=== PATIENT | female | born 1950 | race Caucasian/White ===

== ENCOUNTER 2018-05-16 17:06 | Outpatient (REF) | payer MEDICARE, OTHER, SELFPAY ==
[2018-05-18 12:07] LABS: Hepatitis C Ab w Rflx HCV PCR Negative (NEGAT)
== END 2018-05-16 17:26 ==
LOC: NCHCN 17:06
PROVIDERS: Visit Provider Nurse Practitioner Family
DX: G47.33 Obstructive sleep apnea (adult) (pediatric) (principal); Z01.84 Encounter for antibody response examination
CPT/HCPCS: 86803

== ENCOUNTER 2018-07-16 08:47 | Emergency (ER) | payer MEDICARE, OTHER, SELFPAY ==
[2018-07-16 08:51] VITALS: BP 127/76; RESP 14; TEMP 36.7; O2SAT 98
--- NOTE | 2018-07-16 09:54 | ED.GENADUL_ITS ---
Discharge Plan Disposition Patient Disposition: HOME Condition: Good Discharge Details Chief Complaint: GenMedical Clinical Impression: Sinusitis Primary Care Provider: Dottie Lala ED Provider: Damien Redd Home Meds and New Rx's Prescriptions: New amoxicillin 500 mg capsule 500 mg PO BID Qty: 20 RF: 0 No Action amlodipine 5 MG tablet 5 mg PO DAILY RF: 0 levothyroxine [Synthroid] 50 MCG tablet 50 mcg PO QAM RF: 0 multivitamin 1 EACH capsule 1 tab PO QPM RF: 0 calcium carb,cit-mag cit,glycn [LoCalnesium] 1 EACH tablet 1 ea PO DAILY RF: 0 Discharge Instructions Instructions: Sinusitis (ED) Referrals: [facility] Emergency Dept. [Outside] - Return if symptoms worsen Medical Decision Making We discussed strep and sinusitis and antibiotic stewardship. I believe antibiotics should be considered with worsening ear pressure and pain to include right face over three weeks. She will hold on the antibiotics for a couple days and try nasal irrigation and Claritin to see if she can get the right ear to drain. If not she will start the antibiotics. Advised to return if symptoms worsen. HPI General Date/Time Provider Initiated Documentation: 07/16/18 09:18 . Limitations to Documentation: no limitations . Information obtained by: patient . History of Present Illness 67 year old F presents to the emergency department with the chief complaint of ear pain , HPI Narrative: 67 y/o female here with c/o right ear and face pain. Cold symptoms started three weeks ago. She had negative rapid strep at her PCP office one week ago. Strep was done for spots on back of throat. She has been treating with ibuprofen and Neti pot. The spots are back and the right ear pain has gotten much worse over the last few days and now radiates into down the face. Denies fever and chills. Related Data Home Medications Medication Instructions Recorded Confirmed levothyroxine [Synthroid] 50 mcg PO QAM 03/24/14 07/16/18 multivitamin 1 tab PO QPM 03/24/14 07/16/18 amlodipine 5 mg PO DAILY tab-cap 07/05/17 07/16/18 calcium carb,cit-mag cit,glycn 1 ea PO DAILY 07/13/17 07/16/18 [LoCalnesium] amoxicillin 500 mg PO BID #20 cap 07/16/18 Previous Rx's Medication Instructions Recorded amoxicillin 500 mg PO BID #20 cap 07/16/18 Allergies Allergy/AdvReac Type Severity Reaction Status Date / Time No Known Allergies Allergy Unverified 02/24/18 19:32 General Stated Complaint: GenMedical ANUP: 4 Review of Systems Eyes Reports system reviewed and no additional complaints, except as docu ENT Reports otalgia, Reports facial pain and Reports mouth lesions Cardiovascular Reports system reviewed and no additional complaints, except as docu Respiratory Reports system reviewed and no additional complaints, except as docu Gastrointestinal Reports system reviewed and no additional complaints, except as docu Genitourinary Reports system reviewed and no additional complaints, except as docu Allergic/Immunologic Reports system reviewed and no additional complaints, except as docu PFSH Medical History HTN (hypertension) Hypothyroidism Social History Smoking/Tobacco Use Status: Never Surgical History Colonoscopy - MAC (07/19/17) Tubal Ligation, Laparoscopic Exam Const General: cooperative, healthy appearing, comfortable and no acute distress Nutritional Appearance: thin Orientation: alert, awake and oriented x3 HENMT Head: atraumatic Ears: hearing grossly normal bilaterally, external ears normal, TM normal on the left and TM abnormal bulging on the right and with loss of landmarks on the right General nose exam: external nose normal Face and sinus: sinuses nontender, face symmetric and tenderness on the right mandible Mouth: oral mucosae normal Teeth and gingiva: dentition normal Throat: posterior oropharynx normal Eyes General: appearance normal, both eyes and all related structures Neck Neck: normal visual inspection, full ROM and no lymphadenopathy Resp Effort & Inspection: normal respiratory effort and able to speak in complete sentences Auscultation: clear to auscultation bilaterally Cardio Rate: regular rate Rhythm: regular rhythm Skin General skin exam: no rashes or lesions noted Neuro General: alert and gait normal Extrem General: full ROM and normal capillary refill Psych Appearance: grossly normal Speech and Movement: speech and movement normal Course Vital Signs Temperature 36.7 C 07/16/18 08:51 Respiratory Rate 14 07/16/18 08:51 Blood Pressure 127/76 07/16/18 08:51 Pulse Oximetry 98 07/16/18 08:51 Temperature 36.7 C 07/16/18 08:51 Temperature Source Temporal Artery Scan 07/16/18 08:51 Respiratory Rate 14 07/16/18 08:51 Blood Pressure 127/76 07/16/18 08:51 Blood Pressure Position Sitting 07/16/18 08:51 Pulse Oximetry 98 07/16/18 08:51 Oxygen Delivery Method Room Air 07/16/18 08:51 Oxygen Flow Rate 0 07/16/18 08:51 Pain Level 5 07/16/18 08:51
== END 2018-07-16 09:59 | disposition home or self-care (01) ==
LOC: ER 10:03
PROVIDERS: Emergency Provider Nurse Practitioner Family; PCP Nurse Practitioner Family
DX: J01.90 Acute sinusitis, unspecified (principal); I10 Essential (primary) hypertension
CPT/HCPCS: 99283

== ENCOUNTER 2018-09-05 10:23 | Outpatient (REF) | payer MEDICARE, OTHER, SELFPAY ==
[2018-09-05 12:47] LABS: CREATININE 0.78 mg/dL (0.55-1.02); TSH (W/Ref FT4) 0.59 uIU/mL (0.358-3.74)
== END 2018-09-05 10:43 ==
LOC: NCHCN 10:23
PROVIDERS: PCP Nurse Practitioner Family; Visit Provider Nurse Practitioner
DX: E03.9 Hypothyroidism, unspecified (principal); M25.562 Pain in left knee; R91.1 Solitary pulmonary nodule
CPT/HCPCS: 82565; 84443

== ENCOUNTER 2018-09-16 00:17 | Outpatient (CLI) | payer MEDICARE, OTHER, SELFPAY ==
--- NOTE | 2018-09-16 09:06 | DI.CT_ITS ---
SYMPTOMS/DIAGNOSIS: PULMONARY NODULE, LEFT LOWER LOBE, R91.1 CT SCAN OF THE CHEST: CT scan of the chest was performed following the uneventful administration of intravenous contrast material. Comparison CT abdomen and pelvis is 02/24/18. The thoracic aorta is intact. The heart size is within normal limits. No significant pericardial effusion is seen. Mild coronary artery calcifications are present. There are surgical clips seen in the mediastinum. No pleural effusion or pneumothorax is identified. No significant thoracic adenopathy is appreciated. The 4 mm nodule in the lateral aspect of the left lower lobe appears stable. There is a calcified nodule seen in the left lower lobe medially. No other pulmonary nodules are appreciated. No infiltrates are seen. The tracheobronchial tree is unremarkable. Dependent atelectatic changes are seen in the lung bases. Upper abdominal images show no acute abnormality. Age- appropriate degenerative changes are seen in the spine. IMPRESSION: Stable 4 mm left lower lobe pulmonary nodule. Depending on patient history, follow-up CT scan of the chest in six to 12 months is recommended to document stability of the nodule.
[2018-09-16] MEDS: Omnipaque 350 MG/ML 100 ML BTL IJ (09:07)
== END 2018-09-16 00:37 ==
PROVIDERS: PCP Nurse Practitioner Family; Visit Provider Nurse Practitioner
DX: R91.1 Solitary pulmonary nodule (principal)
CPT/HCPCS: 71260; J3490

== ENCOUNTER 2018-09-26 14:30 | Outpatient (CLI) | payer MEDICARE, OTHER, SELFPAY ==
--- NOTE | 2018-09-26 14:50 | DI.RAD_ITS ---
SYMPTOM/DIAGNOSIS: LT KNEE PAIN LEFT KNEE: There is mild spurring at the medial femoral condyle, medial tibial plateau and patella. No joint effusion is seen. IMPRESSION: Mild degenerative changes.
== END 2018-09-26 14:50 ==
PROVIDERS: PCP Nurse Practitioner Family; Referring Provider Nurse Practitioner Family; Visit Provider Student in an Organized Health Care Education/Training Program
DX: M25.562 Pain in left knee (principal); M17.11 Unilateral primary osteoarthritis, right knee; M22.92 Unspecified disorder of patella, left knee
CPT/HCPCS: 73562; 99202; 99214

== ENCOUNTER 2018-11-07 09:58 | Outpatient (CLI) | payer MEDICARE, OTHER, SELFPAY ==
--- NOTE | 2018-11-07 09:29 | DI.RAD_ITS ---
SYMPTOMS/DIAGNOSIS: RT FOOT PAIN, CONTINUED LT PATELLA PAIN RIGHT FOOT: Three views. No priors for comparison. No acute fracture or dislocation is identified. No suspicious lytic or sclerotic lesions are seen. Minimal degenerative changes are seen in the foot. The soft tissues are unremarkable. MERCHANT VIEW OF THE KNEES: Single merchant view of the knees were obtained. Alignment appears anatomic. No gross osseous abnormality or soft tissue abnormality is appreciated.
== END 2018-11-07 10:18 ==
PROVIDERS: PCP Nurse Practitioner Family; Referring Provider Nurse Practitioner Family; Visit Provider Student in an Organized Health Care Education/Training Program
DX: M25.562 Pain in left knee (principal); M79.671 Pain in right foot; M19.071 Primary osteoarthritis, right ankle and foot; M67.431 Ganglion, right wrist; I10 Essential (primary) hypertension
CPT/HCPCS: 73565; 99213; 73630

== ENCOUNTER 2019-03-30 10:34 | Outpatient (REF) | payer MEDICARE, OTHER, SELFPAY ==
[2019-03-30 21:18] LABS: Hemoglobin A1C 5.3 % (4.5-6.2)
[2019-03-30 21:25] LABS: Calculated LDL 140 mg/dL; Cholesterol 232 mg/dL (50-200); HDL Cholesterol 78 mg/dL (40-60); TSH (W/Ref FT4) 0.92 uIU/mL (0.36-3.74); Triglyceride 71 mg/dL (30-150)
== END 2019-03-30 10:54 ==
LOC: NCHCN 10:34
PROVIDERS: PCP Nurse Practitioner Family; Visit Provider Nurse Practitioner Family
DX: E03.9 Hypothyroidism, unspecified (principal); R73.01 Impaired fasting glucose; E78.5 Hyperlipidemia, unspecified; G47.62 Sleep related leg cramps; M19.049 Primary osteoarthritis, unspecified hand
CPT/HCPCS: 80061; 83721; 83036; 84443

== ENCOUNTER 2019-04-20 00:37 | Outpatient (CLI) | payer MEDICARE, OTHER, SELFPAY ==
--- NOTE | 2019-04-20 09:57 | DI.MAMMO_ITS ---
SYMPTOM/DIAGNOSIS: SCREENING, Z12.39 MAMMOGRAMS: Mammograms were interpreted according to the usual protocol including computer analysis with CAD system, tomosynthesis and C view imaging. Comparison is made with prior examinations. Breast density, Category C. No suspicious masses or microcalcifications are seen. There is no definite evidence of malignancy. IMPRESSION: Negative mammogram. Routine screening is recommended. Category 1. MQSA ASSESSMENT OF FINDINGS: Negative. Category 1. Patient will receive a letter notifying them of these results. Bi-RADS category C. The breasts are heterogeneously dense, which may obscure small masses.
== END 2019-04-20 00:57 ==
PROVIDERS: PCP Nurse Practitioner Family; Visit Provider Nurse Practitioner Family
DX: Z12.31 Encounter for screening mammogram for malignant neoplasm of breast (principal)
CPT/HCPCS: 77063; 77067

== ENCOUNTER 2019-10-02 11:29 | Outpatient (REF) | payer MEDICARE, OTHER, SELFPAY ==
[2019-10-02 21:04] LABS: CREATININE 0.67 mg/dL (0.55-1.02)
== END 2019-10-02 11:49 ==
LOC: NCHCN 11:29
PROVIDERS: PCP Nurse Practitioner Family; Visit Provider Nurse Practitioner Family
DX: R73.01 Impaired fasting glucose (principal); E78.5 Hyperlipidemia, unspecified; N39.3 Stress incontinence (female) (male); E03.9 Hypothyroidism, unspecified; G47.62 Sleep related leg cramps; M19.049 Primary osteoarthritis, unspecified hand; G47.33 Obstructive sleep apnea (adult) (pediatric); R91.1 Solitary pulmonary nodule
CPT/HCPCS: 82565

== ENCOUNTER 2019-10-10 02:05 | Outpatient (CLI) | payer MEDICARE, OTHER, SELFPAY ==
--- NOTE | 2019-10-10 08:00 | DI.CT_ITS ---
EXAM: CT CHEST WO CLINICAL HISTORY: PULMONARY NODULE LT LOWER LOBE, R91.1. TECHNIQUE: Imaging protocol: Axial computed tomography images were obtained and coronal and sagittal reformatted images were created and reviewed. FINDINGS: Tracheobronchial tree: Patent where visualized. Mediastinum and Radha: No dominant adenopathy or fluid collection. Pulmonary parenchyma: There is a stable 4 millimeter pulmonary nodule in the lateral aspect of the le ft lower lobe. There is a stable calcified granuloma in the medial aspect of the left lower lobe. N o new pulmonary nodules are seen. There are no focal consolidating infiltrates. No architectural di stortion. Pleura: No effusion or pneumothorax. Heart: The heart is not dilated. Mild coronary artery calcification is present. No pericardial effus ion is present. Aorta: Thoracic aorta non-dilated. Mild atherosclerosis. Upper abdomen: Unremarkable. Lymph nodes: Within normal limits. Bones:Mild degenerative changes. IMPRESSION: Stable left lower lobe pulmonary nodule. DATA REPOSITORY: All CT scans at this facility are submitted to the National Radiology Data Registry (NRDR) Dose Index Registry (DIR) with the [employer] (ACR). RADIATION OPTIMIZATION: All CT scans at this facility use at least one of these dose optimization te chniques: automated exposure control; mA and/or kV adjustment per patient size (includes targeted exa ms where dose is matched to clinical indication); or iterative reconstruction.
== END 2019-10-10 02:25 ==
PROVIDERS: PCP Nurse Practitioner Family; Visit Provider Nurse Practitioner Family
DX: R91.1 Solitary pulmonary nodule (principal)
CPT/HCPCS: 71250

== ENCOUNTER → 2020-02-19 08:10 | Outpatient (BNVA) | payer MEDICARE, OTHER, SELFPAY | PROVIDERS: PCP Nurse Practitioner Family; Referring Provider Nurse Practitioner Family; Visit Provider Student in an Organized Health Care Education/Training Program | DX: M25.562 Pain in left knee (principal); M23.92 Unspecified internal derangement of left knee; I10 Essential (primary) hypertension | CPT/HCPCS: 20610; 99213; J1040 ==

== ENCOUNTER 2020-05-01 20:59 | Outpatient (REF) | payer MEDICARE, OTHER, SELFPAY ==
[2020-05-01 21:13] LABS: TSH 0.85 uIU/mL (0.36-3.74)
== END 2020-05-01 21:19 ==
LOC: NCHCN 20:59
PROVIDERS: PCP Nurse Practitioner Family
DX: E03.9 Hypothyroidism, unspecified (principal)
CPT/HCPCS: 84443

== ENCOUNTER 2020-05-16 02:08 | Outpatient (CLI) | payer MEDICARE, OTHER, SELFPAY ==
--- NOTE | 2020-05-16 12:15 | DI.MAMMO_ITS ---
EXAM: MG MAMMO SCREENING CLINICAL HISTORY: SCREENING,Z12.39 TECHNIQUE: Bilateral full field digital CC and MLO mammographic images were obtained with 3D tomosyn thesis and utilizing computer aided detection (CAD). COMPARISON: Available for comparison. FINDINGS: Masses/Architectural Distortion: None seen. Microcalcifications: No suspicious pleomorphic-type are seen. Skin Thickening/Nipple Retraction: None. IMPRESSION: 1. No significant interval change with no specific features of malignancy noted. 2. Unless there is more urgent need, screening mammography is recommended, as per [employer] guidelines. BI-RADS Category 1 - Negative Breast Density - Category C - Heterogeneously dense The mammogram demonstrates the patient's breast tissue is dense. Dense breast tissue is very common a nd is not abnormal but dense breast tissue can make it harder to find cancer on a mammogram. Also, de nse breast tissue may increase their breast cancer risk. This information about the result [facility] report was provided to the patient to raise their awareness. Use this report when you speak wi th the patient about their risks for breast cancer, which includes their family history. At that time , you may recommend for more screening tests (Ultrasound or MRI) as they might be useful based on the ir risk. A negative radiographic report should not delay biopsy if a dominant or clinically suspicious mass is present. Up to ten percent of cancers are not identified on mammography. A negative report may reinforce clinical impression. Adenosis and dense breasts may obscure an underlying neoplasm. False positive reports average 6 to 10%. Patient will receive a letter notifying them of these results.
== END 2020-05-16 02:28 ==
PROVIDERS: PCP Nurse Practitioner Family
DX: Z12.31 Encounter for screening mammogram for malignant neoplasm of breast (principal)
CPT/HCPCS: 77063; 77067

== ENCOUNTER → 2020-06-14 08:09 | Outpatient (BNVA) | payer MEDICARE, OTHER, SELFPAY | PROVIDERS: PCP Nurse Practitioner Family; Referring Provider Nurse Practitioner Family; Visit Provider Student in an Organized Health Care Education/Training Program | DX: M23.92 Unspecified internal derangement of left knee (principal); I10 Essential (primary) hypertension; Z98.890 Other specified postprocedural states | CPT/HCPCS: 20610; 99213; J1040 ==

== ENCOUNTER 2020-07-04 12:24 | Outpatient (REF) | payer MEDICARE, OTHER, SELFPAY ==
[2020-07-04 21:31] LABS: HCT 40.7 % (36.0-46.0); HGB 13.2 g/dL (11.2-15.7); MCH 29.6 pg (27.0-33.0); MCHC 32.4 % (32.0-36.0); MCV 91.3 fL (80-95); MPV 9.9 fL (8.0-11.0); Platelet Count 332 10^3/uL (130-400); RBC 4.46 10^6/uL (3.93-5.22); RDW 12.5 % (11.7-14.6); RDW-SD 41.6 fL; WBC 7.61 10^3/uL (4.4-10.8)
[2020-07-04 21:39] LABS: ALT 24 U/L (14-59); AST 22 U/L (15-37); Albumin 4.3 g/dL (3.4-5.0); Alkaline Phosphatase 98 U/L (46-116); Anion Gap 7.8 mmol/L (3-11); BUN 11 mg/dL (7-18); Bilirubin, Total 0.6 mg/dL (0.2-1.0); CO2 30.2 mmol/L (21.0-32.0); CREATININE 0.73 mg/dL (0.55-1.02); Calcium 9.4 mg/dL (8.5-10.1); Chloride 100 mmol/L (98-107); Glucose 97 mg/dL (74-106); Lipase 132 U/L (73-393); Potassium 3.9 mmol/L (3.5-5.1); Sodium 138 mmol/L (136-145); Total Protein 7.4 g/dL (6.4-8.2)
== END 2020-07-04 12:44 ==
LOC: NCHCN 12:24
PROVIDERS: PCP Nurse Practitioner Family; Visit Provider Family Medicine
DX: R10.13 Epigastric pain (principal)
CPT/HCPCS: 80053; 83690; 85027

== ENCOUNTER 2020-07-19 02:21 | Outpatient (CLI) | payer MEDICARE, OTHER, SELFPAY ==
--- NOTE | 2020-07-19 | DI.US_ITS ---
EXAM: US ABDOMEN INDICATION: EPIGASTRIC PAIN, R10.13 COMPARISON: US LEFT BREAST ULTRASOUND {[id number]} from 12/18/2015 TECHNIQUE: Ultrasound abdomen performed using standard protocol FINDINGS: Abdominal ultrasound was performed according to the usual protocol. The liver is normal in size and shape. No focal hepatic lesion seen. There is no evidence of cholelithiasis or biliary dilatation. No gallbladder wall thickening or peric holecystic fluid collection. Pancreas appears intact as visualized. Spleen is unremarkable in appearance except for an incidental calcification, nonspecific.. Kidneys are normal in size and shape. No renal mass, hydronephrosis, or nephrolithiasis. Abdominal aorta and IVC are of normal diameter. IMPRESSION: Negative abdominal ultrasound .
--- NOTE | 2020-07-19 08:00 | DI.NM_ITS ---
EXAM: NM HEPATOBILIARY SCAN GRP CLINICAL HISTORY: EPIGASTRIC PAIN, R10.13. COMPARISON: No exams were available for comparison EXAMINATION: Hepatobiliary scan was performed with intravenous infusion of 5.0 millicuries of techne tium 99 labeled mebrofenin. FINDINGS: Following intravenous infusion of radiopharmaceutical, there was prompt homogeneous hepatic uptake. There is prompt uptake in the gallbladder, bile ducts, and small intestine. IMPRESSION: Negative hepatobiliary scan. No evidence of acute cholecystitis.
== END 2020-07-19 02:41 ==
PROVIDERS: PCP Nurse Practitioner Family; Visit Provider Family Medicine
DX: R10.13 Epigastric pain (principal)
CPT/HCPCS: 78227; 76700

== ENCOUNTER 2020-09-19 01:20 | Outpatient (CLI) | payer MEDICARE, SELFPAY ==
--- NOTE | 2020-09-19 13:20 | DI.RAD_ITS ---
EXAM: XR LUMBAR SPINE COMPLETE CLINICAL HISTORY: LOW BACK PAIN, M54.5,PIRIFORMIS MUSCLE SPASM,LT M62.838. TECHNIQUE: 2D digital imaging was performed. COMPARISON: No exams were available for comparison FINDINGS: There is no evidence of fracture or listhesis. No pars defects. There is moderate disc space narrow ing at L2-3 level. Other disc spaces maintain normal height. Mild facet degenerative change. No om inous osseous lesions. Sacroiliac joints are age appropriate. Mild scoliosis convex left. IMPRESSION: Degenerative disc disease L2-3 level. DATA REPOSITORY: RADIATION DOSE DELIVERED:
== END 2020-09-19 01:40 ==
PROVIDERS: PCP Nurse Practitioner Family
DX: M47.816 Spondylosis without myelopathy or radiculopathy, lumbar region (principal)
CPT/HCPCS: 72110

== ENCOUNTER → 2020-10-28 09:58 | Outpatient (BNVA) | payer MEDICARE, SELFPAY | PROVIDERS: PCP Nurse Practitioner Family; Referring Provider Nurse Practitioner Family; Visit Provider Student in an Organized Health Care Education/Training Program | DX: M23.92 Unspecified internal derangement of left knee (principal); M70.52 Other bursitis of knee, left knee; M70.62 Trochanteric bursitis, left hip | CPT/HCPCS: 20610; J1030 ==

== ENCOUNTER 2021-01-17 01:42 | Outpatient (CLI) | payer MEDICARE, SELFPAY ==
--- NOTE | 2021-01-30 10:24 | W.CARDEVENT ---
Date of service: 01/30/21 Time of Service: 10:24 Cardiac Event Recorder Referring Provider:: Vijaya Indications:: Arrhythmia Cardiac Event Note: There is a 30-day monitor with indication of arrhythmia. ?The patient was in normal sinus rhythm for the majority the recording with an average heart rate of 78 bpm. ?There were 0 critical and 0 serious events. There were 5 manually detected events all associated with sinus rhythm. ?There are no episodes of ventricular tachycardia, no pauses greater than 3 seconds and no evidence of high degree heart block. There were no episodes of atrial fibrillation.
== END 2021-01-17 01:43 | disposition home or self-care (01) ==
PROVIDERS: PCP Nurse Practitioner Family
DX: I49.9 Cardiac arrhythmia, unspecified (principal)
CPT/HCPCS: 93270

== ENCOUNTER 2021-02-12 09:21 | Outpatient (REF) | payer MEDICARE, SELFPAY ==
[2021-02-12 13:23] LABS: TSH (W/Ref FT4) 0.77 uIU/mL (0.36-3.74)
== END 2021-02-12 09:22 | disposition home or self-care (01) ==
LOC: NCHCN 09:21
PROVIDERS: PCP Nurse Practitioner Family
DX: E03.9 Hypothyroidism, unspecified (principal)
CPT/HCPCS: 84443

== ENCOUNTER 2021-07-29 17:09 | Outpatient (REF) | payer MEDICARE, SELFPAY ==
[2021-07-30 14:25] LABS: COVID-19 RT-PCR UVMMC Result Negative (Negative)
== END 2021-07-29 17:10 | disposition home or self-care (01) ==
LOC: NCHCN 17:09
PROVIDERS: PCP Nurse Practitioner Family; Visit Provider Nurse Practitioner Family
DX: Z20.822 Contact with and (suspected) exposure to COVID-19 (principal)
CPT/HCPCS: U0003; U0005

== ENCOUNTER 2021-08-04 20:05 | Outpatient (REF) | payer MEDICARE, SELFPAY ==
[2021-08-05 02:31] LABS: COVID-19 RT-PCR UVMMC Result Negative (Negative)
== END 2021-08-04 20:06 | disposition home or self-care (01) ==
LOC: NCHCN 20:05
PROVIDERS: PCP Nurse Practitioner Family; Visit Provider Nurse Practitioner Family
DX: Z20.822 Contact with and (suspected) exposure to COVID-19 (principal)
CPT/HCPCS: U0003; U0005

== ENCOUNTER 2022-01-28 20:56 | Outpatient (REF) | payer MEDICARE, SELFPAY ==
[2022-01-28 21:40] LABS: TSH (W/Ref FT4) 0.79 uIU/mL (0.36-3.74)
== END 2022-01-28 20:57 | disposition home or self-care (01) ==
LOC: NCHCN 20:56
PROVIDERS: PCP Nurse Practitioner Family; Visit Provider Family Medicine
DX: E03.9 Hypothyroidism, unspecified (principal)
CPT/HCPCS: 84443

== ENCOUNTER 2022-02-09 09:48 | Outpatient (CLI) | payer MEDICARE, SELFPAY ==
--- NOTE | 2022-02-09 09:45 | DI.RAD_ITS ---
Exam(s) XR HAND RT COMPLETE EXAM: XR HAND RT COMPLETE CLINICAL HISTORY: right thumb pain. TECHNIQUE: 2D digital imaging was performed of the right hand. Three images were obtained. AP, late ral and oblique views were obtained. COMPARISON: No exams were available for comparison FINDINGS: BONES: No acute fracture is present. No bony destructive lesion is seen. JOINTS: No dislocation present. Moderately severe degenerative changes are seen in the right hand wit h joint space narrowing and periarticular spurring present. The findings are most marked at the inte rphalangeal joints of the middle and 5th fingers and the 1st CMC joint. SOFT TISSUE: Normal. IMPRESSION: Moderately severe degenerative changes of the right hand. DATA REPOSITORY: RADIATION DOSE DELIVERED:
== END 2022-02-09 09:49 | disposition home or self-care (01) ==
LOC: DIORS 09:48
PROVIDERS: PCP Nurse Practitioner Family; Referring Provider Nurse Practitioner Family; Visit Provider Physician Assistant
DX: M79.644 Pain in right finger(s) (principal)
CPT/HCPCS: 99213; 73130

== ENCOUNTER → 2022-06-18 10:38 | Outpatient (BNVA) | payer MEDICARE, SELFPAY | PROVIDERS: PCP Nurse Practitioner Family; Referring Provider Nurse Practitioner Family; Visit Provider Student in an Organized Health Care Education/Training Program | DX: M18.11 Unilateral primary osteoarthritis of first carpometacarpal joint, right hand (principal); M23.92 Unspecified internal derangement of left knee | CPT/HCPCS: 20600; 20610; J1030; J1040 ==

== ENCOUNTER → 2022-09-04 08:50 | Outpatient (BNVA) | payer MEDICARE, SELFPAY | PROVIDERS: PCP Nurse Practitioner Family; Referring Provider Nurse Practitioner Family; Visit Provider Student in an Organized Health Care Education/Training Program | DX: M18.11 Unilateral primary osteoarthritis of first carpometacarpal joint, right hand (principal) | CPT/HCPCS: 99212 ==

== ENCOUNTER 2022-09-08 10:22 | Day surgery (SDC) | payer MEDICARE, SELFPAY ==
[2022-09-08] VITALS (8 sets, daily range): BP systolic 119–150; BP diastolic 61–97; PULSE 66–98; RESP 12–18; TEMP 36.5–37.6; O2SAT 94–100; BMI 18.8
--- NOTE | 2022-09-08 09:26 | PDOC.DSDIS_ITS ---
Date of service: 09/08/22 Time of Service: 12:37 Discharge Plan Disposition Patient Disposition: Home Condition: Good Discharge Details Reason For Visit: Right thumb CMC DJD Attending Provider: Sánchez Diego Primary Care Provider: Dottie Lala Home Meds and New Rx's Prescriptions: New acetaminophen 500 mg tablet 500 mg PO Q6H PRN (Reason: pain) Qty: 60 2RF ibuprofen 600 mg tablet 600 mg PO TID PRN (Reason: pain) Qty: 60 0RF oxycodone 5 mg tablet 5 mg PO Q6H PRN (Reason: severe post-operative pain) Qty: 6 0RF Rx Instructions: Take one tablet up to every 6 hours as needed for severe pain Continued potassium 99 mg tablet 99 mg PO DAILY ascorbate calcium (vitamin C) 500 mg tablet 500 mg PO DAILY vitamin B complex [B Complex-Vitamin B12] Tablet 1 tab PO DAILY amlodipine 5 MG tablet 5 mg PO DAILY levothyroxine [Synthroid] 50 MCG tablet 50 mcg PO QAM multivitamin 1 EACH capsule 1 tab PO QPM LoCalnesium 1 EACH tablet 1 ea PO DAILY vitamin E 400 unit Tablet 400 unit PO DAILY No Action melatonin 10 mg Tablet 10 mg PO PRN PRN Discharge Instructions Additional Instructions: Thumb CMC Discharge Instructions Activity: You should keep the hand/thumb elevated as much as possible for the first few days. You may use the other fingers as tolerated but avoid trying to do too much too soon. You may perform light activities with the splint in place. Dressing/Cast: Your splint should stay in place at all times. Do NOT get it wet. You may loosen the AFIA wrap if you feel it is too tight and then rewrap more loosely. Medications: - You should take Tylenol and Ibuprofen for baseline pain control. - You have Oxycodone for breakthrough pain. - You may apply ice over the thumb. Follow-up: 10-14 days Referrals: Sánchez Diego MD [ [facility] STAFF PHYSICIAN] - Equipment/Supplies: Splint Activity:: Elevate Remove Dressings/Wound Care:: Do Not Remove Shower/Bathe:: Cover Diet:: As Tolerated Discharge Orders Discharge Orders: Discharge Order (Routine); Ordered 09/08/22 Ordered By: Dorota Mitchell
--- NOTE | 2022-09-08 11:21 | W.ANESPRE ---
General Info Date of Service Date Performed: 09/08/22 Height: 5 ft 8 in Weight: 56.245 kg Body Mass Index (BMI): 18.8 Surgical Procedure: Operation Date: 09/08/22 13:25 Proposed Procedure Side Surgeon p CMC Arthroplasty Thumb Right Sánchez Diego MD Meds Allergies and Home Medications Allergies Allergy/AdvReac Type Severity Reaction Status Date / Time No Known Allergies Allergy Unverified 09/08/22 11:04 Home Medication Medication Instructions Recorded levothyroxine 50 mcg tablet 50 mcg PO QAM 03/24/14 (Synthroid) multivitamin 1 tab PO QPM 03/24/14 amlodipine 5 mg tablet 5 mg PO DAILY 07/05/17 calcium carb,citrate 167 mg 1 ea PO DAILY 07/13/17 calcium-magnesium cit,glycin 83 mg tablet (LoCalnesium) ascorbate calcium (vitamin C) 500 500 mg PO DAILY 06/14/20 mg tablet potassium 99 mg tablet 99 mg PO DAILY 06/14/20 vitamin B complex (B 1 tab PO DAILY 06/14/20 Complex-Vitamin B12 tablet) vitamin E 400 unit tablet 400 unit PO DAILY 09/07/22 melatonin 10 mg tablet 10 mg PO PRN PRN 09/08/22 Current Visit Medications: Current Medications Generic Name Dose Route Start Last Admin Trade Name Freq PRN Reason Stop Dose Admin Acetaminophen 650 mg 09/08/22 09:25 Acetaminophen 325 Mg Tab PO Q4H PRN PRN Ringer's Solution 1,000 mls @ 80 mls/hr 09/08/22 06:00 IV 10/07/22 23:59 INFUSION MARLI Cefazolin Sodium/Dextrose 2 gm in 50 mls @ 100 mls/hr 09/08/22 06:00 Ancef Duplex IVPB 09/08/22 16:00 PREOP MARLI IV Miscellaneous Supplies 1 each 09/08/22 06:00 Iv Access IV 10/07/22 23:59 DIRECTED MARLI Oxycodone HCl 5 mg 09/08/22 09:25 Oxycodone 5 Mg Tab PO Q3H PRN PRN Pain Sodium Chloride 0 ml 09/08/22 06:00 Normal Saline Flush 10 Ml Syr IV 10/07/22 23:59 PRN PRN Sodium Chloride 0 ml 09/08/22 06:00 Normal Saline 10 Ml Vial IJ 10/07/22 23:59 DIRECTED PRN Sterile Water 0 ml 09/08/22 06:00 Water,Injection,Sterile 10 Ml Vial IJ 10/07/22 23:59 DIRECTED PRN PFSH Active Problems Active Problems: Problem Status Onset Code Pain of left patella M25.562 Right foot pain M79.671 Ganglion cyst of volar aspect of right wrist M67.431 Internal derangement of left knee M23.92 Pes anserinus bursitis of left knee M70.52 Trochanteric bursitis, left hip M70.62 Arthritis of carpometacarpal (CMC) joint of right thumb M18.11 Medical History Medical History COVID-19 covid positive 08/13 HTN (hypertension) Hypothyroidism PONV (postoperative nausea and vomiting) Medical History Comments:: pt reports ponv from previous surgeries Surgical History Surgical History Colonoscopy - MAC (07/19/17) Tubal Ligation, Laparoscopic Tobacco Smoking/Tobacco Use Status: Never Alcohol Alcohol Intake: current Substance Use Substance use: Never Substance use type: does not use Vital Signs and Lab Results Vital Signs Most Recent Vital Signs in EMR: Most Recent Vital Signs Temp Pulse Resp BP Pulse Ox 36.7 C 98 H 16 144/88 H 96 09/08/22 11:13 09/08/22 11:13 09/08/22 11:13 09/08/22 11:13 09/08/22 11:13 Lab Results Blood Type / Crossmatch: No Data to Display Complete Blood Count: No Data to Display Complete Metabolic Panel: No Data to Display Liver Function Panel: No Data to Display Coagulation Panel: No Data to Display Cardiac Panel: No Data to Display Arterial Blood Gas: No Data to Display Venous Blood Gas: No Data to Display Pancreas Panel: No Data to Display Thyroid Panel: No Data to Display Infectious Disease: No Data to Display Blood Cultures: No Data to Display Toxicology Panel: No Data to Display Anesthesia Assessment and Plan Anesthesia History Personal History: PONV Family History: No Family History of Anesthesia Complications Exercise Tolerance Exercise Tolerance: Metabolic Equivalents>4 Pertinent Negatives Pertinent Negatives: No Symptoms of GERD, No Major Cardiovascular Symptoms or Complaints, No Major Pulmonary Symptoms or Complaints and No History of CVA/TIA Cardiac & Pulmonary Exam Cardiac Exam: Normal S1/S2 Heart Sounds Pulmonary Exam: Clear Bilateral Breath Sounds Implantable Cardiac Device Does patient have a Pacemaker or an ICD?: No Airway Exam Known Difficult Airway: No Mallampati Class: 1 Mouth Opening: Normal (> 3cm) Thyromental Distance: Greater than 3 cm Neck Range of Motion: Full ROM Neck Circumference: Normal Teeth Condition: Normal Dentition ASA Classification ASA Score: ASA 2 Emergency Case?: No NPO Status NPO Status: NPO Clears >2 hours, Solids >8 hours Anesthesia Plan Resuscitation Status: Full Code Anesthesia Technique: General Anesthesia Airway Planned: LMA Monitors Used: Standard Monitors
[2022-09-08] MEDS: Lactated Ringers 1,000 ML 80 ML IV (11:41)
[2022-09-08] MEDS: ceFAZolin 2 GM/50 ML BAG IVPB (12:02)
[2022-09-08] MEDS: Bupivacaine 0.25% Pres-Free 10 ML VIAL (12:40)
--- NOTE | 2022-09-08 14:26 | W.ANESPOSTOP ---
Postoperative Evaluation Date, Time and Location Date Performed: 09/08/22 Time Performed: 14:26 Patient Location: Day Surgery Unit Vital Signs Most Recent Imported Vital Signs: Most Recent Vital Signs Temp Pulse Resp BP Pulse Ox 37.6 C H 70 16 150/67 H 97 09/08/22 13:30 09/08/22 13:30 09/08/22 13:30 09/08/22 13:30 09/08/22 13:30 Pain Score Most Recent Pain Score: Most Recent Pain Score Pain Level 0 09/08/22 13:30 Assessment Mental Status: Awake (Alert & Oriented to Patient Baseline) Airway and Respiratory Function: Patent airway with normal (patient baseline) respiratory exam Cardiovascular Function: Hemodynamically Stable Hydration Status: Adequately Hydrated Nausea & Vomiting: No Nausea or Vomiting Pain: Pt. Denies Any Pain Peripheral Nerve Block: Patient did not receive a nerve block
--- NOTE | 2022-09-08 15:16 | DI.RAD_ITS ---
Exam(s) XR HAND RT LIMITED EXAM: XR HAND RT LIMITED CLINICAL HISTORY: CMC JOINT ARTHRITIS. TECHNIQUE: 2D digital imaging was performed. COMPARISON: No exams were available for comparison FINDINGS: Fluoroscopy provided during orthopedic procedure on 1st carpometacarpal joint See procedure report for details. IMPRESSION: Total fluoroscopy time 2 seconds Radiation exposure index: Ka,r= 0.0069mGY DATA REPOSITORY: RADIATION DOSE DELIVERED:
--- NOTE | 2022-09-08 21:19 | W.PM.OP ---
Date of service: 09/08/22 Time of Service: 13:00 Operative Note Operative Note DATE OF PROCEDURE: 09/08/22 PRE-OP DIAGNOSIS: Right Thumb CMC Arthritis POST-OP DIAGNOSIS: same PROCEDURE: Right trapezial resection arthroplasty with suture suspensionplasty SURGEON: Sánchez Diego DOCUMENT CONTROLLER: Iftikhar Covarrubias ANESTHESIA TYPE: General LMA/ETT Refer to Anesthesia Record ESTIMATED BLOOD LOSS: 5 PATHOLOGY: none sent TOURNIQUET TIME: 29 COMPLICATIONS: None Patient was transported to: PACU Patient's condition: stable Indications: Nuris is a 72 year old female who has had symptoms of thumb CMC arthritis with pain and decreased mobility. Nonoperative treatment options had been trialed. Given their failure, I offered operative intervention. I reviewed the technical details. I reviewed the risk of the procedure to include bleeding, infection, pain, stiffness, instability, subsidence, damage to neighboring arteries, damage to the superficial radial nerve, and weakness. Despite these risks, the patient elected to proceed. Findings: There is notable arthrosis between the trapezium and the first metacarpal. There are large osteophytes around the entirety of the trapezium. Procedure Description: Nuris was greeted in the preoperative holding area. Name and surgical site were confirmed. The history and physical was completed. The consent was reviewed the patient and signed. Nuris was taken back to the operating room. The patient was placed and monitored anesthesia care. The right hand and forearm was then prepped with ChloraPrep and draped in a standard fashion after a nonsterile tourniquet was placed high up onto the arm. Prophylactic antibiotics in the form of cefazolin were administered. A timeout was performed for safe surgery. The surgical site was drawn on the skin overlying the dorsal radial border of the wrist. The planned surgical field was anesthetized with 0.25% bupivacaine with epinephrine. The limb was exsanguinated and the tourniquet was inflated where it stayed for 29 minutes. A 3 cm incision was made longitudinally over the radial wrist from the level of the radial styloid to just past the base of the first metacarpal. The skin was incised only. The deep tissue and subcutaneous fat was dissected with a tenotomy scissors trying to protect branches of the superficial radial nerve. Any branches that were identified were retracted out of the way. The first compartment extensor tendons were then identified. The interval between EPL and EPB was identified. The base of the first metacarpal was palpated. A needle was placed into the joint between the first metacarpal and the trapezium. A single x-ray was used to confirm appropriate positioning. The capsule of the trapezium was then incised. The radial border of the bone was identified. Soft tissues around trapezium were dissected bluntly to allow relaxation of vital arterial structures traversing the trapezium. This was used as a joystick. Using a [place] blade the capsule was elevated off the trapezium in a subperiosteal fashion. Once it appeared to have all the capsular attachments released, the tap was removed. The trapezium was then removed using a rongeur. The wound was inspected to make sure all portions of the trapezium were removed. X-ray was used to confirm appropriate removal of all bony fragments. The wound was then thoroughly irrigated. Using a 2-0 FiberWire then performed a suture suspension plasty. This was done by incorporating capsule and attachments of the APL at the base of the first metacarpal and creating a sling connected to the deep flexor carpi radialis tendon seen traversing deep within the wound towards the second metacarpal. This was done twice to create a crossing network of 2-0 suture. This was then tied overlying the base of the first metacarpal making sure not to over tighten and hourglass the tendons. This provided support to the first metacarpal to prevent any excessive subsidence. The tourniquet was then released. There is no significant bleeding. The capsule of the trapezium was then reapproximated with a 2-0 Vicryl. The skin was closed with a subcuticular, running Monocryl, reinforced with skin glue. The hand was dressed with 4 x 4's, web roll, Kerlex and AFIA wrap for a soft, thumb spica splint. All counts are correct. Nuris was transferred back to PACU in a stable condition.
== END 2022-09-08 15:25 | disposition home or self-care (01) ==
PROVIDERS: PCP Nurse Practitioner Family; Visit Provider Student in an Organized Health Care Education/Training Program
PROC: (CPT 25447; principal; 2022-09-08 13:15)
DX: M18.11 Unilateral primary osteoarthritis of first carpometacarpal joint, right hand (principal); E03.9 Hypothyroidism, unspecified; I10 Essential (primary) hypertension
CPT/HCPCS: 25447; 73120; J0690; J1100; J1885; J2405; J2704

== ENCOUNTER → 2022-09-21 10:07 | Outpatient (BNVA) | payer MEDICARE, SELFPAY | PROVIDERS: PCP Nurse Practitioner Family; Referring Provider Nurse Practitioner Family; Visit Provider Physician Assistant | DX: Z47.89 Encounter for other orthopedic aftercare (principal); M18.11 Unilateral primary osteoarthritis of first carpometacarpal joint, right hand ==

== ENCOUNTER → 2022-10-19 11:18 | Outpatient (BNVA) | payer MEDICARE, SELFPAY | PROVIDERS: PCP Nurse Practitioner Family; Referring Provider Nurse Practitioner Family; Visit Provider Physician Assistant | DX: Z47.89 Encounter for other orthopedic aftercare (principal); R20.0 Anesthesia of skin; R20.2 Paresthesia of skin ==

== ENCOUNTER 2022-11-16 01:39 | Outpatient (CLI) | payer MEDICARE, SELFPAY ==
--- NOTE | 2022-11-16 | DI.MAMMO_ITS ---
Exam(s) MAMMO SCREENING EXAM: MAMMO SCREENING CLINICAL HISTORY: SCREENING MAMMO Z12.31 TECHNIQUE: Mammograms were interpreted according to the usual protocol including computer analysis w s0cket CAD system, tomosynthesis and C-view imaging. COMPARISON: 2013 through 2019 FINDINGS: The breasts are composed of scattered fibroglandular densities, Breast Density category B. Left breast: No suspicious masses or suspicious microcalcifications are seen in the left breast.. No skin thickening or abnormal axillary lymph nodes are seen. There has been no significant change from prior exams. Right breast: Area of asymmetric density subareolar region right breast on the CC view. Spot adrianna marianne views and ultrasound recommended. No suspicious calcifications. No skin thickening or adenopat hy. IMPRESSION: BI-RADS Category 0 - Assessment Incomplete: Need additional imaging evaluation Breast Density - Category B, scattered fibroglandular densities. A negative radiographic report should not delay biopsy if a dominant or clinically suspicious mass is present. Up to ten percent of cancers are not identified on mammography. A negative report may reinforce clinical impression. Adenosis and dense breasts may obscure an underlying neoplasm. False positive reports average 6 to 10%. Patient will receive a letter notifying them of these results.
== END 2022-11-16 01:59 ==
LOC: DI 01:39
PROVIDERS: PCP Nurse Practitioner Family; Visit Provider Family Medicine
DX: Z12.31 Encounter for screening mammogram for malignant neoplasm of breast (principal); R92.8 Other abnormal and inconclusive findings on diagnostic imaging of breast
CPT/HCPCS: 77063; 77067

== ENCOUNTER 2022-11-24 01:24 | Outpatient (CLI) | payer MEDICARE, SELFPAY ==
--- NOTE | 2022-11-24 10:15 | DI.MAMMO_ITS ---
Exam(s) MAMMO SCREEN CALL BACK UNI EXAM: MAMMO SCREEN CALL BACK UNI CLINICAL HISTORY: ASYMMETRIC DENSITY SUBAREOLAR REGION, RT BREAST ON CC VIEW TECHNIQUE: Spot compression views with tomographic imaging were performed. COMPARISON: 2016 through recent exam of november 12 FINDINGS: Recent exam questioned asymmetric density in the subareolar region of the right breast. No suspicious masses or suspicious microcalcifications are seen. No persistent abnormality is seen on the additional views performed. The findings are consistent wit h overlying fibroglandular tissue. There has been no significant change from prior exams. IMPRESSION: BI-RADS Category 1, Negative Yearly screening mammography is recommended. Breast Density - Category B, scattered fibroglandular densities.
== END 2022-11-24 01:44 ==
LOC: DI 01:25
PROVIDERS: PCP Nurse Practitioner Family; Visit Provider Family Medicine
DX: Z12.31 Encounter for screening mammogram for malignant neoplasm of breast (principal); R92.8 Other abnormal and inconclusive findings on diagnostic imaging of breast; N64.59 Other signs and symptoms in breast
CPT/HCPCS: 77063; 77067

== ENCOUNTER → 2022-11-30 09:09 | Outpatient (BNVA) | payer MEDICARE, SELFPAY | PROVIDERS: PCP Nurse Practitioner Family; Referring Provider Nurse Practitioner Family; Visit Provider Student in an Organized Health Care Education/Training Program | DX: Z47.89 Encounter for other orthopedic aftercare (principal); M23.92 Unspecified internal derangement of left knee; R20.0 Anesthesia of skin | CPT/HCPCS: 20610; J1040 ==

== ENCOUNTER 2023-03-18 19:44 | Outpatient (REF) | payer MEDICARE, SELFPAY ==
[2023-03-18 20:23] LABS: Abs Immature Grans 0.02 10^3/uL (0.0-0.06); Absolute Basophil Count 0.12 10^3/uL (0.0-0.2); Absolute Lymphocyte Count 2.52 10^3/uL (1.2-3.4); Absolute Neutrophil Count 4.56 10^3/uL (1.2-6.7); Basophils % 1.5; Eosinophils % 2.5; HCT 39.1 % (36.0-46.0); HGB 13.2 g/dL (11.2-15.7); Immature Grans % 0.2; MCH 30.3 pg (27.0-33.0); MCHC 33.8 % (32.0-36.0); MCV 90 fL (80-95); MPV 10.2 fL (8.0-11.0); Monocytes % 8.6; Neutrophils % 56.2; Platelet Count 329 10^3/uL (130-400); RBC 4.36 10^6/uL (3.93-5.22); RDW-SD 42.5 fL; WBC 8.12 10^3/uL (4.4-10.8)
[2023-03-18 20:48] LABS: ALT 28 U/L (14-59); AST 28 U/L (15-37); Albumin 4.1 g/dL (3.4-5.0); Alkaline Phosphatase 102 U/L (46-116); Anion Gap 6.3 mmol/L (3-11); BUN 14 mg/dL (7-18); Bilirubin, Total 0.4 mg/dL (0.2-1.0); CO2 31.7 mmol/L (21.0-32.0); CREATININE 0.9 mg/dL (0.55-1.02); Calcium 9.1 mg/dL (8.5-10.1); Chloride 104 mmol/L (98-107); Estimated GFR 67.92 (mL/min/1.73m2); Glucose 96 mg/dL (74-106); Magnesium 2.3 mg/dL (1.8-2.4); Potassium 3.9 mmol/L (3.5-5.1); Sodium 142 mmol/L (136-145); TSH (W/Ref FT4) 0.94 uIU/mL (0.36-3.74); Total Protein 7.2 g/dL (6.4-8.2)
== END 2023-03-18 19:45 | disposition home or self-care (01) ==
LOC: NCHCN 19:44
PROVIDERS: PCP Nurse Practitioner Family; Visit Provider Family Medicine
DX: E03.9 Hypothyroidism, unspecified (principal); I10 Essential (primary) hypertension
CPT/HCPCS: 80053; 83735; 84443; 85025

== ENCOUNTER → 2023-06-24 11:18 | Outpatient (BNVA) | payer MEDICARE, SELFPAY | PROVIDERS: PCP Family Medicine; Referring Provider Family Medicine; Visit Provider Physical Therapy Assistant | DX: Z12.11 Encounter for screening for malignant neoplasm of colon (principal); Z86.010 Personal history of colon polyps ==

== ENCOUNTER → 2023-10-06 00:52 | Outpatient (CLI) | payer MEDICARE, SELFPAY ==
--- NOTE | 2023-10-06 08:21 | DI.RAD_ITS ---
Exam(s) XR FOOT LT COMPLETE EXAM: XR FOOT LT COMPLETE CLINICAL HISTORY: Lt foot pain,M79.672. TECHNIQUE: 2D digital imaging was performed of the left foot. Three images were obtained. AP, obli que and lateral views were obtained. COMPARISON: CR LEFT FOOT COMPLETE from 03/24/2014 FINDINGS: BONES: No acute fracture is present. No bony destructive lesion is seen. JOINTS: No dislocation present. There are moderately severe degenerative changes seen at the 1st MTP joint characterized by joint space narrowing and osteophytes. The findings have progressed since the prior examination. The joint spaces are otherwise well maintained. SOFT TISSUE: Normal. IMPRESSION: Moderately severe degenerative changes seen at the 1st MTP joint. DATA REPOSITORY: RADIATION DOSE DELIVERED:
--- NOTE | 2023-10-06 08:21 | DI.RAD_ITS ---
Exam(s) XR FOOT RT COMPLETE EXAM: XR FOOT RT COMPLETE CLINICAL HISTORY: Rt foot pain,M79.672. TECHNIQUE: 2D digital imaging was performed of the right foot. Three images were obtained. AP, obl ique and lateral views were obtained. COMPARISON: CR XR foot RT complete from 11/07/2018 FINDINGS: BONES: No acute fracture is present. No bony destructive lesion is seen. JOINTS: No dislocation present. There are mild degenerative changes seen in the foot particularly at the DIP joints of the toes in the 1st MTP joint and interphalangeal joint. SOFT TISSUE: Normal. IMPRESSION: Mild degenerative changes of the right foot. DATA REPOSITORY: RADIATION DOSE DELIVERED:
== END ==
PROVIDERS: PCP Family Medicine; Visit Provider Podiatrist
DX: M79.671 Pain in right foot (principal); M79.672 Pain in left foot
CPT/HCPCS: 73630

== ENCOUNTER → 2023-10-21 03:46 | Outpatient (CLI) | payer MEDICARE, SELFPAY ==
--- NOTE | 2023-10-21 | DI.DEXA_ITS ---
Exam(s) XR DEXA BONE DENSITY W/WO NORMAN EXAM: XR DEXA BONE DENSITY W/WO NORMAN CLINICAL HISTORY: OSTEOPOROSIS, M81.0, AGE RELATED W/O CURRENT PATHOLOGICAL FRACTURE TECHNIQUE: COMPARISON: DX DEXA BONE DENSITY WITH NORMAN from 12/10/2015 FINDINGS: Lateral Spine Image: Unremarkable. No compression deformities identified. Left hip: Total T-Score: -2.3. This compares to -1.3 on the prior examination. Total Z-Score: -0.6 T- and Z-scores: Findings are consistent with osteopenia. There is osteoporosis in the femoral neck with a T-score of -2.9. Lumbar Spine: Total T-Score: -2.8. This compares to -2.4 on the prior examination. Total Z-Score: -0.5 T- and Z-scores: Findings are consistent with osteoporosis. Note is made of osteoporosis in the left forearm with a total T-score of -4.3. IMPRESSION: Findings of osteoporosis in the lumbar spine, left forearm and left femoral neck.
== END ==
PROVIDERS: PCP Family Medicine; Visit Provider Family Medicine
DX: M81.0 Age-related osteoporosis without current pathological fracture (principal); Z13.820 Encounter for screening for osteoporosis
CPT/HCPCS: 77080

== ENCOUNTER 2023-11-01 13:21 | Outpatient (CLI) | payer MEDICARE, SELFPAY ==
--- NOTE | 2023-11-01 09:30 | DI.RAD_ITS ---
Exam(s) XR HAND LT COMPLETE EXAM: XR HAND LT COMPLETE CLINICAL HISTORY: LEFT THUMB PAIN. TECHNIQUE: 2D digital imaging was performed of the left hand. Three views were obtained. AP, later al and oblique views were obtained. COMPARISON: No exams were available for comparison FINDINGS: BONES: No acute fracture is present. No bony destructive lesion is seen. The bones are osteopenic. JOINTS: No dislocation present. Marked degenerative changes are present throughout the hand character ized by joint space narrowing and osteophytes. The findings are most marked at the interphalangeal j oints in the 1st CMC joint. There also mild degenerative changes seen at the interphalangeal joint o f the thumb. SOFT TISSUE: Normal. IMPRESSION: Marked arthrosis of the hand and thumb. DATA REPOSITORY: RADIATION DOSE DELIVERED:
== END 2023-11-01 13:22 | disposition home or self-care (01) ==
LOC: DIORS 13:21
PROVIDERS: PCP Family Medicine; Referring Provider Family Medicine; Visit Provider Student in an Organized Health Care Education/Training Program
DX: M19.042 Primary osteoarthritis, left hand; S64.32XA Injury of digital nerve of left thumb, initial encounter; X58.XXXA Exposure to other specified factors, initial encounter
CPT/HCPCS: 99213; 73130

== ENCOUNTER → 2023-11-19 00:33 | Outpatient (CLI) | payer MEDICARE, SELFPAY ==
--- NOTE | 2023-11-19 | DI.MAMMO_ITS ---
Exam(s) MAMMO SCREENING EXAM: MAMMO SCREENING CLINICAL HISTORY: SCREENING MAMMO FOR BREAST CANCER Z12.31 TECHNIQUE: Mammograms were interpreted according to the usual protocol including computer analysis w [employer] CAD system, tomosynthesis and C-view imaging. COMPARISON: 2013 through 2022 FINDINGS: The breasts are composed of scattered fibroglandular densities, Breast Density category B. No suspicious masses or suspicious microcalcifications are seen. No skin thickening or abnormal axillary lymph nodes are seen. There has been no significant change from prior exams. IMPRESSION: BI-RADS Category 1, Negative mammogram Yearly screening mammography is recommended. Breast Density - Category B, scattered fibroglandular densities. A negative radiographic report should not delay biopsy if a dominant or clinically suspicious mass is present. Up to ten percent of cancers are not identified on mammography. A negative report may reinforce clinical impression. Adenosis and dense breasts may obscure an underlying neoplasm. False positive reports average 6 to 10%. Patient will receive a letter notifying them of these results.
== END ==
PROVIDERS: PCP Family Medicine; Visit Provider Family Medicine
DX: Z12.31 Encounter for screening mammogram for malignant neoplasm of breast (principal)
CPT/HCPCS: 77063; 77067

== ENCOUNTER 2023-12-14 14:10 | Outpatient (REF) | payer MEDICARE, SELFPAY ==
[2023-12-14 14:34] LABS: HGB 13.8 g/dL (11.2-15.7); MCH 30.3 pg (27.0-33.0); MCHC 33.7 % (32.0-36.0); MCV 90 fL (80-95); Platelet Count 324 10^3/uL (130-400); RBC 4.55 10^6/uL (3.93-5.22); RDW 12.7 % (11.7-14.6); WBC 7.52 10^3/uL (4.4-10.8)
[2023-12-14 15:08] LABS: ALT 33 U/L (14-59); AST 29 U/L (15-37); Albumin 4.4 g/dL (3.4-5.0); Alkaline Phosphatase 107 U/L (46-116); Anion Gap 10.7 mmol/L (3-11); BUN 15 mg/dL (7-18); Bilirubin, Total 0.6 mg/dL (0.2-1.0); CO2 30.3 mmol/L (21.0-32.0); CREATININE 0.7 mg/dL (0.55-1.02); Calcium 9.8 mg/dL (8.5-10.1); Calculated LDL 123 mg/dL (<100); Chloride 102 mmol/L (98-107); Cholesterol 209 mg/dL (<200); Estimated GFR 91.26 (mL/min/1.73m2); Glucose 85 mg/dL (74-106); HDL Cholesterol 78 mg/dL (40-60); Potassium 4.2 mmol/L (3.5-5.1); Sodium 143 mmol/L (136-145); TSH (W/Ref FT4) 1.25 uIU/mL (0.36-3.74); Total Protein 7.4 g/dL (6.4-8.2); Triglyceride 44 mg/dL (<150)
[2023-12-14 15:22] LABS: Vitamin D 25 Total 46.9 ng/mL (30-100)
== END 2023-12-14 14:11 | disposition home or self-care (01) ==
LOC: NCHCN 14:10
PROVIDERS: PCP Family Medicine; Visit Provider Nurse Practitioner Family
DX: E03.9 Hypothyroidism, unspecified (principal); M81.0 Age-related osteoporosis without current pathological fracture; R55 Syncope and collapse
CPT/HCPCS: 80053; 80061; 82306; 85027; 84443

== ENCOUNTER 2024-05-08 15:11 | Emergency (ER) | payer MEDICARE, SELFPAY ==
[2024-05-08 15:13] VITALS: BP 147/71; PULSE 81; RESP 12; TEMP 36.6; O2SAT 96
--- NOTE | 2024-05-08 15:15 | DI.US_ITS ---
Exam(s) US LOWER EXTREMITY VENOUS RT EXAM: US LOWER EXTREMITY VENOUS RT CLINICAL HISTORY: eval for clot. TECHNIQUE: Lower extremity venous ultrasound performed using grayscale, color-flow, and spectral Do ppler analysis. COMPARISON: No exams were available for comparison FINDINGS: The common femoral, femoral and popliteal veins demonstrate normal compressibility, augmentation, and color Doppler. The posterior tibial veins are patent. No saphenous vein thrombosis or other superfi cial venous thrombosis is seen. Small Barahona's cyst measuring 3.1 x 0.4 x 2.5 cm. IMPRESSION: Small Barahona's cyst. No evidence of DVT. DATA REPOSITORY:
--- OUTSIDE RECORDS SUMMARY | 2024-05-08 15:32 | XMS_ITS ---
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 If you have left the hospital and have any questions, please contact your primary care physician. Reason For Referral No Data Found Plan of Treatment No Data Found Encounters Encounter Diagnosis Start Date Code Code Sys tem Anesthesia of skin 11/10/2023 [id number] SNOMED-CT Personal Care Team Section Performer Name Performer Role Active Date Inactive Da te
--- OUTSIDE RECORDS SUMMARY | 2024-05-08 15:33 | XMS_ITS | Clinical Summary ---
Author Organization [facility] [place] [address] Care Team Providers Care Packing Floor Worker Name Role Phone Lacy Barajas MD Primary Care Provider [phone] Allergies Active Allergy Reactions Criticality Noted Date Comments No Known Allergies Medications Medication Sig Dispensed Refills Start Date End Date Status multivitamin (THERAGRAN) tablet Take 1 tablet by mouth daily. Active levothyroxine (SYNTHROID) 50 mcg Tablet Daily. Active amLODIPine (NORVASC) 5 mg Tablet Daily. Active betamethasone dipropionate (Maxivate) 0.05 % Cream Apply thin layer topically to pruritus lower shins twice daily. 30 g 1 12/31/2023 Active hydrocortisone (ANUSOL-HC) 2.5 % cream with perineal applicator APPLY A SMALL AMOUNT TO AFFECTED AREA(S) ONE TO TWO TIMES DAILY 12/02/2023 Active rosuvastatin (Crestor) 5 mg tablet 04/03/2024 Active Active Problems Problem Noted Date Diagnosed Date Unsatisfactory cervical Papanicolaou smear 01/06 Overview (01/06/2018): 12/09/17 See econsult. Okay to repeat final pap in 5 years. Family history of ovarian cancer 12/09/2017 Overview (12/09/2017): Paternal cousin diagnosed age 35. 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 Actinic keratosis 01/07/2012 History of basal cell carcinoma 06/03/2011 History of squamous cell carcinoma 06/03/2011 Resolved Problems Problem Noted Date Diagnosed Date Resolved Date Osteopenia 10/19/2017 11/23/2017 Encounters Date Type Department Care Team Description 04/04/2024 3:15 PM EDT Office Visit Dermatology at [address] [address] Wilmar Saldana MD History of SCC (squamous cell carcinoma) of skin; History of basal cell carcinoma; AK (actinic keratosis) 04/04/2024 Travel from Last 3 Months Immunizations Name Administration Dates Next Due Influenza Unspecified Formulation 06/16/2017,,10/09/2015 Pneumococcal Conjugate (Prevnar 13) 11/27/2015 Pneumococcal Polysaccharide (Pneumovax 23) 01/12 TD Adult 09/13/2007 Tdap 08/19/2012 Zoster (Zostavax) LIVE 08/22/2013 Family History Medical History Relation Comments Lung Cancer Father smoker Heart Failure Maternal Grandmother Heart Failure Mother smoker, no histo ry of parental hip fracture Hypertension Mother Cerebrovascular Accident Paternal Aunt Dementia Paternal Aunt Ovarian Cancer Paternal Aunt survived this Ovarian Cancer Paternal Cousin 1 doing well now in her 60s Cervical Cancer Paternal Cousin 2 doing well pos t hyst in her 60s Lung Cancer Paternal Cousin 3 smoker Stomach Cancer Paternal Grandmother Cancer Paternal Uncle bone Cervical Cancer Sister 1 Liver Cancer Sister 1 smoker Breast Cancer Neg Hx Colorectal Cancer Neg Hx Kidney Disease Neg Hx Thyroid Disease Neg Hx Relation Status Comments Father (Age 50) Maternal Grandfather Maternal Grandmother Mother (Age 68) Paternal Aunt Paternal Cousin 1 Alive Paternal Cousin 2 Alive Paternal Cousin 3 (Age 59) Paternal Grandfather Paternal Grandmother (Age 85) Paternal Uncle Sister 1 (Age 51) Sister 2 Alive Social History Tobacco Use Types Packs/Day Years Used Date Smoking Tobacco: Former Cigarettes 0.1 6 Smokeless Tobacco: Never Comments:used to smoke socia lly Alcohol Use Standard Drinks/Week Comments Yes 1 (1 standard drink = 0.6 oz pur e alcohol) Sex and Gender Information Value Date Recorded Sex Assigned at Not on file Gender Identity Not on file Sexual Orientation Not on file Last Filed Vital Signs Vital Sign Reading Time Taken Comments Blood Pressure 131/71 12/09/2017 2:15 PM EDT Pulse 73 12/09/2017 1:33 PM EDT Temperature 36.7 ??C (98.1 ??F) 12/09/2017 1:33 PM ED T Respiratory Rate 18 12/09/2017 1:33 PM EDT Oxygen Saturation 98% 12/09/2017 1:33 PM EDT Inhaled Oxygen Concentration - - Weight 60.5 kg (133 lb 6.4 oz) 12/09/2017 1:33 P M EDT Height 174 cm (5' 8.5) 12/09/2017 1:33 PM EDT Body Mass Index 19.99 12/09/2017 1:33 PM EDT Plan of Treatment Upcoming Encounters Date Type Department Care Team (Late st Contact Info) Description 10/03/2024 10:00 AM EST Office Visit Dermatology at [place] [address] [place] [id number] Wilmar Saldana MD [address], [place] [address] Health Maintenance Due Date Last Done Comments CT Colonography 1950 FIT DNA 1950 FIT 1950 Sigmoidoscopy (10 year) with FIT yearly 1950 Sigmoidoscopy 1950 Breast Cancer Share Decision Needed 1990 Advance Directive 2005 Zoster vaccine (2 of 3) 10/17/2013 08/22/2013 Breast Cancer screening 12/28/2018 12/28/2016 Tetanus vaccine 08/19/2022 08/19/2012, 09/13/2007 Covid-19 Vaccine ( - 2022-2 4 season) 2024 Influenza (Flu) vaccine (1 o f 1 - Influenza standard series) 04/23/2024 06/16/2017, 05/06/2016, 10/09/2015 Colonoscopy 07/22/2027 07/22/2017 (See prior EHR) Colorectal Cancer Screening 07/22/2027 Bone Density Scan 11/22/2032 11/22/2017 Tdap adult Completed 08/19/2012 Pneumoccocal Vaccine: 65+ Completed 01/12/2017, 01/2016 Hepatitis C Screening Completed 11/22/2017 Lipid Screening Discontinued 11/22/2017 HPV test Discontinued 12/09/2017, 08/22/2013 PAP Smear Discontinued 12/09/2017, 08/22/2013 Procedures Procedure Name Priority Date/Time Associated Diagnosis Comments HPV Routine 12/09/2017 2:23 PM EDT RN ACCESS CYTOLOGY FINAL REPORT Routine 12/09/2017 2:23 PM EDT DXA CENTRAL SPINE, HIP, AND/OR WHOLE BODY (GENERIC) Routine 11/22/2017 1:14 PM EDT Osteopenia, unspecified location LIPID PANEL (REFLEX DIRECT LDL) Routine 11/22/2017 10:50 AM EDT Screening for cardiovascular condition HEPATITIS C ANTIBODY Routine 11/22/2017 10:50 AM EDT Encounter for HCV screening test for low risk patient EXTERNAL MAMMOGRAM RESULT Routine 12/28/2016 from Last 3 Months or Most Recently Relevant to Health Maintenance Results * HPV (12/09/2017 2:23 PM EDT) HPV16 NEGATIVE NEGATIVE [facility] HPV 18 NEGATIVE NEGATIVE [facility] HPV Other HR NEGATIVE NEGATIVE [facility] HPV Interpretation See Comment [facility] Comment: NEGATIVE for high-risk HPV *. * Testing negative for high risk HPV means that the specimen is negative for the following 14 types tested: ??types 16, 18, 31, 33, 35, 39, 45, 51, 52, 56, 58, 59, 66, and 68. ??The test is not intended to detect low risk HPV types. Dara Wesley HPV test Specimen: HPV Testing - Cytology Liquid Based Prep Cervical swab (specimen) 12/09/2017 2:23 PM EDT 12/09/2017 3:07 PM EDT Narrative Resulting Agency Comment Spec In Lab Vanesa Trinidad Renzo OCEANIC SCIENCES PROFESSOR PATHOLOGY/CYTOLO GY ORDERABLES [facility] [place] [address] * Centrifuge Separator Tender Cytology Final Report (12/09/2017 2:23 PM EDT) Centrifuge Separator Tender Cytology Final Report [id number] ? Location: The signing pathologist has (i) examined the relevant preparation(s) for the specimen(s) and (ii) rendered or confirmed the diagnosis(es). . ? Centrifuge Separator Tender Final DIAGNOSIS Unsatisfactory Specimen submitted is unsatisfactory for evaluation. See Discussion. For consensus guidelines for the management of cervical cancer screening test results, please see: ?? http://www.asccp.o rg . Electronically signed by: ??Antoine CHAN(ASCP)Neda Verified: ??12/22/2017 ?Dining Car Conductor Performed at: ??-[facility] Dept. of Pathology, [place], [place] DISCUSSION Specimen processed and examined microscopically but unsatisfactory for evaluation of epithelial abnormality due to insufficient squamous cellularity. HPV RESULTS HPV16 (Result) ?Negative HPV18 (Result) ?Negative HPVOHR (Result) ? Negative HPV (Interpretation) ?See Below HPV (Interpretation) Text: NEGATIVE for high-risk HPV *. *Testing negative for high risk HPV means that the specimen is negative for the following 14 types tested: types 16, 18, 31, 33, 35, 39, 45, 51, 52, 56, 58, 59, 66, and 68. The test is not intended to detect low risk HPV types. Dara wesley HPV test Specimen: HPV Testing - Cytology Liquid Based Prep The Dara wesley ? HPV test was validated, performed and results reported through the [facility] ([facility]) at [facility]. ? - Zac Sands, PhD, FORMERLY [facility], [facility], Director-[facility] STATEMENT OF ADEQUACY Specimen submitted is unsatisfactory due to insufficient squamous component. CLINICAL INFORMATION HPV Option: ?Concurrent HPV and Pap CT/NG Option: ?? No Preparation: ? Liquid based Pap Specimen Source: ? Cervical/Endocervi nathan LMP: ? na Hormones?: ? No Hysterectomy?: ? No ?: ? No ?: ? No I.U.D.?: ? No Pelvic Radiation: ?No Prior RN ACCESS Therapy?: ?Cryotherapy Hist Abnl Pap/Biopsy?: ?? Yes, Pap after Cryo, LEEP Hist of HPV Vaccine?: ?No Hist of Smoking?: ?Yes Hist of SANDEEP exposure?: ?? No . CLINICAL INFORMATION ICD Diagnosis: ? Z12.4 Encounter for screening for malignant neoplasm of cervix Clinical Data, Significant Therapy and Clinical Impression ?? : ?_ This Pap Test has been evaluated with the assistance of the ThinPrep Pap Test Imaging System. Note: The Pap test is a screening test for cervical cancer with an inherent false-negative rate dependent upon several variables. For further information please contact the [facility] Laboratory. Reference: Getachew EMERY. Employment Specialist of Pap Smear Results. In: Grace BS, Grady HH, ed. The Pap Smear. [place]: Bryant, 2002: 71-77. [facility] 12/09/2017 2:23 PM EDT Vanesa Vivi Muller APRN PATHOLOGY/CYTOLO GY ORDERABLES [facility] [place] [address] * DXA Central-Spine, Hip, And/Or Whole Body (Generic) (11/22/2017 1:14 PM EDT) Anatomical Region Laterality Modality C-spine, Hip N/A Other Impressions 11/22/2017 1:28 PM EDT Measurements satisfied the WHO classification for osteoporosis. Measurements lie just beyond the threshold between osteopenia and osteoporosis. Estimating Fracture Risk: The relationship between bone mineral density (BMD) and risk of fracture is well established. As BMD decreases, risk increases. Quantifying risk is difficult and is usually limited to estimation of the relative risk - a term which may have limited value when trying to discuss an individual's risk. Estimating the absolute risk for a patient requires an understanding of the incidence rate in a given population and consideration of multiple, partially independent, risk factors in addition to BMD. The World Health Organization (WHO) has developed a fracture risk prediction tool that calculates a ten-year risk of major osteoporotic fracture based on femoral neck bone density measurements and nine clinical risk factors for individuals who have not been treated for osteoporosis. This is available through an interactive web-based interface (http://www.shef.ac.uk/FRAX/) and can be used to estimate a given patient's absolute risk of major osteoporotic fracture or hip fracture over the next 10 years. These estimates may prove useful when discussing risk with a patient. It is important, however, to understand the tool's limitations and how a given individual's risk might differ from the tool's estimate. The tool does not take into account the dose-response associated with most risk factors. For example, the significant increase in risk associated with multiple prior fractures compared to a single prior fracture is not taken into account. Similarly, the location of a previous fracture, the amount of glucocorticoids and number of cigarettes smoked are not considered. These limitations are discussed in a Frequently Asked Questions section of the FRAX website which you are encouraged to review. DXA data sheets with BMD measurements and plots are available in EProficient under the imaging tab. Paper copies will be sent to providers without Evolero access. If you have received this report without the data sheet and do not have access to [employer], please contact Radiology Project Mgr at [phone] Wednesday thru Wednesday 8am-4pm. Narrative 11/22/2017 1:28 PM EDT EXAMINATION: DXA CENTRAL-SPINE, HIP, AND/OR WHOLE BODY (GENERIC) CLINICAL HISTORY: 67-year-old postmenopausal woman referred for screening for osteoporosis. Patient also reports a 2 year smoking history. TECHNIQUE: Scans were acquired at the lumbar spine and left hip. COMPARISON: None FINDINGS: Lowest T-score at a diagnostic region of interest: T-score: -2.6, EDSI: Lumbar spine, WHO diagnosis: Osteoporosis. Procedure Note Perla Anthony MD - 11/22/2017 EXAMINATION: DXA CENTRAL-SPINE, HIP, AND/OR WHOLE BODY (GENERIC) CLINICAL HISTORY: 67-year-old postmenopausal woman referred for screeningfor osteoporosis. Patient also reports a 2 year smoking history. TECHNIQUE: Scans were acquired at the lumbar spine and left hip. COMPARISON: None FINDINGS: Lowest T-score at a diagnostic region of interest: T-score: -2.6, DESI: Lumbar spine, WHO diagnosis: Osteoporosis. IMPRESSION Measurements satisfied the WHO classification for osteoporosis.Measurements lie just beyond the threshold between osteopenia and osteoporosis. Estimating Fracture Risk: The relationship between bone mineral density (BMD) and risk of fractureis well established. As BMD decreases, risk increases. Quantifying risk isdifficult and is usually limited to estimation of the relative risk - a term which mayhave limited value when trying to discuss an individual's risk. Estimatingthe absolute risk for a patient requires an understanding of the incidencerate in a given population and consideration of multiple, partially independent,risk factors in addition to BMD. The World Health Organization (WHO) has developed a fracture riskprediction tool that calculates a ten-year risk of major osteoporotic fracture basedon femoral neck bone density measurements and nine clinical risk factorsfor individuals who have not been treated for osteoporosis. This isavailable through an interactive web-based interface (http://www.shef.ac.uk/FRAX/)and can be used to estimate a given patient's absolute risk of majorosteoporotic fracture or hip fracture over the next 10 years. These estimates mayprove useful when discussing risk with a patient. It is important, however, to understand the tool's limitations and how a given individual's risk mightdiffer from the tool's estimate. The tool does not take into account thedose-response associated with most risk factors. For example, the significant increasein risk associated with multiple prior fractures compared to a single priorfracture is not taken into account. Similarly, the location of a previous fracture,the amount of glucocorticoids and number of cigarettes smoked are notconsidered. These limitations are discussed in a Frequently Asked Questions sectionof the FRAX website which you are encouraged to review. DXA data sheets with BMD measurements and plots are available in EPopulisunder the imaging tab. Paper copies will be sent to providers without EPopulis access.If you have received this report without the data sheet and do not haveaccess to E-[place], please contact Radiology Project Mgr at [phone] Wednesday thruFrid 8am-4pm. Vanesa Muller APRN IMG DEXA ORDERAB LES * Hepatitis C Antibody (11/22/2017 10:50 AM EDT) Hepatitis C Antibody Negative Negative [facility] Blood specimen (specimen) 11/22/2017 10:50 AM EDT 11/22/2017 11:00 AM EDT Narrative Resulting Agency Comment Spec In Lab Vanesa Muller OCEANIC SCIENCES PROFESSOR CHEMISTRY ORDERA BLES [facility] [place] [address] * Lipid Panel (11/22/2017 10:50 AM EDT) Cholesterol, Total 229 mg/dL [facility] Comment: Lower Risk: <200 mg/dL Average Risk: 200-239 mg/dL Higher Risk: >vi=959 mg/dL Triglyceride 87 mg/dL [facility] Comment: Average Risk/Lower Risk: <150 mg/dL Borderline High Risk: 150-199 mg/dL High Risk: 200-499 mg/dL Very High Risk: >jg=915 mg/dL HDL Cholesterol 79 mg/dL [facility] Comment: Males: ?? Higher Risk: <40 mg/dL Females: ?? HIgher Risk: <50 mg/dL LDL Cholesterol 133 mg/dL [facility] Comment: Lowest Risk: <100 mg/dL Lower Risk: 100-129 mg/dL Borderline High Risk: 130-159 mg/dL High Risk: 160-189 mg/dL Very High Risk: >tb=060 mg/dL Cholesterol/HDL Ratio 2.9 ratio [facility] Lipid Interpretation See Note [facility] Comment: Lipid management should be guided by a patient? s ASCVD risk, goals and preferences. ACC/AHA Guidelines recommend high intensity statin if clinical ASCVD or LDL greater than or equal to 190 mg/dL. http://Roozt.com.com/XYF-ARO-Svhlimtop Adults aged 40-75 with LDL 70-189 mg/dL should have their 10 year ASCVD risk estimated with the ACC/AHA ASCVD risk commercial roofing estimator http://tools.acc.org/JMBYK-Yfyt-Kzuhucmvj/ Statin should be discussed if risk greater than or equal to 7.5% in non-diabetics. With diabetes, moderate intensity statin is recommended if risk less than 7.5%, high intensity if risk greater than or equal to 7.5%. Annual lipid monitoring on statins is not necessary. Evaluate secondary causes of Triglycerides greater than 500 mg/dL or LDL greater than 190 mg/dL: See table 6 of ACC/AHA Guideline. Lifestyle modification is a critical component of ASCVD risk reduction. Blood specimen (specimen) 11/22/2017 10:50 AM EDT 11/22/2017 11:00 AM EDT Narrative Resulting Agency Comment Spec In Lab Vanesa Muller APRN CHEMISTRY ORDERA [facility] [place] [id number] * (ABNORMAL) External Mammogram (12/28/2016) External Mammogram Negative(E xternal Lab) EXTERNAL LAB Comment:Negative category 1 yearly mammo recommended. Anatomical Region Laterality Modality Other 12/28/2016 Historical Provider MD LO OUTSIDE INTER PRETATION ORDERABLES from Last 3 Months or Most Recently Relevant to Health Maintenance Care Teams Packing Floor Worker Relationship Specialty Start Date End Date Lacy Barajas MD [address] [place], [place] [id number] PCP - General Family Medicine 09/27/23
--- OUTSIDE RECORDS SUMMARY | 2024-05-08 15:33 | XMS_ITS | Encounter Summary ---
Author Organization [facility] [place] [address] Care Team Providers Care Detacker Name Role Phone Vanesa Muller APRN Primary Care Provider + Reason for Referral * Diagnostic Test (Routine) - Closed Specialty Diagnoses / Procedures Referred By Contac t Referred To Contact Radiology Diagnoses Osteopenia, unspecified location Procedures DXA Central-Spine, Hip, And/Or Whole Body (Generic) Vanesa Muller APRN [facility] [place] [address] [facility] Rad Xray [address] [place] [address] [place] [address] Referral ID Status Reason Start Date Expiration Date V isits Requested Visits Authorized [id number] Closed Specialty Service Requested 11/10/2017 11/10/2018 1 1 Reason for Visit * Diagnostic Test (Routine) - Closed Specialty Diagnoses / Procedures Referred By Contac t Referred To Contact Radiology Diagnoses Osteopenia, unspecified location Procedures DXA Central-Spine, Hip, And/Or Whole Body (Generic) Vanesa Muller ANTHROPOLOGY DEPARTMENT CHAIR [facility] [place] [address] [facility] Rad Xray [address] [place] [address] [place] [address] Referral ID Status Reason Start Date Expiration Date V isits Requested Visits Authorized [id number] Closed Specialty Service Requested 11/10/2017 11/10/2018 1 1 Encounter Details Date Type Department Care Team (Latest Contact Info) Description 11/22/2017 12:47 PM EDT - 11/22/2017 11:59 PM EDT Hospital Encounter XRay at [address] [place] [address] Vanesa Muller APRN [facility] VASCULAR SURGERY [place] [address] Osteopenia, unspecified location Discharge Disposition: Home Social History Tobacco Use Types Packs/Day Years Used Date Smoking Tobacco: Former Cigarettes 0.1 6 Smokeless Tobacco: Never Comments:used to smoke socia lly Alcohol Use Standard Drinks/Week Comments Yes 1 (1 standard drink = 0.6 oz pur e alcohol) Sex and Gender Information Value Date Recorded Sex Assigned at Not on file Gender Identity Not on file Sexual Orientation Not on file documented as of this encounter Medications at Time of Discharge Medication Sig Dispensed Refills Start Date End Date multivitamin (THERAGRAN) tablet Take 1 tablet by mouth daily. omeprazole (PRILOSEC) 20 mg Capsule, Delayed Release(E.C.)Indication s:Gastroesophageal reflux disease, esophagitis presence not specified Take 1 capsule by mouth daily. 30 capsule 11 11/10/2017 11/10/2018 ranitidine (ZANTAC) 150 mg Capsule Take 150 mg by mouth 2 times daily as needed for Heartburn. 12/09/2017 melatonin 5 mg Tablet Take by mouth. 11/21 amLODIPine (NORVASC) 5 mg Tablet 12/05/2016 02/13/2019 levothyroxine (SYNTHROID) 50 mcg Tablet 05/25/2016 08/01/2018 Calcium 220 mg capsule Take 1,000 mg by mouth 2 times daily (with meals). 09/27/2023 documented as of this encounter Plan of Treatment Upcoming Encounters Date Type Department Care Team (Late st Contact Info) Description 10/03/2024 10:00 AM EST Office Visit Dermatology at [place] [address] [place] [address] Wilmar Saldana MD [address], [place] [address] documented as of this encounter Procedures Procedure Name Priority Date/Time Associated Diagnosis Comments DXA CENTRAL SPINE, HIP, AND/OR WHOLE BODY (GENERIC) Routine 11/22/2017 1:14 PM EDT Osteopenia, unspecified location documented in this encounter Results * DXA Central-Spine, Hip, And/Or Whole Body [...] BMD measurements and plots are available in E- under the imaging tab. Paper copies will be sent to providers without E- access. If you have received this report without the data sheet and do not have access to EMc4, please contact Radiology Poultry Farmer Egg at [phone] Wednesday thru Wednesday 8am-4pm. Narrative 11/22/2017 1:28 [...] -2.6, DESI: Lumbar spine, WHO diagnosis: Osteoporosis. Procedure Note Carli Anthony MD - 11/22/2017 EXAMINATION: DXA CENTRAL-SPINE, [...] BMD measurements and plots are available in E-under the imaging tab. Paper copies will be sent to providers without E- access.If you have received this report without the data sheet and do not haveaccess to E-, please contact Radiology Poultry Farmer Egg at [phone] Wednesday thruFriday 8am-4pm. Vanesa Muller ANTHROPOLOGY DEPARTMENT CHAIR IMG DEXA ORDERAB LES documented in this encounter Visit Diagnoses Diagnosis Osteopenia, unspecified location documented in this encounter Care Teams Detacker Relationship Specialty Start Date End Date Vanesa Muller APRN [facility] [place] [place] [address] PCP - General General Internal Medicine 10/11/1707/31/18 documented as of this encounter
--- OUTSIDE RECORDS SUMMARY | 2024-05-08 15:33 | XMS_ITS | Encounter Summary ---
Author Organization [facility] [place] [address] Care Team Providers Care Waiter/Waitress Cafeteria Name Role Phone Vanesa Muller APRN Primary Care Provider + Encounter Details Date Type Department Care Team (Late st Contact Info) Description 03/01/2018 Orders [place] [address] Vanesa Muller APRN [facility] [place] [address] Social History Tobacco Use Types Packs/Day Years [...] on file documented as of this encounter Plan of Treatment Upcoming Encounters Date Type Department Care Team (Late st Contact Info) Description 10/03/2024 10:00 AM EST Office Visit Dermatology at [place] [address] [facility] [place] [phone] Wilmar Saldana MD [address], [place] [address] documented as of this encounter Visit Diagnoses Not on filedocumented in this encounter Care Teams Waiter/Waitress Cafeteria Relationship Specialty Start Date End Date Vanesa Muller APRN [facility] [place] [address] PCP - General General Internal Medicine 10/11/1707/31/18 documented as of this encounter
--- OUTSIDE RECORDS SUMMARY | 2024-05-08 15:33 | XMS_ITS | Encounter Summary ---
Author Organization [facility] [place] [address] Care Team Providers Care Comparison Shopper Name Role Phone Dottie Lala APRN Primary Care Provider [phone] Encounter Details Date Type Department Care Team (Latest Contact Info) Description 09/15/2022 Travel Social History Tobacco Use Types Packs/Day Years [...] 10:00 AM EST Office Visit Dermatology at [place] [address] [facility] [place] [address] Wilmar Saldana MD [address], [place] [address] documented as of this encounter Visit Diagnoses Not on filedocumented in this encounter Care Teams Comparison Shopper Relationship Specialty Start Date End Date Dottie Lala APRN [address] [place], [place] [id number] PCP - General Family Medicine 08/01/18 09/26/23 documented as of this encounter
--- OUTSIDE RECORDS SUMMARY | 2024-05-08 15:33 | XMS_ITS | Encounter Summary ---
[place] [address] Care Team Providers Care Carpenter Assistant Name Role Phone Lacy Barajas MD Primary Care Provider [phone] Encounter Details Date Type Department Care Team (Latest Contact Info) Description 09/27/2023 Travel Social History Tobacco Use Types Packs/Day [...] 10:00 AM EST Office Visit Dermatology at [place] [address] [facility] [place] [phone] Wilmar Saldana MD [address], [place] [address] documented as of this encounter Visit Diagnoses Not on filedocumented in this encounter Care Teams Carpenter Assistant Relationship Specialty Start Date End Date Lacy Barajas MD [address] [place] [address] PCP - General Family Medicine 09/27/23 documented as of this encounter
--- OUTSIDE RECORDS SUMMARY | 2024-05-08 15:33 | XMS_ITS | Encounter Summary ---
Author Organization [facility] [place] [address] Care Team Providers Care Shell Press Operator Name Role Phone Lacy Barajas MD Primary Care Provider [phone] Encounter Details Date Type Department Care Team (Late st Contact Info) Description 12/31/2023 Refill Dermatology at [address] [address] Bettye Minaya RN Social History Tobacco Use Types Packs/Day Years [...] on file documented as of this encounter Miscellaneous Notes * Telephone Encounter - Bettye Minaya RN - 12/31/2023 9:57 AM EDT Patient called today requesting refill of her Betamethasone 0.05% cream. Patient stated she has been having itching on her shins bilaterally and uses the Betamethasone cream. Patient last seen on 09/27/2023. Patient has follow up on 04/04/2024. Prescription last filled on 08/27/2023. Dr. Saldana approved prescription for: Betamethasone dipropionate 0.05% cream. Apply thin layer topically to pruritus lower shins twice daily. Dispense 30 g with 1 refill. Patient request prescription go to [facility] in [place] documented in this encounter Plan of Treatment Upcoming Encounters Date Type Department Care Team (Late st Contact Info) Description 10/03/2024 10:00 AM EST Office Visit Dermatology at [place] [address] [facility] [place] [address] Wilmar Saldana MD [address], [place] [address] documented as of this encounter Visit Diagnoses Not on filedocumented in this encounter Care Teams Shell Press Operator Relationship Specialty Start Date End Date Lacy Barajas MD [address] [place] [address] PCP - General Family Medicine 09/27/23 documented as of this encounter
--- OUTSIDE RECORDS SUMMARY | 2024-05-08 15:33 | XMS_ITS | Encounter Summary ---
Author Organization [facility] [place] [address] Care Team Providers Care Cold Strip Roller Name Role Phone Dottie Lala APRN Primary Care Provider [phone] Reason for Visit * Reason Comments Skin Check Encounter Details Date Type Department Care Team (Late st Contact Info) Description 08/05/2020 1:30 PM EST Office Visit Dermatology at [address] [address] Wilmar Saldana MD [address] [facility] [place] [address] Actinic keratosis; History of basal cell carcinoma; Seborrheic keratosis, inflamed Social History Tobacco Use Types Packs/Day Years [...] on file documented as of this encounter Progress Notes * Wilmar Saldana MD - 08/05/2020 1:30 PM EST Problem: 1. ??6-month skin checkup 2. ??History of multiple nonmelanoma cutaneous malignancies 3. ??History of extensive sun exposure living in the [facility] in [place], status post a course of Efudex there 2003 4. Family history of malignant melanoma in 2 sisters and in a niece Nuris follows up for a 6-month check. She has been doing well. She has not noted any new lesions ofconcern. The right lateral arm biopsy is healed well from her last visit, this was a squamous of carcinoma in situ. Physical examination reveals a pleasant 78-year-old woman who has benign examination of the mid parietal scalp hair part line, also over the shoulders the chest the back the hands the arms forearms. There is no evidence of any malignant lesions on careful examination from the waist up today. She marcello pink flat scar on the right lateral arm at the site of last visits biopsy. Assessment plan: Benign skin examination in a patient with history of extensive sun exposure and family history malignant melanoma in 2 sisters and a niece 1. We will decrease frequency of visits to once every year, patient is agreeable to this 2. Continue sun avoidance precautions 3. Return to clinic in another year for repeat check. 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 No evidence of recurrence CC: Dottie Lala APRN documented in this encounter Plan of Treatment Upcoming Encounters Date Type Department Care Team (Late st Contact Info) Description 10/03/2024 10:00 AM EST Office Visit Dermatology at [place] 580 [place] [phone] Wilmar Saldana MD 580 [facility], [place] [address] documented as of this encounter Visit Diagnoses Diagnosis Actinic keratosis History of basal cell carcinoma Personal history of other malignant neoplasm of skin Seborrheic keratosis, inflamed Inflamed seborrheic keratosis documented in this encounter Care Teams Cold Strip Roller Relationship Specialty Start Date End Date Dottie Lala APRN [address] [place] [address] PCP - General Family Medicine 08/01/18 09/26/23 documented as of this encounter
--- OUTSIDE RECORDS SUMMARY | 2024-05-08 15:33 | XMS_ITS | Encounter Summary ---
Author Organization [facility] [place] [address] Care Team Providers Care Whiteprinting Machine Operator Name Role Phone Dottie Lala APRN Primary Care Provider [phone] Reason for Visit * Reason Comments Skin Check Encounter Details Date Type Department Care Team (Late st Contact Info) Description 02/06/2020 3:15 PM EDT Office Visit Dermatology at [address] [address] Wilmar Saldana MD [address] [facility], [place] [address] Actinic keratosis; History of basal cell carcinoma; [...] Progress Notes * Wilmar Saldana MD - 02/06/2020 3:15 PM EDT Problem: 1. ??6-month skin checkup 2. ??History of multiple nonmelanoma cutaneous malignancies 3. ??History of extensive sun exposure living in the [facility] in [place], status post a course of Efudex there 2003 4. Family history of malignant melanoma in 2 sisters and in a niece Nuris follows up for 6-month check. She has noted a new lesion on the right lateral arm and on the left nasal sidewall. Physical examination reveals a pleasant 69-year-old woman who has what appears to be an inflamed seborrheic keratosis, about a centimeter in diameter on the right lateral arm. She has an actinic keratosis on the left nasal sidewall. Otherwise careful examination of the face the neck the chest the back the hands the arms the forearms the thighs and the calves is benign. There is no evidence of anymalignant lesions today. Assessment and plan: Rule out SCCA, probable irritated seborrheic keratosis right lateral arm 1. After obtaining informed consent site was anesthetized and removed with shave biopsy and light curettage and desiccation x1. 2. After curettage, site measured 1 cm in diameter 3. Wound care instructions and supplies given. 4. Return to clinic in 6 months for repeat check Actinic keratosis, left nasal sidewall 1. LN2 times 2 applied to single site. History of multiple nonmelanoma cutaneous malignancies 1. No evidence recurrence at prior treatment sites. Cc: Dottie Lala APRN documented in this encounter Plan of Treatment Upcoming Encounters Date Type Department Care Team (Late st Contact Info) Description 10/03/2024 10:00 AM EST Office Visit Dermatology at [address] [address] Wilmar Saldana MD 580 [facility], [place] [address] documented as of this encounter Visit Diagnoses Diagnosis Actinic keratosis History of basal cell carcinoma Personal history of other malignant neoplasm of skin Seborrheic keratosis, inflamed Inflamed seborrheic keratosis documented in this encounter Care Teams Whiteprinting Machine Operator Relationship Specialty Start Date End Date Dottie Lala APRN [address] [place] [address] PCP - General Family Medicine 08/01/18 09/26/23 documented as of this encounter
--- OUTSIDE RECORDS SUMMARY | 2024-05-08 15:33 | XMS_ITS | Encounter Summary ---
Author Organization [facility] [place] [address] Care Team Providers Care Canvas Marker Name Role Phone Dottie Lala APRN Primary Care Provider [phone] Reason for Visit * Reason Comments Follow-up Skin Check Encounter Details Date Type Department Care Team (Late st Contact Info) Description 08/01/2018 10:00 AM EST Office Visit Dermatology at [place] [address] [facility] [address] Wilmar Saldana MD 580 [facility], [place] [address] Actinic keratosis; History of basal cell carcinoma Social History Tobacco Use Types Packs/Day Years [...] Progress Notes * Wilmar Saldana MD - 08/01/2018 10:00 AM EST Problem: 1. 6-month skin checkup 2. History of multiple nonmelanoma cutaneous malignancies 3. History of extensive sun exposure living in the [facility] in [place], status post a course of Efudex there 2003 Nuris follows up and is doing well. She has some new lesions of concern. Physical examination reveals actinics present on the right hand and distal dorsal forearm over her wrist, 3 sites. She also has one present on the right medial cheek. Additionally she has an irritated seborrheic keratosis on the mid central back underneath her bra strap she is freckled blue-eyed fair skin. She has no other lesions of concern Assessment plan: Actinic keratoses 1. LN 2 x 2 applied to each of 4 sites. History of multiple nonmelanoma cutaneous malignancies 1. No evidence of recurrence. 2. Patient reassured 3. The patient and I desire to continue our every 6 month follow-ups Irritated seborrheic keratoses mid central back under bra strap 1. Could consider LN 2 x 2 for the sites CC: Dottie Lala APRN documented in this encounter Plan of Treatment Upcoming Encounters Date Type Department Care Team (Late st Contact Info) Description 10/03/2024 10:00 AM EST Office Visit Dermatology at [place] 580 [place] [address] Wilmar Saldana MD [address] [facility], [place] [address] documented as of this encounter Visit Diagnoses Diagnosis Actinic keratosis History of basal cell carcinoma Personal history of other malignant neoplasm of skin documented in this encounter Care Teams Canvas Marker Relationship Specialty Start Date End Date Dottie Lala APRN [address] [place] [address] PCP - General Family Medicine 08/01/18 09/26/23 documented as of this encounter
--- OUTSIDE RECORDS SUMMARY | 2024-05-08 15:33 | XMS_ITS | Encounter Summary ---
[place] [address] Care Team Providers Care Mobile Device Engineer Name Role Phone Dottie Lala APRN Primary Care Provider [phone] Encounter Details Date Type Department Care Team (Late st Contact Info) Description 06/24/2023 Refill Dermatology at [address] [phone] Mary Kay Tripp LPN Social History Tobacco Use Types Packs/Day Years [...] 10:00 AM EST Office Visit Dermatology at [address] [address] Wilmar Saldana MD 580 [facility], CLEMENTINE A DERMATOLOGY [place], [place] [address] documented as of this encounter Visit Diagnoses Not on filedocumented in this encounter Care Teams Mobile Device Engineer Relationship Specialty Start Date End Date Dottie Lala APRN [address] [place] [address] PCP - General Family Medicine 08/01/18 09/26/23 documented as of this encounter
--- OUTSIDE RECORDS SUMMARY | 2024-05-08 15:33 | XMS_ITS | Encounter Summary ---
Author Organization [facility] [address] Care Team Providers Care Snack Foods Mixer Operator Name Role Phone Dottie Lala APRN Primary Care Provider [phone] Encounter Details Date Type Department Care Team (Late st Contact Info) Description 09/09/2021 10:45 AM EST Office Visit Dermatology at [address] [phone] Wilmar Saldana MD 580 [facility], [place] [address] Actinic keratosis; History of basal cell carcinoma; [...] Progress Notes * Wilmar Saldana MD - 09/09/2021 10:45 AM EST Problem: 1. ??10-month skin checkup 2. ??History of multiple nonmelanoma cutaneous malignancies 3. ??History of extensive sun exposure living in the [facility] in [place], status post a course of Efudex there 2003 4. ??Family history of malignant melanoma in 2 sisters and in a niece Nuris follows up and is now 71. She is here for a 10-month skin checkup. She is noted a new lesion on the upper left back and one on the right lateral neck. Physical examination reveals a pleasant 71-year-old woman who has an erythematous somewhat pearly papule measuring 8 mm on the right lateral neck. She has a flattened nonpigmented noninflamed keratotic patch on the left upper back. 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 For tunately examination of the face the neck and the hands is benign. There is no evidence of any other lesions of concern today. Assessment plan: Rule out BCCA right lateral neck 1. Today site was anesthetized and removed with shave C&D. 2. After curettage site measured 8 mm in diameter 3. Triple antibiotic ointment and Band-Aid placed 4. Return to clinic in 6 months for repeat check. If doing well at that time may be able to space out to once yearly. Rough dry skin/seborrheic keratoses 1. Recommend the patient try CeraVe cream for torso and arms and CeraVe lotion for dry spots on face to relieve these rough dry areas. CC: Dottie Lala APRN documented in this encounter Plan of Treatment Upcoming Encounters Date Type Department Care Team (Late st Contact Info) Description 10/03/2024 10:00 AM EST Office Visit Dermatology at [place] 580 [place] [address] Wilmar Saldana MD 580 [facility], [place] [address] documented as of this encounter Visit Diagnoses Diagnosis Actinic keratosis History of basal cell carcinoma Personal history of other malignant neoplasm of skin Seborrheic keratosis, inflamed Inflamed seborrheic keratosis documented in this encounter Care Teams Snack Foods Mixer Operator Relationship Specialty Start Date End Date Dottie Lala APRN [address] [place] [address] PCP - General Family Medicine 08/01/18 09/26/23 documented as of this encounter
--- OUTSIDE RECORDS SUMMARY | 2024-05-08 15:33 | XMS_ITS | Encounter Summary ---
Author Organization [facility] [place] [address] Care Team Providers Care Emergency Department Technician Name Role Phone Vanesa Muller APRN Primary Care Provider + Reason for Referral * E-Consultation (Routine) - Specialty Diagnoses / Procedures Referred By Contac t Referred To Contact Gynecology Diagnoses Unsatisfactory cervical Papanicolaou smear Procedures eConsult to Gynecology (Primary Care Use Only) Vanesa Muller APRN [facility] [place] [address] Referral ID Status Reason Start Date Expiration Date V isits Requested Visits Authorized [id number] 12/22/2017 12/22/2018 1 1 Encounter Details Date Type Department Care Team (Late st Contact Info) Description 12/22/2017 Orders [place] [address] Vanesa Muller DIRECTOR LIFE [facility] [place] [address] Unsatisfactory cervical Papanicolaou smear Social History Tobacco Use Types Packs/Day Years [...] 10:00 AM EST Office Visit Dermatology at [place] [address] [facility] [address] [place] [address] Wilmar Saldana MD [address], [place] [address] documented as of this encounter Visit Diagnoses Diagnosis Unsatisfactory cervical Papanicolaou smear Unsatisfactory cervical cytology smear documented in this encounter Care Teams Emergency Department Technician Relationship Specialty Start Date End Date Vanesa Muller APRN [facility] [place] [address] PCP - General General Internal Medicine 10/11/1707/31/18 documented as of this encounter
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
--- OUTSIDE RECORDS SUMMARY | 2024-05-08 15:33 | XMS_ITS | Encounter Summary ---
Author Organization [facility] [place] [address] Care Team Providers Care Roller Hand Name Role Phone Vanesa Muller APRN Primary Care Provider + Encounter Details Date Type Department Care Team (Late st Contact Info) Description 12/16/2017 Orders [place] [address] Vanesa Muller APRN [facility] [place] [address] Age-related osteoporosis without current pathological fracture Social History Tobacco Use Types Packs/Day Years [...] 10:00 AM EST Office Visit Dermatology at [place] [address] [place] [id number] Wilmar Saldana MD [address], [place] [address] documented as of this encounter Visit Diagnoses Diagnosis Age-related osteoporosis without current pathological fracture Senile osteoporosis documented in this encounter Care Teams Roller Hand Relationship Specialty Start Date End Date Vanesa Muller APRN [facility] [place] [address] PCP - General General Internal Medicine 10/11/1707/31/18 documented as of this encounter
--- OUTSIDE RECORDS SUMMARY | 2024-05-08 15:33 | XMS_ITS | Encounter Summary ---
Author Organization [facility] [place] [address] Care Team Providers Care News Librarian Name Role Phone Vanesa Muller APRN Primary Care Provider + Encounter Details Date Type Department Care Team (Late st Contact Info) Description 12/23/2017 E-Consult Obstetrics [place] [address] Christina Villafuerte MD [facility] [address] OBSTETRICS & [place] [address] History of abnormal cervical Pap smear Social History Tobacco Use Types Packs/Day [...] as of this encounter Miscellaneous Notes * E-Consult - Christina Villafuerte MD - 12/23/2017 12:39 PM EDT 1. Restatement of the question: 67 y.o. with recent unsatisfactory pap smear, neg HR HPV. Outside pap smear normal & neg 2012. She had a cryotherapy in the past, for unknown indication, ? 15 years ago. She is a smoker. 2. Recommendation(s): Our guidelines currently recommend continued screening after treatment for 20years. I think you're OK with the neg HR HPV and don't need to repeat her pap now. It is not typical to perform cryotherapy in an older woman. It would be great to try & obtain her old records, first so we could know when she had the cryotherapy done and what her diagnosis was. If her diagnosis was ERASMO I (which may explain why cryotherapy done) then no additional screening needed. If you can't obtain the records, I would repeat one more pap smear in 5 years. 3. Rationale and/or evidence for recommendation: - 4. Contingency plan: - This eConsult is focused on the specific clinical question(s) asked by the referring clinician, is based on the clinical data available to me, the consulting physician, at the time of the request, and is furnished without benefit of a comprehensive evaluation or physical examination of the patient by me. The guidance set forth in the eConsult note will need to be interpreted in light of any clinical issues not known to me or any changes in patient status that I may not be aware of at the time of filing this eConsult. If further consultation is necessary, an in-person visit with me or another member of our group is an option. documented in this encounter Plan of Treatment Upcoming Encounters Date Type Department Care Team (Late st Contact Info) Description 10/03/2024 10:00 AM EST Office Visit Dermatology at [place] [address] [place] [address] Wilmar Saldana MD [address] [place] [address] documented as of this encounter Visit Diagnoses Diagnosis History of abnormal cervical Pap smear Personal history of other genital system and obstetric disorders documented in this encounter Care Teams News Librarian Relationship Specialty Start Date End Date Vanesa Muller APRN [facility] [place] [address] PCP - General General Internal Medicine 10/11/1707/31/18 documented as of this encounter
--- OUTSIDE RECORDS SUMMARY | 2024-05-08 15:33 | XMS_ITS | Encounter Summary ---
Author Organization [facility] [place] [address] Care Team Providers Care Form Drafter Name Role Phone Vanesa Muller APRN Primary Care Provider + Reason for Visit * Reason Comments Follow-up stomach pain, up sin ce 4 going to the bathroom Encounter Details Date Type Department Care Team (Late st Contact Info) Description 12/09/2017 1:40 PM EDT Office [place] [address] Vanesa Muller APRN [facility] [place] [address] Age-related osteoporosis without current pathological fracture; Elevated alkaline phosphatase level; Screening for cervical cancer; Family history of ovarian cancer Social History Tobacco Use Types Packs/Day Years [...] Mass Index 19.99 12/09/2017 1:33 PM EDT documented in this encounter Progress Notes * Vanesa Muller, METAL WIRE COATING OPERATOR - 12/09/2017 1:40 PM EDT Subjective: Patient ID: Nuris Mcrae is a 67 y.o. female. Chief Complaint Patient presents with ??? Follow-up stomach pain, up since 4 going to the bathroom Nuris is a 67 year old female with a history of BCC, SCC, SK, AK, osteoporosis recently diagnosed, IBS with diarrhea, hypothyroidism, hypokalemia, hyponatremia, HTN, anxiety. Here to f/u our visit from 11/10, review labs and do pap. Osteoporosis: She is taking vitamin D 1000 IU daily. She is also taking a calcium supplement. She eats a lot of broccoli, kale. She eats yogurt daily and puts milk on her cereal but doesn't drink a glass of milk. GERD/nausea: Taking omeprazole 20 daily starting 12/20. The plan was to try it for a month and has had very little nausea. She didn't raise the head of the bed. Hadn't had any nausea until yesterday but this was accompanied by need to have several BMs in a row during the night. Thinks it's because of gravy she'd had with dinner. Has to fly at the end of December for a trip to go a cruise out of [place]. Usually takes dramamine for episodic motion sickness. Wonders if she needs a prescription. Pap history: Did have an abnormal and had cryotherapy in the 1980s. Since then they have been normal. The last few paps were unsatisfactory. She brought some updated info for the family history: Sister Deena had cervical cancer, paternal cousin with cervical cancer, paternal cousin with ovarian cancer and paternal cousin with lung cancer (smoker). Family History Problem Relation Age of Onset ??? Heart Failure Mother smoker, no history of parental hip fracture ??? Hypertension Mother ??? Lung Cancer Father smoker ??? Liver Cancer Sister smoker ??? Cervical Cancer Sister ??? Heart Failure Maternal Grandmother ??? Stomach Cancer Paternal Grandmother ??? Ovarian Cancer Paternal Aunt survived this ??? Dementia Paternal Aunt ??? Cerebrovascular Accident Paternal Aunt ??? Cancer Paternal Uncle bone ??? Ovarian Cancer Paternal Cousin 35 doing well now in her 60s ??? Cervical Cancer Paternal Cousin 49 doing well post hyst in her 60s ??? Lung Cancer Paternal Cousin 57 smoker ??? Breast Cancer Neg Hx ??? Colorectal Cancer Neg Hx ??? Thyroid Disease Neg Hx ??? Kidney Disease Neg Hx Review of Systems Constitutional: Negative for chills, diaphoresis and fever. HENT: Negative. Respiratory: Negative for shortness of breath and wheezing. Cardiovascular: Negative for chest pain and palpitations. Gastrointestinal: Negative for abdominal pain, nausea and vomiting. Genitourinary: Negative for dysuria and hematuria. Skin: Negative for rash. Neurological: Negative for dizziness, weakness and light-headedness. Objective: Visit Vitals ??? BP 139/72 (BP Location (NBP): Right arm, Patient Position: Sitting, BP Cuff Sizes: Adult (25-34cm)) ??? Pulse 73 ??? Temp 36.7 ??C (98.1 ??F) (Oral) ??? Resp 18 ??? Ht 174 cm (5' 8.5) ??? Wt 60.5 kg (133 lb 6.4 oz) ??? SpO2 98% ??? BMI 19.99 kg/m2 Patient reported measures: Pain: Physical Health: Fall: No flowsheet data found. Wt Readings from Last 3 Encounters: 12/09/17 60.5 kg (133 lb 6.4 oz) 11/10/17 58.8 kg (129 lb 9.6 oz) Physical Exam Constitutional: She is oriented to person, place, and time. She appears well- developed and well-nourished. No distress. HENT: Head: Normocephalic and atraumatic. Eyes: Conjunctivae are normal. Pulmonary/Chest: Effort normal. Genitourinary: Genitourinary Comments: Vulva with one small hemangioma mid right labia majora. Vestibule with normal, atrophic architecture without lesion. Cervix closed without lesion, bled slightly with pap sampling. No CMT. Uterus small, AV, NT. Adnexa NT w/o mass Musculoskeletal: Normal range of motion. She exhibits no edema. Neurological: She is alert and oriented to person, place, and time. She exhibits normal muscle tone. Coordination normal. Skin: Skin is warm and dry. She is not diaphoretic. Psychiatric: She has a normal mood and affect. Her behavior is normal. Judgment and thought contentnormal. Vitals reviewed. Assessment and Plan: Here to follow up last visit, DXA, labs and do pap. 1. Age-related osteoporosis without current pathological fracture Reviewed implications for morbidity/mortality and recommended fosamax. Reviewed MOA and gave written info. Would prescribe weekly dosing pending vitamin D level. Instructions and side effects reviewed. - Vitamin D, 25-Hydroxy; Future 2. Elevated alkaline phosphatase level - Hepatic Function Panel; Future - Gamma GT; Future 3. Screening for cervical cancer - Cytopathology Gynecological 4. Family history of ovarian cancer No symptoms. Unclear what her risk is based on paternal cousins history. Advised no prescription needed for dramamine. Will f/u annually depending on outcome of labs. Will try again to get a copy of her colo done last [facility]. She has information on giving written advanced directive wishes. - An After Visit Summary was given to the patient. documented in this encounter Plan of Treatment Upcoming Encounters Date Type Department Care Team (Late st Contact Info) Description 10/03/2024 10:00 AM EST Office Visit Dermatology at [place] [address] [place] [phone] Wilmar Saldana MD [address], [place] [address] documented as of this encounter Procedures Procedure Name Priority Date/Time Associated Diagnosis Comments HPV Routine 12/09/2017 2:23 PM EDT LEAD SUPPLY WORKER CYTOLOGY INTERPRETATION Routine 12/09/2017 2:23 PM EDT LEAD SUPPLY WORKER CYTOLOGY FINAL REPORT Routine 12/09/2017 2:23 PM EDT CYTOPATHOLOGY GYNECOLOGICAL Routine 12/09/2017 2:23 PM EDT Screening for cervical cancer documented in this encounter Results * (ABNORMAL) Gamma GT (12/13/2017 9:15 AM EDT) Gamma Glutamyl Transferase 41(H) 5 - 36 unit/L [facility] Blood specimen (specimen) 12/13/2017 9:15 AM EDT 12/13/2017 9:24 AM EDT Narrative Resulting Agency Comment Spec In Lab Vanesa Muller APRN CHEMISTRY ORDERA BLES Performing Organization Address [facility] Co de Phone Number [facility] [place] [place] [address] * Hepatic Function Panel (12/13/2017 9:15 AM EDT) Pathologist [facility] Protein, Total 7.6 6.1 - 8.0 gm/dL [facility] Albumin 4.5 3.2 - 5.2 gm/dL [facility] Aspartate Aminotransferase 27 0 - 30 unit/L [facility] Alanine Aminotransferase 20 0 - 30 unit/L [facility] Alkaline Phosphatase 100 40 - 104 unit/L [facility] Bilirubin, Total 0.7 0.2 - 1.3 mg/dL [facility] Bilirubin, Direct 0.1 0.0 - 0.3 mg/dL [facility] Blood specimen (specimen) 12/13/2017 9:15 AM EDT 12/13/2017 9:24 AM EDT Narrative Resulting Agency Comment Spec In Lab Vanesa Muller APRN CHEMISTRY ORDERA BLES Performing Organization Address [facility]/ZIP Co de Phone Number [facility] [place] [address] * Vitamin D, 25-Hydroxy (12/13/2017 9:15 AM EDT) Vitamin D Total 25 OH 34 30 - 100 ng/mL [facility] Comment: Deficient <10 ng/mL Insufficient 10 to 29 ng/mL Sufficient 30 to 100 ng/mL Potential Intoxication >100 ng/mL According to the US National Osteoporosis Foundation, Vitamin D concentrations >30 ng/mL are sufficient to protect bone health. ??The National Kidney Foundation has similarly stated that patients with Vitamin D concentrations <30ng/mL should be considered to be insufficient or deficient. http://[employer]/nkf-guidelines http://[employer]/nejm-VitD The IDS iSYS Vitamin D Immunoassay detects both 25-OH Vitamin D2 and 25-OH Vitamin D3, but only a total Vitamin D concentration is reported. Blood specimen (specimen) 12/13/2017 9:15 AM EDT 12/13/2017 1:26 PM EDT Narrative Resulting Agency Comment Spec In Lab Vanesa Muller APRN CHEMISTRY ORDERA BLES Performing Organization Address City/[facility]/ZIP Co de Phone Number [facility] [place] [address] * LEAD SUPPLY WORKER Cytology Interpretation (12/09/2017 2:23 PM EDT) Intensive Care Nurse Cytology Interpretation Unsatisfactory [facility] Comment:Intensive Care Nurse Cytology Final R eport Intensive Care Nurse Cytology Comment Present [facility] Endocervical Component Unsatisfactory [facility] AP Specimen 12/09/2017 2:23 PM EDT 12/22/2017 10:53 AM EDT Vanesa Muller APRN PATHOLOGY/CYTOLO GY ORDERABLES [facility] [place] [place] [address] * Intensive Care Nurse Cytology Final Report (12/09/2017 2:23 PM EDT) Intensive Care Nurse Cytology Final Report [id number] ? Location: The signing pathologist has (i) examined the relevant preparation(s) for the specimen(s) and (ii) rendered or confirmed the diagnosis(es). . ? Intensive Care Nurse Final DIAGNOSIS Unsatisfactory Specimen submitted is unsatisfactory for evaluation. See Discussion. For consensus guidelines for the management of cervical cancer screening test results, please see: ?? http://www.asccp.o rg . Electronically signed by: ??Antoine CHAN(ASCP)Neda Verified: ??12/22/2017 ?Machine Whitener Performed at: ??-[facility], [facility], [place] DISCUSSION Specimen processed and examined microscopically but [...] Clinical Genomics and Advanced Technology (CGAT) at [facility] [place]. ? - Zac Sands, PhD, [facility], Director-[facility] STATEMENT OF ADEQUACY Specimen submitted is unsatisfactory due to insufficient squamous component. CLINICAL INFORMATION HPV Option: ?Concurrent HPV and Pap CT/NG Option: ?? No Preparation: ? Liquid based Pap Specimen Source: ? Cervical/Endocervi nathan LMP: ? na Hormones?: ? No Hysterectomy?: ? No ?: ? No ?: ? No I.U.D.?: ? No Pelvic Radiation: ?No Prior LEAD SUPPLY WORKER Therapy?: ?Cryotherapy Hist Abnl Pap/Biopsy?: ?? Yes, Pap after Cryo, LEEP Hist of HPV Vaccine?: ?No Hist of Smoking?: ?Yes Hist of SANDEEP exposure?: ?? No . CLINICAL INFORMATION ICD Diagnosis: ? Z12.4 Encounter for screening for malignant neoplasm of cervix Clinical Data, Significant Therapy and Clinical Impression ?? : ?_ This Pap Test has been evaluated with the assistance of the [employer] Pap Test Imaging System. Note: The Pap test is a screening test for cervical cancer with an inherent false-negative rate dependent upon several variables. For further information please contact the [facility] [place]. Reference: Getachew EMERY. Machinery Mover of Pap Smear Results. In: Grace BS, Grady HH, ed. The Pap Smear. [place]: Bryant, 2002: 71-77. [facility] 12/09/2017 2:23 PM EDT Vanesa Muller METAL WIRE COATING OPERATOR PATHOLOGY/CYTOLO GY ORDERABLES [facility] [place] [address] * HPV (12/09/2017 2:23 PM EDT) HPV16 NEGATIVE NEGATIVE [facility] HPV 18 NEGATIVE NEGATIVE [facility] HPV Other HR NEGATIVE NEGATIVE [facility] HPV Interpretation See Comment [facility] Comment: NEGATIVE for high-risk [...] Comment Spec In Lab Vanesa Muller APRN PATHOLOGY/CYTOLO GY ORDERABLES Performing Organization Address [facility] Co de Phone Number [facility] [place] [address] * Cytopathology Gynecological (12/09/2017 2:23 PM EDT) AP Specimen 12/09/2017 2:23 PM EDT 12/09/2017 2:23 PM EDT Narrative [facility] - 12/09/2017 2:23 PM EDT Specimen requisition ordered. ??Separate Pathology report to follow Vanesa Muller APRN PATHOLOGY/CYTOLO GY ORDERABLES Performing Organization Address [facility] Co de Phone Number [facility] [place] [address] documented in this encounter Visit Diagnoses Diagnosis Age-related osteoporosis without current pathological fracture Senile osteoporosis Elevated alkaline phosphatase level Other nonspecific abnormal serum enzyme levels Screening for cervical cancer Screening for malignant neoplasm of the cervix Family history of ovarian cancer Family history of malignant neoplasm of ovary documented in this encounter Care Teams Form Drafter Relationship Specialty Start Date End Date Vanesa Muller APRN [facility] [place] [address] PCP - General General Internal Medicine 10/11/1707/31/18 documented as of this encounter
--- OUTSIDE RECORDS SUMMARY | 2024-05-08 15:33 | XMS_ITS | Encounter Summary ---
Author Organization [facility] [place] [address] Care Team Providers Care Fire Alarm Installer Name Role Phone Dottie Lala APRN Primary Care Provider [phone] Encounter Details Date Type Department Care Team (Late st Contact Info) Description 09/12/2021 Telephone Dermatology at [address] [address] Bettye Minaya RN Social History [...] Telephone Encounter - Bettye Minaya RN - 09/12/2021 9:06 AM EST Pt had a shave biopsy on 09/09/2021. Pt called and provided with the results. Pt shave biopsy right lateral neck was basal cell carcinoma. Per Dr. Saldana no further treatment is needed. Pt to return to the clinic on 03/10/2022. Pt reminded of her appointment. Pt stated that she did understand and stated no questions or concerns a this time. documented in this encounter Plan of Treatment Upcoming Encounters Date Type Department Care Team (Late st Contact Info) Description 10/03/2024 10:00 AM EST Office Visit Dermatology at [place] [address] [place] [phone] Wilmar Saldana MD [address] [place] [address] documented as of this encounter Visit Diagnoses Not on filedocumented in this encounter Care Teams Fire Alarm Installer Relationship Specialty Start Date End Date Dottie Lala APRN [address] [place] [address] PCP - General Family Medicine 08/01/18 09/26/23 documented as of this encounter
--- OUTSIDE RECORDS SUMMARY | 2024-05-08 15:33 | XMS_ITS | Encounter Summary ---
Author Organization [facility] [place] [address] Care Team Providers Care Shelter Monitor Name Role Phone Vanesa Muller APRN Primary Care Provider + Reason for Visit * Reason Comments Follow-up Skin Check Encounter Details Date Type Department Care Team (Late st Contact Info) Description 01/20/2018 4:00 PM EDT Office Visit Dermatology at [address] [place] [address] Wilmar Saldana MD [address] [place] [address] History of basal cell carcinoma; Actinic keratosis Social History Tobacco Use Types Packs/Day Years [...] of this encounter Progress Notes * Wilmar Saldnaa MD - 01/20/2018 4:00 PM EDT Problem: 1. Early skin checkup Nuris follows up for an early visit because of concern about lesion on her presternal chest on her lip and the right dorsal hand She just returned from a cruise to [place] and back [place] [facility] and [place] Physical examination reveals a pleasant 67-year-old woman who has actinic keratoses on the upper lip and on the right dorsal hand. She is an irritated seborrheic keratosis in the presternal chest Assessment plan: Actinic keratoses upper lip upper cutaneous lip and right dorsal hand 1. LN 2 x 2 applied to sites 3 sites treated Irritated seborrheic keratosis presternal chest 1. Could consider LN 2 x 2 for this site. 2. Return to clinic in July for her regular yearly skin checkup. 3. We will will likely recommend every 6 month follow-ups in the future Cc: Vanesa WANG documented in this encounter Plan of Treatment Upcoming Encounters Date Type Department Care Team (Late st Contact Info) Description 10/03/2024 10:00 AM EST Office Visit Dermatology at [place] [address] [place] [address] Wilmar Saldana MD [address] [facility] [address] [place] [address] documented as of this encounter Visit Diagnoses Diagnosis History of basal cell carcinoma Personal history of other malignant neoplasm of skin Actinic keratosis documented in this encounter Care Teams Shelter Monitor Relationship Specialty Start Date End Date Vanesa Muller APRN [facility] [place] [address] PCP - General General Internal Medicine 10/11/1707/31/18 documented as of this encounter
--- OUTSIDE RECORDS SUMMARY | 2024-05-08 15:33 | XMS_ITS | Encounter Summary ---
[place] [address] Care Team Providers Care Automotive Professional Name Role Phone Vanesa Muller APRN Primary Care Provider + Encounter Details Date Type Department Care Team (Latest Contact Info) Description 12/13/2017 9:45 AM EDT Laboratory Appointment Lab [address] [phone] Age-related osteoporosis without current pathological fracture; Elevated alkaline phosphatase level Social History Tobacco Use Types Packs/Day Years [...] 10:00 AM EST Office Visit Dermatology at [place] [address] [place] [phone] Wilmar Saldana MD [address] [place] [address] documented as of this encounter Procedures Procedure Name Priority Date/Time Associated Diagnosis Comments VITAMIN D, 25-HYDROXY Routine 12/13/2017 9:15 AM EDT Age-related osteoporosis without current pathological fracture GAMMA GT Routine 12/13/2017 9:15 AM EDT Elevated alkaline phosphatase level HEPATIC FUNCTION PANEL Routine 12/13/2017 9:15 AM EDT Elevated alkaline phosphatase level documented in this encounter Results * (ABNORMAL) Gamma GT (12/13/2017 9:15 AM EDT) Gamma Glutamyl Transferase 41(H) 5 - 36 unit/L [facility] Blood specimen (specimen) 12/13/2017 9:15 AM EDT 12/13/2017 9:24 AM EDT Narrative Resulting Agency Comment Spec In Lab Vanesa Muller SENIOR LIBRARIAN CHEMISTRY ORDERA BLES Performing Organization Address [facility] Co de Phone Number [facility] [place] [address] * Hepatic Function Panel (12/13/2017 9:15 AM EDT) Protein, Total 7.6 6.1 - 8.0 gm/dL [facility] Albumin 4.5 3.2 - 5.2 gm/dL [facility] Aspartate Aminotransferase 27 0 - 30 unit/L [facility] Alanine Aminotransferase 20 0 - 30 unit/L [facility] Alkaline Phosphatase 100 40 - 104 unit/L [facility] Bilirubin, Total 0.7 0.2 - 1.3 mg/dL [facility] Bilirubin, Direct 0.1 0.0 - 0.3 mg/dL [facility] Blood specimen (specimen) 12/13/2017 9:15 AM EDT 12/13/2017 9:24 AM EDT Narrative Resulting Agency Comment Spec In Lab Vanesa Muller SENIOR LIBRARIAN CHEMISTRY ORDERA BLES Performing Organization Address [facility]/ZIP Co de Phone Number [facility] [place] [address] * Vitamin D, 25-Hydroxy (12/13/2017 9:15 AM EDT) Vitamin D Total 25 OH 34 30 - 100 ng/mL [facility] Comment: Deficient <10 ng/mL Insufficient 10 to 29 ng/mL Sufficient 30 to 100 ng/mL Potential Intoxication >100 ng/mL According to the US National Osteoporosis Foundation, Vitamin D concentrations >30 ng/mL are sufficient to protect bone health. ??The National Kidney Foundation has similarly stated that patients with Vitamin D concentrations <30ng/mL should be considered to be insufficient or deficient. http://[employer]/nkf-guidelines http://[employer]/nejm-VitD The [employer]S iSYS Vitamin D Immunoassay detects both 25-OH Vitamin D2 and 25-OH Vitamin D3, but only a total Vitamin D concentration is reported. Blood specimen (specimen) 12/13/2017 9:15 AM EDT 12/13/2017 1:26 PM EDT Narrative Resulting Agency Comment Spec In Lab Vanesa Muller APRN CHEMISTRY ORDERA BLES [facility] [place] [address] documented in this encounter Visit Diagnoses Diagnosis Age-related osteoporosis without current pathological fracture Senile osteoporosis Elevated alkaline phosphatase level Other nonspecific abnormal serum enzyme levels documented in this encounter Care Teams Automotive Professional Relationship Specialty Start Date End Date Vanesa Muller APRN [facility] [place] [address] PCP - General General Internal Medicine 10/11/1707/31/18 documented as of this encounter
--- OUTSIDE RECORDS SUMMARY | 2024-05-08 15:33 | XMS_ITS | Encounter Summary ---
[place] [address] Care Team Providers Care Assistant Restaurant General Manager Name Role Phone Dottie Lala APRN Primary Care Provider [phone] Reason for Visit * Reason Comments Follow-up Encounter Details Date Type Department Care Team (Late st Contact Info) Description 03/23/2023 10:00 AM EDT Office Visit Dermatology at [place] [address] [place] [address] Wilmar Saldana MD 580 [facility], [place] [address] [place] (actinic keratosis); History of SCC (squamous cell carcinoma) of skin; Seborrheic keratosis, inflamed Social History Tobacco Use [...] Progress Notes * Wilmar Saldana MD - 03/23/2023 10:00 AM EDT Problem: 1. 6-month skin checkup 2. History of multiple nonmelanoma cutaneous malignancies 3. History of extensive sun exposure living in the [facility] in [place], status post a course of Efudex there 2003 4. Family history of malignant melanoma in 2 sisters and in a niece 5. 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 She has been doing well. She is considering another trip to [facility] this fall. Physical examination reveals a pleasant 72-year-old woman who has actinic keratoses on the central upper cutaneous lip. She has benign examination of the head and the neck the chest the back the hands informs thighs and calves. She has irritated seborrheic keratoses which are have been excoriated and obviously itchy on her back and right posterior leg. Assessment plan: Actinic keratoses 1. LN 2 x 2 applied single actinic keratosis Irritated seborrheic keratoses symptomatic and pruritic back and legs 1. LN 2 x 2 applied each of 10 sites 2. Return to clinic in 3 months for repeat check. History of multiple nonmelanoma cutaneous malignancies 1. No evidence today of any new lesions of concern CC: Dottie Lala APRN documented in this encounter Plan of Treatment Upcoming Encounters Date Type Department Care Team (Late st Contact Info) Description 10/03/2024 10:00 AM EST Office Visit Dermatology at [place] [address] [place] [phone] Wilmar Saldana MD 580 [facility], [facility] [address] documented as of this encounter Visit Diagnoses Diagnosis AK (actinic keratosis) Actinic keratosis History of SCC (squamous cell carcinoma) of skin Personal history of other malignant neoplasm of skin Seborrheic keratosis, inflamed Inflamed seborrheic keratosis documented in this encounter Care Teams Assistant Restaurant General Manager Relationship Specialty Start Date End Date Dottie Lala APRN [address] [place] [address] PCP - General Family Medicine 08/01/18 09/26/23 documented as of this encounter
--- OUTSIDE RECORDS SUMMARY | 2024-05-08 15:33 | XMS_ITS | Encounter Summary ---
[place] [address] Care Team Providers Care Insurance Verification Specialist Name Role Phone Dottie Lala APRN Primary Care Provider [phone] Reason for Visit * Reason Comments Follow-up Encounter Details Date Type Department Care Team (Late st Contact Info) Description 03/10/2022 10:15 AM EDT Office Visit Dermatology at [place] [address] [place] [address] Wimlar Saldana MD 580 [facility], [place] [address] Actinic keratosis; History of basal cell carcinoma; [...] Progress Notes * Wilmar Saldana MD - 03/10/2022 10:15 AM EDT Problem: 1. ??6-month skin checkup 2. ??History of multiple nonmelanoma cutaneous malignancies 3. ??History of extensive sun exposure living in the [facility] in [place], status post a course of Efudex there 2003 11. ??Family history of malignant melanoma in 2 sisters and in a niece 5. 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 She has noted a new lesion in the right base of her neck and onher left anterior shoulder. Physical examination was a pleasant 71-year-old man who has a hyperkeratotic papule millimeter in diameter on the right lateral base of her neck distant from her BCCA treatment site last visit. She has a pearly papule on the left anterior shoulder differential would include BCCA but more likely an new nevus. She has benign examination of the head and the neck the chest the back the hands are formed thighs and calves. She has several irritated seborrheic keratosis on her back. These are often itchy and irritated. Assessment plan: Rule out BCC left anterior shoulder 1. After obtaining for consent site was anesthetized removed shave biopsy, with C&D. 2. Specimen was submitted for pathologic analysis 3. Wound care instructions and supplies given 4. We will notify patient about results in 1 week 5. Return to clinic in 6 months Actinic keratosis right lateral base of neck 1. LN 2 x 2 applied to site Irritated seborrheic keratoses back 1. LN 2 x 2 applied each of 8 sites CC: Dottie Lala APRN documented in this encounter Plan of Treatment Upcoming Encounters Date Type Department Care Team (Late st Contact Info) Description 10/03/2024 10:00 AM EST Office Visit Dermatology at [place] [address] [place] [phone] Wilmar Saldana MD [address] [facility] [address], [place] [address] documented as of this encounter Visit Diagnoses Diagnosis Actinic keratosis History of basal cell carcinoma Personal history of other malignant neoplasm of skin Seborrheic keratosis, inflamed Inflamed seborrheic keratosis documented in this encounter Care Teams Insurance Verification Specialist Relationship Specialty Start Date End Date Dottie Lala APRN [address] [place] [address] PCP - General Family Medicine 08/01/18 09/26/23 documented as of this encounter
--- OUTSIDE RECORDS SUMMARY | 2024-05-08 15:33 | XMS_ITS | Encounter Summary ---
[place] [address] Care Team Providers Care Refrigerating Machine Operator Name Role Phone Vanesa Muller APRN Primary Care Provider + Encounter Details Date Type Department Care Team (Latest Contact Info) Description 11/22/2017 11:05 AM EDT Laboratory Appointment Lab [address] [place] [phone] Hypothyroidism, unspecified type; Screening for cardiovascular condition; Encounter for HCV screening test for low risk patient; Hypokalemia Social History Tobacco Use Types Packs/Day [...] 10:00 AM EST Office Visit Dermatology at [place] [address] [facility] [place] [phone] Wilmar Saldana MD [address] [facility] [address], [facility] [place] [address] documented as of this encounter Procedures Procedure Name Priority Date/Time Associated Diagnosis Comments CMP W/FASTING GLUCOSE Routine 11/22/2017 10:50 AM EDT Hypokalemia HEPATITIS C ANTIBODY Routine 11/22/2017 10:50 AM EDT Encounter for HCV screening test for low risk patient TSH Routine 11/22/2017 10:50 AM EDT Hypothyroidism, unspecified type LIPID PANEL (REFLEX DIRECT LDL) Routine 11/22/2017 10:50 AM EDT Screening for cardiovascular condition documented in this encounter Results * (ABNORMAL) CMP w/fasting Glucose (11/22/2017 10:50 AM EDT) Glucose Fasting 93 65 - 99 mg/dL [facility] Comment: ?Fasting* Glucose Interpretive Criteria [...] of Diabetes Mellitus, Position Statement from the [place] [employer]. ??Diabetes Care, Volume 33, Supplement 1, Aug 2009 Blood Urea Nitrogen 11 8 - 18 mg/dL [facility] Creatinine 0.73 0.70 - 1.20 mg/dL [facility] Sodium 136 135 - 145 mmol/L [facility] Potassium 3.7 3.5 - 5.0 mmol/L [facility] Comment: Please note: ??Patients with WBC >100,000 may have falsely elevated Potassium levels. ??For accurate Potassium quantification in these patients send serum separator tube (gold top) for subsequent determinations. ??Contact the Clinical Chemistry Laboratory if there are any questions. Chloride 95(L) 98 - 107 mmol/L [facility] Carbon Dioxide 31 22 - 31 mmol/L [facility] Anion Gap 10 5 - 15 mmol/L [facility] Calcium 9.2 8.5 - 10.5 mg/dL [facility] Protein, Total 7.8 6.1 - 8.0 gm/dL [facility] Albumin 4.6 3.2 - 5.2 gm/dL [facility] Aspartate Aminotransferase 25 0 - 30 unit/L [facility] Alanine Aminotransferase 14 0 - 30 unit/L [facility] Alkaline Phosphatase 105(H) 40 - 104 unit/L [facility] Bilirubin, Total 0.6 0.2 - 1.3 mg/dL [facility] Est Glomerular Filtration Rate >60 >=60 [facility] Comment: The reported eGFR should be multiplied by 1.2 for patients. The MDRD is not an appropriate measure of renal function for patients with body mass extremes or in patients with acute kidney failure. http://[employer]/DHnkdep http://[employer]/DHMCnkf Blood specimen (specimen) 11/22/2017 10:50 AM EDT 11/22/2017 11:00 AM EDT Narrative Resulting Agency Comment Spec In Lab Vanesajesse PhelanRenzo [facility] ORDERA BLES Performing Organization Address [facility] Co de Phone Number [facility] [place] [phone] * Hepatitis C Antibody (11/22/2017 10:50 AM EDT) Hepatitis C Antibody Negative Negative [facility] Blood specimen (specimen) 11/22/2017 10:50 AM EDT 11/22/2017 11:00 AM EDT Narrative Resulting Agency Comment Spec In Lab Vanesa S Renzo [facility] ORDERA BLES Performing Organization Address City/[facility]/ZIP Co de Phone Number [facility] [place] [phone] * Lipid Panel (11/22/2017 10:50 AM EDT) Cholesterol, Total 229 mg/dL [facility] Comment: Lower Risk: <200 mg/dL Average Risk: 200-239 mg/dL Higher Risk: >jj=449 mg/dL Triglyceride 87 mg/dL [facility] Comment: Average Risk/Lower Risk: <150 mg/dL Borderline High Risk: 150-199 mg/dL High Risk: 200-499 mg/dL Very High Risk: >pi=036 mg/dL HDL Cholesterol 79 mg/dL [facility] Comment: Males: ?? Higher Risk: <40 mg/dL Females: ?? HIgher Risk: <50 mg/dL LDL Cholesterol 133 mg/dL [facility] Comment: Lowest Risk: <100 mg/dL Lower Risk: 100-129 mg/dL Borderline High Risk: 130-159 mg/dL High Risk: 160-189 mg/dL Very High Risk: >dk=965 mg/dL Cholesterol/HDL Ratio 2.9 ratio [facility] Lipid Interpretation See Note [facility] Comment: Lipid management should be guided by a patient? s ASCVD risk, goals and preferences. ACC/AHA Guidelines recommend high intensity statin if clinical ASCVD or LDL greater than or equal to 190 mg/dL. http://[employer].com/FQC-TKS-Sudfxdgrh Adults aged 40-75 with LDL 70-189 mg/dL should have their 10 year ASCVD risk estimated with the ACC/AHA ASCVD risk welder and fitter http://tools.acc.org/VQPIR-Ndvp-Zdfexkloo/ Statin should be discussed if risk greater [...] Agency Comment Spec In Lab Vanesa Muller [facility] ORDERA BLES Performing Organization Address City/[facility]/ZIP Co de Phone Number [facility] [place] [address] * TSH (11/22/2017 10:50 AM EDT) Thyroid Stimulating Hormone 1.06 0.27 - 4.20 mlU/ML [facility] Blood specimen (specimen) 11/22/2017 10:50 AM EDT 11/22/2017 11:00 AM EDT Narrative Resulting Agency Comment Spec In Lab Vanesa Muller [facility] ORDERA BLES Performing Organization Address [facility]/ZIP Co de Phone Number [facility] [place] [address] documented in this encounter Visit Diagnoses Diagnosis Hypothyroidism, unspecified type Screening for cardiovascular condition Screening for other and unspecified cardiovascular conditions Encounter for HCV screening test for low risk patient Hypokalemia Hypopotassemia documented in this encounter Care Teams Refrigerating Machine Operator Relationship Specialty Start Date End Date Vanesa Muller APRN [facility] [place] [address] PCP - General General Internal Medicine 10/11/1707/31/18 documented as of this encounter
--- OUTSIDE RECORDS SUMMARY | 2024-05-08 15:33 | XMS_ITS | Encounter Summary ---
[place] [address] Care Team Providers Care Prompt Care Rn Name Role Phone Dottie Lala APRN Primary Care Provider [phone] Reason for Visit * Reason Comments Follow-up Skin Check Encounter Details Date Type Department Care Team (Late st Contact Info) Description 02/13/2019 10:30 AM EDT Office Visit Dermatology at [address] [place] [address] Wilmar Saldana MD [address] [facility], [facility] [address] Actinic keratosis; History of basal cell carcinoma; [...] Progress Notes * Wilmar Saldana MD - 02/13/2019 10:30 AM EDT Problem: 1. 6-month skin checkup 2. History of multiple nonmelanoma cutaneous malignancies 3. History of extensive sun exposure living in the [facility] in [place], status post a course of Efudex there 2003 Nuris follows up and is doing well. She has some new lesions of concern she is here for six-month check. Physical examination reveals actinic present on the upper central lip and on the right preauricularcheek. Also she has one on the right lateral eyebrow. Otherwise careful examination of the face theneck the chest the back the hands the arms the forearms thighs and the calves is benign. She is very fair skinned has type II Baca pigmentation and blue-eyed. Assessment plan: Actinic keratoses 1. LN 2 x 2 applied each of 3 sites History of multiple nonmelanoma cutaneous malignancies 1. No evidence recurrence 2. Patient reassured 3. Patient and I both desire to continue a every 6 month follow-ups CC: Dottie Lala APRN documented in this encounter Plan of Treatment Upcoming Encounters Date Type Department Care Team (Late st Contact Info) Description 10/03/2024 10:00 AM EST Office Visit Dermatology at [address] [address] Wilmar Saldana MD 580 [facility], [facility] [address] documented as of this encounter Visit Diagnoses Diagnosis Actinic keratosis History of basal cell carcinoma Personal history of other malignant neoplasm of skin Seborrheic keratosis, inflamed Inflamed seborrheic keratosis documented in this encounter Care Teams Prompt Care Rn Relationship Specialty Start Date End Date Dottie Lala APRN [address] [place] [address] PCP - General Family Medicine 08/01/18 09/26/23 documented as of this encounter
--- OUTSIDE RECORDS SUMMARY | 2024-05-08 15:33 | XMS_ITS | Encounter Summary ---
Author Organization [place] [address] Care Team Providers Care Loss Prevention/Safety District Manager Name Role Phone Dottie Lala APRN Primary Care Provider [phone] Encounter Details Date Type Department Care Team (Latest Contact Info) Description 03/23/2023 Travel Social History Tobacco Use Types Packs/Day [...] 10:00 AM EST Office Visit Dermatology at [place] [address] [place] [address] Wilmar Saldana MD [address] [facility] [address], [place] [address] documented as of this encounter Visit Diagnoses Not on filedocumented in this encounter Care Teams Loss Prevention/Safety District Manager Relationship Specialty Start Date End Date Dottie Lala APRN [address] [place], [place] [id number] PCP - General Family Medicine 08/01/18 09/26/23 documented as of this encounter
--- OUTSIDE RECORDS SUMMARY | 2024-05-08 15:33 | XMS_ITS | Encounter Summary ---
Author [place] [address] Care Team Providers Care Network Security Architect Name Role Phone SpikeDottie APRN Primary Care Provider [phone] Reason for Visit * Reason Comments Skin Check Encounter Details Date Type Department Care Team (Late st Contact Info) Description 06/24/2023 3:00 PM EDT Office Visit Dermatology at [place] 580 [facility] [place] [address] Wilmar Saldana MD 580 [facility], [facility] [address] Seborrheic keratosis, inflamed Social History Tobacco Use [...] Progress Notes * Wilmar Saldana MD - 06/24/2023 3:00 PM EDT Problem: 1. 3-month skin checkup for irritated seborrheic keratoses of the back and legs 2. History of multiple nonmelanoma cutaneous malignancies 3. History of extensive sun exposure living in the [facility] in [place], status post a course of Efudex there 2003 4. Family history of malignant melanoma in 2 sisters and in a niece 5. History BCCA right lateral neck August 2021 Nuris follows up for repeat check. I last saw her in March. She has new lesions of concern. Physical examination reveals a pleasant 72-year-old woman who has irritated seborrheic keratoses onher back her medial canthi bilaterally, left upper forehead. Fortunately there is no evidence of any cutaneous malignancies today. She has mild eczema dermatitis of the lower anterior shins bilaterally. This despite the use of CeraVe cream. Assessment plan: Irritated seborrheic keratoses, symptomatic and pruritic 1. LN 2 x 2 applied each of 8 sites 2. Return to clinic to clinic in another 3 months for repeat check. 3. Hopefully after that we will be able to space out to once every 6 months again. History of multiple nonmelanoma cutaneous malignancies 1. No evidence of recurrence at prior treatment sites and or nor any new lesions today. Pruritus lower shins bilaterally with mild patchy dermatitis 1. Begin triamcinolone 0.1% cream applying sparingly on a daily twice daily basis to control this. Dispense 30 g with 1 refill 2. Continue CeraVe cream as an emollient. CC: Dottie Lala APRN documented in this encounter Plan of Treatment Upcoming Encounters Date Type Department Care Team (Late st Contact Info) Description 10/03/2024 10:00 AM EST Office Visit Dermatology at [place] [address] [place] [address] Wilmar Saldana MD 580 [facility], [facility] [address] documented as of this encounter Visit Diagnoses Diagnosis Seborrheic keratosis, inflamed Inflamed seborrheic keratosis documented in this encounter Care Teams Network Security Architect Relationship Specialty Start Date End Date Dottie Lala APRN [address] [place] [address] PCP - General Family Medicine 08/01/18 09/26/23 documented as of this encounter
--- OUTSIDE RECORDS SUMMARY | 2024-05-08 15:33 | XMS_ITS | Encounter Summary ---
Author Organization [facility] [place] [address] Care Team Providers Care Transit Operator Name Role Phone Vanesa Muller APRN Primary Care Provider + Reason for Visit * Reason Onset Date Comments Triage 02/17/2018 Encounter Details Date Type Department Care Team (Late st Contact Info) Description 02/17/2018 Telephone [place] [phone] Christina Childs Triage Social History Tobacco Use Types Packs/Day Years [...] encounter Miscellaneous Notes * Telephone Encounter - Jessica Self RN - 02/17/2018 3:27 PM EDT Mrs. Mcrae telephoned clinic today to say that she took her first dose of Fosamax last night and today she is feeling increased muscle/nondescript bone pain in her ribs, her spine and her sternum, all from the waist up. She said that she is more uncomfortable when she inhales. She denies specific chest pain, shortness of breath or other symptoms. Currently she is using a heating pad and she has taken a dose of Advil to help with the discomfort. I spoke with her PCP, Vanesa Muller, who said that this is a normal side effect when starting this medication and she would like patient to continue the medication weekly. These side effects should decrease as her body adjusts to the medication. I spoke with Mrs. Mcrae again and gave her this message. She will contact clinic with any additional questions or concerns. * Telephone Encounter - Christina Childs - 02/17/2018 2:05 PM EDT Message: Pt calling regarding what she thinks is a reaction to Fosamax. She is having sternum pain.States she took for first time yesterday. Wanted to talk to nurse. Tried to call nurse-no answer. Please call pt back. Caller and relationship (if other than patient-full name): self Best time to call back: any Ok to leave a message: [yes] Ok to send my- message: [no] Offered Appointment: MA/Nurse contacted via: Message: x Call: Pager: documented in this encounter Plan of Treatment Upcoming Encounters Date Type Department Care Team (Late st Contact Info) Description 10/03/2024 10:00 AM EST Office Visit Dermatology at [address] [address] Wilmar Saldana MD 580 [facility], [facility] [address] documented as of this encounter Visit Diagnoses Not on filedocumented in this encounter Care Teams Transit Operator Relationship Specialty Start Date End Date Vanesa Muller APRN [facility] [place] [address] PCP - General General Internal Medicine 10/11/1707/31/18 documented as of this encounter
--- OUTSIDE RECORDS SUMMARY | 2024-05-08 15:33 | XMS_ITS | Encounter Summary ---
Author Organization [facility] [place] [address] Care Team Providers Care Finish Machine Tender Name Role Phone Dottie Lala APRN Primary Care Provider [phone] Encounter Details Date Type Department Care Team (Latest Contact Info) Description 03/10/2022 10:42 PM EDT - 03/10/2022 11:59 PM EDT [place] [id number] Discharge Disposition: Home Social History Tobacco Use [...] Sig Dispensed Refills Start Date End Date amLODIPine (NORVASC) 5 mg Tablet Daily. levothyroxine (SYNTHROID) 50 mcg Tablet Daily. multivitamin (THERAGRAN) tablet Take 1 tablet by mouth daily. turmeric 400 mg Capsule Take by mouth. 06/14/2020 POTASSIUM-99 ORAL Take 25 mg by mouth daily. OTC 06/14/2020 09/27/2023 vit B complex 100 no.2/herbs (VITAMIN B COMPLEX 100 2-HERBS ORAL) Take 1 tablet by mouth. 06/14/2020 09/27/2023 Garlic 300 mg Capsule Take by mouth. 06/14/202008/24 cholecalciferol, Vitamin D3, 1,000 unit Capsule Take by mouth. Calcium 220 mg capsule Take 1,000 mg by mouth 2 times daily (with meals). 09/27/2023 documented as of this encounter Plan of Treatment Upcoming Encounters Date Type Department Care Team (Late st Contact Info) Description 10/03/2024 10:00 AM EST Office Visit Dermatology at [place] [address] [place] [address] Wilmar Saldana MD [address], [place] [address] documented as of this encounter Procedures Procedure Name Priority Date/Time Associated Diagnosis Comments SURGICAL PATHOLOGY REPORT Routine 03/10/2022 10:34 AM EDT documented in this encounter Results * Surgical Pathology Report (03/10/2022 10:34 AM EDT) Final Diagnosis [id number] ? Location: OPW The signing pathologist has (i) examined the relevant preparation(s) for the specimen(s) and (ii) rendered or confirmed the diagnosis(es). . ?Surgical Pathology DIAGNOSIS Left anterior shoulder, skin shave biopsy: - ??Basal cell carcinoma, nodular pattern, ?? present at the deep specimen edge Electronically signed by: ?Chay FISCHER, Diane Verified: ??03/12/2022 18:31 ??Dermatopatholo gist Performed at: ??-[facility] Dept. of Pathology, [place], [place] SPECIMEN(S) SUBMITTED A - L anterior shoulder, skin shave biopsy CLINICAL INFORMATION Pearly papule, new treated with shave C and D. Nevus, rule out BCCa. SPECIMEN PROCESSING A - Labeled/Fixative : Patient demographics, formalin. Quantity/Size: ??Single, 0.9 x 0.5 x 0.1 cm. Tissue Description: Shave of pimentel-white skin. Sections/Process ing: Inked, quadrisected and entirely submitted in 1 cassette labeled A1. ??jnr 03/12/2022 6:31 PM EDT [facility] SPECIMEN FROM SKIN / Unknown 03/10/2022 10:34 AM EDT 03/10/2022 10:34 AM EDT Wilmar Saldana MD PATHOLOGY/CYTOLOGY O RDERABLES [facility] [place] [id number] documented in this encounter Visit Diagnoses Not on filedocumented in this encounter Care Teams Finish Machine Tender Relationship Specialty Start Date End Date Dottie Lala APRN [address] [place] [address] PCP - General Family Medicine 08/01/18 09/26/23 documented as of this encounter
--- OUTSIDE RECORDS SUMMARY | 2024-05-08 15:33 | XMS_ITS | Encounter Summary ---
Author Organization [facility] [place] [address] Care Team Providers Care Record Press Tender Name Role Phone Dottie Lala APRN Primary Care Provider [phone] Encounter Details Date Type Department Care Team (Late st Contact Info) Description 08/27/2023 Refill Dermatology at [address] [address] Bettye Minaya RN Social History [...] Telephone Encounter - Bettye Minaya RN - 08/27/2023 12:51 PM EST Patient called and stated that she did see Dr. Sladana on 06/24/2023 for Pruritus lower shins bilaterally. She was prescribed triamcinolone 0.1% cream apply sparingly on a daily/twice daily basis to control this. Patient stated that the areas are a little bit better stated less red raised red areas. She stated that she has been using the Triamcinolone 0.1% cream as prescribed and also using the cera ve cream as an emollient. Stated in the past week the inching has increased to the point she is finding it hard to not itch her shins. She stated that she has not changed any detergents and stated that she has not been wearing socks so that air gets to her legs. She is wondering if there is something else that she can use to help with the itching. Discussed with Dr. Saldana and his recommendationis for the patient to stop the Triamcinolone cream and to start betamethasone dipropionate 0.05% topical cream. Apply thin layer topically to pruritus on lower shins twice daily. Dispense 30 g with 1refill. Patient to follow up on 09/27/2023. Patient informed and she stated that she understood. Patient stated that she changed her pharmacy and she now wants her prescriptions to go to [facility]. documented in this encounter Plan of Treatment Upcoming Encounters Date Type Department Care Team (Late st Contact Info) Description 10/03/2024 10:00 AM EST Office Visit Dermatology at [address] [place] [address] Wilmar Saldana MD [address] [place] [address] RD, [place] [address] documented as of this encounter Visit Diagnoses Not on filedocumented in this encounter Care Teams Record Press Tender Relationship Specialty Start Date End Date Dottie Lala APRN [address] [place] [address] PCP - General Family Medicine 08/01/18 09/26/23 documented as of this encounter
--- OUTSIDE RECORDS SUMMARY | 2024-05-08 15:33 | XMS_ITS | Encounter Summary ---
[place] [address] Care Team Providers Care Co Founder And Ceo Name Role Phone Dottie Lala APRN Primary Care Provider [phone] Reason for Visit * Reason Comments Follow-up Encounter Details Date Type Department Care Team (Late st Contact Info) Description 10/25/2020 10:00 AM EST Office Visit Dermatology at [place] [address] [place] [address] Wilmar Saldana MD [address] [facility], [place] [address] Actinic keratosis; History of basal cell carcinoma; [...] Progress Notes * Wilmar Saldana MD - 10/25/2020 10:00 AM EST Problem: 1. ??6-month skin checkup 2. ??History of multiple nonmelanoma cutaneous malignancies 3. ??History of extensive sun exposure living in the [facility] in [place], status post a course of Efudex there 2003 11. ??Family history of malignant melanoma in 2 sisters and in a niece Nuris follows up after last being seen in July. She is here for an early visit. She has some lesions that she would like to have removed. Physical examination reveals a pleasant 70-year-old woman who has actinic keratoses present at 3 locations: 1 on the upper cutaneous lip just on the columella, one on the left medial lower cheek, andone on her left upper shoulder. Assessment and plan: Actinic keratoses 1. LN2 x2 applied to each of 3 sites 2. Return to clinic in another year for repeat check. CC: Dottie Lala APRN documented in this encounter Plan of Treatment Upcoming Encounters Date Type Department Care Team (Late st Contact Info) Description 10/03/2024 10:00 AM EST Office Visit Dermatology at [place] [address] [place] [address] Wilmar Saldana MD [address] [facility], [place] [address] documented as of this encounter Visit Diagnoses Diagnosis Actinic keratosis History of basal cell carcinoma Personal history of other malignant neoplasm of skin Seborrheic keratosis, inflamed Inflamed seborrheic keratosis documented in this encounter Care Teams Co Founder And Ceo Relationship Specialty Start Date End Date Dottie Lala APRN [address] [place] [address] PCP - General Family Medicine 08/01/18 09/26/23 documented as of this encounter
--- OUTSIDE RECORDS SUMMARY | 2024-05-08 15:33 | XMS_ITS | Encounter Summary ---
Author Organization [facility] [place] [address] Care Team Providers Care Quality Assurance Engineer Name Role Phone Lacy Barajas MD Primary Care Provider [phone] Reason for Visit * Reason Comments Annual Exam Encounter Details Date Type Department Care Team (Late st Contact Info) Description 04/04/2024 3:15 PM EDT Office Visit Dermatology at [address] [id number] Wilmar Saldana MD [address] [facility], [facility] [place] [address] History of SCC (squamous cell carcinoma) of skin; History of basal cell carcinoma; AK (actinic keratosis) Social History Tobacco Use Types Packs/Day Years [...] Progress Notes * Wilmar Saldana MD - 04/04/2024 3:15 PM EDT Problem: 1. 6-month skin checkup for irritated seborrheic keratoses of the back and legs 2. History of multiple nonmelanoma cutaneous malignancies 3. History of extensive sun exposure living in the [facility] in [place], status post a course of Efudex there 2004 4. Family history of malignant melanoma in 2 sisters and in a niece 5. 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 She has been doing well. Physical examination reveals a pleasant 73-year-old woman who has clinic keratoses present 1 on theleft and 1 on the right nasal tip. There is no evidence of any cutaneous disease today. The mild eczematous dermatitis of the lower extremities is well-controlled with intermittent applications of CeraVe cream and betamethasone cream.. Assessment plan: Actinic keratoses left and right nasal tip 1. LN 2 x 2 applied each of 2 sites 2. Return to clinic in 6 months now for repeat check. History of multiple nonmelanoma cutaneous malignancies 1. No evidence of recurrence at Prior treatment sites Eczematous dermatitis shins bilaterally 1. Much improved with addition of betamethasone to apply any cream 2. Continue use of CeraVe cream. 3. Attempt to taper down and off of the betamethasone dipropionate cream CC: Lacy Barajas MD documented in this encounter Plan of Treatment Upcoming Encounters Date Type Department Care Team (Late st Contact Info) Description 10/03/2024 10:00 AM EST Office Visit Dermatology at [place] [address] [place] [address] Wilmar Saldana MD [address] [facility], [place] [address] documented as of this encounter Visit Diagnoses Diagnosis History of SCC (squamous cell carcinoma) of skin Personal history of other malignant neoplasm of skin History of basal cell carcinoma Personal history of other malignant neoplasm of skin AK (actinic keratosis) Actinic keratosis documented in this encounter Care Teams Quality Assurance Engineer Relationship Specialty Start Date End Date Lacy Barajas MD [address] [place] [address] PCP - General Family Medicine 09/27/23 documented as of this encounter
--- OUTSIDE RECORDS SUMMARY | 2024-05-08 15:33 | XMS_ITS | Encounter Summary ---
Author Organization [facility] [place] [address] Care Team Providers Care Electric Arc Welder Name Role Phone Lacy Barajas MD Primary Care Provider [phone] Reason for Visit * Reason Comments Follow-up Skin Check Encounter Details Date Type Department Care Team (Late st Contact Info) Description 09/27/2023 1:30 PM EST Office Visit Dermatology at [place] [address] [place] [address] Wilmar Saldana MD [address] [facility], [facility] A DERMATOLOGY [place], [place] [address] Seborrheic keratosis, inflamed; History of SCC (squamous cell carcinoma) of skin; History of basal cell carcinoma Social History [...] Progress Notes * Wilmar Saldana MD - 09/27/2023 1:30 PM EST Problem: 1. 3-month skin checkup for irritated seborrheic keratoses of the back and legs 2. History of multiple nonmelanoma cutaneous malignancies 3. History of extensive sun exposure living in the [facility] in [place], status post a course of Efudex there 2003 4. Family history of malignant melanoma in 2 sisters and in a niece 5. 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 She has been doing well. Physical examination reveals a pleasant 73-year-old woman who has irritated seborrheic keratoses onthe right inferior medial canthus, on the left upper forehead, and her left anterior upper thigh. There is no evidence of any cutaneous disease today. The mild eczematous dermatitis of the lower exertion since Assessment plan: Irritated seborrheic keratoses, back and pruritic 1. LN 2 x 2 applied each of 3 sites 2. Return to clinic in 6 months now for repeat check. History of multiple nonmelanoma cutaneous malignancies 1. No evidence of recurrence at Prior treatment sites Shins bilaterally 1. Much improved with addition of betamethasone to apply any cream 2. Continue use of CeraVe cream. 3. Attempt to taper down and off of the betamethasone dipropionate cream CC: Lacy Barajas MD documented in this encounter Plan of Treatment Upcoming Encounters Date Type Department Care Team (Late st Contact Info) Description 10/03/2024 10:00 AM EST Office Visit Dermatology at [place] [address] [place] [address] Wilmar Saldana MD [address] [facility], [place] [address] documented as of this encounter Visit Diagnoses Diagnosis Seborrheic keratosis, inflamed Inflamed seborrheic keratosis History of SCC (squamous cell carcinoma) of skin Personal history of other malignant neoplasm of skin History of basal cell carcinoma Personal history of other malignant neoplasm of skin documented in this encounter Care Teams Electric Arc Welder Relationship Specialty Start Date End Date Lacy Barajas MD [address] [place] [address] PCP - General Family Medicine 09/27/23 documented as of this encounter
--- OUTSIDE RECORDS SUMMARY | 2024-05-08 15:33 | XMS_ITS | Encounter Summary ---
Author Organization [facility] [place] [address] Care Team Providers Care Pbx Installer Name Role Phone Spike Dottie Leeann LOWE Primary Care Provider [phone] Encounter Details Date Type Department Care Team (Late st Contact Info) Description 02/13/2020 Telephone Dermatology at [address] [address] Mary Kay Tripp LPN Social History Tobacco [...] encounter Miscellaneous Notes * Telephone Encounter - Mary Kay Tripp LPN - 02/13/2020 11:18 AM EDT 02/06/2020 Shave right lateral arm Dx: SCCA - very top layers of the skin only No further treatment necessary - return to clinic 08/05/2020 Reviewed above information with patient. She voiced understanding. documented in this encounter Plan of Treatment Upcoming Encounters Date Type Department Care Team (Late st Contact Info) Description 10/03/2024 10:00 AM EST Office Visit Dermatology at [address] [address] Wilmar Saldana MD [address], [place] [address] documented as of this encounter Visit Diagnoses Not on filedocumented in this encounter Care Teams Pbx Installer Relationship Specialty Start Date End Date Dottie Lala APRN [address] [place] [address] PCP - General Family Medicine 08/01/18 09/26/23 documented as of this encounter
--- OUTSIDE RECORDS SUMMARY | 2024-05-08 15:33 | XMS_ITS | Encounter Summary ---
[place] [address] Care Team Providers Care Congressional Assistant Name Role Phone SpikeDottie camarena CHRISSY Primary Care Provider [phone] Encounter Details Date Type Department Care Team (Late st Contact Info) Description 03/13/2022 Telephone Dermatology at [address] [address] Mary Kay Tripp LPN Social [...] Encounter - Mary Kay Tripp LPN - 03/13/2022 9:16 AM EDT 03/10/22 Left anterior shoulder skin shave biopsy Dx: BCCa No further treatment necessary, Return to clinic in 6 months for repeat skin check Reviewed biopsy results and Dr. Humphreys recommendation with patient. She voiced understanding. documented in this encounter Plan of Treatment Upcoming Encounters Date Type Department Care Team (Late st Contact Info) Description 10/03/2024 10:00 AM EST Office Visit Dermatology at [address] [address] Wilmar Saldana MD [address], [place] [address] documented as of this encounter Visit Diagnoses Not on filedocumented in this encounter Care Teams Congressional Assistant Relationship Specialty Start Date End Date Dottie Lala APRN [address] [place] [address] PCP - General Family Medicine 08/01/18 09/26/23 documented as of this encounter
--- OUTSIDE RECORDS SUMMARY | 2024-05-08 15:33 | XMS_ITS | Encounter Summary ---
[place] [address] Care Team Providers Care Benefits Director Name Role Phone Dottie Lala APRN Primary Care Provider [phone] Reason for Visit * Reason Comments Annual Exam Encounter Details Date Type Department Care Team (Late st Contact Info) Description 09/15/2022 10:15 AM EST Office Visit Dermatology at [place] [address] [place] [address] Wilmar Saldana MD [address] [facility], [place] [address] Actinic keratosis; History of basal cell carcinoma; [...] Progress Notes * Wilmar Saldana MD - 09/15/2022 10:15 AM EST Problem: 1. ??6-month skin checkup 2. ??History of multiple nonmelanoma cutaneous malignancies 3. ??History of extensive sun exposure living in the [facility] in [place], status post a course of Efudex there 2003 4. ??Family history of malignant melanoma in 2 sisters and in a niece 5. 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 She has just had thumb surgery performed by Dr. 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 Physical examination is a pleasant 72-year-old woman who has actinic keratoses on the forehead the cheeks and the nose and on the dorsal forearms. She has benign examination of the head and the neck the chest the back the hands informs thighs and calves. She does have a nonhealing crusting scabbingpapule on the right upper trigone concerning for possible SCCA versus BCCA. Assessment plan: Actinic keratoses 1. LN 2 x 2 applied each of 10 actinic keratoses Rule out SCC versus BCC versus actinic keratosis right upper nasal trigone 1. After obtaining for consent site was anesthetized and a shave biopsy was performed 2. Specimen was submitted for pathologic analysis 3. Wound care instructions and supplies given 4. Return to clinic in another 6 months for recheck. CC: Dottie Lala APRN documented in this encounter Plan of Treatment Upcoming Encounters Date Type Department Care Team (Late st Contact Info) Description 10/03/2024 10:00 AM EST Office Visit Dermatology at [place] [address] [place] [address] Wilmar Saldana MD [address] [facility], [facility] [place] [address] documented as of this encounter Visit Diagnoses Diagnosis Actinic keratosis History of basal cell carcinoma Personal history of other malignant neoplasm of skin Seborrheic keratosis, inflamed Inflamed seborrheic keratosis documented in this encounter Care Teams Benefits Director Relationship Specialty Start Date End Date Dottie Lala APRN [address] [place] [address] PCP - General Family Medicine 08/01/18 09/26/23 documented as of this encounter
--- OUTSIDE RECORDS SUMMARY | 2024-05-08 15:33 | XMS_ITS | Encounter Summary ---
Author Organization [facility] Address [facility] [place] [address] Care Team Providers Care Corporate Development Intern Name Role Phone Vanesa Muller APRN Primary Care Provider + Encounter Details Date Type Department Care Team (Late st Contact Info) Description 12/22/2017 Telephone [place] [address] [facility] Waite, [facility] Social History Tobacco Use Types Packs/Day Years [...] encounter Miscellaneous Notes * Telephone Encounter - Shreya Waite MA - 12/22/2017 1:21 PM EDT Called pt to get records for pap done with Dr. Nichols but her office is now closed and records are gone. Nuris will send a [employer] message about her results to Vanesa. * Telephone Encounter - Shreya Waite MA - 12/22/2017 1:21 PM EDT ----- Message from Vanesa Muller APRN sent at 12/22/2017 12:37 PM EDT ----- Please try to get Patient pap history from Dr. Kimmie Martin in [place], [place]. Patient says she has signed a record release already for this. Thanks. Vanesa documented in this encounter Plan of Treatment Upcoming Encounters Date Type Department Care Team (Late st Contact Info) Description 10/03/2024 10:00 AM EST Office Visit Dermatology at [place] [address] [place] [address] Wilmar Saldana MD [address], [place] [address] documented as of this encounter Visit Diagnoses Not on filedocumented in this encounter Care Teams Corporate Development Intern Relationship Specialty Start Date End Date Vanesa Muller APRN [facility] [place] [address] PCP - General General Internal Medicine 10/11/1707/31/18 documented as of this encounter
--- OUTSIDE RECORDS SUMMARY | 2024-05-08 15:33 | XMS_ITS | Encounter Summary ---
Author Organization [facility] [place] [address] Care Team Providers Care Head Of Partner Development Name Role Phone Dottie Lala APRN Primary Care Provider [phone] Reason for Visit * Reason Comments Skin Check Encounter Details Date Type Department Care Team (Late st Contact Info) Description 08/01/2019 3:15 PM EST Office Visit Dermatology at [address] [address] Wilmar Saldana MD [address] [facility], [place] [address] Actinic keratosis; History of basal cell carcinoma; [...] Progress Notes * Wilmar Saldana MD - 08/01/2019 3:15 PM EST Problem: 1. ??6-month skin checkup 2. ??History of multiple nonmelanoma cutaneous malignancies 3. ??History of extensive sun exposure living in the [facility] in [place], status post a course of Efudex there 2003 Nuris follows up for a six-month check. She is been doing well but she is noted some new lesions ofconcern. 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 Physical examination reveals actinic keratoses present in the right cheek the upper forehead several dorsal hands. There is no evidence of any malignant lesions on careful examination of the head andthe neck the chest the back the hands the arms of forearms the thighs and the calves. Assessment and plan: Actinic keratosis 1. LN x2 applied each of 4 sites History of multiple nonmelanoma cutaneous malignancies 1. No evidence of recurrence 2. Patient reassured 3. Patient and I both desire to continue our q. six-month follow-up routine Cc: Dottie Lala APRN documented in this encounter Plan of Treatment Upcoming Encounters Date Type Department Care Team (Late st Contact Info) Description 10/03/2024 10:00 AM EST Office Visit Dermatology at [address] [address] Wilmar Saldana MD [address] [place] [address], [place] [address] documented as of this encounter Visit Diagnoses Diagnosis Actinic keratosis History of basal cell carcinoma Personal history of other malignant neoplasm of skin Seborrheic keratosis, inflamed Inflamed seborrheic keratosis documented in this encounter Care Teams Head Of Partner Development Relationship Specialty Start Date End Date Dottie Lala APRN [address] [place] [address] PCP - General Family Medicine 08/01/18 09/26/23 documented as of this encounter
--- OUTSIDE RECORDS SUMMARY | 2024-05-08 15:33 | XMS_ITS ---
Author Organization Unknown Address [address] [place] [phone] Phone Care Team Providers Care Braiding Machine Operator Name Role Phone YOVANY Trinidad [...] Diagnosis Start Date Code Code Sys tem Arthritis of finger of left hand 12/06/2023 [id number] SNOMED-CT Personal Care Team Section Performer Name Performer Role Active Date Inactive Da janessa
--- OUTSIDE RECORDS SUMMARY | 2024-05-08 15:33 | XMS_ITS | Encounter Summary ---
Author Organization [place] [address] Care Team Providers Care Wedding Planner Name Role Phone Dottie Lala APRN Primary Care Provider [phone] Encounter Details Date Type Department Care Team (Latest Contact Info) Description 06/24/2023 Travel Social History Tobacco Use Types Packs/Day [...] 10:00 AM EST Office Visit Dermatology at [place] [address] [facility] [address] Wilmar Saldana MD [address], [place] [address] documented as of this encounter Visit Diagnoses Not on filedocumented in this encounter Care Teams Wedding Planner Relationship Specialty Start Date End Date Dottie Lala APRN [address] [place], [place] [id number] PCP - General Family Medicine 08/01/18 09/26/23 documented as of this encounter
--- OUTSIDE RECORDS SUMMARY | 2024-05-08 15:33 | XMS_ITS | Encounter Summary ---
Author Organization [facility] [place] [address] Care Team Providers Care Tailercpa Name Role Phone Dottie Lala APRN Primary Care Provider [phone] Encounter Details Date Type Department Care Team (Late st Contact Info) Description 09/28/2022 Telephone Dermatology at [address] [address] Bettye Minaya RN Social History [...] Telephone Encounter - Bettye Minaya RN - 09/28/2022 9:52 AM EST Patient called and informed Of her pathology results. Patient had a shave biopsy right upper nasal trigone on 09/15/2022. Diagnosis: Actinic keratosis. Dr. Saldana's recommendation is no further treatment is needed and patient to follow up on 03/23/2023. Patient informed this and she stated she understood. Patient was reminded of her follow up on 03/23/2023. documented in this encounter Plan of Treatment Upcoming Encounters Date Type Department Care Team (Late st Contact Info) Description 10/03/2024 10:00 AM EST Office Visit Dermatology at [place] [address] [place] [address] Wilmar Saldana MD [address], [place] [address] documented as of this encounter Visit Diagnoses Not on filedocumented in this encounter Care Teams Tailercpa Relationship Specialty Start Date End Date Dottie Lala APRN [address] [place] [address] PCP - General Family Medicine 08/01/18 09/26/23 documented as of this encounter
--- OUTSIDE RECORDS SUMMARY | 2024-05-08 15:33 | XMS_ITS | Encounter Summary ---
[place] [address] Care Team Providers Care Secretarial Teacher Name Role Phone Lacy Barajas MD Primary Care Provider [phone] Encounter Details Date Type Department Care Team (Latest Contact Info) Description 04/04/2024 Travel Social History Tobacco Use Types Packs/Day [...] 10:00 AM EST Office Visit Dermatology at [place] [address] [facility] [place] [phone] Wilmar Saldana MD [address], [place] [address] documented as of this encounter Visit Diagnoses Not on filedocumented in this encounter Care Teams Secretarial Teacher Relationship Specialty Start Date End Date Lacy Barajas MD [address] [place] [address] PCP - General Family Medicine 09/27/23 documented as of this encounter
--- OUTSIDE RECORDS SUMMARY | 2024-05-08 15:34 | XMS_ITS | Encounter Summary ---
[place] [address] Care Team Providers Care Switchbox Assembler Name Role Phone Cristy Willett MD Primary Care Provider [phone] Reason for Visit * Reason Comments Skin Check Encounter Details Date Type Department Care Team (Late st Contact Info) Description 05/27/2012 8:45 AM EDT Office Visit Dermatology [address] [place] [address] [address] [place] [address] Wilmar Saldana MD [address] [place] [address], [facility] [place] [address] Actinic keratosis (Primary Dx) Social History Tobacco Use Types Packs/Day Years Used Date Smoking Tobacco: Never Sex and Gender Information Value Date Recorded Sex Assigned at Not on file Gender Identity Not on file Sexual Orientation Not on file documented as of this encounter Progress Notes * Wilmar Saldana MD - 05/27/2012 9:12 AM EDT Dictated documented in this encounter Miscellaneous Notes * Miscellaneous - Roc Sweeney - 06/01/2012 2:02 PM EDT documented in this encounter Plan of Treatment Upcoming Encounters Date Type Department Care Team (Late st Contact Info) Description 10/03/2024 10:00 AM EST Office Visit Dermatology at [address] [place] [address] Wilmar Saldana MD [address], [place] [address] documented as of this encounter Visit Diagnoses Diagnosis Actinic keratosis- Primary documented in this encounter Care Teams Switchbox Assembler Relationship Specialty Start Date End Date Cristy Willett MD [address] [place] [address] PCP - General 07/15/10 10/10/17 documented as of this encounter
--- OUTSIDE RECORDS SUMMARY | 2024-05-08 15:34 | XMS_ITS | Encounter Summary ---
Author Organization [facility] Address [address] [place] [address] Care Team Providers Care Powerhouse Helper Name Role Phone Unavailable Primary Care Provider Unavailabl e Encounter Details Date Type Department Care Team (Late st Contact Info) Description 09/26/2007 14:51 EST Hospital Encounter [facility] [address] [place] [address] Awilda Pimentel, BEENA [address] [address] Social History Tobacco Use Types Packs/Day Years Used Date Smoking Tobacco: Never Assessed Interpersonal Safety Answer Date Record ed Physically Hurt Never 03/24/2020 Verbally Threaten Not on file 03/24/2020 Sex and Gender Information Value Date Recorded Sex Assigned at Not on file Gender Identity Not on file Sexual Orientation Not on file documented as of this encounter Plan of Treatment Not on file documented as of this encounter Visit Diagnoses Not on filedocumented in this encounter
--- OUTSIDE RECORDS SUMMARY | 2024-05-08 15:34 | XMS_ITS | Encounter Summary ---
Author Organization [facility] [place] [address] Care Team Providers Care Geographic Area Intelligence Officer Name Role Phone Cristy Willett MD Primary Care Provider [phone] Reason for Visit * Reason Comments Skin Lesion Seborrheic Keratosis Encounter Details Date Type Department Care Team (Late st Contact Info) Description 12/24/2010 11:00 AM EDT Office Visit Dermatology [address] [place] [address] [address] [place] [address] Wilmar Saldana MD [address], [place] [address] Actinic keratosis (Primary Dx); Seborrheic keratosis, inflamed Social History Tobacco Use Types Packs/Day Years Used Date Smoking Tobacco: Never Assessed Sex and Gender Information Value Date Recorded Sex Assigned at Not on file Gender Identity Not on file Sexual Orientation Not on file documented as of this encounter Progress Notes * Wilmar Saldana MD - 12/24/2010 11:49 AM EDT Problem: Early return for symptomatic areas of concern. Nuris follows up and had a good two months in [place] this winter leaving in August and just coming back about a month ago. Just before she left she noted a sore scabbing lesion on the left lateral upper helix of the ear. It has largely healed while waiting for today's appointment. She also has some irritated seborrheic keratoses that are often rubbed and irritated by her bra strap. Physical examination reveals an actinic keratosis/solar elastotic damage on the upper left lateral helical rim. She has several seborrheic keratoses on her back, under the bra strap and below it, also along the shoulder straps of her bra. Assessment & Plan: Actinic keratosis/solar elastosis, left lateral helical rim. a. LN2 x2 applied to site. Seborrheic keratoses, irritated of back and shoulders. a. LN2 x2 applied to sites. b. RTC in six months for regular yearly visit this fall. documented in this encounter Plan of Treatment Upcoming Encounters Date Type Department Care Team (Late st Contact Info) Description 10/03/2024 10:00 AM EST Office Visit Dermatology at [place] [address] [place] [address] Wilmar Saldana MD [address], [place] [address] documented as of this encounter Visit Diagnoses Diagnosis Actinic keratosis- Primary Seborrheic keratosis, inflamed Inflamed seborrheic keratosis documented in this encounter Care Teams Geographic Area Intelligence Officer Relationship Specialty Start Date End Date Cristy Willett MD [address] [place] [address] PCP - General 07/15/10 10/10/17 documented as of this encounter
--- OUTSIDE RECORDS SUMMARY | 2024-05-08 15:34 | XMS_ITS | Encounter Summary ---
Author Organization [facility] [place] [address] Care Team Providers Care Rn Endocrinology Name Role Phone Cristy Willett MD Primary Care Provider [phone] Reason for Visit * Reason Comments Skin Check Encounter Details Date Type Department Care Team (Late st Contact Info) Description 04/23/2016 10:45 AM EDT Office Visit Dermatology at [address] [place] [address] Wilmar Saldana MD [address] [facility], [place] [address] Actinic keratosis; History of basal cell carcinoma Social History Tobacco Use Types Packs/Day Years Used Date Smoking Tobacco: Never Sex and Gender Information Value Date Recorded Sex Assigned at Not on file Gender Identity Not on file Sexual Orientation Not on file documented as of this encounter Progress Notes * Wilmar Saldana MD - 04/23/2016 10:45 AM EDT PROBLEM: 1. Yearly skin checkup. 2. 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 3. History of BCC right upper back, December 2005. 4. History of extensive sun exposure living in the [facility], status post course of Efudex in the [facility], 2003. 5. 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 Nuris follows and is doing well. She has noted a new lesion on the upper cutaneous lip. She is also bothered by moles that are growing and getting in the way, one on the right upper medial cheek and one on the back of her left knee. The patient follows sun avoidance precautions and uses sunscreen. Patient has recently undergone surgery for a brain tumor and is, fortunately, doing well. Physical examination reveals irritated seborrheic keratoses on the left popliteal fossa and on the right upper medial cheek. She has mild actinic keratoses developing on the upper lip. Five or 6 are noted. These are erythematous macules, slightly hyperkeratotic. She has numerous, numerous ephelides and small nevi present widely on careful examination of the head and the neck, the chest, the back, hands and forearms, thighs and calves, which is otherwise benign. There is no evidence of recurrence of non-melanoma cutaneous malignancies at the above-noted sites. ASSESSMENT AND PLAN: 1. Actinic keratoses. A. Recommended trial of Tretinoin 0.025% cream, apply q. hour of sleep for 2 weeks, then at bedtime after washing; 20 g dispensed with 3 refills. This will be sent in to her [employer] insurance. She knows this will likely be an [id number] expense. Stressed the appropriate technique for application and the use of just a thin, thin layer of this to avoid irritant reaction. 2. History of multiple nonmelanoma cutaneous malignancies. A. No evidence of recurrence. Patient reassured. 3. Irritated seborrheic keratosis. A. LN2 x2 applied to both sites, left popliteal fossa and right upper medial cheek. Return to clinic in the spring for repeat check. Patient not sure whether they will be heading down to [place] this year or not. cc: Cristy Willett M.D. documented in this encounter Plan of Treatment Upcoming Encounters Date Type Department Care Team (Late st Contact Info) Description 10/03/2024 10:00 AM EST Office Visit Dermatology at [place] [address] [facility] [place] [phone] Wilmar Saldana MD [address] [facility], [place] [address] documented as of this encounter Visit Diagnoses Diagnosis Actinic keratosis History of basal cell carcinoma Personal history of other malignant neoplasm of skin documented in this encounter Care Teams Rn Endocrinology Relationship Specialty Start Date End Date Cristy Willett MD [address] [place] [address] PCP - General 07/15/10 10/10/17 documented as of this encounter
--- OUTSIDE RECORDS SUMMARY | 2024-05-08 15:34 | XMS_ITS | Encounter Summary ---
Author Organization [facility] [place] [address] Care Team Providers Care Social Work Program Coordinator Name Role Phone Cristy Willett MD Primary Care Provider [phone] Reason for Visit * Reason Comments Skin Check Encounter Details Date Type Department Care Team (Late st Contact Info) Description 04/21/2017 11:15 AM EDT Office Visit Dermatology at [address] [place] [address] Wilmar Saldana MD [address] [facility], [place] [address] Actinic keratosis Social History Tobacco Use Types Packs/Day Years Used Date Smoking Tobacco: Never Smokeless Tobacco: Never Sex and Gender Information Value Date Recorded Sex Assigned at Not on file Gender Identity Not on file Sexual Orientation Not on file documented as of this encounter Progress Notes * Wilmar Saldana MD - 04/21/2017 11:15 AM EDT PROBLEM: Followup for early skin check. Nuris follows up and has noted some new lesions. Physical examination reveals actinics present, 4 on her face, 1 on her right lateral cheek, 2 on the right upper lip, and 1 on the glabella. Otherwise examination of the face is unremarkable. She has an appointment to see me in July. A/P: Actinic keratoses, facial. a. LN2 x2 applied to each of 4 sites. b. Return to clinic in July for repeat check. CC: Cristy Willett MD documented in this encounter Plan of Treatment Upcoming Encounters Date Type Department Care Team (Late st Contact Info) Description 10/03/2024 10:00 AM EST Office Visit Dermatology at [place] [address] [place] [address] Wilmar Saldana MD [address], [place] [address] documented as of this encounter Visit Diagnoses Diagnosis Actinic keratosis documented in this encounter Care Teams Social Work Program Coordinator Relationship Specialty Start Date End Date Cristy Willett MD [address] [place] [address] PCP - General 07/15/10 10/10/17 documented as of this encounter
--- OUTSIDE RECORDS SUMMARY | 2024-05-08 15:34 | XMS_ITS | Encounter Summary ---
Author Organization [facility] [place] [address] Care Team Providers Care Viticulturist Name Role Phone Cristy Willett MD Primary Care Provider [phone] Reason for Visit * Reason Comments Skin Check Encounter Details Date Type Department Care Team (Late st Contact Info) Description 12/22/2012 8:15 AM EDT Office Visit Dermatology [address] [facility] [address] [place], [place] [address] Wilmar Saldana MD 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 Nuris follows up for an early check. She was out in [place] and had a fairly painful, erythematous area develop on the right superior helical rim. It was superior and lateral. She has some nodular elastosis of this area that has been longstanding, but the pain, the erythema, and some crusting and scabbing was new. After her return home, this has largely healed. Physical examination today reveals no active dermatitis. It is minimally painful today. Some nodular elastosis remains. She has two actinics on the nasal bridge. Assessment and Plan: 1. Actinic keratoses, nasal bridge. a. LN2 times two applied to each of two sites. 2. CNH, resolved. a. Discussed diagnosis. b. Discussed try keeping pressure off of this area. c. LN2 times two applied lightly to this site. d. Return to clinic in May for regular skin checkup. 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
--- OUTSIDE RECORDS SUMMARY | 2024-05-08 15:34 | XMS_ITS | Encounter Summary ---
Author Organization [facility] [place] [address] Care Team Providers Care Line Maintenance Supervisor Name Role Phone Vanesa Muller APRN Primary Care Provider + Encounter Details Date Type Department Care Team (Late st Contact Info) Description 10/19/2017 External Results Internal Medicine at [facility] [address] [place] [address] Brenda Capone, RAJWINDERA Social History Tobacco Use Types Packs/Day Years [...] 10:00 AM EST Office Visit Dermatology at [place] [address] [facility] [address] Wilmar Saldana MD [address] [facility], [place] [address] documented as of this encounter Procedures Procedure Name Priority Date/Time Associated Diagnosis Comments EXTERNAL LAB CBC CMP THYROID RESULTS PANEL Routine 08/25/2017 4:15 PM EST URINE EXTERNAL LAB PANEL Routine 08/16/2017 6:00 AM EST EXTERNAL LAB CBC CMP THYROID RESULTS PANEL Routine 08/16/2017 3:30 AM EST EXTERNAL MAMMOGRAM RESULT Routine 12/28/2016 EXTERNAL PAP SMEAR RESULT PANEL Routine 08/22/2013 documented in this encounter Results * (ABNORMAL) CBC / CMP / Thyroid External Results (08/25/2017 4:15 PM EST) Sodium 139([facility]) EXTERNAL LAB Potassium 4.1([facility]) EXTERNAL LAB Chloride 102([facility]) EXTERNAL LAB Carbon Dioxide 29(Externa l Lab) EXTERNAL LAB Blood Urea Nitrogen 15(Externa l Lab) EXTERNAL LAB Creatinine 0.56(Exter nal Lab) EXTERNAL LAB Est Glomerular Filtration Rate >=60(Exter nal Lab) EXTERNAL LAB Glucose 100([facility]) EXTERNAL LAB Calcium 9.4([facility]) EXTERNAL LAB 08/25/2017 4:15 PM EST Historical Provider EXTERNAL LAB ALANNA LUCERO EXTERNAL LAB * (ABNORMAL) Urine Lab External Results (08/16/2017 6:00 AM EST) Color, Urine Dipstick Colorless( External Lab) EXTERNAL LAB Appearance, Urine Dipstick Clear(Exte rnal Lab) EXTERNAL LAB Glucose, Urine Dipstick Normal(Ext ernal Lab) EXTERNAL LAB Bilirubin, Urine Dipstick Negative(E xternal Lab) EXTERNAL LAB Ketone, Urine Dipstick 20(EXTERNA L/ABN) EXTERNAL LAB Specific [place] Urine Automated 1.004(Exte rnal Lab) EXTERNAL LAB Blood, Urine Dipstick Negative(E xternal Lab) EXTERNAL LAB pH, Urn (dipstick) 7(External Lab) EXTERNAL LAB Protein, Urine Dipstick Negative(E xternal Lab) EXTERNAL LAB Urobilinogen, Urine Dipstick Negative(E xternal Lab) EXTERNAL LAB Nitrite, Urine Dipstick Negative(E xternal Lab) EXTERNAL LAB Leukocytes, Urine Dipstick Negative(E xternal Lab) EXTERNAL LAB 08/16/2017 6:00 AM EST Historical Provider POINT OF CARE HASEEB T ORDERABLES EXTERNAL LAB * (ABNORMAL) CBC / CMP / Thyroid External Results (08/16/2017 3:30 AM EST) White Blood Cell 4.54(ExtL) EXTERNAL LAB Red Blood Cell 4.48(Exter nal Lab) EXTERNAL LAB Hemoglobin 13.2(Exter nal Lab) EXTERNAL LAB Hematocrit 37.7(Exter nal Lab) EXTERNAL LAB Mean Cell Volume 84.2(Exter nal Lab) EXTERNAL LAB Platelet 267([facility]) EXTERNAL LAB Potassium 3.5([facility]) EXTERNAL LAB 08/16/2017 3:30 AM EST Historical Provider EXTERNAL LAB ALANNA LUCERO Performing Organization Address City/[facility] Co de Phone Number EXTERNAL LAB * (ABNORMAL) External Mammogram (12/28/2016) External Mammogram Negative(E xternal Lab) EXTERNAL LAB Comment:Negative category 1 yearly mammo recommended. Anatomical Region Laterality Modality Other 12/28/2016 Historical Provider IMG OUTSIDE INTER PRETATION ORDERABLES * (ABNORMAL) External Pap Smear (08/22/2013) External PAP Smear Negative(E xternal Lab) EXTERNAL LAB HPV (RESULT) Negative(E xternal Lab) EXTERNAL LAB 08/22/2013 Historical Provider EXTERNAL LAB ALANNA LUCERO Performing Organization Address City/[facility]/ZIP Co de Phone Number EXTERNAL LAB documented in this encounter Visit Diagnoses Not on filedocumented in this encounter Care Teams Line Maintenance Supervisor Relationship Specialty Start Date End Date Vanesa Muller APRN [facility] [place] [id number] PCP - General General Internal Medicine 10/11/1707/31/18 documented as of this encounter
--- OUTSIDE RECORDS SUMMARY | 2024-05-08 15:34 | XMS_ITS | Encounter Summary ---
Author Organization [facility] [place] [address] Care Team Providers Care Supervisor Intelligence Analyst Name Role Phone Cristy Willett MD Primary Care Provider [phone] Reason for Visit * Reason Comments Skin Check Encounter Details Date Type Department Care Team (Late st Contact Info) Description 07/26/2015 9:15 AM EST Office Visit Dermatology at [facility] [address] [facility] [place] [address] Wilmar Saldana MD [address] [facility] [place] [address] Actinic keratosis; History of basal cell carcinoma Social History Tobacco Use Types Packs/Day Years Used Date Smoking Tobacco: Never Sex and Gender Information Value Date Recorded Sex Assigned at Not on file Gender Identity Not on file Sexual Orientation Not on file documented as of this encounter Patient Instructions * Patient Instructions* Cass Fish LPN - 07/26/2015 9:27 AM EST [facility] Actinic Keratosis: After Your Visit Your Care Instructions Actinic keratosis is a skin growth caused by sun damage. It can turn into skin cancer, but this isn't common. Actinic keratoses, also called solar keratoses, are small red, brown, or skin-colored scaly patches. They are most common on the face, neck, hands, and forearms. Your doctor can remove these growths by freezing or scraping them off or by putting medicines on them. Follow-up care is a lambert part of your treatment and safety. Be sure to make and go to all appointments, and call your doctor if you are having problems. It's also a good idea to know your test resultsand keep a list of the medicines you take. How can you care for yourself at home? ?? If your doctor removes the growth, clean the area with soap and water 2 times a day unless your doctor gives you different instructions. Don't use hydrogen peroxide or alcohol, which can slow healing. ?? You may cover the wound with a thin layer of petroleum jelly, such as Vaseline, and a nonstick bandage. To prevent actinic keratosis ?? Always wear sunscreen on exposed skin. Make sure the sunscreen blocks ultraviolet rays (both UVAand UVB) and has a sun protection factor (SPF) of at least 15. Use it every day, even when it is cloudy. Some doctors may recommend a higher SPF, such as 30. ?? Wear long sleeves, a hat, and pants if you are going to be outdoors for a long time. ?? Avoid the sun between 10 a.m. and 4 p.m., the peak time for UV rays. ?? Do not use tanning booths or sunlamps. When should you call for help? Watch closely for changes in your health, and be sure to contact your doctor if: ?? The areas that were treated are red, drain pus, or have red streaks leading from them. ?? You see other growths that do not go away. ?? You do not get better as expected. Where can you learn more? Visit our health information library at [email or web address] You can also view health information on [employer], your personal patient account. Log in or sign up today. Enter L364 in the search box to learn more about Actinic Keratosis: After Your Visit. ?? [id number] [employer]. Care instructions adapted under license by [facility]. This care instruction is for use with your licensed healthcare professional. If you have questions about a medical condition or this instruction, always ask your healthcare professional. [employer] disclaims any warranty or liability for your use of this information. Content Version: 10.4.278160; Current as of: March 22, 2014 documented in this encounter Progress Notes * Wilmar Saldana MD - 07/26/2015 9:42 AM EST Problems: 1. Belated yearly skin checkup. 2. History of SCCA in situ, right neck and right upper back, June 2007. 3. History of BCCA, right upper back, December 2005. 4. History of extensive sun exposure living in the [facility]. 5. 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 Nuris follows up and has been doing well. She would like to have a repeat skin checkup. She was in a bible group with Antony Mascorro before her passing. She and her are looking into buying a home in [place] and spending part of the winter down there. Nuris has been very careful about using sun avoidance precautions but has had a lot of sun exposure in the [facility] in the past. Physical examination reveals today actinics present on the right jawline, right scientologist, and also several on the dorsal hands; a total of six are noted. Otherwise, careful examination of the head and neck, chest, back, hands, arms, forearms, thighs, and calves is benign. There is no evidence of recurrence of the nonmelanoma cutaneous malignancies at the above-noted sites. Assessment and Plan: 1. Actinic keratoses. a. LN2 times two applied to each of six sites. b. Patient reassured about remainder of benign skin examination. c. Return to clinic in another year for repeat check; [id number] reminder in one year. 2. History of multiple nonmelanoma cutaneous malignancies. a. No evidence of recurrence. b. Patient reassured. COPY: Cristy Willett M.D. documented in this encounter Plan of Treatment Upcoming Encounters Date Type Department Care Team (Late st Contact Info) Description 10/03/2024 10:00 AM EST Office Visit Dermatology at [facility] [address] [place] [address] Wilmar Saldana MD [address] [facility] [place] [address] documented as of this encounter Visit Diagnoses Diagnosis Actinic keratosis History of basal cell carcinoma Personal history of other malignant neoplasm of skin documented in this encounter Care Teams Supervisor Intelligence Analyst Relationship Specialty Start Date End Date Cristy Willett MD [address] [place] [address] PCP - General 07/15/10 10/10/17 documented as of this encounter
--- OUTSIDE RECORDS SUMMARY | 2024-05-08 15:34 | XMS_ITS | Encounter Summary ---
Author Organization [facility] Address [address] [place] [address] Care Team Providers Care Clinical Trial Data Manager Name Role Phone Unavailable Primary Care Provider Unavailabl e Encounter Details Date Type Department Care Team (Late st Contact Info) Description 06/06/2007 Results Only [facility] Plastic, Reconstructive & Cosmetic Surgery - [address], [address] [place], [place] [id number] Stefani Niño MD [address] [facility] [address] [place] [address] Social History Tobacco Use Types Packs/Day Years Used Date Smoking Tobacco: Never Assessed Sex and Gender Information Value Date Recorded Sex Assigned at Not on file Gender Identity Not on file Sexual Orientation Not on file documented as of this encounter Plan of Treatment Not on file documented as of this encounter Procedures Procedure Name Priority Date/Time Associated Diagnosis Comments SURGICAL PATHOLOGY Routine 06/06/2007 0:00 EDT documented in this encounter Results * SURGICAL PATHOLOGY (06/06/2007 0:00 EDT) Pathology Report: SURGICAL PATHOLOGY REPORT Reports generated via electronic interface contain original data; however they are lacking the format of the original report. Caution should be taken when reading/interpreti ng unformatted reports. Name: ? NAEL MCRAE Jaleesa ? Accession #: ? [id number] ? : ? 1950 (Age: 56) ??F ? Collect Date: ? 06/06/2007 ? Location: ? [facility] ? Receive Date: ? 06/06/2007 ? Provider: STEFANI NIÑO MD Copy to: RAYRAY HARGROVE ? Final Pathologic Diagnosis: ? Skin of right side of neck, shave biopsy: 1. ?Cicatrix. 2. ? No residual squamous cell carcinoma is identified. Document reviewed and electronically signed by: Oneal Cool MD Report ??Date: 06/08/2007 15:08 By the signature above, the attending physician certifies that he/she has personally conducted a gross and/or microscopic examination of the described specimens and rendered or confirmed the above diagnosis. Specimen(s) Received: ? Right side of neck Clinical History: ? SCC ??neck (on shave bx) Gross Description: ? Received in formalin labelled Brumme and SCC right side of neck ??suture yañez superior is an oriented skin ellipse with a suture designating the superior aspect. ??The specimen measures 2.3 cm from superior to inferior, 1.0 cm from anterior to posterior, and is excised to a depth of 0.4 cm. ??The cutaneous surface is hairbearing and contains a centrally located, ill-defined, hypopigmented region. ??The anterior half is blue inked and the posterior half is black inked. ??The specimen is serially sectioned from superior to inferior and entirely submitted with the superior tip reverse en face as (A1), ten central sections as (A2) ??(A5), and inferior tip reverse en face as (A6). ??(Dr. Ortega)/[facility] End of Report [facility] 06/06/2007 06/06/2007 21: 00 EDT Stefani Niño MD PATHOLOGY ORDERABLES Performing Organization Address City/State/[facility] Co de Phone Number [facility] [address] [place] [address] documented in this encounter Visit Diagnoses Not on filedocumented in this encounter
--- OUTSIDE RECORDS SUMMARY | 2024-05-08 15:34 | XMS_ITS | Encounter Summary ---
Author Organization [facility] Address [address] [place] [address] Care Team Providers Care Grit Removal Operator Name Role Phone Unavailable Primary Care Provider Unavailabl e Encounter Details Date Type Department Care Team (Late st Contact Info) Description 03/26/2008 12:51 EDT Hospital Encounter [facility] [address] [place] [address] Awilda Pimentel PA [address] [address] Social History Tobacco Use Types [...] Procedure Name Priority Date/Time Associated Diagnosis Comments CYTOPATHOLOGY Routine 06/22/2008 0:00 EDT documented in this encounter Results * CYTOPATHOLOGY (06/22/2008 0:00 EDT) Pathology Report: CYTOPATHOLOGY REPORT ? Reports generated via electronic interface contain original data; ? however they are lacking the format of the original report. ? Caution should be taken when reading/interpreti ng unformatted reports. ? Name: ? NAEL MCRAE ? Accession #: ? [id number] ? : ? 1950 (Age: 57) ??F ?Collect Date: ? 06/22/2008 ? Location: ? [facility] ? Receive Date: ? 06/26/2008 ? Provider: ?CRISTY Jin FINE MD ? Copy to: ? Specimen/Source: ?Pap Test, Endocervix, ThinPrep Imaging System with ? manual evaluation ? Last Menstrual Period: ? n/a ? Other: ? HPVA - HPV testing requested if ASC-US on the current ThinPrep Pap test. ? SPECIMEN ADEQUACY ? Satisfactory for Evaluation ? - assessment of transformation zone component not applicable ( e.g. atrophy, ? vaginal sample, hysterectomy) ? - scant squamous epithelial component ? GENERAL CATEGORIZATION ? Negative for Intraepithelial Lesion or Malignancy ? Document reviewed and electronically signed by: ? Blossom Nicki, CT(ASCP) ? Report Date: ??06/28/2008 13:26 ? End of Report ? [facility] 06/22/2008 06/26/2008 Cristy Willett MD PATHOLOGY ORDERABLES [facility] [address] [place] [address] documented in this encounter Visit Diagnoses Not on filedocumented in this encounter
--- OUTSIDE RECORDS SUMMARY | 2024-05-08 15:34 | XMS_ITS | Encounter Summary ---
Author Organization [facility] Address [facility] [place] [address] Care Team Providers Care Retail Store Clerk Name Role Phone Vanesa Muller APRN Primary Care Provider + Encounter Details Date Type Department Care Team (Late st Contact Info) Description 10/19/2017 Abstract Family Medicine at [facility] [address] [place] [address] Mini Hogan MA Social History Tobacco Use Types Packs/Day Years [...] 10:00 AM EST Office Visit Dermatology at [address] [place] [address] Wilmar Saldana MD [address] [facility] [place] [address] documented as of this encounter Visit Diagnoses Not on filedocumented in this encounter Care Teams Retail Store Clerk Relationship Specialty Start Date End Date Vanesa Muller APRN [facility] [place] [address] PCP - General General Internal Medicine 10/11/1707/31/18 documented as of this encounter
--- OUTSIDE RECORDS SUMMARY | 2024-05-08 15:34 | XMS_ITS | Encounter Summary ---
Author Organization [facility] Address [address] [place] [address] Care Team Providers Care Health And Wellness Director Name Role Phone Unavailable Primary Care Provider Unavailabl e Encounter Details Date Type Department Care Team (Late st Contact Info) Description 07/11/2007 Before PRISM Converted Visit ([facility] [address] [place] [address] Awilda Pimentel, BEENA [address] [address] Social History Tobacco Use Types Packs/Day Years Used Date Smoking Tobacco: Never Assessed Sex and Gender Information Value Date Recorded Sex Assigned at Not on file Gender Identity Not on file Sexual Orientation Not on file documented as of this encounter Progress Notes * Awilda Minaya MD - 07/03/2009 1046 EST DIVISION OF DERMATOLOGY PROGRESS/FOLLOWUP NOTE - 07/11/2007 PROBLEM LIST: 1. 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 2. History of irritated seborrheic keratoses. 3. History of basal cell carcinoma status post electrodesiccation and curettage 12/2005 right upperback. 4. Actinic injury. 5. History of actinic keratoses. 6. Seborrheic keratoses. SUBJECTIVE: This 56-year-old white female returns to the clinic today, last seen by me in 04/2007 at which point we did diagnose her with her squamous cell carcinoma in situ which has subsequently been excised by Plastics a little less than a month ago. She is here today for evaluation of a few growths that have been present,not increasing in size, but when she scratches at them they become even more itchy and now are persistently itchy. She has actually scratched at them and made them bleed. She would like to know if these could be treated with liquid nitrogen cryosurgery aswe have treated irritated seborrheic keratoses in the past for her and they resolved nicely. She otherwise has been well. She has no other questions or concerns in reference to her skin. The lesions are on the right upper arm. Patient has had no interval health status change. No constitutional symptoms today or any other complaints referable to the skin. OBJECTIVE: On exam this is an otherwise very pleasant skin type II 56-year-old female in no apparent distress with appropriate affect and demeanor. On examination of the right lateral neck she has a well-healed surgical scar, no nodularity. On her right upper arm along the deltoid she has two red stuck-on papules approximately 4 and 6 mm. She has numerous stuck-on papules. Theremainder of her exam is unremarkable. ASSESSMENT: 1. Irritated seborrheic keratoses times two right upper arm. 2. History of actinic keratoses. 3. Actinic injury. 4. Seborrheic keratoses. 5. History of basal cell carcinoma status post electrodesiccation and curettage 12/2005 right upperback. 6. 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 PLAN: Patient education and reassurance. Recommended liquid nitrogen cryosurgery to the irritated seborrheic keratoses. The expected reaction and healing course were discussed as well as the possibility of incomplete resolution and/or permanent dyspigmentation. Patient consent obtained and two irritated seborrheic keratoses on the right arm were treated with liquidnitrogen cryosurgery with good results without adverse event. Wound care instructions given verbally. Patient will follow up in 10/2007 for a complete cutaneous exam. She will also follow up in one month for reevaluation of these areas and she may cancel the visit if these lesions are gone. She will return in the interim if problems arise. Supervising Physician Signed by Dottie Hudson MD 07/25/2007 15:01 Reviewed by Awilda Minaya PA-C 07/20/2007 08:33 Awilda Minaya PA-C Dottie Hudson MD - Awilda Minaya PA-C - markel Job ID: [id number] Doc ID: [id number] cc: Maria L Iyer MD documented in this encounter Plan of Treatment Not on file documented as of this encounter Visit Diagnoses Not on filedocumented in this encounter
--- OUTSIDE RECORDS SUMMARY | 2024-05-08 15:34 | XMS_ITS | Referral Summary ---
Author Organization [facility] Address [address] [place] [address] Care Team Providers Care Wood Car Builder Name Role Phone Unknown, Provider Primary Care Provider + [phone] Social History Tobacco Use Types Packs/Day Years Used Date Smoking Tobacco: Never Assessed Interpersonal Safety Answer Date Record ed Physically Hurt Never 03/24/2020 Verbally Threaten Not on file 03/24/2020 Sex and Gender Information Value Date Recorded Sex Assigned at Not on file Gender Identity Not on file Sexual Orientation Not on file Plan of Treatment Not on file Care Teams Wood Car Builder Relationship Specialty Start Date End Date Unknown, Provider, PCP - General 07/21/17
--- OUTSIDE RECORDS SUMMARY | 2024-05-08 15:34 | XMS_ITS | Encounter Summary ---
Author Organization [facility] Address [address] [place] [address] Care Team Providers Care Greenhouse Worker Name Role Phone Unavailable Primary Care Provider Unavailabl e Encounter Details Date Type Department Care Team (Late st Contact Info) Description 05/26/2007 9:19 EDT Hospital Encounter [facility] - [facility] [address] [place] [address] Carlos Roberts MD [address] [place] [address] [address] [place] [address] Social History Tobacco Use Types [...]
--- OUTSIDE RECORDS SUMMARY | 2024-05-08 15:34 | XMS_ITS | Encounter Summary ---
Author Organization [facility] Address [address] [place] [address] Care Team Providers Care Machine Slat Basket Maker Name Role Phone Unavailable Primary Care Provider Unavailabl e Encounter Details Date Type Department Care Team (Latest Contact Info) Description 12/09/2006 11:18 EDT - 12/09/2006 11:59 EDT Hospital Encounter [facility] [address] [place] [address] Shana Randhawa MD [address] [address] Discharge Disposition: Auto Discharge Social History Tobacco Use Types Packs/Day Years Used Date Smoking Tobacco: Never Assessed Sex and Gender Information Value Date Recorded Sex Assigned at Not on file Gender Identity Not on file Sexual Orientation Not on file documented as of this encounter Discharge Disposition Disposition Code Departure Means Destination Auto Discharge documented in this encounter Plan of Treatment Not on file documented as of this encounter Procedures Procedure Name Priority Date/Time Associated Diagnosis Comments NM NUCLEAR STRESS EXERCISE 12/09/2006 16:08 EDT NM NUCLEAR STRESS EXERCISE 12/09/2006 13:10 EDT documented in this encounter Results * NUCLEAR STRESS TEST (12/09/2006 16:08 EDT) Anatomical Region Laterality Modality Other 12/09/2006 16:0 8 EDT Narrative 02/20/2009 10:30 EDT 786.50, CP, CL-JOSS,WT:122 If you need to receive a hard copy of this report immediately, please contact the [facility] Cardiology Report line at [phone]. ??A copy of the CardioChart report will be faxed to the attending, referring, and primary care providers within 48 hours of the date of service. I have personally reviewed the images and the above interpretation and agree with the findings. Procedure Note Yolie De La Rosa MD / Flip Small MD - 02/20/2009 786.50, CP, CL-JOSS,WT:122 If you need to receive a hard copy of this report immediately, please contact the [facility] Cardiology Report line at [phone]. A copy of the CardioChart report will be faxed to the attending, referring, and primary care providers within 48 hours of the date of service. I have personally reviewed the images and the above interpretation and agree with the findings. Shana Randhawa MD CARDIAC NM ORDERAB LES * NM NUCLEAR STRESS EXERCISE (12/09/2006 13:10 EDT) Anatomical Region Laterality Modality Other 12/09/2006 13:1 0 EDT Narrative 12/09/2006 15:40 EDT ? Final Stress Myocardial Perfusion Imaging Report ? --- PATIENT PRESENTATION --- : 1950 ? Age: 56 ?Sex: F ?? Height: 68 in ??Weight: 120 lb ?BSA: 1.65 Pt Type: OP History: ??56 year old woman no known coronary artery disease. ??Presents with complaint of central and right sided chest pressure which occurs at rest, sometimes with exertional activities, and during times of emotional stress (according to patient), relieved with relaxation. Denies pain at this time. Medications: Calcium channel blockers, Synthroid Cardiovascular Risk Factors: ??Family history of CAD, Hypertension, Past Smoker (quit > 6 mos ago) Reason for Study: Atypical Chest Pain Referring Physician: SHANA RANDHAWA MD ??FAX: [phone] ?--- NUCLEAR IMAGING RESULTS --- PERFUSION AND WALL MOTION Myocardial Perfusion: Normal ? Ventricular Function (Wall Motion): ? Global Left: ?? normal ? Global Right: ??normal ? Regional: normal LVEF(%):60 IMPRESSION > normal perfusion and contraction by Tc-99 Sestamibi (Cardiolite) SPECT imaging _ _ _ _ _ _ _ _ _ _ _ _ _ _ _ _ _ _ _ _ _ _ _ _ _ _ _ _ _ _ _ _ _ WI - myocardial infarction ?JVM - jeopardized viable myocardium LAD - left anterior descending artery ?? RCA - right coronary artery LCx - left circumflex artery _ _ _ _ _ _ _ _ _ _ _ _ _ _ _ _ _ _ _ _ _ _ _ _ _ _ _ _ _ _ _ _ _ PERFUSION AGENT AND IMAGING Stress Protocol: Adenosine Rest ?Rest Dose (+/- 10%): ?10 mCi ??Tc- 99m Sestamibi Imaging Protocol: Rest/Stress 1-day ? Stress Dose (+/- 10%): ?? 30 mCi ??Tc- 99m Sestamibi Acquisition: ??SPECT ??Gated ??Attenuation Corrected ?--- STRESS ELECTROCARDIOGRAPHY --- BASELINE Supine HR: ? 69 ? Supine BP: ??146 / 78 Upright HR: ?81 ? Upright BP: ?140 / 80 STRESS TEST Peak HR: ??109 ? Peak BP: ? 130 / 70 ? MPHR: ??66% Peak Rate-Pressure Product: 41293 Test Stopped Due To: ??Protocol Symptoms / Pre Scale / Post Scale: ?Lightheadedness/dizziness 6/10 resolved spontaneously 0/10 ECG Changes: ?? None Performed By: ??Cristine Santoyo RN Pre-imaging likelihood of CAD: 2% ? Post-imaging likelihood of CAD: 0.4% ?--- STRESS SUMMARY --- 1. Normal heart rate and ??normal blood pressure response to Adenosine 2. EXERCISE CAPACITY FOR AGE: ??Not applicable 3. CHEST PAIN: None ?SHORTNESS OF BREATH: None 4. STRESS ECG: Negative 5. ARRHYTHMIA: Occasional PVC ?Chapin Lisa MD - Salesperson Burial Plots Image Interpretation By: ?Flip Small MD - Attending Radiologist ?Alberto Truong MD - Attending Nuclear Campus Receptionist Stress ECG Interpretation By: Alberto Truong MD - Attending Campus Receptionist Flip Small MD Electronically Signed on 12/09/2006 Finalized on: 12/09/2006 3:41:03 PM Copy Report To: ? Procedure Note 02/05/2010 Final Stress Myocardial Perfusion Imaging Report --- PATIENT PRESENTATION --- : 1950 Age: 56 Sex: F Height: 68 in Weight: 120 lbBSA: 1.65 Pt Type: OP History: 56 year old woman no known coronary artery disease. Presentswith complaint of central and right sided chest pressure which occurs atrest, sometimes with exertional activities, and during times of emotionalstress (according to patient), relieved with relaxation. Denies pain at thistime. Medications: Calcium channel blockers, Synthroid Cardiovascular Risk Factors: Family history of CAD, Hypertension, PastSmoker (quit > 6 mos ago) Reason for Study: Atypical Chest Pain Referring Physician: SYDNEE FISCHER,SHANA Mariee FAX: [phone] --- NUCLEAR IMAGING RESULTS --- PERFUSION AND WALL MOTION Myocardial Perfusion: Normal Ventricular Function (Wall Motion): Global Left: normal Global Right: normal Regional: normal LVEF(%):60 IMPRESSION > normal perfusion and contraction by Tc-99 Sestamibi (Cardiolite) SPECT imaging _ _ _ _ _ _ _ _ _ _ _ _ _ _ _ _ _ _ _ _ _ _ _ _ _ _ _ _ _ _ _ _ _ WI - myocardial infarction JVM - jeopardized viable myocardium LAD - left anterior descending artery RCA - right coronary artery LCx - left circumflex artery _ _ _ _ _ _ _ _ _ _ _ _ _ _ _ _ _ _ _ _ _ _ _ _ _ _ _ _ _ _ _ _ _ PERFUSION AGENT AND IMAGING Stress Protocol: Adenosine Rest Rest Dose (+/- 10%): 10 mCiTc-99m Sestamibi Imaging Protocol: Rest/Stress 1-day Stress Dose (+/- 10%): 30 mCiTc-99m Sestamibi Acquisition: SPECT Gated Attenuation Corrected --- STRESS ELECTROCARDIOGRAPHY --- BASELINE Supine HR: 69 Supine BP: 146 / 78 Upright HR: 81 Upright BP: 140 / 80 STRESS TEST Peak HR: 109 Peak BP: 130 / 70 MPHR: 66% Peak Rate-Pressure Product: 54030 Test Stopped Due To: Protocol Symptoms / Pre Scale / Post Scale: Lightheadedness/dizziness 6/10resolved spontaneously 0/10 ECG Changes: None Performed By: Cristine Santoyo RN Pre-imaging likelihood of CAD: 2% Post-imaging likelihood of CAD:0.4% --- STRESS SUMMARY --- 1. Normal heart rate and normal blood pressure response to Adenosine 2. EXERCISE CAPACITY FOR AGE: Not applicable 3. CHEST PAIN: None SHORTNESS OF BREATH: None 4. STRESS ECG: Negative 5. ARRHYTHMIA: Occasional PVC Chapin Lisa MD - Salesperson Burial Plots Image Interpretation By: Flip Small MD - Attending Radiologist Alexi FISCHER, Alberto - Attending Nuclear Campus Receptionist Stress ECG Interpretation By: Alberto Truong MD - Attending Campus Receptionist Flip Small MD Electronically Signed on 12/09/2006 Finalized on: 12/09/2006 3:41:03 PM Copy Report To: [place] Provider [id number] CARDIAC NM ORDERABLES documented in this encounter Visit Diagnoses Not on filedocumented in this encounter
--- OUTSIDE RECORDS SUMMARY | 2024-05-08 15:34 | XMS_ITS | Encounter Summary ---
Author Organization [facility] Address [address] [place] [address] Care Team Providers Care Molder Foam Rubber Name Role Phone Unavailable Primary Care Provider Unavailabl e Encounter Details Date Type Department Care Team (Late st Contact Info) Description 03/03/2006 Results Only [facility] [address] [place] [address] Boaz Wild MD [address] [place], [place] [id number] Social History Tobacco Use Types Packs/Day Years Used Date Smoking Tobacco: Never Assessed Sex and Gender Information Value Date Recorded Sex Assigned at Not on file Gender Identity Not on file Sexual Orientation Not on file documented as of this encounter Plan of Treatment Not on file documented as of this encounter Procedures Procedure Name Priority Date/Time Associated Diagnosis Comments HPV DETECTION, HIGH RISK TYPES Routine 03/03/2006 9:59 EDT CYTOPATHOLOGY Routine 03/03/2006 0:00 EDT documented in this encounter Results * HUMAN PAPILLOMA VIRUS DNA TEST (03/03/2006 9:59 EDT) Specimen Description Cervix, ThinPrep vial [facility] Result Negative for HPV types 16, 18, 31, 33, 35, 39, 45, 51, 52, 56, 58, 59, and 68. [facility] Report Status Final [id number] [facility] 03/03/2006 9:59 EDT 03/10/2006 9:59 EDT Boaz Wild MD MICROBIOLOGY - GEN ERAL ORDERABLES [facility] [address] [place] [address] * CYTOPATHOLOGY (03/03/2006 0:00 EDT) Pathology Report: CYTOPATHOLOGY REPORT Reports generated via electronic interface contain original data; however they are lacking the format of the original report. Caution should be taken when reading/interpreti ng unformatted reports. Name: ? NAEL MCRAE ? Accession #: ? [id number] : ? 1950 (Age: 55) ??F ?Collect Date: ? 03/03/2006 Location: ? [facility] ? Receive Date: ? 03/05/2006 Provider: ?BOAZ WILD MD Copy to: ? Specimen/Source: ?ThinPrep Pap Test, Cervix, processed on [employer] ThinPrep Imaging System, with manual evaluation Last Menstrual Period: ? Menstrual/Pregnanc y Status: ? Menopausal Treatment History: ? Cryotherapy Other: ? HPVDX - HPV testing requested regardless of diagnosis on current ThinPrep Pap test. ? SPECIMEN ADEQUACY ? Unsatisfactory for Evaluation, - insufficient numbers of squamous epithelial cells (less than 10% of expected cellularity) GENERAL CATEGORIZATION ? Specimen processed and examined, but unsatisfactory for evaluation of epithelial abnormality. Recommend repeat Pap test or further follow up, as clinically indicated. ? Document reviewed and electronically signed by: ? Maria L Verville,CT(ASCP) ? Report Date: ??03/09/2006 13:54 End of Report [facility] 03/03/2006 03/05/2006 Boaz Wild MD PATHOLOGY ORDERABL ES Performing Organization Address City/State/[facility] Co de Phone Number [facility] [address] [place] [address] documented in this encounter Visit Diagnoses Not on filedocumented in this encounter
--- OUTSIDE RECORDS SUMMARY | 2024-05-08 15:34 | XMS_ITS | Encounter Summary ---
Author Organization [facility] Address [address] [place] [address] Care Team Providers Care Cardiology Nurse Practitioner Name Role Phone Unknown, Provider Primary Care Provider + [phone] Encounter Details Date Type Department Care Team (Late st Contact Info) Description 07/29/2021 Lab Requisition [facility] Pathology & Laboratory Medicine - [address] [address] Outr Resulting Lab, Provider Social History Tobacco Use Types Packs/Day Years [...] Procedure Name Priority Date/Time Associated Diagnosis Comments ZZCOVID-19 TEST [facility] PCR Today 07/29/2021 11:10 EST COVID-19 TESTING Routine 07/29/2021 11:1 0 EST documented in this encounter Results * COVID-19 TEST [facility] PCR (07/29/2021 11:10 EST) Swab 07/29/2021 11:1 0 EST 07/29/2021 22:22 EST Provider Outr Resulting Lab MICROBIOLOGY - GENERAL ORDERABLES [facility] [address] [place] [address] * COVID-19 TESTING (07/29/2021 11:10 EST) COVID-19 rt-PCR Result Negative Negative 07/30/2021 14:18 EST [facility] Comment: This test has not been FDA cleared or approved. This test has been authorized by FDA under an EUA for use by authorized laboratories. This test has been authorized only for detection of nucleic acid from 2019-nCoV, not for any other viruses or pathogens. This test is only authorized for the duration of the declaration that circumstances exist justifying the authorization of emergency use of in vitro diagnostic tests for detection and/or diagnosis of 2019-nCoV under section 564(b)(1) of Act, 21 U.S.C ?? 360bbb-3(b) (1), unless the authorization is terminated or revoked sooner. Negative results do not preclude 2019-nCoV infection and should not be used as the sole basis for treatment or other patient management decisions. Negative results must be combined with clinical observations, patient history, and epidemiological information. Testing was performed using the luciano SARS-CoV-2 assay ([employer] on the Luciano 6800 System Performing Lab Luciano [address]00 [facility] 07/30/2021 14:18 EST [facility] Swab 07/29/2021 11:1 0 EST 07/29/2021 22:22 EST Provider Outr Resulting Lab MICROBIOLOGY - GENERAL ORDERABLES [facility] [address] [place] [address] documented in this encounter Visit Diagnoses Not on filedocumented in this encounter Care Teams Cardiology Nurse Practitioner Relationship Specialty Start Date End Date Unknown, Provider, PCP - General 07/21/17 documented as of this encounter
--- OUTSIDE RECORDS SUMMARY | 2024-05-08 15:34 | XMS_ITS | Encounter Summary ---
Author Organization [facility] Address [address] [place] [address] Care Team Providers Care Anesthesiology Faculty Name Role Phone Unavailable Primary Care Provider Unavailabl e Encounter Details Date Type Department Care Team (Late st Contact Info) Description 05/05/2007 Before PRISM Converted Visit ([facility]) [facility] - [facility] conversion [address] [place] [address] Awilda Pimentel, BEENA [address] [address] Social History Tobacco Use Types Packs/Day Years Used Date Smoking Tobacco: Never Assessed Sex and Gender Information Value Date Recorded Sex Assigned at Not on file Gender Identity Not on file Sexual Orientation Not on file documented as of this encounter Progress Notes * Awilda Minaya MD - 07/03/2009 6156 EST DIVISION OF DERMATOLOGY PROGRESS/FOLLOWUP NOTE - 05/05/2007 PROBLEM: 1. Basal cell carcinoma status post electrodesiccation and curettage right upper back 12/2005. 2. Seborrheic keratoses. 3. Actinic injury. SUBJECTIVE: This 56-year-old white female returns to the clinic today with the above-stated history, last seen by me 05/2006. She is here for a complete cutaneous exam with questions regarding a bumpthat continues to scab and bleed every so often on her right neck that has been present for about ayear or so. She also has a growth on her left anterior shoulder that has been present for quite some time and occasionally scabs and bleeds, getting caught up in her short, bra, so on so forth. She otherwise has not noticed any other scabbing, bleeding or change in growths that she is concerned about. Patient has had no interval health status change. No constitutional symptoms today or any other c omplaints referable to the skin. OBJECTIVE: On exam this is an otherwise very pleasant 56-year-old skin type II to III female in no apparent distress with appropriate affect and demeanor. Excluding the genitalia, the scalp, face, neck, back, chest, abdomen, intertriginous areas and extremities were examined. There were no lesions s uspicious for malignancy. Diffusely scattered over the sun-exposed surfaces of the body she has ocl-tqnpirme-ro-count hyper and hypopigmented less than 3 mm macules. She has numerous stuck-on papules, one of which on her left deltoid is somewhat erythematous based. On herright lateral neck she has a pink approximately 2 to 4 mm papule, no crust noted, and the inferior aspect of this is slightly gritty. On the patient's right medial wrist she has one gritty macule. She has on the right upper back a well-healed electrodesiccation and curettage site with no nodularity. The remainder of her exam is otherwise unremarkable. ASSESSMENT: 1. Actinic keratosis. 2. Papule of uncertain behavior right neck. 3. Irritated seborrheic keratosis left shoulder. 4. Basal cell carcinoma status post electrodesiccation and curettage 12/2005 right upper back, no evidence of recurrence. 5. Diffuse actinic injury. 6. Seborrheic keratoses. PLAN: 1. Patient education and reassurance. Recommended shave biopsy of the papule of uncertain behavior.After discussion of expected reaction and outcome patient consent obtained and the papule of uncertain behavior on the right neck was performed with good results and without adverse event. Wound careinstructions given verbally and written. We will notify patient within two weeks of biopsy results.Please see procedure note. 2. Recommended liquid nitrogen cryosurgery to the actinic keratosis on the right wrist and irritated seborrheic keratosis on the left shoulder. The expected reaction and healing course were discussed, as well as the possibility of incomplete resolution and/or permanent dyspigmentation. Patient consent obtained and this is performed with good results and without adverse event. Wound care instructions given verbally. 3.is to wear sunscreen diligently. She will follow up on an annual basis. She may return in the interim if problems arise. We did review the ABCDEs of melanoma, of which she showed a good understanding. The importance of sunscreen use, sun avoidance and self-examination was discussed. Supervising Physician Signed by Dottie Hudson MD 05/31/2007 16:32 Reviewed by Awilda Minaya PA-C 05/12/2007 11:32 Evi Mena PA-CKathryn Schwarzenberger, MD Dictated by: Awilda Minaya PA-C Dottie Hudson MD - Awilda Minaya PA-C - markel Job ID: [id number] Doc ID: [id number] cc: Maria L Iyer MD - markel Job ID: [id number] Doc ID: [id number] cc: Maria L Iyer MD documented in this encounter Plan of Treatment Not on file documented as of this encounter Visit Diagnoses Not on filedocumented in this encounter
--- OUTSIDE RECORDS SUMMARY | 2024-05-08 15:34 | XMS_ITS | Encounter Summary ---
Author Organization [facility] Address [address] [place] [address] Care Team Providers Care Physical Therapy Aid Name Role Phone Unavailable Primary Care Provider Unavailabl e Encounter Details Date Type Department Care Team (Late st Contact Info) Description 05/05/2007 Results Only [facility] Dermatology 5th Floor [facility] [address] [place] [address] Dnenis Pimentel, BEENA [address] [address] Social History Tobacco Use Types [...] Date/Time Associated Diagnosis Comments SURGICAL PATHOLOGY Routine 05/05/2007 0:00 EDT documented in this encounter Results * SURGICAL PATHOLOGY (05/05/2007 0:00 EDT) Pathology Report: SURGICAL PATHOLOGY REPORT Reports generated via electronic interface contain original data; however they are lacking the format of the original report. Caution should be taken when reading/interpreti ng unformatted reports. Name: ? NAEL MCRAE ? Accession #: ? [id number] ? : ? 1950 (Age: 56) ??F ? Collect Date: ? 05/05/2007 ? Location: ? [facility] ? Receive Date: ? 05/05/2007 ? Provider: DENNIS HARGROVE Copy to: RAYRAY BARROW MD ? Final Pathologic Diagnosis: ? Skin of neck, right, shave biopsy: 1. ?Squamous cell carcinoma in situ. ? - Lesion extends to edge and base of biopsy specimen. - Follicular extension identified. Document reviewed and electronically signed by: Dorota Baca MD Report ??Date: 05/07/2007 15:01 By the signature above, the attending physician certifies that he/she has personally conducted a gross and/or microscopic examination of the described specimens and rendered or confirmed the above diagnosis. Specimen(s) Received: ? R neck Clinical History: ? Occ. scabbing, bleeding red 2-3 mm papule, R/O BCC vs irritated hair follicle/SK vs other; clinical diagnosis code: 238.2 Gross Description: ? Received in formalin labelled Brumme and right neck is a 0.5 x 0.4 cm shave biopsy of pimentel skin with tissue to a depth of less than 0.1 cm. ??The epidermal surface shows irregular pale pimentel pigmentation. ??The specimen is bisected and submitted in toto in one cassette. (Dr. Ospina)/mpl End of Report [facility] 05/05/2007 05/05/2007 13: 21 EDT Dennis HARGROVE PATHOLOGY ORDERAB LES [facility] [address] [place] [address] documented in this encounter Visit Diagnoses Not on filedocumented in this encounter
--- OUTSIDE RECORDS SUMMARY | 2024-05-08 15:34 | XMS_ITS | Encounter Summary ---
Author Organization [facility] [place] [address] Care Team Providers Care Clinical Education Coordinator Name Role Phone Cristy Willett MD Primary Care Provider [phone] Reason for Visit * Reason Comments Skin Check Encounter Details Date Type Department Care Team (Late st Contact Info) Description 06/03/2011 9:15 AM EDT Office Visit Dermatology [facility] [address] [place] [address] Wilmar Saldana MD [address] [place] [address] History of basal cell carcinoma (Primary Dx); History of squamous cell carcinoma Social History Tobacco Use Types Packs/Day Years Used Date Smoking Tobacco: Never Sex and Gender Information Value Date Recorded Sex Assigned at Not on file Gender Identity Not on file Sexual Orientation Not on file documented as of this encounter Progress Notes * Wilmar Saldana MD - 06/03/2011 9:48 AM EDT Problems: 1. Yearly skin checkup. 2. 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 3. History of BCCa, right upper back, 12/2005. 4. History of excessive sun exposure living in the [facility]. Nuris follows up and has been doing well. She doesn't think that there is anything of major concern today. Physical examination reveals a very fair skinned freckled woman who has a number of small seborrheic keratoses on the upper chest and back. She has numerous freckles but no evidence of recurrence of nonmelanoma cutaneous malignancies at previous treatment sites. Examination of the head, neck, chest, back, hands, arms, forearms, thighs and calves is otherwise benign. Assessment & Plan: History of nonmelanoma cutaneous malignancies. a. No evidence of recurrence. b. Patient reassured. c. RTC in one year for repeat check. Seborrheic keratoses. a. Patient reassured about these. b. No treatment necessary. RTC REMINDER: One Year documented in this encounter Plan of Treatment Upcoming Encounters Date Type Department Care Team (Late st Contact Info) Description 10/03/2024 10:00 AM EST Office Visit Dermatology at [facility] [address] [place] [address] Wilmar Saldana MD [address] [place] [address] documented as of this encounter Visit Diagnoses Diagnosis History of basal cell carcinoma- Primary Personal history of other malignant neoplasm of skin History of squamous cell carcinoma Personal history of malignant neoplasm of other site documented in this encounter Care Teams Clinical Education Coordinator Relationship Specialty Start Date End Date Cristy Willett MD [address] [place] [id number] PCP - General 07/15/10 10/10/17 documented as of this encounter
--- OUTSIDE RECORDS SUMMARY | 2024-05-08 15:34 | XMS_ITS | Encounter Summary ---
Author Organization [facility] Address [address] [place] [address] Care Team Providers Care Fishing Tool Technician Oil Well Name Role Phone Cristy Willett MD Primary Care Provider [phone] Encounter Details Date Type Department Care Team (Latest Contact Info) Description 2017 16:42 EST - 2017 23:59 EST Hospital Encounter [address] [address] Unknown, Provider, Discharge Disposition: Home or Self Care Social History Tobacco Use Types Packs/Day Years Used Date Smoking Tobacco: Never Assessed Sex and Gender Information Value Date Recorded Sex Assigned at Not on file Gender Identity Not on file Sexual Orientation Not on file documented as of this encounter Discharge Disposition Disposition Code Departure Means Destination Home or Self Longterm documented in this encounter Plan of Treatment Not on file documented as of this encounter Visit Diagnoses Not on filedocumented in this encounter Care Teams Fishing Tool Technician Oil Well Relationship Specialty Start Date End Date Cristy Willett MD [address] [place] [address] PCP - General 06/28/15 07/20/17 documented as of this encounter
--- OUTSIDE RECORDS SUMMARY | 2024-05-08 15:34 | XMS_ITS | Encounter Summary ---
Author Organization [facility] Address [address] [place] [address] Care Team Providers Care Manager Paid Name Role Phone Unavailable Primary Care Provider Unavailabl e Encounter Details Date Type Department Care Team (Late st Contact Info) Description 05/05/2007 10:41 EDT - 05/05/2007 11:59 EDT Hospital Encounter [facility] [place] [address] [place] [address] Awilda Pimentel, BEENA [address] [phone] Discharge Disposition: Auto Discharge Social History Tobacco [...]
--- OUTSIDE RECORDS SUMMARY | 2024-05-08 15:34 | XMS_ITS | Encounter Summary ---
Author Organization [facility] [place] [address] Care Team Providers Care Golf Course Mechanic Name Role Phone Cristy Willett MD Primary Care Provider [phone] Reason for Visit * Reason Comments Follow-up Encounter Details Date Type Department Care Team (Late st Contact Info) Description 05/25/2013 9:15 AM EDT Office Visit Dermatology [facility] [address] [place], [place] [address] Wilmar Saldana MD [address] [facility] [place] [address] Squamous cell carcinoma (Primary Dx) Social History Tobacco Use Types Packs/Day Years Used Date Smoking Tobacco: Never Sex and Gender Information Value Date Recorded Sex Assigned at Not on file Gender Identity Not on file Sexual Orientation Not on file documented as of this encounter Progress Notes * Wilmar Saldana MD - 05/25/2013 9:39 AM EDT Problem List: 1. Yearly skin checkup. 2. History of SCCAs in situ, right neck and right upper back, June 2007. 3. History of BCCA, right upper back, December 2005. 4. History of excessive sun exposure living in the [facility]. Nuris follows up and has noted a new lesion on the bridge of the nose. I last saw her in December and treated an actinic at the same location with LN2, as well as one on the tip of the nose. Physical examination reveals no recurrent actinic on the tip of the nose, but she does have a somewhat umbilicated depressed area on the mid bridge of the nose concerning for possible SCCA versus BCCA, probably arising out of an actinic keratosis. Assessment and Plan: 1. BCCA versus SCCA, mid bridge of nose. a. After obtaining informed consent, site was anesthetized and removed with shave C and D. b. Triple antibiotic ointment and Band-Aid placed. c. Wound care instructions and supplies given. d. Return to clinic in another year for repeat check, sooner for any new skin lesion of concern. Patient understood that today's treatment of the nasal bridge site should be definitive. COPY: Cristy Willett M.D. documented in this encounter Procedure Notes * Provider, Scanning - 06/05/2013 5:34 PM EDTAssociated Order(s): SCAN DOC: SURGICAL PATHOLOGY documented in this encounter Plan of Treatment Upcoming Encounters Date Type Department Care Team (Late st Contact Info) Description 10/03/2024 10:00 AM EST Office Visit Dermatology at [place] [address] [place] [address] Wilmar Saldana MD [address] [facility], [facility] [place] [address] documented as of this encounter Procedures Procedure Name Priority Date/Time Associated Diagnosis Comments SURGICAL PATHOLOGY SCAN 06/05/2013 5:34 PM EDT documented in this encounter Results * SCAN DOC: SURGICAL PATHOLOGY (06/05/2013 5:34 PM EDT) Narrative 06/05/2013 5:34 PM EDT Procedure Note Provider, Scanning - 06/05/2013 5:34 PM EDT Scanning Provider MEDIA MGR SCAN EXT O RDR/RSLT documented in this encounter Visit Diagnoses Diagnosis Squamous cell carcinoma- Primary Other malignant neoplasm without specification of site documented in this encounter Care Teams Golf Course Mechanic Relationship Specialty Start Date End Date Cristy Willett MD [address] [place] [address] PCP - General 07/15/10 10/10/17 documented as of this encounter
--- OUTSIDE RECORDS SUMMARY | 2024-05-08 15:34 | XMS_ITS | Encounter Summary ---
Author Organization [facility] Address [address] [place] [address] Care Team Providers Care Processing Lead Name Role Phone Unavailable Primary Care Provider Unavailabl e Encounter Details Date Type Department Care Team (Late st Contact Info) Description 06/08/2007 Results Only [facility] [address] [place] [address] Boaz Wild MD [address] [place], [place] [address] Social History Tobacco Use Types Packs/Day Years [...] Comments HPV DETECTION, HIGH RISK TYPES Routine 06/08/2007 14:30 EDT CYTOPATHOLOGY Routine 06/08/2007 0:00 EDT documented in this encounter Results * HUMAN PAPILLOMA VIRUS DNA TEST (06/08/2007 14:30 EDT) Specimen Description Cervix, ThinPrep vial [facility] Result Negative for HPV types 16, 18, 31, 33, 35, 39, 45, 51, 52, 56, 58, 59, and 68. [facility] Report Status Final [id number] [facility] 06/08/2007 14:3 0 EDT 06/16/2007 14:45 EDT Boaz Wild MD MICROBIOLOGY - GEN ERAL ORDERABLES [facility] [address] [place] [address] * CYTOPATHOLOGY (06/08/2007 0:00 EDT) Pathology Report: CYTOPATHOLOGY REPORT Reports generated via electronic interface contain original data; however they are lacking the format of the original report. Caution should be taken when reading/interpreti ng unformatted reports. Name: ? NAEL MCRAE ? Accession #: ? [id number] : ? 1950 (Age: 56) ??F ?Collect Date: ? 06/08/2007 Location: ? [facility] ? Receive Date: ? 06/10/2007 Provider: ?BOAZ WILD MD Copy to: ? Specimen/Source: ?ThinPrep Pap Test, Cervix, processed on CO Everywhere ThinPrep Imaging System, with manual evaluation Last Menstrual Period: ? Menstrual/Pregnanc y Status: ? Menopausal Other: ? Additional clinical information: Hx abn pap 1979- HPVDX - HPV testing requested regardless of diagnosis on current ThinPrep Pap test. ? SPECIMEN ADEQUACY ? Satisfactory for Evaluation - transformation zone component present - scant squamous epithelial component GENERAL CATEGORIZATION ? Negative for Intraepithelial Lesion or Malignancy ? Document reviewed and electronically signed by: ? DUSTIN Eric(ASCP) ? Report Date: ??06/16/2007 13:10 End of Report [facility] 06/08/2007 06/10/2007 Boaz Wild MD PATHOLOGY ORDERABL ES Performing Organization Address City/State/[facility] Co de Phone Number [facility] [address] [place] [address] documented in this encounter Visit Diagnoses Not on filedocumented in this encounter
--- OUTSIDE RECORDS SUMMARY | 2024-05-08 15:34 | XMS_ITS | Encounter Summary ---
Author Organization [facility] Address [address] [place] [address] Care Team Providers Care Threading Machine Setter Name Role Phone Unavailable Primary Care Provider Unavailabl e Encounter Details Date Type Department Care Team (Late st Contact Info) Description 08/22/2013 Results Only [facility] - [facility] ([facility] [address] [place] [address] Cristy Willett MD [address] [place] [phone] Social History Tobacco Use Types Packs/Day Years Used Date Smoking Tobacco: Never Assessed Sex and Gender Information Value Date Recorded Sex Assigned at Not on file Gender Identity Not on file Sexual Orientation Not on file documented as of this encounter Plan of Treatment Not on file documented as of this encounter Procedures Procedure Name Priority Date/Time Associated Diagnosis Comments PAP TEST- RESULT ONLY Routine 08/22/2013 0:00 EST documented in this encounter Results * PAP TEST- RESULT ONLY (08/22/2013 0:00 EST) Pathology Report: CYTOPATHOLOGY REPORT Reports generated via electronic interface contain original data; however they are lacking the format of the original report. Caution should be taken when reading/interpreti ng unformatted reports. Name: ? NAEL MCRAE Jaleesa ? Accession #: ? [id number] ? : ? 1950 (Age: 63) ??F ?Collect Date: ? 08/22/2013 ? Location: ? [facility] ? Receive Date: ? 08/25/2013 ? Provider: CRISTY WILLETT MD Copy to: ? Final Report SPECIMEN ADEQUACY ? Satisfactory for Evaluation - transformation zone component present - obscuring contamination, possibly lubricant GENERAL CATEGORIZATION ? Negative for Intraepithelial Lesion or Malignancy ?? Last Menstrual Period: 2004 Other: Additional clinical information: H/O unsatisfactory/ins ufficient Pap Specimen/Source: ??Pap Test, Endocervix, ThinPrep Imaging System with manual evaluation Document reviewed and electronically signed by: ? Nito Clements, CT(ASCP) ? Report ??Date: 08/29/2013 08:35 HPV with Pap Test ? Date Ordered: ? 08/29/2013 ? Status: ?? Signed Out ?Date Complete: ? 08/31/2013 ? By: ??System Interface ? Date Reported: ? 08/31/2013 ? Interpretation RESULT: Negative for HPV. No E6 or E7 mRNA is detected from HPV types 16,18,31,33,35, 39,45,51,52,56,58, 59,66, and 68 by oven technician mediated amplification. Comments Document reviewed and electronically signed by: ? System Interface ? Report date: 08/31/2013 By the signature above, the attending physician certifies that he/she has personally conducted a gross and/or microscopic examination of the described specimens and rendered or confirmed the above diagnosis. End of Report [facility] 08/22/2013 08/25/2013 Cristy Willett MD PATHOLOGY ORDERABLES Performing Organization Address City/State/[facility] Co de Phone Number [place] [phone] documented in this encounter Visit Diagnoses Not on filedocumented in this encounter
--- OUTSIDE RECORDS SUMMARY | 2024-05-08 15:34 | XMS_ITS | Encounter Summary ---
Author Organization [facility] Address [address] [place] [address] Care Team Providers Care Manager Winter Name Role Phone Unknown, Provider Primary Care Provider [phone] Encounter Details Date Type Department Care Team (Late st Contact Info) Description 08/04/2021 Lab Requisition [facility] Pathology & Laboratory Medicine - [address] [address] Outr Resulting Lab, Provider Social History Tobacco [...] Comments ZZCOVID-19 TEST [facility] PCR Today 08/04/2021 10:20 EST COVID-19 TESTING Routine 08/04/2021 10:2 0 EST documented in this encounter Results * COVID-19 TEST [facility] PCR (08/04/2021 10:20 EST) Swab 08/04/2021 10:2 0 EST 08/04/2021 22:04 EST Provider Outr Resulting Lab MICROBIOLOGY - GENERAL ORDERABLES [facility] [address] [place] [address] * COVID-19 TESTING (08/04/2021 10:20 EST) COVID-19 rt-PCR Result Negative Negative 08/05/2021 2:27 EST [facility] Comment: This test has not [...] clinical observations, patient history, and epidemiological information. Performed on the Decision Rockether Fusion instrument Performing Lab [place] [facility] 08/05/2021 2:27 EST [facility] Swab 08/04/2021 10:2 0 EST 08/04/2021 22:04 EST Provider Outr Resulting Lab MICROBIOLOGY - GENERAL ORDERABLES [facility] [address] [place] [address] documented in this encounter Visit Diagnoses Not on filedocumented in this encounter Care Teams Manager Winter Relationship Specialty Start Date End Date Unknown, Provider, PCP - General 07/21/17 documented as of this encounter
--- OUTSIDE RECORDS SUMMARY | 2024-05-08 15:34 | XMS_ITS | Encounter Summary ---
Author Organization [facility] [place] [address] Care Team Providers Care Upholsterer Outside Name Role Phone Cristy Willett MD Primary Care Provider [phone] Reason for Visit * Reason Comments Annual Exam Encounter Details Date Type Department Care Team (Late st Contact Info) Description 07/27/2017 10:00 AM EST Office Visit Dermatology at [address] [place] [address] Wilmar Saldana MD [address] [facility] [address] History of basal cell carcinoma; Seborrheic keratosis, inflamed Social History Tobacco Use Types Packs/Day Years Used Date Smoking Tobacco: Never Smokeless Tobacco: Never Sex and Gender Information Value Date Recorded Sex Assigned at Not on file Gender Identity Not on file Sexual Orientation Not on file documented as of this encounter Progress Notes * Wilmar Saldana MD - 07/27/2017 10:00 AM EST PROBLEM: 1. Annual skin checkup. 2. History of multiple nonmelanoma cutaneous malignancies. 3. History of extensive sun exposure living in the [facility], in [place], status post course of Efudex in the [facility], 2003. Nuris follows up and has been doing well since I last saw her in March and treated 4 facial actinic keratoses. All 4 sites resolved well. She is still getting over the loss of her but looking forward to 2 months down in [place] this winter, August and September. Physical examination reveals a pleasant 67-year-old woman who has a few irritated seborrheic keratoses in the bra strap yañez of her upper shoulders and one irritated seborrheic keratosis on the upper presternal inframammary chest. She is freckled, fair-skinned and blue-eyed, fair hair but fortunately has a benign examination otherwise of the face, the neck, the chest, the back, hands, arms, forearms, the thighs, and the calves. She has numerous solar lentigos. A/P: Irritated seborrheic keratoses. a. LN2 x2 applied to each of 4 sites. b. Patient reassured about remainder of benign skin examination. c. Recommend that I see her again in another year of repeat check, sooner for new lesions/concerns. CC: Cristy Willett MD documented in this encounter Plan of Treatment Upcoming Encounters Date Type Department Care Team (Late st Contact Info) Description 10/03/2024 10:00 AM EST Office Visit Dermatology at [place] [address] [place] [address] Wilmar Saldana MD [address] [facility] [place] [address] documented as of this encounter Visit Diagnoses Diagnosis History of basal cell carcinoma Personal history of other malignant neoplasm of skin Seborrheic keratosis, inflamed Inflamed seborrheic keratosis documented in this encounter Care Teams Upholsterer Outside Relationship Specialty Start Date End Date Cristy Willett MD [address] [place] [address] PCP - General 07/15/10 10/10/17 documented as of this encounter
--- OUTSIDE RECORDS SUMMARY | 2024-05-08 15:34 | XMS_ITS | Encounter Summary ---
Author Organization [facility] Address [address] [place] [address] Care Team Providers Care Grinder And Honer Operator Automatic Name Role Phone Cristy Willett MD Primary Care Provider [phone] Encounter Details Date Type Department Care Team (Late st Contact Info) Description 07/19/2017 Results Only [facility] [phone] Naida Cuba MD [address] [place] [address] [address] [place], [place] [phone] Social History Tobacco Use Types Packs/Day Years Used Date Smoking Tobacco: Never Assessed Sex and Gender Information Value Date Recorded Sex Assigned at Not on file Gender Identity Not on file Sexual Orientation Not on file documented as of this encounter Plan of Treatment Not on file documented as of this encounter Procedures Procedure Name Priority Date/Time Associated Diagnosis Comments SURGICAL PATHOLOGY Routine 07/19/2017 16 :03 EST documented in this encounter Results * SURGICAL PATHOLOGY (07/19/2017 16:03 EST) Pathology Report: SURGICAL PATHOLOGY REPORT Reports generated via electronic interface contain original data; however they are lacking the format of the original report. Caution should be taken when reading/interpret ing unformatted reports. Name: ? NAEL MCRAE ? Accession #: ? [id number] ? : ? 1950 (Age: 67) ??F ? Collect Date: ? 07/19/2017 ? Location: ? [facility] ? Receive Date: ? 07/19/2017 ? Provider: NAIDA CUBA MD Copy to: CRISTY WILLETT MD ? Final Pathologic Diagnosis: RECTUM, POLYPS, BIOPSIES: - Hyperplastic polyps (3). Document reviewed and electronically signed by: IRINA MILLER MD Report ??Date: 07/20/2017 11:23 By the signature above, the attending physician certifies that he/she has personally conducted a gross and/or microscopic examination of the described specimens and rendered or confirmed the above diagnosis. Specimen(s) Received: Rectal polyps x3 Clinical History: Colorectal screening Gross Description: ? Received in formalin labelled with proper patient identification (initials F, E) and rectal polyp x3 are three pimentel-red irregular tissues averaging 0.3 x 0.2 x 0.2 cm. Entirely submitted in 1. BEENA Moreira (ASCP) 07/19/2017 5:14 PM End of Report [facility] 07/19/2017 16:0 3 EST 07/19/2017 16:03 EST Naida Cuba MD PATHOLOGY ORDERA [facility] [address] [place] [address] documented in this encounter Visit Diagnoses Not on filedocumented in this encounter Care Teams Grinder And Honer Operator Automatic Relationship Specialty Start Date End Date Cristy Willett MD [address] [place] [address] PCP - General 06/28/15 07/20/17 documented as of this encounter
--- OUTSIDE RECORDS SUMMARY | 2024-05-08 15:34 | XMS_ITS | Encounter Summary ---
Author Organization [facility] Address [address] [place] [address] Care Team Providers Care Pillowcase Folder Name Role Phone Unavailable Primary Care Provider Unavailabl e Encounter Details Date Type Department Care Team (Late st Contact Info) Description 08/19/2012 Results Only [facility] - [facility] ([facility]) [address] [place] [address] Cristy Willett MD [address] [place] [phone] Social History Tobacco Use Types Packs/Day Years [...] Diagnosis Comments PAP TEST- RESULT ONLY Routine 08/19/2012 0:00 EST documented in this encounter Results * PAP TEST- RESULT ONLY (08/19/2012 0:00 EST) Pathology Report: CYTOPATHOLOGY REPORT Reports generated via electronic interface contain original data; however they are lacking the format of the original report. Caution should be taken when reading/interpreti ng unformatted reports. Name: ? NAEL MCRAE ? Accession #: ? [id number] : ? 1950 (Age: 62) ??F ?Collect Date: ? 08/19/2012 Location: ? [facility] ? Receive Date: ? 08/22/2012 Provider: ?CRISTY WILLETT MD Copy to: ? Specimen/Source: ?Pap Test, Cervix/Endocervix, ThinPrep Imaging System with manual evaluation Last Menstrual Period: ? Other: ? Additional clinical information: Prior pap unsatisfactory ? SPECIMEN ADEQUACY ? Unsatisfactory for Evaluation, - insufficient numbers of squamous epithelial cells (less than 10% of expected cellularity) GENERAL CATEGORIZATION ? Specimen processed and examined, but unsatisfactory for evaluation of epithelial abnormality. Recommend repeat Pap test or further follow up, as clinically indicated. ? Document reviewed and electronically signed by: ? DUSTIN Presley(ASCP) ? Report Date: ??08/25/2012 15:07 End of Report [facility] 08/19/2012 08/22/2012 Cristy Willett MD PATHOLOGY ORDERABLES Performing Organization Address City/State/[facility] Co de Phone Number [facility] [address] [place] [address] documented in this encounter Visit Diagnoses Not on filedocumented in this encounter
--- OUTSIDE RECORDS SUMMARY | 2024-05-08 15:34 | XMS_ITS | Encounter Summary ---
Author Organization Health system Address [address] [place] [address] Care Team Providers Care Tank Hoop Bender Name Role Phone Unavailable Primary Care Provider Unavailabl e Encounter Details Date Type Department Care Team (Late st Contact Info) Description 05/26/2007 Before PRISM Converted Visit (Maple) [facility] - Maple conversion [address] [place] [address] Carlos Roberts MD [address] [facility] [address] [place] [address] Social History Tobacco Use Types Packs/Day Years Used Date Smoking Tobacco: Never Assessed Sex and Gender Information Value Date Recorded Sex Assigned at Not on file Gender Identity Not on file Sexual Orientation Not on file documented as of this encounter Procedure Notes * Carlos Roberts MD - 07/01/2009 4445 EST DIVISION OF PLASTIC SURGERY PROCEDURE REPORT SERVICE DATE: 06/06/2007 HYDROTREATER OPERATOR: Frannie Roberts MD, Mauricio Roberts MD, FACSCarlos Roberts MD, FACS UPHOLSTERY ESTIMATOR: Shruthi Orozco RN PROCEDURE PERFORMED Excision of malignant lesion, skin of the neck, 7-mm in diameter. Layered closure, skin of the right neck, 2-cm in length. ANESTHESIA Local. PREPROCEDURE DIAGNOSIS Squamous cell carcinoma in situ, skin of the right neck. POSTPROCEDURE DIAGNOSIS Squamous cell carcinoma in situ, skin of the right neck. NARRATIVE After preoperative discussion, the patient gave informed consent, was properly identified, and positioned supine on the procedure room table. The right neck was prepped and draped in the usual sterile fashion and infiltrated with 1% lidocaine with 1:200,000 epinephrine. An obliquely oriented lenticular excision was performed. Hemostasis was established with direct pressure. The wound was closed in layers using 4-0 Monocryl dermal sutures and Dermabond skin approximation. The patient tolerated the procedure well and was discharged to home in good condition. I was present for the entire case. [id number] Signed by Carlos Roberts MD, FACS 06/24/2007 10:53 Carlos Roberts MD, FACS - Bulmaro Roberts MD, FACS A - chr Job ID: [id number] Document ID: [id number] cc: MD Awilda Linn PA-C documented in this encounter Consult Notes * Carlos Roberts MD - 06/30/2009 1936 EST DIVISION OF PLASTIC SURGERY CONSULTATION - 05/26/2007 A consultation was requested by Awilda Minaya PA-C for evaluation of ??. Awilda Minaya PA-C [facility] Dermatology [address] [place] [address] Dear Ms. Minaya: Thank you very much for sending Nuris to me in consultation. 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 She had been seen in our office on May 05, 2007,with an irritated area on her right neck. 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 You referred to me for consultation and possible surgical treatment. Her past medical history is reviewed. She is otherwise healthy. She does have hypothyroidism, for which she is on Synthroid. She has no known medication allergies. Her only other medications are dietary supplements. She is a former smoker having quit 20 yearsago. She does note a significant exposure history. No personal nor family history of melanoma. Her review of systems is positive for thyroiddisease, urinary tract infection, skin cancer, easy bruisability, high blood pressure and chest pain. On examination she is a healthy appearing, fair skinned woman with moderate actinic changes throughout her sun exposed skin. She points to the site of biopsy on her right neck overlying the sternocleidomastoid which is a healing scab of about 5 mm in diameter. There is no residual erythematous or other skin changes. There is no cervical or submandibular lymphadenopathy. 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 I agree that surgical excision is probably the treatment of choice. I think this could be accomplished under local anesthetic in an office setting. All questions were answered to the patients satisfaction. We will schedule at the nearest possible convenience. I want to thank you for sending me this patient in consultation. If there are any further questionsplease do not hesitate to contact me. Sincerely, [id number] Signed by Carlos Roberts MD 05/31/2007 14:57 Carlos Roberts MD - Bulmaro Roberts MD A - [facility] Job ID: [id number] Document ID: [id number] cc: MD Awilda Linn PA-C documented in this encounter Plan of Treatment Not on file documented as of this encounter Visit Diagnoses Not on filedocumented in this encounter
--- OUTSIDE RECORDS SUMMARY | 2024-05-08 15:34 | XMS_ITS | Encounter Summary ---
Author Organization [facility] Address [address] [place] [address] Care Team Providers Care Teamsite Developer Name Role Phone Unavailable Primary Care Provider Unavailabl e Encounter Details Date Type Department Care Team (Late st Contact Info) Description 06/15/2006 Before PRISM Converted Visit (Maple) [facility] - Maple conversion [address] [place] [address] Awilda Pimentel PA [address] [address] Social History Tobacco Use Types Packs/Day Years Used Date Smoking Tobacco: Never Assessed Sex and Gender Information Value Date Recorded Sex Assigned at Not on file Gender Identity Not on file Sexual Orientation Not on file documented as of this encounter Plan of Treatment Not on file documented as of this encounter Visit Diagnoses * Evaluation - Awilda Minaya PA - 04/30/2010 1445 EDT DIVISION OF DERMATOLOGY NEW PATIENT EVALUATION - 06/15/2006 SUBJECTIVE: This 55-year-old white female presents to the clinic today in initial visit with a history of basal cell carcinoma. The patient states that she has been followed in the past by a executive admin in [place], and most recently had a superficial basal cell ED and C'd December 2005 on her rightupper back. The patient states that she also has a history of actinic keratoses, which have been treated in the past with Efudex on the face, and she has not noticed any lesions she is concerned about. She just wants me to perform a complete cutaneous exam and take another look at the ED and C site on her right upper back, as it is still a bit pinkish-red. She has no questions or concerns in reference to her skin. She still does not wear sunscreen as diligently as she knows she should. She has no constitutional symptoms today. For complete past medical history, current medications, medication allergies, review of systems, family history and social history, please see the Dermatology Intake Sheet in the chart. OBJECTIVE: On exam, this is an otherwise very pleasant 55-year-old white female, skin type III, in no apparent distress with appropriate affect and demeanor. A complete cutaneous exam was performed today excluding the genitalia. Diffusely scattered over the sun-exposed surfaces of her body she has too numerous to count hyper- and hypopigmented, less than 3 mm macules. Scattered over her trunk shehas numerous stuck-on appearing papules, the majority of which are less than 5 mm in size. On her right upper back she has a well-healed ED and C site that is still a bit reddish-pink, and actually feels thick like a hypertrophic scar. ASSESSMENT: 1. Diffuse actinic injury. 2. Seborrheic keratoses. 3. History of basal cell carcinoma, right upper back, with no evidence of recurrence, status post electrodesiccation and curettage December 2005. PLAN: Patient education and reassurance. Patient is to wear sunscreen diligently. She will obtain the biopsy results and have a copy sent to us for our records to ensure that this was, in fact, a superficial basal cell carcinoma and not a nodular basal cell. She will follow up with me every six months for the next year and a half, and then on an annual basis after that. The importance of sunscreen use, sun avoidance and self-examination was discussed. She showed a good understanding of the above conversation. Signed by Mini Ritchie MD 06/22/2006 14:51 Reviewed by Awilda Minaya PA-C 06/21/2006 13:56 Evi Mena PA-CAnita L Licata, MD Dictated by: Awilda Minaya PA-C Mini Ritchie MD - Awilda Minaya PA-C A - o4 Job ID: [id number] Document ID: [id number] cc: Iftikhar Romero MD documented in this encounter
--- OUTSIDE RECORDS SUMMARY | 2024-05-08 15:34 | XMS_ITS | Clinical Summary ---
Author Organization [facility] Address [address] [place] [address] Care Team Providers Care Toddler Lead Teacher Name Role Phone Unknown, Provider Primary Care Provider + [phone] Social History Tobacco Use Types Packs/Day Years Used Date Smoking Tobacco: Never Assessed Interpersonal Safety Answer Date Record ed Physically Hurt Never 03/24/2020 Verbally Threaten Not on file 03/24/2020 Sex and Gender Information Value Date Recorded Sex Assigned at Not on file Gender Identity Not on file Sexual Orientation Not on file Plan of Treatment Health Maintenance Due Date Last Done Comments Hepatitis C Screen 1950 RSV Immunization ( o r 60+ Years) (1 - 1-dose 60+ series) 2010 Fall Risk Screening 2015 COVID-19 Vaccine (2022-24 season) 2023 Care Teams Toddler Lead Teacher Relationship Specialty Start Date End Date Unknown, Provider, PCP - General 07/21/17
--- OUTSIDE RECORDS SUMMARY | 2024-05-08 15:34 | XMS_ITS | Encounter Summary ---
Author Organization [facility] [place] [address] Care Team Providers Care Professor Of Mechanical Engineering Name Role Phone Cristy Willett MD Primary Care Provider Reason for Visit * Reason Comments Skin Check Encounter Details Date Type Department Care Team (Late st Contact Info) Description 12/31/2016 10:15 AM EDT Office Visit Dermatology at [address] [place] [address] Wilmar Saldana MD [address] [facility] [place] [address] Actinic keratosis; History of basal cell carcinoma Social History Tobacco Use Types Packs/Day Years Used Date Smoking Tobacco: Never Sex and Gender Information Value Date Recorded Sex Assigned at Not on file Gender Identity Not on file Sexual Orientation Not on file documented as of this encounter Progress Notes * Wilmar Saldana MD - 12/31/2016 10:15 AM EDT PROBLEM: Six month skin checkup. Nuris follows up and has been doing reasonably well. She has noticed a few new actinics, but really is pleased with the results of the LN2 to the upper lip. The patient is doing fairly well after having lost her to metastatic brain cancer. Physical examination reveals a pleasant 66-year-old woman who has a few actinics and irritated seborrheic keratoses on the upper back, shoulders, and upper neck. She has 1 or 2 spots on dorsal hands and also on her face. She is freckled, very fair skin, fair haired and blue eyed, but has no evidence of any malignant lesions. A/P: 1. Actinic keratoses. a. LN2 x2 applied to each of about 6 sites. b. Recommended I see her again in another 6 months for a repeat check in June. c. I would like to see her before she goes to [place], then we will decide whether or not we can space out to perhaps once yearly visits. Continue sun avoidance precautions. cc: Cristy Willett MD documented in this encounter Plan of Treatment Upcoming Encounters Date Type Department Care Team (Late st Contact Info) Description 10/03/2024 10:00 AM EST Office Visit Dermatology at [place] [address] [place] [address] Wilmar Saldana MD [address] [facility] [place] [address] documented as of this encounter Visit Diagnoses Diagnosis Actinic keratosis History of basal cell carcinoma Personal history of other malignant neoplasm of skin documented in this encounter Care Teams Professor Of Mechanical Engineering Relationship Specialty Start Date End Date Cristy Willett MD [address] [place] [address] PCP - General 07/15/10 10/10/17 documented as of this encounter
--- OUTSIDE RECORDS SUMMARY | 2024-05-08 15:34 | XMS_ITS | Encounter Summary ---
Author Organization [facility] Address [address] [place] [address] Care Team Providers Care Wash Oil Cooler Operator Name Role Phone Unavailable Primary Care Provider Unavailabl e Encounter Details Date Type Department Care Team (Late st Contact Info) Description 09/26/2007 Before PRISM Converted Visit (Maple) [facility] - Maple conversion [address] [place] [address] Awilda Pimentel, BEENA [address] [address] Social History Tobacco Use Types Packs/Day Years Used Date Smoking Tobacco: Never Assessed Sex and Gender Information Value Date Recorded Sex Assigned at Not on file Gender Identity Not on file Sexual Orientation Not on file documented as of this encounter Progress Notes * Awilda Minaya MD - 07/03/2009 1354 EST DIVISION OF DERMATOLOGY PROGRESS/FOLLOWUP NOTE - 09/26/2007 PROBLEMS 1. History of squamous cell carcinoma in situ, status post excision, right neck June of 2007. 2. History of basal cell carcinoma, status post ED&C, right upper back December of 2005. 3. History of seborrheic keratoses. 4. Actinic injury. 5. Actinic keratoses. SUBJECTIVE This 57-year-old white female returns to clinic today for reevaluation of a couple of lesions treated on her right upper arm that have since resolved. She has, however, noticed a growth on the insideof her eye along the nose that popped up a couple of weeks ago. It has never scabbed or bled. It has not changed in size, shape or color. It is not itchy. It is not bothersome. She denies picking at it. Otherwise does not bother her, but would like to make sure this is okay. She otherwise has been well since her last visit with me in June of 2007. Patient has had no interval health status change. No constitutional symptoms today or any other complaints referable to the skin. OBJECTIVE On exam this is an otherwise very pleasant, skin type II female in no apparent distress with appropriate affect and demeanor, 57 years of age. The scalp, face, neck, back, chest, abdomen, intertriginous areas and extremities were examined, excluding genitalia. There were no lesions suspicious for malignancy. Scattered over sun-exposed surfaces she has nea-sjdfirqs-fj-count hyper- and hypopigmented less than 3 mm macules. She has on her right medial canthus an approximately 2 to 3 mm stuck-on flesh-colored papule. She has numerous stuck-on papules scattered diffusely over the body. She has well-healed surgical scars on the neck and the right upper back. On her left dorsal 3rd finger she has a slightly gritty hyperpigmented approximately 6 mm macule. The remainder of her exam is unremarkable. ASSESSMENT 1. Actinic keratosis, new, left 3rd finger. 2. Diffuse actinic injury. 3. History of nonmelanoma skin cancer, status post ED&C and excision, right neck and right upper back, latest excision in June of 2007. No evidence of recurrences. 4. Seborrheic keratoses. PLAN 1. Patient education and reassurance. I recommended liquid nitrogen cryosurgery to the actinic keratosis on the right 3rd finger. The expected reaction and healing course were discussed, as well as the possibility of incomplete resolution and/or permanent dyspigmentation. Patient consent obtained and this performed with good results without adverse event. Wound care instructions given verbally. 2. Patient is to follow up in 6 months for a complete cutaneous exam. She may return in the interimif problems arise. 3. The importance of sunscreen use, sun avoidance and self-examination was discussed. She should bewearing at least a 55 SPF UVA/UVB protectant. She showed a good understanding of the above conversation. Supervising Physician Signed by Anup Nixon MD 10/05/2007 11:09 Reviewed by Awilda Minaya PA-C 09/28/2007 12:23 Awilda Minaya PA-C Anup Nixon MD - Awilda Minaya PA-C - [facility] Job ID: [id number] Doc ID: [id number] cc: Cristy Willett MD documented in this encounter Plan of Treatment Not on file documented as of this encounter Visit Diagnoses Not on filedocumented in this encounter
--- OUTSIDE RECORDS SUMMARY | 2024-05-08 15:34 | XMS_ITS | Encounter Summary ---
Author Organization [facility] [place] [address] Care Team Providers Care Manager Of Care Name Role Phone Cristy Willett MD Primary Care Provider [phone] Reason for Visit * Reason Comments Skin Lesion Encounter Details Date Type Department Care Team (Late st Contact Info) Description 01/07/2012 2:30 PM EDT Office Visit Dermatology [facility] [address] [place] [address] Wilmar Saldana MD [address] [facility] [address] Actinic keratosis (Primary Dx) Social History Tobacco Use Types Packs/Day Years Used Date Smoking Tobacco: Never Sex and Gender Information Value Date Recorded Sex Assigned at Not on file Gender Identity Not on file Sexual Orientation Not on file documented as of this encounter Progress Notes * Wilmar Saldana MD - 01/07/2012 3:15 PM EDT Problem: Right upper lip lesion. Nuris follows up after returning from [place]. While there she noted over the last six months actually a spot on her right upper lip on the right edge of the cupid's bow, which occasionally is red and puffy with a central depression. It has never been crusty or scabby. It has been sore. Physical examination reveals today what appears to be a small area of actinically damaged skin. Differential could widely include early BCCA or SCCA versus an actinic. There is no induration, no crusting or scabbing. Assessment and Plan: Probable actinic keratosis, right upper lip at edge of cupid's bow. a. LN2 times two applied to site. b. Recommend we keep the patient's May appointment for her yearly skin checkup. We will do a complete examination at that time. documented in this encounter Plan of Treatment Upcoming Encounters Date Type Department Care Team (Late st Contact Info) Description 10/03/2024 10:00 AM EST Office Visit Dermatology at [place] [address] [place] [address] Wilmar Saldana MD [address] [facility], [facility] [place] [address] documented as of this encounter Visit Diagnoses Diagnosis Actinic keratosis- Primary documented in this encounter Care Teams Manager Of Care Relationship Specialty Start Date End Date Cristy Willett MD [address] [place] [address] PCP - General 07/15/10 10/10/17 documented as of this encounter
--- OUTSIDE RECORDS SUMMARY | 2024-05-08 15:34 | XMS_ITS | Encounter Summary ---
Author Organization [facility] Address [address] [place] [address] Care Team Providers Care Teaching Assistant Name Role Phone Unavailable Primary Care Provider Unavailabl e Encounter Details Date Type Department Care Team (Late st Contact Info) Description 07/10/2011 Results Only [facility] [address] [address] Cristy Willett MD [address] [place] [id number] Social History Tobacco Use Types Packs/Day Years [...] Diagnosis Comments PAP TEST- RESULT ONLY Routine 07/10/2011 0:00 EST documented in this encounter Results * PAP TEST- RESULT ONLY (07/10/2011 0:00 EST) Pathology Report: CYTOPATHOLOGY REPORT Reports generated via electronic interface contain original data; however they are lacking the format of the original report. Caution should be taken when reading/interpreti ng unformatted reports. Name: ? NAEL MCRAE ? Accession #: ? [id number] : ? 1950 (Age: 60) ??F ?Collect Date: ? 07/10/2011 Location: ? [facility] ? Receive Date: ? 07/14/2011 Provider: ?CRISTY WILLETT MD Copy to: ? Specimen/Source: ?Pap Test, Cervix/Endocervix, ThinPrep Imaging System with manual evaluation Last Menstrual Period: ? 5 YRS Treatment History: ? Cryotherapy ? SPECIMEN ADEQUACY ? Unsatisfactory for Evaluation, - insufficient numbers of squamous epithelial cells (less than 10% of expected cellularity) GENERAL CATEGORIZATION ? Specimen processed and examined, but unsatisfactory for evaluation of epithelial abnormality. Recommend repeat Pap test or further follow up, as clinically indicated. ? Document reviewed and electronically signed by: ? DUSTIN Garcia(ASCP) ? Report Date: ??07/17/2011 15:58 End of Report LIU VALLECILLO 07/10/2011 07/14/2011 Cristy Willett MD PATHOLOGY ORDERABLES Performing Organization Address City/State/[facility] Co de Phone Number LIU VALLECILLO [address] [place] [address] documented in this encounter Visit Diagnoses Not on filedocumented in this encounter
--- OUTSIDE RECORDS SUMMARY | 2024-05-08 15:34 | XMS_ITS | Encounter Summary ---
Author Organization [facility] Address [address] [place] [address] Care Team Providers Care Alternative Medicine Practitioner Name Role Phone Unavailable Primary Care Provider Unavailabl e Encounter Details Date Type Department Care Team (Latest Contact Info) Description 06/06/2007 12:46 EDT Hospital Encounter [facility] - Maple conversion [address] [place] [address] Carlos Roberts MD [address] [place] [address] [address] [place] [address] Discharge Disposition: Auto Discharge Social History Tobacco [...]
--- OUTSIDE RECORDS SUMMARY | 2024-05-08 15:34 | XMS_ITS | Encounter Summary ---
Author Organization [facility] Address [address] [place] [address] Care Team Providers Care Sales Agent Business Services Name Role Phone Unavailable Primary Care Provider Unavailabl e Encounter Details Date Type Department Care Team (Late st Contact Info) Description 07/11/2007 16:12 [facility] [place] [facility] [address] [place] [address] Awilda Pimentel PA [address] [phone] Discharge Disposition: Auto Discharge Social History Tobacco [...]
--- OUTSIDE RECORDS SUMMARY | 2024-05-08 15:34 | XMS_ITS | Encounter Summary ---
Author Organization [facility] [place] [address] Care Team Providers Care Clinical Laboratory Science Professor Name Role Phone Cristy Willett MD Primary Care Provider [phone] Reason for Visit * Reason Comments Skin Check Encounter Details Date Type Department Care Team (Late st Contact Info) Description 07/28/2016 8:45 AM EST Office Visit Dermatology at [address] [place] [address] Wilmar Saldana MD [address] [facility], [facility] [address] Actinic keratosis; History of basal cell carcinoma Social History Tobacco Use Types Packs/Day Years Used Date Smoking Tobacco: Never Sex and Gender Information Value Date Recorded Sex Assigned at Not on file Gender Identity Not on file Sexual Orientation Not on file documented as of this encounter Progress Notes * Wilmar Saldana MD - 07/28/2016 8:45 AM EST PROBLEM: Skin lesion of concern. Nuris follows up and since I last saw her she lost her to metastatic brain cancer. Her spirits are remarkably good and she feels strong knowing that he is in a better place now. She has some concerns about some facial skin lesions. The patient tried tretinoin cream, but found that it was too irritating for her skin to tolerate. She actually borrowed some from her daughter instead of filling the prescription, which would have been a couple hundred dollars, that I gave her. Physical examination reveals small actinics on the upper lip, on the right upper eyebrow, and irritated seborrheic keratoses on the right lateral neck and on the anterior base of her neck. ASSESSMENT/PLAN: 1. Actinic keratoses. a. LN2 x2 applied to each of 6 sites. b. Patient reassured. c. Return to clinic in the spring for repeat check. CC: Cristy Willett MD documented in this encounter Plan of Treatment Upcoming Encounters Date Type Department Care Team (Late st Contact Info) Description 10/03/2024 10:00 AM EST Office Visit Dermatology at [place] [address] [place] [address] Wilmar Saldana MD [address] [facility], [facility] [place] [address] documented as of this encounter Visit Diagnoses Diagnosis Actinic keratosis History of basal cell carcinoma Personal history of other malignant neoplasm of skin documented in this encounter Care Teams Clinical Laboratory Science Professor Relationship Specialty Start Date End Date Cristy Willett MD [address] [place] [address] PCP - General 07/15/10 10/10/17 documented as of this encounter
[2024-05-08 16:17] VITALS: RESP 16
[2024-05-08 16:18] VITALS: BP 147/71; PULSE 81; RESP 16; TEMP 36.6; O2SAT 96
--- NOTE | 2024-05-08 19:57 | ED.GENADUL_ITS ---
Discharge Plan Disposition Patient Disposition: Home Discharge Details Clinical Impression: Chronic pruritus, Localized swelling of right lower extremity, Pain of right calf, Barahona cyst Primary Care Provider: Lacy Barajas ED Provider: Sandhya Rivas Home Meds and New Rx's Prescriptions: No Action calcium carbonate [Calcium 500] 500 mg calcium (1,250 mg) tablet,chewable 1,000 mg PO DAILY diclofenac sodium 1 % gel 2 g topical BID Rx Instructions: apply to single elbow, wrist or hand; for hand includes palm/fingers/back of hand potassium gluconate 595 mg (99 mg) tablet 595 mg PO DAILY amlodipine 5 MG tablet 5 mg PO DAILY levothyroxine [Synthroid] 50 MCG tablet 50 mcg PO QAM multivitamin 1 EACH capsule 1 tab PO QPM acetaminophen 500 mg tablet 500 mg PO Q6H PRN (Reason: pain) Qty: 60 2RF ibuprofen 600 mg tablet 600 mg PO TID PRN (Reason: pain) Qty: 60 0RF rosuvastatin 5 mg tablet 5 mg PO DAILY Patient Comments: TAKE ONE TABLET BY MOUTH EVERY DAY betamethasone dipropionate 0.05 % cream 1 applic TOPICAL DAILY PRN Patient Comments: APPLY A THIN LAYER TO PRURITUS ON LOWER SHINS TWO TIMES A DAY Probiotic 15 billion cell capsule, sprinkle 1 cap PO DAILY Rx Instructions: do not crush/chew/cut; swallow whole OR may open and sprinkle in cold drink/food Discharge Instructions Instructions: Barahona's (popliteal) cyst Additional Instructions: * No evidence of blood clot on your ultrasound today. * You do have a Barahona's cyst behind your knee, this is small and unlikely related to your symptoms * The very minor swelling noted around your ankle is likely related to the itching skin, you can keep your leg elevated, apply the steroid cream, apply ice * Please follow-up with your PCP for reevaluation if symptoms continue Discharge Data Discharge Date/Time-TO BE ENTERED AT DEPARTURE: 05/08/24 16:19 HPI General Date/Time Provider Initiated Documentation: 05/08/24 15:14 . Limitations to Documentation: no limitations . Information obtained by: patient . HPI Narrative: 73-year-old female with past medical history of anxiety, hypertension presents for evaluation of right lower extremity swelling. She reports that the swelling has been ongoing for the last 2 days. It is associated with some very mild pain in the lateral aspect of her calf. There is also associated with increase in her chronic pruritus. 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 she reports that she contacted her PCP who referred her to the emergency department for evaluation for possible blood clot. She is not a smoker, she does not take hormonal therapy, she has never had a blood clot before, no family history of blood clot, she has no known history of malignancy, she has no recent immobilization. Related Data Home Medications ?Medication ?Instructions ?Recorded ?Confirmed levothyroxine 50 mcg tablet 50 mcg PO QAM 03/24/14 05/08/24 (Synthroid) multivitamin 1 tab PO QPM 03/24/14 05/08/24 amlodipine 5 mg tablet 5 mg PO DAILY 07/05/17 05/08/24 acetaminophen 500 mg tablet 500 mg PO Q6H PRN pain #60 tabs 09/08/22 05/08/24 ibuprofen 600 mg tablet 600 mg PO TID PRN pain #60 tabs 09/08/22 05/08/24 calcium carbonate (Calcium 500) 1,000 mg PO DAILY 12/23/22 05/08/24 diclofenac sodium 1 % topical gel 2 g topical BID 12/23/22 05/08/24 potassium gluconate 595 mg (99 mg) 595 mg PO DAILY 12/23/22 05/08/24 tablet betamethasone dipropionate 0.05 % 1 applic topical DAILY PRN 05/08/24 05/08/24 topical cream lactobacillus combo no.11 15 1 cap PO DAILY 05/08/24 05/08/24 billion cell sprinkle capsule (Probiotic) rosuvastatin 5 mg tablet 5 mg PO DAILY 05/08/24 05/08/24 Previous Rx's ?Medication ?Instructions ?Recorded acetaminophen 500 mg tablet 500 mg PO Q6H PRN pain #60 tabs 09/08/22 ibuprofen 600 mg tablet 600 mg PO TID PRN pain #60 tabs 09/08/22 Allergies Allergy/AdvReac Type Severity Reaction Status Date / Time No Known Allergies Allergy Verified 05/08/24 15:16 General Stated Complaint: Vascular ANUP: 2 Exam Narrative Exam Narrative: Review of Systems: All systems reviewed & are unremarkable except as noted in HPI and below Well-developed, no acute distress RRR Unlabored respiratory effort Trace edema of the right lateral malleolus, no Swelling, no calf tenderness There is some mild patchy erythema of the lower bilateral legs Course Vital Signs Vital signs: Vital Signs Temperature 36.6 C 05/08/24 15:13 Pulse 81 05/08/24 15:13 Respiratory Rate 12 05/08/24 15:13 Blood Pressure 147/71 H 05/08/24 15:13 Pulse Oximetry 96 05/08/24 15:13 Temperature 36.6 C 05/08/24 16:18 Pulse 81 05/08/24 16:18 Respiratory Rate 16 05/08/24 16:18 Respiratory Effort Normal 05/08/24 16:17 Respiratory Depth Normal 05/08/24 16:17 Respiratory Pattern Normal 05/08/24 16:17 Blood Pressure 147/71 H 05/08/24 16:18 Pulse Oximetry 96 05/08/24 16:18 Oxygen Delivery Method Room Air 05/08/24 15:13 Oxygen Flow Rate 0 05/08/24 15:13 Pain Level 1 05/08/24 16:18 Medical Decision Making Emergent evaluation of right leg swelling. Examination is very benign and I do not suspect a DVT. Furthermore she does not have any risk factors for DVT development. I suspect that her minor swelling around the ankle is secondary to her increase of her chronic pruritus that she follows with dermatology for as this just seems to be very trace edema. An ultrasound was ordered as that is what the patient was sent to the emergency department for. This demonstrated a Barahona's cyst without any evidence of blood clot. Patient was reassured. Recommend elevation, compression socks and treatment of the neuritis. Recommend follow-up for reevaluation by her PCP. 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 (Acute) Injury of digital nerve of left thumb, initial encounter (Acute) Encounter for screening colonoscopy (Acute) Hallux rigidus of left foot (Acute) Anxiety disorder (Acute) IBS (irritable bowel syndrome) (Chronic) Left lower lobe pulmonary nodule (Acute) ROLANDO (obstructive sleep apnea) (Chronic) Hyperlipidemia, unspecified (Acute) Hypothyroidism (Chronic) HTN (hypertension) (Chronic) Pain of left patella (Acute) Likely patella maltracking Right foot pain (Chronic) Ganglion cyst of volar aspect of right wrist (Chronic) Internal derangement of left knee (Acute) DEPO 06/18/22; 11/30/22 Pes anserinus bursitis of left knee (Acute) Depo-Medrol injection: 10/28/2020 Trochanteric bursitis, left hip (Acute) Medical History Former smoker quit age 20 1 pk yr Insomnia, unspecified Female stress incontinence Arthritis of finger Nocturnal leg cramps History of basal cell cancer Frequency of urination Dysphagia COVID-19 covid positive 08/13 PONV (postoperative nausea and vomiting) Surgical History Tubal Ligation, Laparoscopic Colonoscopy - MAC (07/19/17) Family History Father , age 51 Lung cancer Mother , age 69 Hypertension Heart disease CHF (congestive heart failure) Sister , age 50 Liver cancer Colon cancer Paternal Grandmother No problems noted. Aunt Colon cancer Paternal Grandmother Stomach cancer Paternal Uncle Bone cancer Paternal Aunt Cancer uterine/ovarian Social History Smoking/Tobacco Use Status: Former Tobacco Use Quit Date: 08/23/97 Smoking risk assessment performed?: Yes Alcohol Intake: current Alcohol Intake frequency: a few times a week Alcohol type: wine Drug use: Never Substance use type: does not use Housing: house Current gender identity: female Do you feel safe at home: Yes Do you feel safe in your relationship?: Yes
== END 2024-05-08 16:19 | disposition home or self-care (01) ==
PROVIDERS: Emergency Provider Emergency Medicine; PCP Family Medicine
DX: M71.21 Synovial cyst of popliteal space [Baker], right knee (principal); M79.661 Pain in right lower leg; R22.41 Localized swelling, mass and lump, right lower limb
CPT/HCPCS: 99284; 93971; 99283

== ENCOUNTER 2024-08-03 15:42 | Outpatient (REF) | payer MEDICARE, SELFPAY ==
--- OUTSIDE RECORDS SUMMARY | 2024-08-03 16:13 | XMS_ITS | Encounter Summary ---
Author Organization [facility] [place] [address] Care Team Providers Care Continuing Education Specialist Name Role Phone Lacy Barajas MD Primary Care Provider [phone] Encounter Details Date Type Department Care Team (Latest Contact Info) Description 06/22/2024 Travel Social History Tobacco Use Types Packs/Day [...] 10:00 AM EST Office Visit Dermatology at [place] [address] [facility] [place] [phone] Wilmar Saldana MD [address] [facility], [facility] [place] [address] documented as of this encounter Visit Diagnoses Not on filedocumented in this encounter Care Teams Continuing Education Specialist Relationship Specialty Start Date End Date Lacy Barajas MD [address] [place], [place] [id number] PCP - General Family Medicine 09/27/23 documented as of this encounter
--- OUTSIDE RECORDS SUMMARY | 2024-08-03 16:13 | XMS_ITS | Clinical Summary ---
Author Organization [facility]ly [facility] Address [facility] [place] [address] Care Team Providers Care Velocity Shooter Name Role Phone Lacy Barajas MD Primary Care Provider [phone] Allergies Active Allergy Reactions Criticality Noted Date [...] rosuvastatin (Crestor) 5 mg tablet 04/03/2024 Active urea (EZEQUIEL LO) 40 % Cream Apply topically on a nightly basis to feet under sock occlusion. 85 g 1 06/22/2024 Active Active Problems Problem Noted Date Diagnosed [...] Encounters Date Type Department Care Team Description 06/22/2024 10:45 AM EDT Office Visit Dermatology at [address] [address] Wilmar Saldana MD History of SCC (squamous cell carcinoma) of skin; History of basal cell carcinoma; AK (actinic keratosis); Seborrheic keratosis, inflamed 06/22/2024 Refill Dermatology at [address] [address] Betyte Minaya RN 06/22/2024 Travel 06/20/2024 Telephone Dermatology at [address] [address] Bettye Minaya RN from Last 3 Months Immunizations Name Administration Dates Next Due Influenza Unspecified Formulation 06/16/2017,,10/09/2015 Pneumococcal 13-Valent Conju gate (Prevnar 13) 11/27/2015 Pneumococcal 23-Valent Polys accharide (Pneumovax 23) 01/12/2017 Td Adult (not absorbed) 09/13/2007 Tdap (Adacel, Boostrix) 08/19/2012 Zoster LIVE (Zostavax) 08/22/2013 Family History Medical History Relation Comments [...] 10:00 AM EST Office Visit Dermatology at [place] [address] [facility] [place] [address] Wilmar Saldana MD [address] [facility] [address], [place] [address] Health Maintenance Due Date Last Done Comments CT Colonography 1950 FIT DNA 1950 FIT 1950 Sigmoidoscopy (10 year) with FIT yearly 1950 Sigmoidoscopy 1950 Breast Cancer Share Decision Needed 1990 Advance Directive 2005 Zoster vaccine (2 of 3) 10/17/2013 08/22/2013 Breast Cancer screening 12/28/2018 12/28/2016 Tetanus/Diphtheria/Pertussis Vaccines (2 - Td or Tdap) 08/19/2022 08/19/2012, 09/13/2007 Covid-19 Vaccine (1 - 2023-2 5 season) 2024 Influenza (Flu) vaccine (1 o f 1 - Influenza standard series) 04/23/2024 06/16/2017, 05/06/2016, 10/09/2015 Colonoscopy 07/22/2027 07/22/2017 (See prior EHR) Colorectal Cancer Screening 07/22/2027 Bone Density Scan 11/22/2032 11/22/2017 Pneumoccocal Vaccine: 65+ Completed 01/12/2017, 01/2016 Hepatitis C Screening Completed 11/22/2017 Lipid Screening Discontinued 11/22/2017 HPV test Discontinued 12/09/2017, 08/22/2013 PAP Smear Discontinued 12/09/2017, 08/22/2013 Procedures Procedure Name Priority Date/Time Associated Diagnosis Comments HPV Routine 12/09/2017 2:23 PM EDT PRECISION FARMING SPECIALIST CYTOLOGY FINAL REPORT Routine 12/09/2017 2:23 PM [...] (12/09/2017 2:23 PM EDT) HPV16 NEGATIVE NEGATIVE [facility] HPV 18 NEGATIVE NEGATIVE [facility] HPV Other HR NEGATIVE NEGATIVE [facility] HPV Interpretation See Comment [facility] Comment: NEGATIVE for high-risk HPV *. [...] Lab Vanesa Muller APRN PATHOLOGY/CYTOLO GY ORDERABLES [facility] [place] [place] [address] * Car Runner Cytology Final Report (12/09/2017 2:23 PM EDT) Car Runner Cytology Final Report [id number] ? Location: The signing pathologist has (i) examined the relevant preparation(s) for the specimen(s) and (ii) rendered or confirmed the diagnosis(es). . ? Car Runner Final DIAGNOSIS Unsatisfactory Specimen submitted is unsatisfactory for evaluation. See Discussion. For consensus guidelines for the management of cervical cancer screening test results, please see: ?? http://www.asccp.o rg . Electronically signed by: ??Green CT(ASCP)Neda Verified: ??12/22/2017 ?Broker Performed at: ??-[facility] Dept. of Pathology, [facility] [place], [place] DISCUSSION Specimen processed and examined microscopically but [...] Clinical Genomics and Advanced Technology (CGAT) at [facility]. ? - Zac Sands, PhD, [facility], Director-CGAT STATEMENT OF ADEQUACY Specimen submitted is unsatisfactory due to insufficient squamous component. CLINICAL INFORMATION HPV Option: ?Concurrent HPV and Pap CT/NG Option: ?? No Preparation: ? Liquid based Pap Specimen Source: ? Cervical/Endocervi nathan LMP: ? na Hormones?: ? No Hysterectomy?: ? No ?: ? No ?: ? No I.U.D.?: ? No Pelvic Radiation: ?No Prior PRECISION FARMING SPECIALIST Therapy?: ?Cryotherapy Hist Abnl Pap/Biopsy?: ?? Yes, Pap after Cryo, LEEP Hist of HPV Vaccine?: ?No Hist of Smoking?: ?Yes Hist of SANDEEP exposure?: ?? No . CLINICAL INFORMATION ICD Diagnosis: ? Z12.4 Encounter for screening for malignant neoplasm of cervix Clinical Data, Significant Therapy and Clinical Impression ?? : ?_ This Pap Test has been evaluated with the assistance of the [employer] Pap Test Imaging System. Note: The Pap test is a screening test for cervical cancer with an inherent false-negative rate dependent upon several variables. For further information please contact the [facility] Laboratory. Reference: Getachew EMERY. Polymerization Helper of Pap Smear Results. In: Grace BS, Grady TERESA, ed. The Pap Smear. [place]: Bryant, 2002: 71-77. [facility] 12/09/2017 2:23 PM EDT Vanesa Muller APRN PATHOLOGY/CYTOLO GY ORDERABLES [facility] [place] [address] * DXA Central-Spine, Hip, And/Or Whole Body [...] BMD measurements and plots are available in threadsy under the imaging tab. Paper copies will be sent to providers without threadsy access. If you have received this report without the data sheet and do not have access to [employer],, please contact Radiology Stage Electrician at [phone] Wednesday thru Wednesday 8am-4pm. Narrative 11/22/2017 1:28 [...] spine, WHO diagnosis: Osteoporosis. Procedure Note Perla Roth MD - 11/22/2017 EXAMINATION: DXA CENTRAL-SPINE, HIP, [...] BMD measurements and plots are available in E-DHunder the imaging tab. Paper copies will be sent to providers without E- access.If you have received this report without the data sheet and do not haveaccess to E-, please contact Radiology Stage Electrician at [phone] Wednesday thruFriday 8am-4pm. Vanesa Muller CORRESPONDENCE ANALYST IMG DEXA ORDERAB LES * Hepatitis C Antibody (11/22/2017 10:50 AM EDT) Hepatitis C Antibody Negative Negative [facility] Blood specimen (specimen) 11/22/2017 10:50 AM EDT 11/22/2017 11:00 AM EDT Narrative Resulting Agency Comment Spec In Lab Vanesa Muller CORRESPONDENCE ANALYST CHEMISTRY ORDERA BLES [facility] [place] [address] * Lipid Panel (11/22/2017 10:50 AM EDT) Cholesterol, Total 229 mg/dL [facility] Comment: Lower Risk: <200 mg/dL Average Risk: 200-239 mg/dL Higher Risk: >hk=416 mg/dL Triglyceride 87 mg/dL [facility] Comment: Average Risk/Lower Risk: <150 mg/dL Borderline High Risk: 150-199 mg/dL High Risk: 200-499 mg/dL Very High Risk: >qg=340 mg/dL HDL Cholesterol 79 mg/dL [facility] Comment: Males: ?? Higher Risk: <40 mg/dL Females: ?? HIgher Risk: <50 mg/dL LDL Cholesterol 133 mg/dL [facility] Comment: Lowest Risk: <100 mg/dL Lower Risk: 100-129 mg/dL Borderline High Risk: 130-159 mg/dL High Risk: 160-189 mg/dL Very High Risk: >dc=064 mg/dL Cholesterol/HDL Ratio 2.9 ratio [facility] Lipid Interpretation See Note [facility] Comment: Lipid management should be guided by a patient? s ASCVD risk, goals and preferences. ACC/AHA Guidelines recommend high intensity statin if clinical ASCVD or LDL greater than or equal to 190 mg/dL. http://Xuanyixia.com/ZZG-RZO-Soctwrdsn Adults aged 40-75 with LDL 70-189 mg/dL should have their 10 year ASCVD risk estimated with the ACC/AHA ASCVD risk configuration consultant http://tools.acc.org/DVPPN-Uqxh-Lpzhqnnnj/ Statin should be discussed if risk greater [...] Agency Comment Spec In Lab Vanesa Muller CORRESPONDENCE ANALYST CHEMISTRY ORDERA BLES [facility] [place] [address] * (ABNORMAL) External Mammogram (12/28/2016) External Mammogram Negative(E xternal Lab) EXTERNAL LAB Comment:Negative category 1 yearly mammo recommended. Anatomical Region Laterality Modality Other 12/28/2016 Historical Provider MD LO OUTSIDE INTER PRETATION ORDERABLES from Last 3 Months or Most Recently Relevant to Health Maintenance Care Teams Velocity Shooter Relationship Specialty Start Date End Date Lacy Barajas MD [address] [place], [place] [phone] PCP - General Family Medicine 09/27/23
--- OUTSIDE RECORDS SUMMARY | 2024-08-03 16:13 | XMS_ITS ---
Author Organization Unknown Address [address] [place] [phone] Phone Care Team Providers Care Smoke Eater Name Role Phone YOVANY Trinidad Attending Unavailable [...] Arthritis of finger of left hand 12/06/2023 [id number] SNOMED-CT Personal Care Team Section Performer Name Performer Role Active Date Inactive Da janessa
--- OUTSIDE RECORDS SUMMARY | 2024-08-03 16:13 | XMS_ITS | Encounter Summary ---
Author [facility] [place] [address] Care Team Providers Care Application Support Lead Name Role Phone Lacy Barajas MD Primary Care Provider [phone] Encounter Details Date Type Department Care Team [...] 10:00 AM EST Office Visit Dermatology at [place] [address] [facility] [place] [phone] Wilmar Saldana MD [address] [facility], [facility] [address] documented as of this encounter Visit Diagnoses Not on filedocumented in this encounter Care Teams Application Support Lead Relationship Specialty Start Date End Date Lacy Barajas MD [address] [place], [place] [phone] PCP - General Family Medicine 09/27/23 documented as of this encounter
--- OUTSIDE RECORDS SUMMARY | 2024-08-03 16:13 | XMS_ITS | Encounter Summary ---
Author Organization [facility] [place] [address] Care Team Providers Care Cephalometric Tracer Name Role Phone Lacy Barajas MD Primary Care Provider [phone] Encounter Details Date Type Department Care Team (Late st Contact Info) Description 06/20/2024 Telephone Dermatology at [address] [address] Bettye Minaya RN Social History [...] Telephone Encounter - Bettye Minaya RN - 06/20/2024 12:08 PM EDT Returned patient's call from earlier this morning. Patient stated that she is having itching on thebottom and side of her feet for several weeks. She thought it was athlete foot and has been using Lotrimin cream for the past 2 weeks however she is till having itching. She also stated that her skinfeels like it is getting thicker and tuff. She stated she does not have any rash or bumps just the itching. Patient also stated that she put in a call with her PCP and she is pending a call back. Discussed with Dr. Saldana and he would like to see the patient. Called patient back and informed her Dr. Saldana wants to see her and she stated she understood, andan appointment was scheduled for 06/22/2024 in the morning. Patient also stated that she did get a call back from her PCP and she has an appointment with them in the afternoon on 06/22/2024. documented in this encounter Plan of Treatment Upcoming Encounters Date Type Department Care Team (Late st Contact Info) Description 10/03/2024 10:00 AM EST Office Visit Dermatology at [place] [address] [place] [address] Wilmar Saldana MD [address] [place] [address] documented as of this encounter Visit Diagnoses Not on filedocumented in this encounter Care Teams Cephalometric Tracer Relationship Specialty Start Date End Date Lacy Barajas MD [address] [place] [address] PCP - General Family Medicine 09/27/23 documented as of this encounter
--- OUTSIDE RECORDS SUMMARY | 2024-08-03 16:13 | XMS_ITS | Encounter Summary ---
Author Organization [facility] Address [facility] [place] [address] Care Team Providers Care Panel Flow Machine Operator Name Role Phone Dottie Lala CHRISSY Primary Care Provider [phone] Encounter Details Date Type Department Care Team (Late st Contact Info) Description 08/27/2023 Refill Dermatology at [address] [address] Bettye Minaya RN Social History [...] and stated that she did see Dr. Saldana on 06/24/2023 for Pruritus lower shins bilaterally. [...] now wants her prescriptions to go to [facility]. documented in this encounter Plan of Treatment Upcoming Encounters Date Type Department Care Team (Late st Contact Info) Description 10/03/2024 10:00 AM EST Office Visit Dermatology at [place] [address] [place] [address] Wilmar Saldana MD [address], [place] [address] documented as of this encounter Visit Diagnoses Not on filedocumented in this encounter Care Teams Panel Flow Machine Operator Relationship Specialty Start Date End Date Dottie Lala APRN [address] [place] [address] PCP - General Family Medicine 08/01/18 09/26/23 documented as of this encounter
--- OUTSIDE RECORDS SUMMARY | 2024-08-03 16:13 | XMS_ITS ---
Author Organization Unknown Address [address] [place] [phone] Phone Care Team Providers Care Manager Leadership Development Name Role Phone YOVANY Trinidad Attending Unavailable [...] Code Sys tem Anesthesia of skin 11/10/2023 [id number] SNOMED-CT Personal Care Team Section Performer Name Performer Role Active Date Inactive Da te
--- OUTSIDE RECORDS SUMMARY | 2024-08-03 16:13 | XMS_ITS | Encounter Summary ---
Author Organization [facility] [place] [address] Care Team Providers Care Arnp Name Role Phone Lacy Barajas MD Primary Care Provider [phone] Encounter Details Date Type Department Care Team (Late st Contact Info) Description 06/22/2024 Refill Dermatology at [address] [address] Bettye Minaya RN Social History [...] 10:00 AM EST Office Visit Dermatology at [address] [phone] Wilmar aSldana MD [address] [place] [address], [facility] [place], [place] [id number] documented as of this encounter Visit Diagnoses Not on filedocumented in this encounter Care Teams Arnp Relationship Specialty Start Date End Date Lacy Barajas MD [address] [place] [address] PCP - General Family Medicine 09/27/23 documented as of this encounter
--- OUTSIDE RECORDS SUMMARY | 2024-08-03 16:13 | XMS_ITS | Encounter Summary ---
Author Organization [facility] [place] [address] Care Team Providers Care Door Clamper Name Role Phone Lacy Barajas MD Primary Care Provider [phone] Reason for Visit * Reason Comments Follow-up Encounter Details Date Type Department Care Team (Late st Contact Info) Description 06/22/2024 10:45 AM EDT Office Visit Dermatology at [address] [address] Wilmar Saldana MD [address] [place] [address], [facility] [place] [address] History of SCC (squamous cell carcinoma) of skin; History of basal cell carcinoma; AK (actinic keratosis); Seborrheic keratosis, inflamed Social History Tobacco Use [...] Progress Notes * Wilmar Saldana MD - 06/22/2024 10:45 AM EDT Problem: 1. Itching on bottoms and sides of feet 2. History of multiple nonmelanoma cutaneous malignancies 3. History of extensive sun exposure living in the [facility] in [place], status post a course of Efudex there 2003 4. Family history of malignant melanoma in 2 sisters and in a niece 5. 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 She complains of itching on the bottoms and sidesof her feet. This is a problem both daytime and nighttime. If she put some betamethasone cream on it seems to help. Seem to be centered on the plantar insteps of both feet. She denies any neuropathy.She denies any numbness tingling of her feet. Physical examination reveals a pleasant 73-year-old woman who has slight hyperkeratosis of the soles and of the feet distally and and at the on the heels. She has some no evidence of tinea pedis. There is no erythema and there is no primary dermatologic findings on the of the feet. Assessment plan: Pruritus soles of feet 1. Will treat clavus/callus formation with urea cream 40% applying on a nightly basis under sock occlusion. Dispense 85 g with 1 refill 2. The patient understands that she should not regularly use the betamethasone cream for the soles of her feet 3. Patient currently using CeraVe anti-itch formula cream for her legs which is working well. May also use for her feet. 4. Return to clinic in September for repeat 6-month skin check. CC: Lacy Mercado MD documented in this encounter Plan of Treatment Upcoming Encounters Date Type Department Care Team (Late st Contact Info) Description 10/03/2024 10:00 AM EST Office Visit Dermatology at [place] [address] [facility] [place] [address] Wilmar Saldana MD 580 [facility], [place] [address] documented as of this encounter Visit Diagnoses Diagnosis History of SCC (squamous cell carcinoma) of skin Personal history of other malignant neoplasm of skin History of basal cell carcinoma Personal history of other malignant neoplasm of skin AK (actinic keratosis) Actinic keratosis Seborrheic keratosis, inflamed Inflamed seborrheic keratosis documented in this encounter Care Teams Door Clamper Relationship Specialty Start Date End Date Lacy Braajas MD [address] [place] [address] PCP - General Family Medicine 09/27/23 documented as of this encounter
--- OUTSIDE RECORDS SUMMARY | 2024-08-03 16:13 | XMS_ITS | Encounter Summary ---
Author Organization [facility] [place] [address] Care Team Providers Care Hygiene Coordinator Name Role Phone Lacy Barajas MD Primary Care Provider [phone] Reason for Visit * Reason Comments Annual Exam Encounter Details Date Type Department Care Team (Late st Contact Info) Description 04/04/2024 3:15 PM EDT Office Visit Dermatology at [address] [address] Wilmar Saldana MD [address] [facility], [facility] [place] [address] History of SCC (squamous cell carcinoma) of [...] as of this encounter Progress Notes * Wlimar Saldana MD - 04/04/2024 3:15 PM EDT Problem: 1. 6-month skin checkup for irritated seborrheic keratoses of the back and legs 2. History of multiple nonmelanoma cutaneous malignancies 3. History of extensive sun exposure living in the [facility] in [place], status post a course [...] 10:00 AM EST Office Visit Dermatology at [place] [address] [place] [address] Wilmar Saldana MD [address] [facility], [place] [address] documented as of this encounter Visit Diagnoses Diagnosis History of SCC (squamous cell carcinoma) of skin Personal history of other malignant neoplasm of skin History of basal cell carcinoma Personal history of other malignant neoplasm of skin AK (actinic keratosis) Actinic keratosis documented in this encounter Care Teams Hygiene Coordinator Relationship Specialty Start Date End Date Lacy Barajas MD [address] [place] [address] PCP - General Family Medicine 09/27/23 documented as of this encounter
--- OUTSIDE RECORDS SUMMARY | 2024-08-03 16:13 | XMS_ITS | Encounter Summary ---
Author Organization [facility] [place] [address] Care Team Providers Care Tipple Repairer Name Role Phone Lacy Barajas MD Primary Care Provider [phone] Encounter Details Date Type Department Care Team (Late st Contact Info) Description 12/31/2023 Refill Dermatology at [address] [address] Bettye Minaya RN Social History [...] prescription go to [facility] documented in this encounter Plan of Treatment Upcoming Encounters Date Type Department Care Team (Late st Contact Info) Description 10/03/2024 10:00 AM EST Office Visit Dermatology at [place] [address] [place] [address] Wilmar Saldana MD [address], [place] [address] documented as of this encounter Visit Diagnoses Not on filedocumented in this encounter Care Teams Tipple Repairer Relationship Specialty Start Date End Date Lacy Barajas MD [address] [place] [address] PCP - General Family Medicine 09/27/23 documented as of this encounter
--- OUTSIDE RECORDS SUMMARY | 2024-08-03 16:13 | XMS_ITS | Encounter Summary ---
Author Organization [facility] [place] [address] Care Team Providers Care Manager Bakery Name Role Phone Lacy Barajas MD Primary Care Provider Reason for Visit * Reason Comments Follow-up Skin Check Encounter Details Date Type Department Care Team (Late st Contact Info) Description 09/27/2023 1:30 PM EST Office Visit Dermatology at [address] [address] Wilmar Saldana MD [address] [facility], [facility] [place] [place] [address] Seborrheic keratosis, inflamed; History of SCC (squamous [...] of extensive sun exposure living in the [facility] in [place], status post a course of Efudex there [...] 10:00 AM EST Office Visit Dermatology at [place] 580 [place] [address] Wilmar Saldana MD [address] [facility], [facility] [place] [address] documented as of this encounter Visit Diagnoses Diagnosis Seborrheic keratosis, inflamed Inflamed seborrheic keratosis History of SCC (squamous cell carcinoma) of skin Personal history of other malignant neoplasm of skin History of basal cell carcinoma Personal history of other malignant neoplasm of skin documented in this encounter Care Teams Manager Bakery Relationship Specialty Start Date End Date Lacy Barajas MD [address] [place] [address] PCP - General Family Medicine 09/27/23 documented as of this encounter
--- OUTSIDE RECORDS SUMMARY | 2024-08-03 16:13 | XMS_ITS | Encounter Summary ---
Author Organization [facility] [place] [address] Care Team Providers Care Concrete Paving Machine Operator Name Role Phone Lacy Barajas MD Primary Care Provider [phone] Encounter Details Date Type Department Care Team [...] 10:00 AM EST Office Visit Dermatology at [place] [address] [facility] [place] [address] Wilmar Saldana MD [address] [facility], [place] [address] documented as of this encounter Visit Diagnoses Not on filedocumented in this encounter Care Teams Concrete Paving Machine Operator Relationship Specialty Start Date End Date Lacy Barajas MD [address] [place], [place] [id number] PCP - General Family Medicine 09/27/23 documented as of this encounter
--- OUTSIDE RECORDS SUMMARY | 2024-08-03 16:14 | XMS_ITS | Encounter Summary ---
Author Organization [facility] [place] [address] Care Team Providers Care Roads Supervisor Name Role Phone Cristy Willett MD Primary Care Provider [phone] Reason for Visit * Reason Comments Skin Lesion Seborrheic Keratosis Encounter Details Date Type Department Care Team (Late st Contact Info) Description 12/24/2010 11:00 AM EDT Office Visit Dermatology [address] [facility] [address] [place] [address] Wilmar Saldana MD [address], [place] [address] Actinic keratosis (Primary Dx); Seborrheic keratosis, inflamed [...] and had a good two months in [place] this winter leaving in August and just [...] 10:00 AM EST Office Visit Dermatology at [place] [address] [place] [address] Wilmar Saldana MD [address] [facility], [place] [address] documented as of this encounter Visit Diagnoses Diagnosis Actinic keratosis- Primary Seborrheic keratosis, inflamed Inflamed seborrheic keratosis documented in this encounter Care Teams Roads Supervisor Relationship Specialty Start Date End Date Cristy Willett MD [address] [place] [address] PCP - General 07/15/10 10/10/17 documented as of this encounter
--- OUTSIDE RECORDS SUMMARY | 2024-08-03 16:14 | XMS_ITS | Encounter Summary ---
Author Organization [facility] [place] [address] Care Team Providers Care Supervisor Type Bar And Segment Name Role Phone Dottie Lala CHRISSY Primary Care Provider [phone] Reason for Visit * Reason Comments Skin Check Encounter Details Date Type Department Care Team (Late st Contact Info) Description 06/24/2023 3:00 PM EDT Office Visit Dermatology at [address] [address] Wilmar Saldana MD 580 [facility], [facility] [place] [address] Seborrheic keratosis, inflamed Social History Tobacco Use [...] of extensive sun exposure living in the [facility] in [place], status post a course of Efudex [...] 10:00 AM EST Office Visit Dermatology at [place] [address] [place] [address] Wilmar Saldana MD [address] [facility], [place] [address] documented as of this encounter Visit Diagnoses Diagnosis Seborrheic keratosis, inflamed Inflamed seborrheic keratosis documented in this encounter Care Teams Supervisor Type Bar And Segment Relationship Specialty Start Date End Date Dottie Lala APRN [address] [place] [address] PCP - General Family Medicine 08/01/18 09/26/23 documented as of this encounter
--- OUTSIDE RECORDS SUMMARY | 2024-08-03 16:14 | XMS_ITS | Encounter Summary ---
[place] [address] Care Team Providers Care Institution Director Name Role Phone Cristy Willett MD Primary Care Provider [phone] Reason for Visit * Reason Comments Follow-up Encounter Details Date Type Department Care Team (Late st Contact Info) Description 05/25/2013 9:15 AM EDT Office Visit Dermatology [address] [facility] [address] [place] [address] Wilmar Saldana MD [address] [facility], [place] [address] Squamous cell carcinoma (Primary Dx) Social History [...] of excessive sun exposure living in the [facility]. Nuris follows up and has noted a [...] 10:00 AM EST Office Visit Dermatology at [place] 580 [place] [address] Wilmar Saldana MD [address] [facility], [place] [address] documented as of this encounter Procedures Procedure Name Priority Date/Time Associated Diagnosis Comments SURGICAL PATHOLOGY SCAN 06/05/2013 5:34 PM EDT documented in this encounter Results * SCAN DOC: SURGICAL PATHOLOGY (06/05/2013 5:34 PM EDT) Narrative 06/05/2013 5:34 PM EDT Procedure Note Provider, Nafisa - 06/05/2013 5:34 PM EDT Scanning Provider MEDIA MGR SCAN EXT O RDR/RSLT documented in this encounter Visit Diagnoses Diagnosis Squamous cell carcinoma- Primary Other malignant neoplasm without specification of site documented in this encounter Care Teams Institution Director Relationship Specialty Start Date End Date Cristy Willett MD [address] [place] [address] PCP - General 07/15/10 10/10/17 documented as of this encounter
--- OUTSIDE RECORDS SUMMARY | 2024-08-03 16:14 | XMS_ITS | Encounter Summary ---
Author Organization [facility] [place] [address] Care Team Providers Care Adjunct Psychology Professor Name Role Phone Cristy Willett MD Primary Care Provider [phone] Reason for Visit * Reason Comments Skin Check Encounter Details Date Type Department Care Team (Late st Contact Info) Description 04/23/2016 10:45 AM EDT Office Visit Dermatology at [address] [address] Wilmar Saldana MD [address] [facility] [place] [address] Actinic keratosis; History of basal cell carcinoma [...] of extensive sun exposure living in the [facility], status post course of Efudex in the [facility], 2003. 5. History of SCC in situ, [...] This will be sent in to her [employer] insurance. She knows this will likely be an [id number] expense. Stressed the appropriate technique for application [...] whether they will be heading down to [place] this year or not. cc: Cristy Willett M.D. documented in this encounter Plan of Treatment Upcoming Encounters Date Type Department Care Team (Late st Contact Info) Description 10/03/2024 10:00 AM EST Office Visit Dermatology at [place] [address] [facility] [place] [address] Wilmar Saldana MD [address] [facility], [place] [address] documented as of this encounter Visit Diagnoses Diagnosis Actinic keratosis History of basal cell carcinoma Personal history of other malignant neoplasm of skin documented in this encounter Care Teams Adjunct Psychology Professor Relationship Specialty Start Date End Date Cristy Willett MD [address] [place] [address] PCP - General 07/15/10 10/10/17 documented as of this encounter
--- OUTSIDE RECORDS SUMMARY | 2024-08-03 16:14 | XMS_ITS | Encounter Summary ---
Author Organization [facility] [place] [address] Care Team Providers Care Human Factors Specialist Name Role Phone Cristy Willett MD Primary Care Provider [phone] Reason for Visit * Reason Comments Skin Check Encounter Details Date Type Department Care Team (Late st Contact Info) Description 12/31/2016 10:15 AM EDT Office Visit Dermatology at [address] [address] Wilmar Saldana MD [address] [facility], [facility] [place] [place] [address] Actinic keratosis; History of basal cell carcinoma [...] to see her before she goes to [place], then we will decide whether or not we can space out to perhaps once yearly visits. Continue sun avoidance precautions. cc: Cristy Willett MD documented in this encounter Plan of Treatment Upcoming Encounters Date Type Department Care Team (Late st Contact Info) Description 10/03/2024 10:00 AM EST Office Visit Dermatology at [place] 580 [place] [address] Wilmar Saldana MD [address] [facility], [place] [address] documented as of this encounter Visit Diagnoses Diagnosis Actinic keratosis History of basal cell carcinoma Personal history of other malignant neoplasm of skin documented in this encounter Care Teams Human Factors Specialist Relationship Specialty Start Date End Date Cristy Willett MD [address] [place] [address] PCP - General 07/15/10 10/10/17 documented as of this encounter
--- OUTSIDE RECORDS SUMMARY | 2024-08-03 16:14 | XMS_ITS | Encounter Summary ---
[place] [address] Care Team Providers Care Social Studies Department Chair Name Role Phone Vanesa Muller CHRISSY Primary Care Provider + Encounter Details Date Type Department Care Team (Latest Contact Info) Description 12/13/2017 9:45 AM EDT Laboratory Appointment Lab [address] [place] [address] Age-related osteoporosis without current pathological fracture; Elevated [...] 10:00 AM EST Office Visit Dermatology at [place] [address] [facility] [place] [address] Wilmar Saldana MD 580 [facility], [place] [address] documented as of this encounter Procedures Procedure [...] Agency Comment Spec In Lab Vanesa Muller TECHNICIAN'S HELPER CHEMISTRY ORDERA BLES Performing Organization Address [facility] Co de Phone Number [facility] [place] [address] * Hepatic Function Panel (12/13/2017 9:15 AM [...] Agency Comment Spec In Lab Vanesa Muller TECHNICIAN'S HELPER CHEMISTRY ORDERA BLES Performing Organization Address [facility]/ZIP Co de Phone Number [facility] [place] [address] * Vitamin D, 25-Hydroxy (12/13/2017 9:15 AM [...] be considered to be insufficient or deficient. [email or web address]/nkf-guidelines [email or web address]/nejm-VitD The [employer] i[employer] Vitamin D Immunoassay detects both 25-OH Vitamin D2 and 25-OH Vitamin D3, but only a total Vitamin D concentration is reported. Blood specimen (specimen) 12/13/2017 9:15 AM EDT 12/13/2017 1:26 PM EDT Narrative Resulting Agency Comment Spec In Lab Vanesa Muller APRN CHEMISTRY ORDERA BLES [facility] [place] [address] documented in this encounter Visit Diagnoses Diagnosis Age-related osteoporosis without current pathological fracture Senile osteoporosis Elevated alkaline phosphatase level Other nonspecific abnormal serum enzyme levels documented in this encounter Care Teams Social Studies Department Chair Relationship Specialty Start Date End Date Vanesa Muller APRN [facility] [place] [address] PCP - General General Internal Medicine 10/11/1707/31/18 documented as of this encounter
--- OUTSIDE RECORDS SUMMARY | 2024-08-03 16:14 | XMS_ITS | Encounter Summary ---
Author Organization Formerly [facility] [place] [address] Care Team Providers Care Manager Organizational Name Role Phone Vanesa Muller APRN Primary Care Provider + Reason for Referral * Diagnostic Test (Routine) - Closed Specialty Diagnoses / Procedures Referred By Contac t Referred To Contact Radiology Diagnoses Osteopenia, unspecified location Procedures DXA Central-Spine, Hip, And/Or Whole Body (Generic) Vanesa Muller APRN [facility] [place] [address] [facility] Rad Xray [address] [place] [address] [place] [address] Referral ID Status Reason Start Date Expiration Date V isits Requested Visits Authorized [id number] Closed Specialty Service Requested 11/10/2017 11/10/2018 1 1 Reason for Visit * Diagnostic Test (Routine) - Closed Specialty Diagnoses / Procedures Referred By Contac t Referred To Contact Radiology Diagnoses Osteopenia, unspecified location Procedures DXA Central-Spine, Hip, And/Or Whole Body (Generic) Vanesa Muller APRN [facility] [place] [address] [facility] Rad Xray [address] [place] [address] [place] [address] Referral ID Status Reason Start Date Expiration Date V isits Requested Visits Authorized [id number] Closed Specialty Service Requested 11/10/2017 11/10/2018 1 1 Encounter Details Date Type Department Care Team (Latest Contact Info) Description 11/22/2017 12:47 PM EDT - 11/22/2017 11:59 PM EDT Hospital Encounter XRay at [address] [place] [address] Vanesa Muller, CHRISSY [facility] VASCULAR SURGERY [place] [address] Osteopenia, unspecified location Discharge Disposition: Home Social [...] 10:00 AM EST Office Visit Dermatology at [place] [address] [place] [address] Wilmar Saldana MD [address], [place] [address] documented as of this encounter Procedures Procedure [...] BMD measurements and plots are available in [employer] under the imaging tab. Paper copies will be sent to providers without E- access. If you have received this report without the data sheet and do not have access to [employer], please contact Radiology Front Desk Manager at [phone] Wednesday thru Wednesday 8am-4pm. Narrative 11/22/2017 1:28 PM EDT EXAMINATION: DXA CENTRAL-SPINE, HIP, AND/OR WHOLE BODY (GENERIC) CLINICAL HISTORY: 67-year-old postmenopausal woman referred for screening for osteoporosis. Patient also reports a 2 year smoking history. TECHNIQUE: Scans were acquired at the lumbar spine and left hip. COMPARISON: None FINDINGS: Lowest T-score at a diagnostic region of interest: T-score: -2.6, DEIS: Lumbar spine, WHO diagnosis: Osteoporosis. Procedure Note [...] BMD measurements and plots are available in [employer] the imaging tab. Paper copies will be sent to providers without [employer] access.If you have received this report without the data sheet and do not haveaccess to E-, please contact Radiology Front Desk Manager at [phone] Wednesday thruFriday 8am-4pm. Vanesa Muller SALVAGE ENGINEER IMG DEXA ORDERAB LES documented in this encounter Visit Diagnoses Diagnosis Osteopenia, unspecified location documented in this encounter Care Teams Manager Organizational Relationship Specialty Start Date End Date Vanesa Muller APRN [facility] [place] [place] [address] PCP - General General Internal Medicine 10/11/1707/31/18 documented as of this encounter
--- OUTSIDE RECORDS SUMMARY | 2024-08-03 16:14 | XMS_ITS | Encounter Summary ---
[place] [address] Care Team Providers Care Cattle Dehorner Name Role Phone SpikeDottie camarena Leeann LOWE Primary Care Provider [phone] Encounter Details Date Type Department Care Team (Latest Contact Info) Description 03/10/2022 10:42 PM EDT - 03/10/2022 11:59 PM EDT [place] [address] Discharge Disposition: Home Social History Tobacco Use [...] 10:00 AM EST Office Visit Dermatology at [place] [address] [place] [address] Wilmar Saldana MD [address], [place] [address] documented as of this encounter Procedures Procedure Name Priority Date/Time Associated Diagnosis Comments SURGICAL PATHOLOGY REPORT Routine 03/10/2022 10:34 AM EDT documented in this encounter Results * Surgical Pathology Report (03/10/2022 10:34 AM EDT) Final Diagnosis [id number] ? Location: OPW The signing pathologist has (i) examined the relevant preparation(s) for the specimen(s) and (ii) rendered or confirmed the diagnosis(es). . ?Surgical Pathology DIAGNOSIS Left anterior shoulder, skin shave biopsy: - ??Basal cell carcinoma, nodular pattern, ?? present at the deep specimen edge Electronically signed by: ?Chay FISCHER, Diane Verified: ??03/12/2022 18:31 ??Dermatopatholo gist Performed at: ??-[facility] Dept. of Pathology, [place], [place] SPECIMEN(S) SUBMITTED A - L anterior [...] labeled A1. ??jnr 03/12/2022 6:31 PM EDT [facility] SPECIMEN FROM SKIN / Unknown 03/10/2022 10:34 AM EDT 03/10/2022 10:34 AM EDT Wilmar Saldana MD PATHOLOGY/CYTOLOGY O RDERADREA [facility] [place] [address] documented in this encounter Visit Diagnoses Not on filedocumented in this encounter Care Teams Cattle Dehorner Relationship Specialty Start Date End Date Dottie Lala APRN [address] [place] [address] PCP - General Family Medicine 08/01/18 09/26/23 documented as of this encounter
--- OUTSIDE RECORDS SUMMARY | 2024-08-03 16:14 | XMS_ITS | Encounter Summary ---
Author Organization [facility] [place] [address] Care Team Providers Care Automatic Corn Grinder Operator Name Role Phone Vanesa Muller APRN Primary Care Provider + Reason for Visit * Reason Comments Follow-up stomach pain, up sin ce 4 going to the bathroom Encounter Details Date Type Department Care Team (Late st Contact Info) Description 12/09/2017 1:40 PM EDT Office [place] [address] Vanesa Muller SIDE FRAMER [facility] [place] [address] Age-related osteoporosis without current pathological fracture; Elevated [...] this encounter Progress Notes * Vanesa Muller, SIDE FRAMER - 12/09/2017 1:40 PM EDT Subjective: Patient [...] trip to go a cruise out of [place]. Usually takes dramamine for episodic motion sickness. [...] of her colo done last June at [facility]. She has information on giving written advanced directive wishes. - An After Visit Summary was given to the patient. documented in this encounter Plan of Treatment Upcoming Encounters Date Type Department Care Team (Late st Contact Info) Description 10/03/2024 10:00 AM EST Office Visit Dermatology at [place] [address] [place] [address] Wilmar Saldana MD [address], [place] [address] documented as of this encounter Procedures Procedure Name Priority Date/Time Associated Diagnosis Comments HPV Routine 12/09/2017 2:23 PM EDT HYDROCHLORIC AREA SUPERVISOR CYTOLOGY INTERPRETATION Routine 12/09/2017 2:23 PM EDT HYDROCHLORIC AREA SUPERVISOR CYTOLOGY FINAL REPORT Routine 12/09/2017 2:23 PM EDT CYTOPATHOLOGY GYNECOLOGICAL Routine 12/09/2017 2:23 PM EDT Screening for cervical cancer documented in this encounter Results * (ABNORMAL) Gamma GT (12/13/2017 9:15 AM EDT) Gamma Glutamyl Transferase 41(H) 5 - 36 unit/L [facility] Blood specimen (specimen) 12/13/2017 9:15 AM EDT 12/13/2017 9:24 AM EDT Narrative Resulting Agency Comment Spec In Lab Vanesa Muller SIDE FRAMER CHEMISTRY ORDERA BLES Performing Organization Address [facility] Co de Phone Number [facility] [place] [address] * Hepatic Function Panel (12/13/2017 9:15 AM EDT) Protein, Total 7.6 6.1 - 8.0 gm/dL [facility] Albumin 4.5 3.2 - 5.2 gm/dL [facility] Aspartate Aminotransferase 27 0 - 30 unit/L [facility] Alanine Aminotransferase 20 0 - 30 unit/L [facility] Alkaline Phosphatase 100 40 - 104 unit/L [facility] Bilirubin, Total 0.7 0.2 - 1.3 mg/dL [facility] Bilirubin, Direct 0.1 0.0 - 0.3 mg/dL [facility] Blood specimen (specimen) 12/13/2017 9:15 AM EDT 12/13/2017 9:24 AM EDT Narrative Resulting Agency Comment Spec In Lab Vanesa Muller SIDE FRAMER CHEMISTRY ORDERA BLES Performing Organization Address [facility] Co de Phone Number [facility] [place] [address] * Vitamin D, 25-Hydroxy (12/13/2017 9:15 AM EDT) Vitamin D Total 25 OH 34 30 - 100 ng/mL [facility] Comment: Deficient <10 ng/mL Insufficient 10 to 29 ng/mL Sufficient 30 to 100 ng/mL Potential Intoxication >100 ng/mL According to the [place] National Osteoporosis Foundation, Vitamin D concentrations >30 ng/mL are sufficient to protect bone health. ??The National Kidney Foundation has similarly stated that patients with Vitamin D concentrations <30ng/mL should be considered to be insufficient or deficient. http://LensAR/nkf-guidelines http://[employer]/nejm-VitD [employer] iSYS Vitamin D Immunoassay detects both 25-OH Vitamin D2 and 25-OH Vitamin D3, but only a total Vitamin D concentration is reported. Blood specimen (specimen) 12/13/2017 9:15 AM EDT 12/13/2017 1:26 PM EDT Narrative Resulting Agency Comment Spec In Lab Vanesa Muller APRN CHEMISTRY ORDERA BLES Performing Organization Address City/[facility]/ZIP Co de Phone Number [facility] [place] [address] * HYDROCHLORIC AREA SUPERVISOR Cytology Interpretation (12/09/2017 2:23 PM EDT) Channel Installer Cytology Interpretation Unsatisfactory [facility] Comment:Channel Installer Cytology Final R eport Channel Installer Cytology Comment Present [facility] Endocervical Component Unsatisfactory [facility] AP Specimen 12/09/2017 2:23 PM EDT 12/22/2017 10:53 AM EDT Vanesa Muller APRN PATHOLOGY/CYTOLO GY ORDERABLES [facility] [place] [address] * Channel Installer Cytology Final Report (12/09/2017 2:23 PM EDT) Channel Installer Cytology Final Report [id number] ? Location: The signing pathologist has (i) examined the relevant preparation(s) for the specimen(s) and (ii) rendered or confirmed the diagnosis(es). . ? Channel Installer Final DIAGNOSIS Unsatisfactory Specimen submitted is unsatisfactory for evaluation. See Discussion. For consensus guidelines for the management of cervical cancer screening test results, please see: ?? http://www.asccp.o rg . Electronically signed by: ??Antoine CHAN(ASCP)Neda Verified: ??12/22/2017 ?Sales Executive Insurance Performed at: ??-[facility] Dept. of Pathology, [place], [place] DISCUSSION Specimen processed and examined microscopically [...] Clinical Genomics and Advanced Technology (CGAT) at [facility]. ? - Zac Sands, PhD, HCLD, Director-CGAT STATEMENT OF ADEQUACY Specimen submitted is unsatisfactory due to insufficient squamous component. CLINICAL INFORMATION HPV Option: ?Concurrent HPV and Pap CT/NG Option: ?? No Preparation: ? Liquid based Pap Specimen Source: ? Cervical/Endocervi nathan LMP: ? na Hormones?: ? No Hysterectomy?: ? No ?: ? No ?: ? No I.U.D.?: ? No Pelvic Radiation: ?No Prior HYDROCHLORIC AREA SUPERVISOR Therapy?: ?Cryotherapy Hist Abnl Pap/Biopsy?: ?? Yes, Pap after Cryo, LEEP Hist of HPV Vaccine?: ?No Hist of Smoking?: ?Yes Hist of SANDEEP exposure?: ?? No . CLINICAL INFORMATION ICD Diagnosis: ? Z12.4 Encounter for screening for malignant neoplasm of cervix Clinical Data, Significant Therapy and Clinical Impression ?? : ?_ This Pap Test has been evaluated with the assistance of the PoptentPrep Pap Test Imaging System. Note: The Pap test is a screening test for cervical cancer with an inherent false-negative rate dependent upon several variables. For further information please contact the [facility]. Reference: Getachew EMERY. Electrode Turner And Finisher of Pap Smear Results. In: Grace BS, Grady HH, ed. The Pap Smear. [place]: Bryant, 2002: 71-77. [facility] 12/09/2017 2:23 PM EDT Vanesa Muller SIDE FRAMER PATHOLOGY/CYTOLO GY ORDERABLES [facility] [place] [address] * HPV (12/09/2017 2:23 PM EDT) HPV16 NEGATIVE NEGATIVE [facility] HPV 18 NEGATIVE NEGATIVE [facility] HPV Other HR NEGATIVE NEGATIVE [facility] HPV Interpretation See Comment [facility] Comment: NEGATIVE for [...] APRN PATHOLOGY/CYTOLO GY ORDERABLES Performing Organization Address [facility] Co de Phone Number [facility] [place] [address] * Cytopathology Gynecological (12/09/2017 2:23 PM EDT) AP Specimen 12/09/2017 2:23 PM EDT 12/09/2017 2:23 PM EDT Narrative [facility] - 12/09/2017 2:23 PM EDT Specimen requisition ordered. ??Separate Pathology report to follow Vanesa Muller APRN PATHOLOGY/CYTOLO GY ORDERABLES Performing Organization Address [facility]/ZIP Co de Phone Number [facility] [place] [address] documented in this encounter Visit Diagnoses Diagnosis Age-related osteoporosis without current pathological fracture Senile osteoporosis Elevated alkaline phosphatase level Other nonspecific abnormal serum enzyme levels Screening for cervical cancer Screening for malignant neoplasm of the cervix Family history of ovarian cancer Family history of malignant neoplasm of ovary documented in this encounter Care Teams Automatic Corn Grinder Operator Relationship Specialty Start Date End Date Vanesa Muller APRN [facility] [place] [address] PCP - General General Internal Medicine 10/11/1707/31/18 documented as of this encounter
--- OUTSIDE RECORDS SUMMARY | 2024-08-03 16:14 | XMS_ITS | Encounter Summary ---
[place] [address] Care Team Providers Care Construction Sales Manager Name Role Phone Cristy Willett MD Primary Care Provider [phone] Reason for Visit * Reason Comments Skin Check Encounter Details Date Type Department Care Team (Late st Contact Info) Description 06/03/2011 9:15 AM EDT Office Visit Dermatology [address] [place] [address] [address] [place] [address] Wilmar Saldana MD [address] [place] [address] History of basal cell carcinoma (Primary Dx); [...] of excessive sun exposure living in the [facility]. Nuris follows up and has been doing [...] 10:00 AM EST Office Visit Dermatology at [place] [address] [place] [address] Wilmar Saldana MD [address] [facility] [facility] [facility] [place] [address] documented as of this encounter Visit Diagnoses Diagnosis History of basal cell carcinoma- Primary Personal history of other malignant neoplasm of skin History of squamous cell carcinoma Personal history of malignant neoplasm of other site documented in this encounter Care Teams Construction Sales Manager Relationship Specialty Start Date End Date Cristy Willett MD [address] [place] [address] PCP - General 07/15/10 10/10/17 documented as of this encounter
--- OUTSIDE RECORDS SUMMARY | 2024-08-03 16:14 | XMS_ITS | Encounter Summary ---
Author Organization [facility] [place] [address] Care Team Providers Care Contracting Executive Name Role Phone Vanesa Muller APRN Primary Care Provider + Reason for Referral * E-Consultation (Routine) - Specialty Diagnoses / Procedures Referred By Berhane lopez Referred To Contact Gynecology Diagnoses Unsatisfactory cervical Papanicolaou smear Procedures eConsult to Gynecology (Primary Care Use Only) Vanesa Muller APRN [facility] [place] [address] Referral ID Status Reason Start Date Expiration Date V isits Requested Visits Authorized [id number] 12/22/2017 12/22/2018 1 1 Encounter Details Date Type Department Care Team (Late st Contact Info) Description 12/22/2017 Orders Only [place] [address] Vanesa Muller COPY MACHINE OPERATOR [facility] [place] [address] Unsatisfactory cervical Papanicolaou smear Social History Tobacco [...] 10:00 AM EST Office Visit Dermatology at [place] [address] [place] [address] Wilmar Saldana MD [address], [place] [address] documented as of this encounter Visit Diagnoses Diagnosis Unsatisfactory cervical Papanicolaou smear Unsatisfactory cervical cytology smear documented in this encounter Care Teams Contracting Executive Relationship Specialty Start Date End Date Vanesa Muller APRN [facility] [address] [place] [address] PCP - General General Internal Medicine 10/11/1707/31/18 documented as of this encounter
--- OUTSIDE RECORDS SUMMARY | 2024-08-03 16:14 | XMS_ITS | Encounter Summary ---
Author Organization [facility] [place] [address] Care Team Providers Care Auto Parts Handler Name Role Phone Dottie Lala CHRISSY Primary Care Provider [phone] Encounter Details Date Type Department Care Team (Late st Contact Info) Description 09/09/2021 10:45 AM EST Office Visit Dermatology at [place] [address] [place] [address] Wilmar Saldana MD [address] [facility], [address] A DERMATOLOGY [place], [place] [address] Actinic keratosis; History of basal cell carcinoma; [...] of extensive sun exposure living in the [facility] [place], status post a course of [...] 10:00 AM EST Office Visit Dermatology at [address] [place] [address] Wilmar Saldana MD [address] [place] [address] [address], CLE[address] [place] [address] documented as of this encounter Visit Diagnoses Diagnosis Actinic keratosis History of basal cell carcinoma Personal history of other malignant neoplasm of skin Seborrheic keratosis, inflamed Inflamed seborrheic keratosis documented in this encounter Care Teams Auto Parts Handler Relationship Specialty Start Date End Date Dottie Lala APRN [address] [place] [address] PCP - General Family Medicine 08/01/18 09/26/23 documented as of this encounter
--- OUTSIDE RECORDS SUMMARY | 2024-08-03 16:14 | XMS_ITS | Referral Summary ---
Author Organization [facility] Address [address] [place] [address] Care Team Providers Care Catering And Events Manager Name Role Phone Unknown, Provider Primary Care Provider Unava ilable Social History Tobacco Use Types Packs/Day Years Used Date Smoking Tobacco: Never Assessed Interpersonal Safety Answer Date Record ed Physically Hurt Never 03/24/2020 Verbally Threaten Not on file 03/24/2020 Comments Unknown Sex and Gender Information Value Date Recorded Sex Assigned at Not on file Legal Sex Female 18:38 EST Gender Identity Not on file Sexual Orientation Not on file Plan of Treatment Not on file Care Teams Catering And Events Manager Relationship Specialty Start Date End Date Unknown, Provider, PCP - General 07/21/17
--- OUTSIDE RECORDS SUMMARY | 2024-08-03 16:14 | XMS_ITS | Encounter Summary ---
Author Organization [facility] [place] [address] Care Team Providers Care Children'S Lunchroom Supervisor Name Role Phone Cristy Willett MD Primary Care Provider [phone] Reason for Visit * Reason Comments Skin Check Encounter Details Date Type Department Care Team (Late st Contact Info) Description 07/28/2016 8:45 AM EST Office Visit Dermatology at [address] [place] [address] Wilmar Saldana MD [address] [facility], [place] [address] Actinic keratosis; History of basal cell carcinoma [...] 10:00 AM EST Office Visit Dermatology at [place] [address] [place] [address] Wilmar Saldana MD [address] [facility], [place] [address] documented as of this encounter Visit Diagnoses Diagnosis Actinic keratosis History of basal cell carcinoma Personal history of other malignant neoplasm of skin documented in this encounter Care Teams Children'S Lunchroom Supervisor Relationship Specialty Start Date End Date Cristy Willett MD [address] [place] [address] PCP - General 07/15/10 10/10/17 documented as of this encounter
--- OUTSIDE RECORDS SUMMARY | 2024-08-03 16:14 | XMS_ITS | Encounter Summary ---
Author Organization [facility] [place] [address] Care Team Providers Care Shop Girl Name Role Phone Cristy Willett MD Primary Care Provider [phone] Reason for Visit * Reason Comments Skin Check Encounter Details Date Type Department Care Team (Late st Contact Info) Description 04/21/2017 11:15 AM EDT Office Visit Dermatology at [address] [address] Wilmar Saldana MD [address] [facility] [place] [address] Actinic keratosis Social History Tobacco Use Types [...] 10:00 AM EST Office Visit Dermatology at [place] [address] [place] [address] Wilmar Saldana MD [address], [place] [address] documented as of this encounter Visit Diagnoses Diagnosis Actinic keratosis documented in this encounter Care Teams Shop Girl Relationship Specialty Start Date End Date Cristy Willett MD [address] [place] [address] PCP - General 07/15/10 10/10/17 documented as of this encounter
--- OUTSIDE RECORDS SUMMARY | 2024-08-03 16:14 | XMS_ITS | Encounter Summary ---
Author Organization [facility] [place] [address] Care Team Providers Care Icu Manager Name Role Phone Dottie Lala CHRISSY Primary Care Provider [phone] Encounter Details Date Type Department Care Team (Late st Contact Info) Description 09/28/2022 Telephone Dermatology at [address] [address] Bettye Minaya RN Social History [...] 10:00 AM EST Office Visit Dermatology at [place] [address] [facility] [place] [address] Wilmar Saldana MD [address], [place] [address] documented as of this encounter Visit Diagnoses Not on filedocumented in this encounter Care Teams Icu Manager Relationship Specialty Start Date End Date Dottie Lala APRN [address] [place] [address] PCP - General Family Medicine 08/01/18 09/26/23 documented as of this encounter
--- OUTSIDE RECORDS SUMMARY | 2024-08-03 16:14 | XMS_ITS | Encounter Summary ---
Author Organization [facility] [place] [address] Care Team Providers Care Neurologist Name Role Phone Dottie Lala CHRISSY Primary Care Provider [phone] [phone] Encounter Details Date Type Department Care Team (Late st Contact Info) Description 03/13/2022 Telephone Dermatology at [address] [place] [address] Mary Kay Tripp LPN Social History Tobacco [...] 10:00 AM EST Office Visit Dermatology at [address] [place] [address] Wilmar Saldana MD [address], CLEMENT[place] [address] documented as of this encounter Visit Diagnoses Not on filedocumented in this encounter Care Teams Neurologist Relationship Specialty Start Date End Date Dottie Lala APRN [address] [place] [address] PCP - General Family Medicine 08/01/18 09/26/23 documented as of this encounter
--- OUTSIDE RECORDS SUMMARY | 2024-08-03 16:14 | XMS_ITS | Encounter Summary ---
[place] [address] Care Team Providers Care Continuum Of Care Manager Name Role Phone Cristy Willett MD Primary Care Provider [phone] Reason for Visit * Reason Comments Skin Lesion Encounter Details Date Type Department Care Team (Late st Contact Info) Description 01/07/2012 2:30 PM EDT Office Visit Dermatology [address] [place] [address] [address] [place] [address] Wilmar Saldana MD [address], [place] [address] Actinic keratosis (Primary Dx) Social History Tobacco [...] lesion. Nuris follows up after returning from [place]. While there she noted over the last [...] 10:00 AM EST Office Visit Dermatology at [place] [address] [place] [address] Wilmar Saldana MD 580 [facility] [place] [address] documented as of this encounter Visit Diagnoses Diagnosis Actinic keratosis- Primary documented in this encounter Care Teams Continuum Of Care Manager Relationship Specialty Start Date End Date Cristy Willett MD [address] [place] [address] PCP - General 07/15/10 10/10/17 documented as of this encounter
--- OUTSIDE RECORDS SUMMARY | 2024-08-03 16:14 | XMS_ITS | Encounter Summary ---
Author Organization [facility] [place] [address] Care Team Providers Care Flash Drier Operator Name Role Phone Dottie Lala CHRISSY Primary Care Provider [phone] Reason for Visit * Reason Comments Skin Check Encounter Details Date Type Department Care Team (Late st Contact Info) Description 02/06/2020 3:15 PM EDT Office Visit Dermatology at [address] [address] Wilmar Saldana MD 580 [facility] [place] [address] Actinic keratosis; History of basal cell carcinoma; [...] of extensive sun exposure living in the [facility] in [place], status post [...] 10:00 AM EST Office Visit Dermatology at [address] [address] Wilmar Saldana MD [address] [place] [address], [place] [address] documented as of this encounter Visit Diagnoses Diagnosis Actinic keratosis History of basal cell carcinoma Personal history of other malignant neoplasm of skin Seborrheic keratosis, inflamed Inflamed seborrheic keratosis documented in this encounter Care Teams Flash Drier Operator Relationship Specialty Start Date End Date Dottie Lala APRN [address] [place] [address] PCP - General Family Medicine 08/01/18 09/26/23 documented as of this encounter
--- OUTSIDE RECORDS SUMMARY | 2024-08-03 16:14 | XMS_ITS | Encounter Summary ---
Author Organization [facility] [place] [address] Care Team Providers Care Javascript Ui Developer Name Role Phone Dottie Lala APRN Primary Care Provider [phone] [phone] Encounter Details Date Type Department Care Team (Late st Contact Info) Description 06/24/2023 Refill Dermatology at [address] [phone] Mary Kay Tripp LPN Social History Tobacco [...] 10:00 AM EST Office Visit Dermatology at [address] [phone] Wilmar Saldana MD [address] [place] [address], [facility] DERMATOLOGY [place], [place] [address] documented as of this encounter Visit Diagnoses Not on filedocumented in this encounter Care Teams Javascript Ui Developer Relationship Specialty Start Date End Date Dottie Lala APRN [address] [place] [address] PCP - General Family Medicine 08/01/18 09/26/23 documented as of this encounter
--- OUTSIDE RECORDS SUMMARY | 2024-08-03 16:14 | XMS_ITS | Encounter Summary ---
Author Organization [facility] [place] [address] Care Team Providers Care Statement Services Representative Name Role Phone Cristy Willett MD Primary Care Provider [phone] Reason for Visit * Reason Comments Skin Check Encounter Details Date Type Department Care Team (Late st Contact Info) Description 07/26/2015 9:15 AM EST Office Visit Dermatology at [place] [address] [place] [address] Wilmar Saldana MD 580 [facility], [place] [address] Actinic keratosis; History of basal cell carcinoma Social History Tobacco Use Types Packs/Day Years Used Date Smoking Tobacco: Never Sex and Gender Information Value Date Recorded Sex Assigned at Not on file Gender Identity Not on file Sexual Orientation Not on file documented as of this encounter Patient Instructions * Patient Instructions* Cass Fish LPN - 07/26/2015 9:27 AM EST [facility] Actinic Keratosis: After Your Visit Your Care [...] more? Visit our health information library at [email or web address] You can also view health information on [employer], your personal patient account. Log in or sign up today. Enter L364 in the search box to learn more about Actinic Keratosis: After Your Visit. ?? [phone] [employer], [employer]. Care instructions adapted under license by [facility]. This care instruction is for use with your licensed healthcare professional. If you have questions about a medical condition or this instruction, always ask your healthcare professional. [employer] disclaims any warranty or liability for your use of this information. Content Version: 10.4.213897; Current as of: March 22, 2014 documented in this encounter Progress Notes * Wilmar Saldana MD - 07/26/2015 9:42 AM EST Problems: 1. [place] yearly skin checkup. 2. History of SCCA in situ, right neck and right upper back, June 2007. 3. History of BCCA, right upper back, December 2005. 4. History of extensive sun exposure [place] [facility]. 5. 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 Nuris follows up and has been doing well. She would like to have a repeat skin checkup. She was in a bible group with Antony Mascorro before her passing. She and her are looking into buying a home in [place] and spending part of the winter down there. Nuris has been very careful about using sun avoidance precautions but has had a lot of sun exposure in [place] [facility] in the past. Physical examination reveals today actinics present on the right jawline, right nondenominational, and also several on the dorsal hands; [...] clinic in another year for repeat check; [id number] reminder in one year. 2. History of multiple nonmelanoma cutaneous malignancies. a. No evidence of recurrence. b. Patient reassured. COPY: Cristy Willett M.D. documented in this encounter Plan of Treatment Upcoming Encounters Date Type Department Care Team (Late st Contact Info) Description 10/03/2024 10:00 AM EST Office Visit Dermatology at [place] [address] [facility] [place] [address] Wilmar Saldana MD [address], [place] [address] documented as of this encounter Visit Diagnoses Diagnosis Actinic keratosis History of basal cell carcinoma Personal history of other malignant neoplasm of skin documented in this encounter Care Teams Statement Services Representative Relationship Specialty Start Date End Date Cristy Willett MD [address] [place] [address] PCP - General 07/15/10 10/10/17 documented as of this encounter
--- OUTSIDE RECORDS SUMMARY | 2024-08-03 16:14 | XMS_ITS | Encounter Summary ---
Author Organization [facility] [place] [address] Care Team Providers Care Lighting Adviser Name Role Phone Dottie Lala CHRISSY Primary Care Provider [phone] Reason for Visit * Reason Comments Follow-up Encounter Details Date Type Department Care Team (Late st Contact Info) Description 03/23/2023 10:00 AM EDT Office Visit Dermatology at [address] [address] Wilmar Saldana MD 580 [facility] [place] [address] [place] (actinic keratosis); History of SCC (squamous [...] of extensive sun exposure living in the [place] in [place], status post a course of Efudex there 2003 4. Family history of malignant melanoma in 2 sisters and in a niece 5. 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 She has been doing well. She is considering another trip to [facility] this fall. Physical examination reveals a pleasant [...] 10:00 AM EST Office Visit Dermatology at [place] 580 [place] [address] Wilmar Saldana MD 580 [facility], [place] [address] documented as of this encounter Visit Diagnoses Diagnosis [place] (actinic keratosis) Actinic keratosis History of SCC (squamous cell carcinoma) of skin Personal history of other malignant neoplasm of skin Seborrheic keratosis, inflamed Inflamed seborrheic keratosis documented in this encounter Care Teams Lighting Adviser Relationship Specialty Start Date End Date Dottie Lala APRN [address] [place] [address] PCP - General Family Medicine 08/01/18 09/26/23 documented as of this encounter
--- OUTSIDE RECORDS SUMMARY | 2024-08-03 16:14 | XMS_ITS | Encounter Summary ---
Author Organization [facility] Address [facility] [place] [address] Care Team Providers Care Yeast Stacker Name Role Phone Vanesa Muller APRN Primary Care Provider + Encounter Details Date Type Department Care Team (Late st Contact Info) Description 10/19/2017 Abstract Family Medicine at [facility] [address] [place] [address] Mini Hogan MA Social History Tobacco Use [...] 10:00 AM EST Office Visit Dermatology at [place] [address] [facility] [place] [address] Wilmar Saldana MD 580 [facility], [place] [address] documented as of this encounter Visit Diagnoses Not on filedocumented in this encounter Care Teams Yeast Stacker Relationship Specialty Start Date End Date Vanesa Muller APRN [facility] [place] [address] PCP - General General Internal Medicine 10/11/1707/31/18 documented as of this encounter
--- OUTSIDE RECORDS SUMMARY | 2024-08-03 16:14 | XMS_ITS | Encounter Summary ---
Author Organization [facility] [place] [address] Care Team Providers Care Mill Worker Name Role Phone Dottie Lala APRN Primary Care Provider [phone] Encounter Details Date Type Department Care Team [...] 10:00 AM EST Office Visit Dermatology at [place] [address] [place] [address] Wilmar Saldana MD [address] [facility], [place] [address] documented as of this encounter Visit Diagnoses Not on filedocumented in this encounter Care Teams Mill Worker Relationship Specialty Start Date End Date Dottie Lala APRN [address] [place] [address] PCP - General Family Medicine 08/01/18 09/26/23 documented as of this encounter
--- OUTSIDE RECORDS SUMMARY | 2024-08-03 16:14 | XMS_ITS | Encounter Summary ---
[place] [address] Care Team Providers Care Flight Dispatcher Name Role Phone Vanesa Muller CHRISSY Primary Care Provider + Encounter Details Date Type Department Care Team (Latest Contact Info) Description 11/22/2017 11:05 AM EDT Laboratory Appointment Lab [address] [place] [address] Hypothyroidism, unspecified type; Screening for cardiovascular condition; [...] 10:00 AM EST Office Visit Dermatology at [place] [address] [facility] [place] [address] Wilmar Saldana MD [address], [place] [address] documented as of this encounter Procedures Procedure [...] CMP w/fasting Glucose (11/22/2017 10:50 AM EDT) [facility] Glucose Fasting 93 65 - 99 mg/dL [facility] Comment: ?Fasting* Glucose Interpretive Criteria [...] of Diabetes Mellitus, Position Statement from the [place] [employer] Association. ??Diabetes Care, Volume 33, Supplement 1, Aug 2009 Blood Urea Nitrogen 11 8 - 18 mg/dL [facility] Creatinine 0.73 0.70 - 1.20 mg/dL [facility] Sodium 136 135 - 145 mmol/L [facility] Potassium 3.7 3.5 - 5.0 mmol/L [facility] Comment: Please note: ??Patients with WBC >100,000 may have falsely elevated Potassium levels. ??For accurate Potassium quantification in these patients send serum separator tube (gold top) for subsequent determinations. ??Contact the Clinical Chemistry Laboratory if there are any questions. Chloride 95(L) 98 - 107 mmol/L [facility] Carbon Dioxide 31 22 - 31 mmol/L [facility] Anion Gap 10 5 - 15 mmol/L [facility] Calcium 9.2 8.5 - 10.5 mg/dL [facility] Protein, Total 7.8 6.1 - 8.0 gm/dL [facility] Albumin 4.6 3.2 - 5.2 gm/dL [facility] Aspartate Aminotransferase 25 0 - 30 unit/L [facility] Alanine Aminotransferase 14 0 - 30 unit/L [facility] Alkaline Phosphatase 105(H) 40 - 104 unit/L [facility] Bilirubin, Total 0.6 0.2 - 1.3 mg/dL [facility] Est Glomerular Filtration Rate >60 >=60 [facility] Comment: The reported eGFR should be multiplied by 1.2 for patients. The MDRD is not an appropriate measure of renal function for patients with body mass extremes or in patients with acute kidney failure. http://[employer]/DHnkdep http://[employer]/DHMCnkf Blood specimen (specimen) 11/22/2017 10:50 AM EDT 11/22/2017 11:00 AM EDT Narrative Resulting Agency Comment Spec In Lab Vanesa S Renzo SLITTER PROCESSED FILM CHEMISTRY ORDERA BLES Performing Organization Address City/[facility] Co de Phone Number [facility] [place] [address] * Hepatitis C Antibody (11/22/2017 10:50 AM EDT) Hepatitis C Antibody Negative Negative [facility] Blood specimen (specimen) 11/22/2017 10:50 AM EDT 11/22/2017 11:00 AM EDT Narrative Resulting Agency Comment Spec In Lab Vanesa S Renzo SLITTER PROCESSED FILM CHEMISTRY ORDERA BLES Performing Organization Address City/[facility]/ZIP Co de Phone Number [facility] [place] [address] * Lipid Panel (11/22/2017 10:50 AM EDT) Cholesterol, Total 229 mg/dL [facility] Comment: Lower Risk: <200 mg/dL Average Risk: 200-239 mg/dL Higher Risk: >ne=234 mg/dL Triglyceride 87 mg/dL [facility] Comment: Average Risk/Lower Risk: <150 mg/dL Borderline High Risk: 150-199 mg/dL High Risk: 200-499 mg/dL Very High Risk: >jb=822 mg/dL HDL Cholesterol 79 mg/dL [facility] Comment: Males: ?? Higher Risk: <40 mg/dL Females: ?? HIgher Risk: <50 mg/dL LDL Cholesterol 133 mg/dL [facility] Comment: Lowest Risk: <100 mg/dL Lower Risk: 100-129 mg/dL Borderline High Risk: 130-159 mg/dL High Risk: 160-189 mg/dL Very High Risk: >oj=755 mg/dL Cholesterol/HDL Ratio 2.[address] [facility] Lipid Interpretation See Note [facility] Comment: Lipid management should be guided by a patient? s ASCVD risk, goals and preferences. ACC/AHA Guidelines recommend high intensity statin if clinical ASCVD or LDL greater than or equal to 190 mg/dL. http://[employer].com/UJW-AKM-Xbbofrucr Adults aged 40-75 with LDL 70-189 mg/dL should have their 10 year ASCVD risk estimated with the ACC/AHA ASCVD risk estimator project manager http://tools.acc.org/EYLIO-Uauy-Tebyntofq/ Statin should be discussed if risk greater [...] Agency Comment Spec In Lab Vanesa Muller SLITTER PROCESSED FILM CHEMISTRY ORDERA BLES Performing Organization Address City/[facility]/ZIP Co de Phone Number [facility] [place] [address] * TSH (11/22/2017 10:50 AM EDT) Thyroid Stimulating Hormone 1.06 0.27 - 4.20 mlU/ML [facility] Blood specimen (specimen) 11/22/2017 10:50 AM EDT 11/22/2017 11:00 AM EDT Narrative Resulting Agency Comment Spec In Lab Vanesa Muller APRN CHEMISTRY ORDERA BLES Performing Organization Address [facility] Co de Phone Number [facility] [place] [address] documented in this encounter Visit Diagnoses Diagnosis Hypothyroidism, unspecified type Screening for cardiovascular condition Screening for other and unspecified cardiovascular conditions Encounter for HCV screening test for low risk patient Hypokalemia Hypopotassemia documented in this encounter Care Teams Flight Dispatcher Relationship Specialty Start Date End Date Vanesa Muller APRN [facility] [place] [address] PCP - General General Internal Medicine 10/11/1707/31/18 documented as of this encounter
--- OUTSIDE RECORDS SUMMARY | 2024-08-03 16:14 | XMS_ITS | Encounter Summary ---
[place] [address] Care Team Providers Care Results Engineer Name Role Phone Vanesa Muller APRN Primary Care Provider + Encounter Details Date Type Department Care Team (Late st Contact Info) Description 12/22/2017 Telephone [place] [phone] Shreya Waite, CCMA Social History Tobacco Use Types Packs/Day Years [...] records are gone. Nuris will send a [employer] message about her results to Vanesa. * Telephone Encounter - Shreya Waite MA - 12/22/2017 1:21 PM EDT ----- Message from Vanesa Muller APRN sent at 12/22/2017 12:37 PM EDT ----- Please try to get Patient pap history from Dr. Kimmie Martin in [place], [place]. Patient says she has signed a record release already for this. Thanks. Vanesa documented in this encounter Plan of Treatment Upcoming Encounters Date Type Department Care Team (Late st Contact Info) Description 10/03/2024 10:00 AM EST Office Visit Dermatology at [place] [address] [place] [address] Wilmar Saldana MD [address], [place] [address] documented as of this encounter Visit Diagnoses Not on filedocumented in this encounter Care Teams Results Engineer Relationship Specialty Start Date End Date Vanesa Muller APRN [facility] [place] [address] PCP - General General Internal Medicine 10/11/1707/31/18 documented as of this encounter
--- OUTSIDE RECORDS SUMMARY | 2024-08-03 16:14 | XMS_ITS | Encounter Summary ---
Author Organization [facility] [place] [address] Care Team Providers Care Resident Care Manager Name Role Phone Vanesa Muller APRN Primary Care Provider + Encounter Details Date Type Department Care Team (Late st Contact Info) Description 03/01/2018 Orders [place] [address] Vanesa Muller CUSTOMER SECURITY CLERK [facility] [place] [address] Social History Tobacco Use Types Packs/Day Years [...] 10:00 AM EST Office Visit Dermatology at [place] [address] [facility] [place] [address] Wilmar Saldana MD [address] [facility], [place] [address] documented as of this encounter Visit Diagnoses Not on filedocumented in this encounter Care Teams Resident Care Manager Relationship Specialty Start Date End Date Vanesa Muller APRN [facility] [place] [address] PCP - General General Internal Medicine 10/11/1707/31/18 documented as of this encounter
--- OUTSIDE RECORDS SUMMARY | 2024-08-03 16:14 | XMS_ITS | Encounter Summary ---
Author Organization [facility] Address [address] [place] [address] Care Team Providers Care Fire Prevention Chief Name Role Phone Unknown, Provider Primary Care Provider Unava ilable Encounter Details Date Type Department Care Team (Late st Contact Info) Description 08/04/2021 Lab Requisition [facility] Pathology & Laboratory Medicine - [facility] [address] [place], [place] [address] Outr Resulting Lab, Provider Social History Tobacco [...] 08/04/2021 10:2 0 EST 08/04/2021 22:04 EST us Provider Outr Resulting Lab MICROBIOLOGY - GENER AL ORDERABLES Final Result [facility] [address] [place] [address] * COVID-19 TESTING (08/04/2021 10:20 EST) COVID-19 rt-PCR Result Negative Negative 08/05/2021 2:27 EST [facility] Comment: This test has [...] history, and epidemiological information. Performed on the [employer] Fusion instrument Performing Lab [facility] 08/05/2021 2:27 EST [facility] Swab 08/04/2021 10:2 0 EST 08/04/2021 22:04 EST us Provider Outr Resulting Lab MICROBIOLOGY - GENER AL ORDERABLES Final Result [facility] [address] [place] [address] documented in this encounter Visit Diagnoses Not on filedocumented in this encounter Care Teams Fire Prevention Chief Relationship Specialty Start Date End Date Unknown, Provider, PCP - General 07/21/17 documented as of this encounter
--- OUTSIDE RECORDS SUMMARY | 2024-08-03 16:14 | XMS_ITS | Encounter Summary ---
Author Organization [facility] [place] [address] Care Team Providers Care Concrete Engineering Technician Name Role Phone Cristy Willett MD Primary Care Provider [phone] Reason for Visit * Reason Comments Skin Check Encounter Details Date Type Department Care Team (Late st Contact Info) Description 12/22/2012 8:15 AM EDT Office Visit Dermatology [address] [place] [address] Wilmar Saldana MD [address], [place]INE [place] [address] Actinic keratosis (Primary Dx); Nodular elastosis with [...] an early check. 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
--- OUTSIDE RECORDS SUMMARY | 2024-08-03 16:14 | XMS_ITS | Encounter Summary ---
Author Organization [facility] [place] [address] Care Team Providers Care Donor Specialist Name Role Phone Dottie Lala CHRISSY Primary Care Provider +1 [phone] Reason for Visit * Reason Comments Follow-up Encounter Details Date Type Department Care Team (Late st Contact Info) Description 10/25/2020 10:00 AM EST Office Visit Dermatology at [address] [address] Wilmar Saldana MD 580 [facility], [facility] [place] [address] Actinic keratosis; History of basal cell carcinoma; [...] of extensive sun exposure living in the [facility] in [place], status post a course of Efudex there [...] 10:00 AM EST Office Visit Dermatology at [address] [address] Wilmar Saldana MD [address] [facility] [address], [place] [address] documented as of this encounter Visit Diagnoses Diagnosis Actinic keratosis History of basal cell carcinoma Personal history of other malignant neoplasm of skin Seborrheic keratosis, inflamed Inflamed seborrheic keratosis documented in this encounter Care Teams Donor Specialist Relationship Specialty Start Date End Date Dottie Lala APRN [address] [place] [address] PCP - General Family Medicine 08/01/18 09/26/23 documented as of this encounter
--- OUTSIDE RECORDS SUMMARY | 2024-08-03 16:14 | XMS_ITS | Encounter Summary ---
Author Organization [facility] [address] Care Team Providers Care Oven Heater Helper Name Role Phone Dottie Lala MEAL GRINDER TENDER Primary Care Provider [phone] [phone] Reason for Visit * Reason Comments Follow-up Skin Check Encounter Details Date Type Department Care Team (Late st Contact Info) Description 08/01/2018 10:00 AM EST Office Visit Dermatology at [address] [address] Wilmar Saldana MD [address] [facility], [facility] [place] [address] Actinic keratosis; History of basal cell carcinoma [...] extensive sun exposure living in the [facility] in [place], status post a course of Efudex there [...] 10:00 AM EST Office Visit Dermatology at [place] [address] [place] [address] Wilmar Saldana MD [address] [facility], [place] [address] documented as of this encounter Visit Diagnoses Diagnosis Actinic keratosis History of basal cell carcinoma Personal history of other malignant neoplasm of skin documented in this encounter Care Teams Oven Heater Helper Relationship Specialty Start Date End Date Dottie Lala APRN [address] [place] [address] PCP - General Family Medicine 08/01/18 09/26/23 documented as of this encounter
--- OUTSIDE RECORDS SUMMARY | 2024-08-03 16:14 | XMS_ITS | Encounter Summary ---
Author Organization [facility] [place] [address] Care Team Providers Care Tank House Operator Name Role Phone SpikeDottie camarena CHRISSY Primary Care Provider +1 [phone] Encounter Details Date Type Department Care Team (Late st Contact Info) Description 09/12/2021 Telephone Dermatology at [address] [address] Bettye Minaya RN Social History [...] 10:00 AM EST Office Visit Dermatology at [place] [address] [place] [address] Wilmar Saldana MD [address], [place] [address] documented as of this encounter Visit Diagnoses Not on filedocumented in this encounter Care Teams Tank House Operator Relationship Specialty Start Date End Date Dottie Lala APRN [address] [place] [address] PCP - General Family Medicine 08/01/18 09/26/23 documented as of this encounter
--- OUTSIDE RECORDS SUMMARY | 2024-08-03 16:14 | XMS_ITS | Encounter Summary ---
Author Organization [facility] [place] [address] Care Team Providers Care Marketing Communications Coordinator Name Role Phone Dottie Lala CHRISSY Primary Care Provider [phone] Reason for Visit * Reason Comments Skin Check Encounter Details Date Type Department Care Team (Late st Contact Info) Description 08/01/2019 3:15 PM EST Office Visit Dermatology at [address] [address] Wilmar Saldana MD 580 [facility], [facility] [place] [address] Actinic keratosis; History of basal cell carcinoma; [...] of extensive sun exposure living in the [facility] in [place], status post a course of Efudex there 2003 Nuris follows up for a six-month check. She is been doing well but she is noted some new lesions ofconcern. 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 Physical examination reveals actinic keratoses present in [...] 10:00 AM EST Office Visit Dermatology at [place] [address] [place] [address] Wilmar Saldana MD [address] [facility], [place] [address] documented as of this encounter Visit Diagnoses Diagnosis Actinic keratosis History of basal cell carcinoma Personal history of other malignant neoplasm of skin Seborrheic keratosis, inflamed Inflamed seborrheic keratosis documented in this encounter Care Teams Marketing Communications Coordinator Relationship Specialty Start Date End Date Dottie Lala APRN [address] [place] [address] PCP - General Family Medicine 08/01/18 09/26/23 documented as of this encounter
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
--- OUTSIDE RECORDS SUMMARY | 2024-08-03 16:14 | XMS_ITS | Encounter Summary ---
Author Organization [facility] [place] [address] Care Team Providers Care Mowing Machine Operator Name Role Phone Vanesa Muller APRN Primary Care Provider + Reason for Visit * Reason Onset Date Comments Triage 02/17/2018 Encounter Details Date Type Department Care Team (Late st Contact Info) Description 02/17/2018 Telephone [place] [phone] Christina Childs Triage Social History Tobacco Use [...] 10:00 AM EST Office Visit Dermatology at [place] [address] [place] [address] Wilmar Saldana MD 580 [facility], [place] [address] documented as of this encounter Visit Diagnoses Not on filedocumented in this encounter Care Teams Mowing Machine Operator Relationship Specialty Start Date End Date Vanesa Muller APRN [facility] [place] [address] PCP - General General Internal Medicine 10/11/1707/31/18 documented as of this encounter
--- OUTSIDE RECORDS SUMMARY | 2024-08-03 16:14 | XMS_ITS | Encounter Summary ---
Author Organization [facility] [place] [address] Care Team Providers Care Airport Clerk Name Role Phone Dottie Lala CHRISSY Primary Care Provider [phone] [phone] Reason for Visit * Reason Comments Follow-up Encounter Details Date Type Department Care Team (Late st Contact Info) Description 03/10/2022 10:15 AM EDT Office Visit Dermatology at [address] [address] iWlmar Saldana MD 580 [facility] [place] [address] Actinic keratosis; History of basal cell carcinoma; [...] of extensive sun exposure living in the [facility] in [place], status post a course of Efudex there 2004 4. ??Family history of malignant melanoma in [...] 10:00 AM EST Office Visit Dermatology at [place] [address] [place] [address] Wilmar Saldana MD 580 [facility], [place] [address] documented as of this encounter Visit Diagnoses Diagnosis Actinic keratosis History of basal cell carcinoma Personal history of other malignant neoplasm of skin Seborrheic keratosis, inflamed Inflamed seborrheic keratosis documented in this encounter Care Teams Airport Clerk Relationship Specialty Start Date End Date Dottie Lala APRN [address] [place] [address] PCP - General Family Medicine 08/01/18 09/26/23 documented as of this encounter
--- OUTSIDE RECORDS SUMMARY | 2024-08-03 16:14 | XMS_ITS | Encounter Summary ---
Author Organization [facility] [place] [address] Care Team Providers Care Dredge Mate Name Role Phone Vanesa Muller APRN Primary Care Provider + Encounter Details Date Type Department Care Team (Late st Contact Info) Description 12/16/2017 Orders [place] [address] Vanesa Muller FACILITIES MANAGER [facility] [place] [address] Age-related osteoporosis without current pathological fracture Social [...] 10:00 AM EST Office Visit Dermatology at [place] [address] [facility] [address] Wilmar Saldana MD [address], [place] [address] documented as of this encounter Visit Diagnoses Diagnosis Age-related osteoporosis without current pathological fracture Senile osteoporosis documented in this encounter Care Teams Dredge Mate Relationship Specialty Start Date End Date Vanesa Muller APRN [facility] [place] [address] PCP - General General Internal Medicine 10/11/1707/31/18 documented as of this encounter
--- OUTSIDE RECORDS SUMMARY | 2024-08-03 16:14 | XMS_ITS | Clinical Summary ---
Author Organization [facility] Address [address] [place] [address] Care Team Providers Care Churn Drill Operator Name Role Phone Unknown, Provider Primary Care [...] Last Done Comments Hepatitis C Screen 1950 Fall Risk Screening 2015 COVID-19 Vaccine (2023- season) 2024 RSV Immunization ( o r 60+ Years) (1 - 1-dose 75+ series) 2025 Care Teams Churn Drill Operator Relationship Specialty Start Date End Date Unknown, Provider, PCP - General 07/21/17
--- OUTSIDE RECORDS SUMMARY | 2024-08-03 16:14 | XMS_ITS | Encounter Summary ---
Author Organization [facility] [place] [address] Care Team Providers Care Physical Therapist Name Role Phone Dottie Lala APRN Primary Care Provider +1 [phone] Encounter Details Date Type Department Care Team [...] 10:00 AM EST Office Visit Dermatology at [place] [address] [facility] [place] [address] Wilmar Saldana MD 580 [facility], [place] [address] documented as of this encounter Visit Diagnoses Not on filedocumented in this encounter Care Teams Physical Therapist Relationship Specialty Start Date End Date Dottie Lala APRN [address] [place] [address] PCP - General Family Medicine 08/01/18 09/26/23 documented as of this encounter
--- OUTSIDE RECORDS SUMMARY | 2024-08-03 16:14 | XMS_ITS | Encounter Summary ---
Author Organization [facility] Address [facility] [place] [address] Care Team Providers Care Teacher Name Role Phone Vanesa Muller CHRISSY Primary Care Provider + Encounter Details Date Type Department Care Team (Late st Contact Info) Description 12/23/2017 E-Consult Obstetrics [place] [address] Christina Villafuerte MD [facility] DR OBSTETRICS & [place] [address] History of abnormal cervical Pap smear Social [...] 10:00 AM EST Office Visit Dermatology at [place] [address] [facility] [place] [address] Wilmar Saldana MD [address] [facility] [address], [place] [address] documented as of this encounter Visit Diagnoses Diagnosis History of abnormal cervical Pap smear Personal history of other genital system and obstetric disorders documented in this encounter Care Teams Teacher Relationship Specialty Start Date End Date Vanesa Muller APRN [facility] [place] [address] PCP - General General Internal Medicine 10/11/1707/31/18 documented as of this encounter
--- OUTSIDE RECORDS SUMMARY | 2024-08-03 16:14 | XMS_ITS | Encounter Summary ---
[place] [address] Care Team Providers Care Drum Attendant Name Role Phone Cristy [place] MD Primary Care Provider [phone] Reason for Visit * Reason Comments Skin Check Encounter Details Date Type Department Care Team (Late st Contact Info) Description 05/27/2012 8:45 AM EDT Office Visit Dermatology [facility] [address] [place] [address] Wilmar Saldana MD 580 [facility], [place] [address] Actinic keratosis (Primary Dx) Social History Tobacco [...] 10:00 AM EST Office Visit Dermatology at [place] [address] [place] [address] Wilmar Saldana MD [address] [facility] [facility] [address], [place] [address] documented as of this encounter Visit Diagnoses Diagnosis Actinic keratosis- Primary documented in this encounter Care Teams Drum Attendant Relationship Specialty Start Date End Date Cristy Willett MD [address] [place] [address] PCP - General 07/15/10 10/10/17 documented as of this encounter
--- OUTSIDE RECORDS SUMMARY | 2024-08-03 16:14 | XMS_ITS | Encounter Summary ---
Author Organization [facility] [place] [address] Care Team Providers Care Certified Retinal Angiographer Name Role Phone Vanesa Muller CHRISSY Primary Care Provider + Reason for Visit * Reason Comments Follow-up Skin Check Encounter Details Date Type Department Care Team (Late st Contact Info) Description 01/20/2018 4:00 PM EDT Office Visit Dermatology at [address] [address] Wilmar Saldana MD 580 [facility], [facility] [place] [address] History of basal cell carcinoma; Actinic keratosis [...] Progress Notes * Wilmar Saldana MD - 01/20/2018 4:00 PM EDT Problem: 1. Early skin checkup Nuris follows up for an early visit because of concern about lesion on her presternal chest on her lip and the right dorsal hand She just returned from a cruise to [place] and back [place] Physical examination reveals a [...] 10:00 AM EST Office Visit Dermatology at [place] [address] [facility] [place] [address] Wilmar Saldana MD [address] [facility] [address], [place] [address] documented as of this encounter Visit Diagnoses Diagnosis History of basal cell carcinoma Personal history of other malignant neoplasm of skin Actinic keratosis documented in this encounter Care Teams Certified Retinal Angiographer Relationship Specialty Start Date End Date Vanesa Muller APRN [facility] [place] [address] PCP - General General Internal Medicine 10/11/1707/31/18 documented as of this encounter
--- OUTSIDE RECORDS SUMMARY | 2024-08-03 16:14 | XMS_ITS | Encounter Summary ---
Author Organization [facility] [place] [address] Care Team Providers Care Sales And Marketing Engineer Name Role Phone Dottie Lala CHRISSY Primary Care Provider [phone] Encounter Details Date Type Department Care Team (Late st Contact Info) Description 02/13/2020 Telephone Dermatology at [address] [address] Mary Kay Tripp LPN Social [...] 10:00 AM EST Office Visit Dermatology at [address] [address] Wilmar Saldana MD 580 [facility], [facility] [address] documented as of this encounter Visit Diagnoses Not on filedocumented in this encounter Care Teams Sales And Marketing Engineer Relationship Specialty Start Date End Date Dottie Lala APRN [address] [place] [address] PCP - General Family Medicine 08/01/18 09/26/23 documented as of this encounter
--- OUTSIDE RECORDS SUMMARY | 2024-08-03 16:14 | XMS_ITS | Encounter Summary ---
Author Organization [facility] [place] [address] Care Team Providers Care Java Project Manager Name Role Phone Dottie Lala CHRISSY Primary Care Provider [phone] Reason for Visit * Reason Comments Annual Exam Encounter Details Date Type Department Care Team (Late st Contact Info) Description 09/15/2022 10:15 AM EST Office Visit Dermatology at [address] [address] Wilmar Saldana MD 580 [facility], [facility] [place] [address] Actinic keratosis; History of basal cell carcinoma; [...] of extensive sun exposure living in the [facility] in [place], status post a course of Efudex there [...] 10:00 AM EST Office Visit Dermatology at [address] [address] Wilmar Saldana MD 580 [facility], [facility] [address] documented as of this encounter Visit Diagnoses Diagnosis Actinic keratosis History of basal cell carcinoma Personal history of other malignant neoplasm of skin Seborrheic keratosis, inflamed Inflamed seborrheic keratosis documented in this encounter Care Teams Java Project Manager Relationship Specialty Start Date End Date Dottie Lala APRN [address] [place] [address] PCP - General Family Medicine 08/01/18 09/26/23 documented as of this encounter
--- OUTSIDE RECORDS SUMMARY | 2024-08-03 16:14 | XMS_ITS | Encounter Summary ---
Author Organization [facility] [place] [address] Care Team Providers Care Cabin Worker Name Role Phone Dottie Lala CHRISSY Primary Care Provider [phone] Reason for Visit * Reason Comments Follow-up Skin Check Encounter Details Date Type Department Care Team (Late st Contact Info) Description 02/13/2019 10:30 AM EDT Office Visit Dermatology at [address] [address] Wilmar Saldana MD 580 [facility], [facility] [place] [address] Actinic keratosis; History of basal cell carcinoma; [...] of extensive sun exposure living in the [facility] in [place], status post a course of Efudex there [...] 10:00 AM EST Office Visit Dermatology at [place] [address] [place] [address] Wilmar Saldaan MD 580 [facility], [place] [address] documented as of this encounter Visit Diagnoses Diagnosis Actinic keratosis History of basal cell carcinoma Personal history of other malignant neoplasm of skin Seborrheic keratosis, inflamed Inflamed seborrheic keratosis documented in this encounter Care Teams Cabin Worker Relationship Specialty Start Date End Date Dottie Lala APRN [address] [place] [address] PCP - General Family Medicine 08/01/18 09/26/23 documented as of this encounter
--- OUTSIDE RECORDS SUMMARY | 2024-08-03 16:14 | XMS_ITS | Encounter Summary ---
Author Organization [facility] Address [facility] [place] [place] [address] Care Team Providers Care Industrial Cafeteria Manager Name Role Phone Vanesa Muller CHRISSY Primary Care Provider + Encounter Details Date Type Department Care Team (Late st Contact Info) Description 10/19/2017 External Results Internal Medicine at [facility] [address] [place] [address] Brenda Capone, RAJWINDERA Social History Tobacco Use [...] 10:00 AM EST Office Visit Dermatology at [place] 580 [place] [address] Wilmar Saldana MD 580 [facility], [place] [address] documented as of this encounter Procedures Procedure [...] External Results (08/25/2017 4:15 PM EST) Sodium 139(Power Grader Operator al Lab) EXTERNAL LAB Potassium 4.1(Power Grader Operator al Lab) EXTERNAL LAB Chloride 102(Power Grader Operator al Lab) EXTERNAL LAB Carbon Dioxide 29(Externa l Lab) EXTERNAL LAB Blood Urea Nitrogen 15(Externa l Lab) EXTERNAL LAB Creatinine 0.56(Exter nal Lab) EXTERNAL LAB Est Glomerular Filtration Rate >=60(Exter nal Lab) EXTERNAL LAB Glucose 100(Power Grader Operator al Lab) EXTERNAL LAB Calcium 9.4(Power Grader Operator al Lab) EXTERNAL LAB 08/25/2017 4:15 PM [...] Urine Dipstick 20(EXTERNA L/ABN) EXTERNAL LAB Specific [place] Urine Automated 1.004(Exte rnal Lab) EXTERNAL LAB [...] Provider POINT OF CARE HASEEB T ORDERABLES Performing Organization Address City/[facility] Co de Phone Number EXTERNAL LAB * (ABNORMAL) CBC / CMP / Thyroid External Results (08/16/2017 3:30 AM EST) White Blood Cell 4.54(ExtL) EXTERNAL LAB Red Blood Cell 4.48(Exter nal Lab) EXTERNAL LAB Hemoglobin 13.2(Exter nal Lab) EXTERNAL LAB Hematocrit 37.7(Exter nal Lab) EXTERNAL LAB Mean Cell Volume 84.2(Exter nal Lab) EXTERNAL LAB Platelet 267(Power Grader Operator al Lab) EXTERNAL LAB Potassium 3.5(Power Grader Operator al Lab) EXTERNAL LAB 08/16/2017 3:30 AM EST Historical Provider EXTERNAL LAB ALANNA LUCERO Performing Organization Address [facility] Co de Phone Number EXTERNAL LAB * [...] EXTERNAL LAB ALANNA LUCERO Performing Organization Address City/[facility] Co de Phone Number EXTERNAL LAB documented in this encounter Visit Diagnoses Not on filedocumented in this encounter Care Teams Industrial Cafeteria Manager Relationship Specialty Start Date End Date Vanesa Muller APRN [facility] [place] [address] PCP - General General Internal Medicine 10/11/1707/31/18 documented as of this encounter
--- OUTSIDE RECORDS SUMMARY | 2024-08-03 16:14 | XMS_ITS | Encounter Summary ---
Author Organization [facility] [place] [address] Care Team Providers Care Wax Pattern Assembler Name Role Phone Cristy Willett MD Primary Care Provider [phone] Reason for Visit * Reason Comments Annual Exam Encounter Details Date Type Department Care Team (Late st Contact Info) Description 07/27/2017 10:00 AM EST Office Visit Dermatology at [address] [address] Wilmar Saldana MD 580 [facility], [place] [address] History of basal cell carcinoma; Seborrheic keratosis, [...] of extensive sun exposure living in the [facility], in [place], status post course of Efudex in the [facility], 2003. Nuris follows up and has been doing well since I last saw her in March and treated 4 facial actinic keratoses. All 4 sites resolved well. She is still getting over the loss of her but looking forward to 2 months down in [place] this winter, August and September. Physical examination [...] 10:00 AM EST Office Visit Dermatology at [address] [address] Wilmar Saldana MD 580 [facility], [facility] [address] documented as of this encounter Visit Diagnoses Diagnosis History of basal cell carcinoma Personal history of other malignant neoplasm of skin Seborrheic keratosis, inflamed Inflamed seborrheic keratosis documented in this encounter Care Teams Wax Pattern Assembler Relationship Specialty Start Date End Date Cristy Willett MD [address] [place] [address] PCP - General 07/15/10 10/10/17 documented as of this encounter
--- OUTSIDE RECORDS SUMMARY | 2024-08-03 16:14 | XMS_ITS | Encounter Summary ---
Author Organization [facility] [place] [address] Care Team Providers Care Merchandise Supervisor Name Role Phone Dottie Lala APRN Primary Care Provider [phone] Encounter Details Date Type Department Care Team [...] 10:00 AM EST Office Visit Dermatology at [place] [address] [place] [address] Wilmar Saldana MD 580 [facility], [place] [address] documented as of this encounter Visit Diagnoses Not on filedocumented in this encounter Care Teams Merchandise Supervisor Relationship Specialty Start Date End Date Dottie Lala APRN [address] [place] [address] PCP - General Family Medicine 08/01/18 09/26/23 documented as of this encounter
--- OUTSIDE RECORDS SUMMARY | 2024-08-03 16:14 | XMS_ITS | Encounter Summary ---
Author Organization [facility] [place] [address] Care Team Providers Care Physician/Ophthalmologist Name Role Phone Dottie Lala CHRISSY Primary Care Provider [phone] Reason for Visit * Reason Comments Skin Check Encounter Details Date Type Department Care Team (Late st Contact Info) Description 08/05/2020 1:30 PM EST Office Visit Dermatology at [address] [address] Wilmar Saldana MD 580 [facility], [facility] [place] [address] Actinic keratosis; History of basal cell carcinoma; [...] of extensive sun exposure living in the [facility] in [place], status post [...] 10:00 AM EST Office Visit Dermatology at [place] [address] [place] [address] Wilmar Saldana MD 580 [facility], [place] [address] documented as of this encounter Visit Diagnoses Diagnosis Actinic keratosis History of basal cell carcinoma Personal history of other malignant neoplasm of skin Seborrheic keratosis, inflamed Inflamed seborrheic keratosis documented in this encounter Care Teams Physician/Ophthalmologist Relationship Specialty Start Date End Date Dottie Lala APRN [address] [place] [address] PCP - General Family Medicine 08/01/18 09/26/23 documented as of this encounter
--- OUTSIDE RECORDS SUMMARY | 2024-08-03 16:15 | XMS_ITS | Encounter Summary ---
Author Organization [facility] Address [address] [place] [address] Care Team Providers Care Gas Station Operator Name Role Phone Unavailable Primary Care Provider Unavailabl e Encounter Details Date Type Department Care Team (Late st Contact Info) Description 05/26/2007 Before PRISM Converted Visit (Maple) [facility] - Maple conversion [address] [place] [address] Carlos Roberts MD [address] [facility] [address] [place] [address] Social History Tobacco Use Types Packs/Day Years Used Date Smoking Tobacco: Never Assessed Comments Unknown Sex and Gender Information Value Date Recorded Sex Assigned at Not on file Legal Sex Female 18:38 EST Gender Identity Not on file Sexual Orientation Not on file documented as of this encounter Procedure Notes * Carlos Roberts MD - 07/01/2009 6373 EST DIVISION OF PLASTIC SURGERY PROCEDURE REPORT SERVICE DATE: 06/06/2007 INTELLECTUAL PROPERTY LAWYER: Frannie Roberts MD, Mauricio Roberts MD, FACSCarlos Roberts MD, FACS TRAFFIC ATTENDANT: Shruthi Orozco RN PROCEDURE PERFORMED Excision of [...] I was present for the entire case. [id number] Signed by Carlos Roberts MD, FACS 06/24/2007 10:53 Carlos Roberts MD, FACS - Bulmaro Roberts MD, FACS A - chr Job ID: [id number] Document ID: [id number] cc: MD Awilda Linn PA-C documented in this encounter Consult Notes * Carlos Roberts MD - 06/30/2009 1936 EST DIVISION OF PLASTIC SURGERY CONSULTATION - 05/26/2007 A consultation was requested by Awilda Minaya PA-C for evaluation of ??. Awilda Minaya PA-C [facility] Dermatology [address] [place] [address] Dear Ms. Minaya: Thank you very much [...] do not hesitate to contact me. Sincerely, [id number] Signed by Carlos Roberts MD 05/31/2007 14:57 Carlos Roberts MD - Bulmaro Roberts MD A - [facility] Job ID: [id number] Document ID: [id number] cc: MD Awilda Linn PA-C documented in this encounter Plan of Treatment Not on file documented as of this encounter Visit Diagnoses Not on filedocumented in this encounter
--- OUTSIDE RECORDS SUMMARY | 2024-08-03 16:15 | XMS_ITS | Encounter Summary ---
Author Organization [facility] Address [address] [place] [address] Care Team Providers Care Barrel Roller Name Role Phone Unavailable Primary Care Provider Unavailabl e Encounter Details Date Type Department Care Team (Late st Contact Info) Description 05/05/2007 10:41 EDT - 05/05/2007 11:59 EDT Hospital Encounter [facility] [address] [place] [address] Awilda Pimentel, BEENA [address] [id number] Discharge Disposition: Auto Discharge Social History Tobacco [...]
--- OUTSIDE RECORDS SUMMARY | 2024-08-03 16:15 | XMS_ITS | Encounter Summary ---
Author Organization [facility] Address [address] [place] [address] Care Team Providers Care Carbon Accountant Name Role Phone Unavailable Primary Care Provider Unavailabl e Encounter Details Date Type Department Care Team (Late st Contact Info) Description 06/08/2007 Results Only [facility] - Maple conversion [address] [place] [address] Boaz Wild MD [address] [place], [place] [id number] Social History Tobacco Use Types Packs/Day Years [...] 68. [facility] Report Status Final [id number] [facility] 06/08/2007 14:3 0 EDT 06/16/2007 14:45 EDT us Boaz Wild MD MICROBIOLOGY - GENERAL ORD ERABLES Final Result [facility] [address] [place] [address] * CYTOPATHOLOGY (06/08/2007 0:00 EDT) Pathology Report: CYTOPATHOLOGY REPORT Reports generated via electronic interface contain original data; however they are lacking the format of the original report. Caution should be taken when reading/interpreti ng unformatted reports. Name: ? NAEL MCRAE ? Accession #: ? [id number] : ? 1950 (Age: 56) ??F ?Collect Date: ? 06/08/2007 Location: ? [facility] ? Receive Date: ? 06/10/2007 Provider: ?BOAZ WILD MD Copy to: ? Specimen/Source: ?ThinPrep Pap Test, Cervix, processed on [employer] ThinPrep Imaging System, with manual evaluation Last [...] Document reviewed and electronically signed by: ? Noemi Morrow, CT(ASCP) ? Report Date: ??06/16/2007 13:10 End of Report [facility] 06/08/2007 06/10/2007 us Boaz Wild MD PATHOLOGY ORDERABLES Final Result [facility] [address] [place] [address] documented in this encounter Visit Diagnoses Not on filedocumented in this encounter
--- OUTSIDE RECORDS SUMMARY | 2024-08-03 16:15 | XMS_ITS | Encounter Summary ---
Author Organization [facility] Address [address] [place] [address] Care Team Providers Care Solid Waste Disposal Manager Name Role Phone Unavailable Primary Care Provider Unavailabl e Encounter Details Date Type Department Care Team (Latest Contact Info) Description 06/06/2007 12:46 EDT Hospital Encounter [facility] - Maple conversion [address] [place] [address] Carlos Roberts MD [address] [place] [address] [address] [place] [address] Discharge Disposition: Auto Discharge Social [...]
--- OUTSIDE RECORDS SUMMARY | 2024-08-03 16:15 | XMS_ITS | Encounter Summary ---
Author Organization [facility] Address [address] [place] [address] Care Team Providers Care Process Mechanic Name Role Phone Unknown, Provider Primary Care Provider Unava ilable Encounter Details Date Type Department Care Team (Late st Contact Info) Description 07/29/2021 Lab Requisition [facility] Pathology & Laboratory Medicine - [facility] [address] [place], [place] [address] Outr Resulting Lab, Provider Social History Tobacco [...] 07/29/2021 11:1 0 EST 07/29/2021 22:22 EST us Provider Outr Resulting Lab MICROBIOLOGY - GENER AL ORDERABLES Final Result [facility] [address] [place] [address] * COVID-19 TESTING (07/29/2021 11:10 EST) COVID-19 rt-PCR Result Negative Negative 07/30/2021 14:18 EST [facility] Comment: This test has not [...] was performed using the luciano SARS-CoV-2 assay ([employer] on the Luciano 6800 System Performing Lab Luciano [address] [facility] Lab 07/30/2021 14:18 EST [facility] Swab 07/29/2021 11:1 0 EST 07/29/2021 22:22 EST us Provider Outr Resulting Lab MICROBIOLOGY - GENER AL ORDERABLES Final Result [facility] [address] [place] [address] documented in this encounter Visit Diagnoses Not on filedocumented in this encounter Care Teams Process Mechanic Relationship Specialty Start Date End Date Unknown, Provider, PCP - General 07/21/17 documented as of this encounter
--- OUTSIDE RECORDS SUMMARY | 2024-08-03 16:15 | XMS_ITS | Encounter Summary ---
Author Organization [facility] Address [address] [place] [address] Care Team Providers Care Biomedical Repair Technician Name Role Phone Cristy Willett MD Primary Care Provider Unavailabl e Encounter Details Date Type Department Care Team (Latest Contact Info) Description 2017 16:42 EST - 2017 23:59 EST Hospital Encounter [address] [address] Unknown, Provider, MD Discharge Disposition: Home or Self Care Social [...] Code Departure Means Destination Home or Self Senior Living documented in this encounter Plan of Treatment Not on file documented as of this encounter Visit Diagnoses Not on filedocumented in this encounter Care Teams Biomedical Repair Technician Relationship Specialty Start Date End Date Cristy Willett MD PCP - General 06/28/15 07/20/17 documented as of this encounter
--- OUTSIDE RECORDS SUMMARY | 2024-08-03 16:15 | XMS_ITS | Encounter Summary ---
Author Organization [facility] Address [address] [place] [address] Care Team Providers Care Cupola Patcher Helper Name Role Phone Unavailable Primary Care Provider Unavailabl e Encounter Details Date Type Department Care Team (Late st Contact Info) Description 05/05/2007 Before PRISM Converted Visit (Maple) [facility] - Maple conversion [address] [place] [address] Awilda Pimentel, BEENA [address] [address] Social History Tobacco Use Types Packs/Day Years Used Date Smoking Tobacco: Never Assessed Comments Unknown Sex and Gender Information Value Date Recorded Sex Assigned at Not on file Legal Sex Female 18:38 EST Gender Identity Not on file Sexual Orientation Not on file documented as of this encounter Progress Notes * Awilda Minaya MD - 07/03/2009 1424 EST DIVISION OF DERMATOLOGY PROGRESS/FOLLOWUP NOTE - [...] sun-exposed surfaces of the body she has nat-scymybka-cx-count hyper and hypopigmented less than 3 mm [...] Awilda Minaya PA-C - markel Job ID: [id number] Doc ID: [id number] cc: Maria L Iyer MD - markel Job ID: [id number] Doc ID: [id number] cc: Maria L Iyer MD documented in this encounter Plan of Treatment Not on file documented as of this encounter Visit Diagnoses Not on filedocumented in this encounter
--- OUTSIDE RECORDS SUMMARY | 2024-08-03 16:15 | XMS_ITS | Encounter Summary ---
Author Organization [facility] Address [address] [place] [address] Care Team Providers Care Farmworker General Name Role Phone Unavailable Primary Care Provider Unavailabl e Encounter Details Date Type Department Care Team (Late st Contact Info) Description 03/03/[address] [facility] - Maple conversion [address] [place] [address] Boaz Wild MD [address] [place], [place] [id number] Social History Tobacco Use Types Packs/Day Years [...] 68. [facility] Report Status Final [id number] [facility] 03/03/2006 9:59 EDT 03/10/2006 9:59 EDT us Boaz Wild MD MICROBIOLOGY - GENERAL ORD ERABLES Final Result [facility] [address] [place] [address] * CYTOPATHOLOGY (03/03/2006 0:00 EDT) Pathology Report: CYTOPATHOLOGY REPORT Reports generated via electronic interface contain original data; however they are lacking the format of the original report. Caution should be taken when reading/interpreti ng unformatted reports. Name: ? NAEL MCRAE ? Accession #: ? [id number] : ? 1950 (Age: 55) ??F ?Collect Date: ? 03/03/2006 Location: ? [facility] ? Receive Date: ? 03/05/2006 Provider: ?BOAZ WILD MD Copy to: ? Specimen/Source: ?ThinPrep Pap Test, Cervix, processed on [employer] ThinPrep Imaging System, with manual evaluation Last [...] reviewed and electronically signed by: ? DUSTIN Lockhart(ASCP) ? Report Date: ??03/09/2006 13:54 End of Report [facility] 03/03/2006 03/05/2006 us Boaz Wild MD PATHOLOGY ORDERABLES Final Result Performing Organization Address City/State/[facility] Co de Phone Number [facility] [address] [place] [address] documented in this encounter Visit Diagnoses Not on filedocumented in this encounter
--- OUTSIDE RECORDS SUMMARY | 2024-08-03 16:15 | XMS_ITS | Encounter Summary ---
Author Organization [facility] Address [address] [place] [address] Care Team Providers Care Coder Name Role Phone Unavailable Primary Care Provider Unavailabl e Encounter Details Date Type Department Care Team (Late st Contact Info) Description 06/15/2006 Before PRISM Converted Visit (Maple) [facility] - Maple conversion [address] [place] [address] Awilda Pimentel PA [address] [address] Social History Tobacco Use Types [...] Evaluation - Awilda Minaya PA - 04/30/2010 1442 EDT DIVISION OF DERMATOLOGY NEW PATIENT EVALUATION - 06/15/2006 SUBJECTIVE: This 55-year-old white female presents to the clinic today in initial visit with a history of basal cell carcinoma. The patient states that she has been followed in the past by a print cutter in [place], and most recently had a superficial basal [...] Minaya PA-C A - o4 Job ID: [id number] Document ID: [id number] cc: Iftikhar Romero MD documented in this encounter
--- OUTSIDE RECORDS SUMMARY | 2024-08-03 16:15 | XMS_ITS | Encounter Summary ---
Author Organization [facility] Address [address] [place] [address] Care Team Providers Care Machine Packaging Technician Name Role Phone Unavailable Primary Care Provider Unavailabl e Encounter Details Date Type Department Care Team (Late st Contact Info) Description 06/06/2007 Results Only [facility] Plastic, Reconstructive & Cosmetic Surgery - [place] [address], [address] [place] [address] Stefani Niño MD [address] [place] [address] Social History Tobacco Use Types [...] ? NAEL MCRAE ? Accession #: ? [id number] ? : ? 1950 (Age: 56) ??F [...] tip reverse en face as (A6). ??(Dr. Ortega)/[facility] End of Report [facility] 06/06/2007 06/06/2007 21: 00 EDT us Stefani Niño MD PATHOLOGY ORDERABLES Final Resu lt Performing Organization Address City/State/[facility] Co de Phone Number [facility] [address] [place] [address] documented in this encounter Visit Diagnoses Not on filedocumented in this encounter
--- OUTSIDE RECORDS SUMMARY | 2024-08-03 16:15 | XMS_ITS | Encounter Summary ---
Author Organization [facility] Address [address] [place] [address] Care Team Providers Care Air Defense Specialist Name Role Phone Unavailable Primary Care Provider Unavailabl e Encounter Details Date Type Department Care Team (Late st Contact Info) Description 08/19/2012 Results Only [facility] Services - [facility] ([facility]) [address] [place] [address] [phone] Cristy Willett MD Social History Tobacco Use Types Packs/Day Years [...] ? NAEL MCRAE ? Accession #: ? [id number] : ? 1950 (Age: 62) ??F ?Collect [...] End of Report [facility] 08/19/2012 08/22/2012 us Cristy Willett MD PATHOLOGY ORDERABLES Final Resul t [facility] [address] [place] [address] documented in this encounter Visit Diagnoses Not on filedocumented in this encounter
--- OUTSIDE RECORDS SUMMARY | 2024-08-03 16:15 | XMS_ITS | Encounter Summary ---
Author Organization [facility] Address [address] [place] [address] Care Team Providers Care Customer Care Manager Name Role Phone Unavailable Primary Care Provider Unavailabl e Encounter Details Date Type Department Care Team (Latest Contact Info) Description 12/09/2006 11:18 EDT - 12/09/2006 11:59 EDT Hospital Encounter [facility] [address] [place] [address] Shana Randhawa MD [address] [place] [address] [address] Discharge Disposition: Auto Discharge Social [...] of this report immediately, please contact the [facility] Cardiology Report line at [phone]. ??A copy of the CardioChart report will [...] of this report immediately, please contact the [facility] Cardiology Report line at [phone]. A copy of the CardioChart report will be faxed to the attending, referring, and primary care providers within 48 hours of the date of service. I have personally reviewed the images and the above interpretation and agree with the findings. us Shana Randhawa MD CARDIAC NM ORDERABLES Rani santoyo Result * NM NUCLEAR STRESS EXERCISE (12/09/2006 13:10 [...] Chest Pain Referring Physician: SYDNEE FISCHER,SHANA Mariee ??FAX: [phone] ?--- NUCLEAR IMAGING RESULTS --- PERFUSION AND [...] _ _ _ _ _ _ _ NC - myocardial infarction ?JVM - jeopardized viable [...] 70 ? MPHR: ??66% Peak Rate-Pressure Product: 13711 Test Stopped Due To: ??Protocol Symptoms / [...] ARRHYTHMIA: Occasional PVC ?Chapin Lisa MD - Database Technician Image Interpretation By: ?Flip Small MD - Attending Radiologist ?Alberto Truong MD - Attending Nuclear Principal Ios Developer Stress ECG Interpretation By: Alberto Truong MD - Attending Principal Ios Developer Flip Small MD Electronically Signed on 12/09/2006 [...] Chest Pain Referring Physician: SHANA RANDHAWA MD FAX: [phone] --- NUCLEAR IMAGING RESULTS --- PERFUSION AND [...] _ _ _ _ _ _ _ NC - myocardial infarction JVM - jeopardized viable [...] / 70 MPHR: 66% Peak Rate-Pressure Product: 78060 Test Stopped Due To: Protocol Symptoms / [...] ARRHYTHMIA: Occasional PVC Chapin Lisa MD - Database Technician Image Interpretation By: Flip Small MD - Attending Radiologist Alberto Truong MD - Attending Nuclear Principal Ios Developer Stress ECG Interpretation By: Alberto Truong MD - Attending Principal Ios Developer Flip Small MD Electronically Signed on 12/09/2006 Finalized on: 12/09/2006 3:41:03 PM Copy Report To: us [place] Provider [id number] CARDIAC NM ALANNA LUCERO Final Result documented in this encounter Visit Diagnoses Not on filedocumented in this encounter
--- OUTSIDE RECORDS SUMMARY | 2024-08-03 16:15 | XMS_ITS | Encounter Summary ---
Author Organization [facility] Address [address] [place] [address] Care Team Providers Care Mapping Engineer Name Role Phone Unavailable Primary Care Provider Unavailabl e Encounter Details Date Type Department Care Team (Late st Contact Info) Description 03/26/2008 12:51 EDT Hospital Encounter [facility] [address] [place] [address] Awilda Pimentel, BEENA [address] [address] Social History Tobacco Use Types [...] ? NAEL MCRAE ? Accession #: ? [id number] ? : ? 1950 (Age: 57) ??F ?Collect Date: ? 06/22/2008 ? Location: ? [facility] ? Receive Date: ? 06/26/2008 ? Provider: ?CRISTY D FINE MD ? Copy to: ? Specimen/Source: [...] reviewed and electronically signed by: ? Blossom [place], [place](ASCP) ? Report Date: ??06/28/2008 13:26 ? End of Report ? [facility] 06/22/2008 06/26/2008 us Cristy Willett MD PATHOLOGY ORDERABLES Final Resul t [facility] [address] [place] [address] documented in this encounter Visit Diagnoses Not on filedocumented in this encounter
--- OUTSIDE RECORDS SUMMARY | 2024-08-03 16:15 | XMS_ITS | Encounter Summary ---
Author Organization [facility] Address [address] [place] [address] Care Team Providers Care Wind Energy Systems Installer Name Role Phone Unavailable Primary Care Provider Unavailabl e Encounter Details Date Type Department Care Team (Late st Contact Info) Description 08/22/2013 Results Only [facility] Laboratory Services - [facility] ([facility] [address] [place] [phone] Cristy Willett MD Social History Tobacco Use [...] types 16,18,31,33,35, 39,45,51,52,56,58, 59,66, and 68 by phototypesetting equipment monitor mediated amplification. Comments Document reviewed and electronically signed by: ? System Interface ? Report date: 08/31/2013 By the signature above, the attending physician certifies that he/she has personally conducted a gross and/or microscopic examination of the described specimens and rendered or confirmed the above diagnosis. End of Report [facility] 08/22/2013 08/25/2013 us Cristy Willett MD PATHOLOGY ORDERABLES Final Resul t [facility] [address] [place] [address] documented in this encounter Visit Diagnoses Not on filedocumented in this encounter
--- OUTSIDE RECORDS SUMMARY | 2024-08-03 16:15 | XMS_ITS | Encounter Summary ---
Author Organization [facility] Address [address] [place] [address] Care Team Providers Care Detasseler Name Role Phone Cristy Willett MD Primary Care Provider Unavailabl e Encounter Details Date Type Department Care Team (Late st Contact Info) Description 07/19/2017 Results Only [facility] [place] [phone] Naida Cuba MD [address] [place] [address] [place], [place] [id number] Social History Tobacco Use Types Packs/Day Years [...] ? NAEL MCRAE ? Accession #: ? [id number] ? : ? 1950 (Age: 67) ??F [...] (ASCP) 07/19/2017 5:14 PM End of Report [facility] 07/19/2017 16:0 3 EST 07/19/2017 16:03 EST us Naida Cuba MD PATHOLOGY ORDERABLES Fin al Result [facility] [address] [place] [address] documented in this encounter Visit Diagnoses Not on filedocumented in this encounter Care Teams Detasseler Relationship Specialty Start Date End Date Cristy Willett MD PCP - General 06/28/15 07/20/17 documented as of this encounter
--- OUTSIDE RECORDS SUMMARY | 2024-08-03 16:15 | XMS_ITS | Encounter Summary ---
Author Organization [facility] Address [address] [place] [address] Care Team Providers Care Child And Family Services Specialist Name Role Phone Unavailable Primary Care Provider Unavailabl e Encounter Details Date Type Department Care Team (Late st Contact Info) Description 07/10/2011 Results Only [facility] Medicine [address] [phone] Cristy Willett MD Social History Tobacco Use [...] NAEL MCRAE Jaleesa ? Accession #: ? [id number] : ? 1950 (Age: 60) ??F ?Collect [...] End of Report [facility] 07/10/2011 07/14/2011 us Cristy Willett MD PATHOLOGY ORDERABLES Final Resul t [facility] [address] [place] [address] documented in this encounter Visit Diagnoses Not on filedocumented in this encounter
--- OUTSIDE RECORDS SUMMARY | 2024-08-03 16:15 | XMS_ITS | Encounter Summary ---
Author Organization [facility] Address [address] [place] [address] Care Team Providers Care Silk Presser Name Role Phone Unavailable Primary Care Provider Unavailabl e Encounter Details Date Type Department Care Team (Late st Contact Info) Description 09/26/2007 Before [facility] Converted Visit ([place] [place] [facility] [address] [place] [address] Awilda Pimentel, BEENA [address] [phone] Social History Tobacco Use Types [...] malignancy. Scattered over sun-exposed surfaces she has dmf-thbjxfue-oz-count hyper- and hypopigmented less than 3 mm [...] Awilda Minaya PA-C - CHANA Job ID: [id number] Doc ID: [id number] cc: Cristy Willett MD documented in this encounter Plan of Treatment Not on file documented as of this encounter Visit Diagnoses Not on filedocumented in this encounter
--- OUTSIDE RECORDS SUMMARY | 2024-08-03 16:15 | XMS_ITS | Encounter Summary ---
Author Organization [facility] Address [address] [place] [address] Care Team Providers Care R[place]sman Name Role Phone Unavailable Primary Care Provider Unavailabl e Encounter Details Date Type Department Care Team (Late st Contact Info) Description 07/11/2007 16:12 EST Hospital Encounter [facility] [address] [place] [address] Awilda Pimentel PA [address] [phone] Discharge Disposition: Auto Discharge Social History Tobacco [...]
--- OUTSIDE RECORDS SUMMARY | 2024-08-03 16:15 | XMS_ITS | Encounter Summary ---
Author Organization [facility] Address [address] [place] [address] Care Team Providers Care Customs Collector Name Role Phone Unavailable Primary Care Provider Unavailabl e Encounter Details Date Type Department Care Team (Late st Contact Info) Description 09/26/2007 14:51 EST Hospital Encounter [facility] [address] [place] [address] Awilda Pimentel, BEENA [address] [address] Social History Tobacco Use Types [...]
--- OUTSIDE RECORDS SUMMARY | 2024-08-03 16:15 | XMS_ITS | Encounter Summary ---
Author Organization [facility] Address [address] [place] [address] Care Team Providers Care Crystal Gazer Name Role Phone Unavailable Primary Care Provider Unavailabl e Encounter Details Date Type Department Care Team (Late st Contact Info) Description 05/26/2007 9:19 EDT Hospital Encounter [facility] [place] [facility] [address] [place] [address] Carlos Roberts MD [address] [place] [address] Social History Tobacco Use Types [...]
--- OUTSIDE RECORDS SUMMARY | 2024-08-03 16:15 | XMS_ITS | Encounter Summary ---
Author Organization [facility] Address [address] [place] [address] Care Team Providers Care Metal Filer Name Role Phone Unavailable Primary Care Provider Unavailabl e Encounter Details Date Type Department Care Team (Late st Contact Info) Description 05/05/2007 Results Only [facility] Dermatology 5th Floor [facility] [address] [place] [address] Dennis Pimentel, BEENA [address] [address] Social History Tobacco Use Types [...] ? NAEL MCRAE ? Accession #: ? [id number] ? : ? 1950 (Age: 56) ??F [...] [facility] 05/05/2007 05/05/2007 13: 21 EDT us Dennis [facility] PATHOLOGY ORDERABLES Rani santoyo Result [facility] [address] [place] [address] documented in this encounter Visit Diagnoses Not on filedocumented in this encounter
--- OUTSIDE RECORDS SUMMARY | 2024-08-03 16:15 | XMS_ITS | Encounter Summary ---
Author Organization [facility] Address [address] [place] [address] Care Team Providers Care Research Development Director Name Role Phone Unavailable Primary Care Provider Unavailabl e Encounter Details Date Type Department Care Team (Late st Contact Info) Description 07/11/2007 Before PRISM Converted Visit ([place]) [facility] - [place] [facility] [address] [place] [address] Awilda Pimentel, BEENA [address] [address] Social History Tobacco Use Types [...] Awilda Minaya PA-C - markel Job ID: [id number] Doc ID: [id number] cc: Maria L Iyer MD documented in this encounter Plan of Treatment Not on file documented as of this encounter Visit Diagnoses Not on filedocumented in this encounter
[2024-08-03 21:56] LABS: Anion Gap 9.1 mmol/L (3-11); BUN 13 mg/dL (7-18); CO2 29.9 mmol/L (21.0-32.0); CREATININE 0.7 mg/dL (0.55-1.02); Calcium 9.1 mg/dL (8.5-10.1); Chloride 103 mmol/L (98-107); Glucose 92 mg/dL (74-106); Potassium 3.8 mmol/L (3.5-5.1); Sodium 142 mmol/L (136-145)
== END 2024-08-03 15:43 | disposition home or self-care (01) ==
LOC: NCHCN 15:42
PROVIDERS: PCP Family Medicine; Visit Provider Family Medicine
DX: K52.9 Noninfective gastroenteritis and colitis, unspecified (principal)
CPT/HCPCS: 80048

== ENCOUNTER → 2024-12-11 14:46 | Outpatient (BNVA) | payer MEDICARE, SELFPAY | PROVIDERS: PCP Family Medicine; Referring Provider Family Medicine | DX: M23.92 Unspecified internal derangement of left knee (principal); M17.12 Unilateral primary osteoarthritis, left knee | CPT/HCPCS: 20610; J1010 ==

== ENCOUNTER 2025-03-13 18:57 | Outpatient (REF) | payer MEDICARE, SELFPAY ==
[2025-03-13 17:12] LABS: Calculated LDL 133 mg/dL (<100); Cholesterol 228 mg/dL (<200); HDL Cholesterol 81 mg/dL (>or=50); TSH (W/Ref FT4) 0.69 uIU/mL (0.36-3.74); Triglyceride 73 mg/dL (<150)
== END 2025-03-13 18:58 | disposition home or self-care (01) ==
LOC: NCHCN 18:57
PROVIDERS: PCP Family Medicine; Visit Provider Family Medicine
DX: E03.9 Hypothyroidism, unspecified (principal)
CPT/HCPCS: 80061; 84443

== ENCOUNTER 2025-03-29 03:15 | Outpatient (CLI) | payer MEDICARE, SELFPAY ==
--- NOTE | 2025-03-29 14:09 | DI.MAMMO_ITS ---
Exam(s) MAMMO SCREENING EXAM: MAMMO SCREENING CLINICAL HISTORY: SCREENING MAMMO Z12.31 TECHNIQUE: Bilateral full field digital CC and MLO mammographic images were obtained with 3D tomosynthesis and utilizing computer aided detection (CAD). COMPARISON: Comparison is made with prior examinations. FINDINGS: Masses/Architectural Distortion: No suspicious masses or areas of architectural distortion are present. There is an asymmetric density in the retroareolar region of the left breast on the MLO view. It measures approximately 7 mm. There is an asymmetric density on the left CC view centrally 4 cm from the nipple. Microcalcifications: No suspicious pleomorphic-type are seen. Skin Thickening/Nipple Retraction: None. IMPRESSION: 1. Areas of asymmetry in the left breast. These area should be further evaluated with spot compression view. 2. Ultrasound may be indicated at that time. BI-RADS Category 0 - Incomplete: Need additional imaging evaluation Breast Density - Category B - There are scattered areas of fibroglandular density. Breast density Category C or D implies that the patient has dense breast tissue. Dense breast tissue can make it harder to find cancer on a mammogram. Dense breast tissue is also associated with an increased risk of breast cancer. This information about the result of the mammogram report was provided to the patient to raise their awareness. Use this report when you speak with the patient about their risks for breast cancer, which includes their family history. At that time, you may recommend additional screening tests (Ultrasound or MRI) as these tests may add significant information. A negative radiographic report should not delay biopsy if a dominant or clinically suspicious mass is present. Up to ten percent of cancers are not identified on mammography. A negative report may reinforce clinical impression. Adenosis and dense breasts may obscure an underlying neoplasm. False positive reports average 6 to 10%. Patient will receive a letter notifying them of these results.
== END 2025-03-29 03:35 ==
LOC: DI 03:15
PROVIDERS: PCP Family Medicine; Visit Provider Family Medicine
DX: Z12.31 Encounter for screening mammogram for malignant neoplasm of breast (principal); R92.323 Mammographic fibroglandular density, bilateral breasts
CPT/HCPCS: 77063; 77067

== ENCOUNTER 2025-04-09 02:32 | Outpatient (CLI) | payer MEDICARE, SELFPAY ==
--- NOTE | 2025-04-09 | DI.MAMMO_ITS ---
Exam(s) MAMMO SCREEN CALL BACK UNI US BREAST LT COMPLETE EXAM: MAMMO SCREEN CALL BACK UNI LEFT AND COMPLETE LEFT BREAST ULTRASOUND CLINICAL HISTORY: Areas of asymmetric density in left breast. TECHNIQUE: Unilateral LEFT BREAST spot mammographic images obtained with 3D tomosynthesisand utilizing computer aided detection (CAD). . Complete LEFT breast Ultrasound was also performed, including all 4 quadrants, the retroareolar region, and the ipsilateral axilla. COMPARISON: Prior mammograms were reviewed. This additional imaging was performed due to findings described on the recent screening mammogram of 03/29/2025. FINDINGS: DIAGNOSTIC MAMMOGRAM: Additional mammographic views performed todayare critical for the presence of nodules. We proceeded with breast ultrasound COMPLETE LEFT BREAST ULTRASOUND: Ultrasound performed today reveals a finding in the retroareolar region which measures approximately 6 x 3 mm and has appearance of benign intramammary lymph node. This may or may not correspond to the finding described on the mammogram. Other possibly is at it is a millimeter wide duct with some inspissated material therein. There are no other focal findings in all 4 quadrants of the left breast. Scanning of the ipsilateral axilla reveals no significant adenopathy. IMPRESSION: 1. Left breast retroareolar region finding on ultrasound as described above which may or may not correspond to the finding on the recent mammogram of 03/29/2025. 2. Appropriate follow-up is repeat left breast imaging in 6 months, this to include repeat left breast mammogram and ultrasound. Earlier imaging would be recommended if there is a self detected breast change noted. The patient was informed of these findings and recommendations by myself prior to leaving the department today. BI-RADS Category 3 - 6 month - Probably Benign Finding: Recommend follow-up mammography in 6 months Breast Density - Category C - The breast are heterogeneously dense, which may obscure small masses. Breast density Category C or D implies that the patient has dense breast tissue. Dense breast tissue can make it harder to find cancer on a mammogram. Dense breast tissue is also associated with an increased risk of breast cancer. This information about the result of the mammogram report was provided to the patient to raise their awareness. Use this report when you speak with the patient about their risks for breast cancer, which includes their family history. At that time, you may recommend additional screening tests (Ultrasound or MRI) as these tests may add significant information. A negative radiographic report should not delay biopsy if a dominant or clinically suspicious mass is present. Up to ten percent of cancers are not identified on mammography. A negative report may reinforce clinical impression. Adenosis and dense breasts may obscure an underlying neoplasm. False positive reports average 6 to 10%. Patient will receive a letter notifying them of these results.
== END 2025-04-09 02:52 ==
LOC: DI 02:32
PROVIDERS: PCP Family Medicine; Visit Provider Family Medicine
DX: Z12.31 Encounter for screening mammogram for malignant neoplasm of breast (principal); R92.8 Other abnormal and inconclusive findings on diagnostic imaging of breast
CPT/HCPCS: 76642; 77063; 77067

== ENCOUNTER 2025-07-17 09:42 | Emergency (ER) | payer MEDICARE, SELFPAY ==
[2025-07-17 09:48] VITALS: BP 146/78; PULSE 51; RESP 16; TEMP 35.8; O2SAT 98
--- NOTE | 2025-07-17 10:06 | ED.GENADUL_ITS ---
Discharge Plan Disposition Patient Disposition: Home Condition: Stable Discharge Details Clinical Impression: Nausea Primary Care Provider: Lacy Barajas ED Provider: Neelam Petersen Home Meds and New Rx's Prescriptions: Continued calcium carbonate [Calcium 500] 500 mg calcium (1,250 mg) tablet,chewable 1,000 mg PO DAILY diclofenac sodium 1 % gel 2 g topical BID Rx Instructions: apply to single elbow, wrist or hand; for hand includes palm/fingers/back of hand potassium gluconate 595 mg (99 mg) tablet 595 mg PO DAILY Metamucil 3.4 gram/5.4 gram powder 1 tbsp PO DAILY Rx Instructions: mix into at least 8 oz of water or juice before administering ipratropium bromide 42 mcg (0.06 %) spray,non-aerosol 2 spray intranasal TID 7 Days Qty: 15 0RF Rx Instructions: administer into each nostril azithromycin 250 mg tablet See Rx Instructions PO .COMPLEX Qty: 6 0RF Rx Instructions: For 250 mg dose pack: take 500 mg today (day 1), then 250 mg for 4 days (days 2-5) PO take with food benzonatate 200 mg capsule 200 mg PO TID Qty: 30 0RF amlodipine 5 MG tablet 5 mg PO DAILY levothyroxine [Synthroid] 50 MCG tablet 50 mcg PO QAM multivitamin 1 EACH capsule 1 tab PO QPM acetaminophen 500 mg tablet 500 mg PO Q6H PRN (Reason: pain) Qty: 60 2RF ibuprofen 600 mg tablet 600 mg PO TID PRN (Reason: pain) Qty: 60 0RF betamethasone dipropionate 0.05 % cream 1 applic TOPICAL DAILY PRN Patient Comments: APPLY A THIN LAYER TO PRURITUS ON LOWER SHINS TWO TIMES A DAY Probiotic 15 billion cell capsule, sprinkle 1 cap PO DAILY Rx Instructions: do not crush/chew/cut; swallow whole OR may open and sprinkle in cold drink/food Discharge Instructions Instructions: Nausea and Vomiting, Adult ED Additional Instructions: No evidence of low potassium on your labs today. Your magnesium and potassium are all within normal limits. No evidence of urinary tract infection. Follow up with primary care provider in 3-5 days. Return to ED sooner if any worsening or concerns. Please take Tylenol or Ibuprofen with food every 4-6 hours as needed for pain and swelling. Please take the nausea medications as directed 20 to 30 minutes prior to eating or drinking anything. Stand Alone Forms: Portal Information Referrals: Lacy Barajas [Primary Care Provider, Medicine] - 1 week Referral Note: ER follow-up, call for an appointment HPI General Mode of arrival: ambulatory . Date/Time Provider Initiated Documentation: 07/17/25 09:54 . Limitations to Documentation: no limitations . Information obtained by: patient, RN notes reviewed and old records reviewed . HPI Narrative: 74-year-old female presents to the ER with a chief complaint nausea lower back pain weakness and fatigue. She was diagnosed on 1030 with hypokalemia due to IBS and diarrhea which is chronic for her. She was seen at that time at [facility]. Recently she was seen at [facility] for bronchitis and started on a Z-Geovanny. She is currently on the third day of that treatment. She reports that her cough has improved. She is still having loose stools denies any abdominal pain. At the moment she reports her nausea is better. However she is concerned that her potassium may be low again. Related Data Home Medications ?Medication ?Instructions ?Recorded ?Confirmed levothyroxine 50 mcg tablet 50 mcg PO QAM 03/24/14 (Synthroid) multivitamin 1 tab PO QPM 03/24/14 amlodipine 5 mg tablet 5 mg PO DAILY 07/05/1707/14 acetaminophen 500 mg tablet 500 mg PO Q6H PRN pain #60 tabs 09/08/22 07/14/25 ibuprofen 600 mg tablet 600 mg PO TID PRN pain #60 t abs 09/08/22 07/14/25 calcium carbonate (Calcium 500) 1,000 mg PO DAILY 11/1207/14/25 diclofenac sodium 1 % topical gel 2 g topical BID 11/1207/14/25 potassium gluconate 595 mg (99 mg) 595 mg PO DAILY 11/1207/14/25 tablet betamethasone dipropionate 0.05 % 1 applic topical NORAH LY PRN 05/08/24 07/14/25 topical cream lactobacillus combo no.11 15 1 cap PO DAILY 05/08/24 1 09/13/24 billion cell sprinkle capsule (Probiotic) azithromycin 250 mg tablet See Rx Instructions PO .COM PLEX #6 07/14/25 07/14/25 tabs benzonatate 200 mg capsule 200 mg PO TID #30 caps 06/2407/14/25 ipratropium bromide 42 mcg (0.06 2 spray intranasal TI D 7 days #15 07/14/25 07/14/25 %) nasal spray mL psyllium husk 3.4 gram/5.4 gram 1 tbsp PO DAILY 07/14/25 oral powder (Metamucil) Previous Rx's ?Medication ?Instructions ?Recorded acetaminophen 500 mg tablet 500 mg PO Q6H PRN pain #60 tabs 09/08/22 ibuprofen 600 mg tablet 600 mg PO TID PRN pain #60 t abs 09/08/22 azithromycin 250 mg tablet See Rx Instructions PO .COM PLEX #6 07/14/25 tabs benzonatate 200 mg capsule 200 mg PO TID #30 caps 06/24 10/17 ipratropium bromide 42 mcg (0.06 2 spray intranasal TI D 7 days #15 07/14/25 %) nasal spray mL Allergies Allergy/AdvReac Type Severity Reaction Status Date / Time No Known Allergies Allergy Verified 07/14/25 09:48 General Stated Complaint: Nausea/Vomit/Diar ANUP: 3 Review of Systems All systems reviewed & are unremarkable except as noted in HPI and below Constitutional Constitutional: Reports as per HPI, Reports fatigue, Reports lethargy and Reports weakness Gastrointestinal Gastrointestinal: Reports loose stools and Reports nausea Musculoskeletal Musculoskeletal: Reports back pain Neurologic Neurologic: Reports weakness Endocrine Endocrine: Reports fatigue Exam Narrative Exam Narrative: Constitutional: Alert and oriented x3. Appears stated age. Normal body habitus. Head: Normocephalic, no trauma. Eyes: Pupils PERRL, Red reflex noted, EOM's intact. Eyelids symmetrical without lesions, discharge, or swelling. ENT: Bilateral TM's WNL, External ear normal to inspection, no mastoid TTP, swelling, or erythema, Nasal turbinates WNL, no nasal discharge. Normal dentitio n, Posterior pharynx WNL, no exudate. Chest: RRR, Normal S1, S2, distal pulses intact. Resp: Lungs clear to auscultation bilaterally, no wheezes, rales, or rhonchi. Abdomen: Soft, non-distended, Normoactive bowel sounds all 4 quads. Musculoskeletal: Normal gait, Moves all 4 extremities without difficulty. Skin: No suspicious rashes or lesions. Capillary refill less than 2 sec. Neurologic: Cranial nerves II-XII intact. Alert and oriented x 3. Motor: No deficits noted. Sensory: Intact bilaterally all 4 extremities. Hematologic/Lymphatic: No ecchymosis, no lymphadenopathy. Course Vital Signs Vital signs: Vital Signs Temperature 35.8 C L 07/17/25 09:48 Pulse 51 L 07/17/25 09:48 Respiratory Rate 16 07/17/25 09:48 Blood Pressure 146/78 H 07/17/25 09:48 Pulse Oximetry 98 07/17/25 09:48 Temperature 35.8 C L 07/17/25 09:48 Temperature Source Oral 07/17/25 09:48 Pulse 51 L 07/17/25 09:48 Respiratory Rate 16 07/17/25 09:48 Blood Pressure 146/78 H 07/17/25 09:48 Pulse Oximetry 98 07/17/25 09:48 Oxygen Delivery Method Room Air 07/17/25 09:48 Oxygen Flow Rate 0 07/17/25 09:48 Medical Decision Making 74-year-old female presents to the ER with a chief complaint nausea lower back pain weakness and fatigue. She was diagnosed on 1030 with hypokalemia due to IBS and diarrhea which is chronic for her. She was seen at that time at [facility]. Recently she was seen at [facility] for bronchitis and started on a Z-Geovanny. She is currently on the third day of that treatment. She reports that her cough has improved. She is still having loose stools denies any abdominal pain. At the moment she reports her nausea is better. However she is concerned that her potassium may be low again. Workup ordered including CBC CMP urinalysis magnesium No leukocytosis, sodium is 138 potassium 3.8, magnesium is 2.1, urinalysis within normal limits. Patient given Zofran ODT tablets to go. Labs are WNL, No evidence of hypokalemia, no UTI. Will DC home with follow up with PCP. This text was generated using [employer] system, please disregard any oddities of phrase or misspellings. Lab Data Lab results reviewed: Yes I reviewed the patient's lab results. Labs: Laboratory Tests Range/Units 07/17/25 07/17/25 10:20 11:06 WBC (4.4-10.8) 10^3/uL 6.43 RBC (3.93-5.22) 10^6/uL 4.39 Hgb (11.2-15.7) g/dL 12.9 Hct (36.0-46.0) % 38.2 MCV (80-95) fL 87 MCH (27.0-33.0) pg 29.4 MCHC (32.0-36.0) % 33.8 RDW (11.7-14.6) % 13.1 Plt Count (130-400) 10^3/uL 305 MPV (8.0-11.0) fL 9.0 Immature Gran % % 0.2 Neutrophils % % 54.8 Lymphocytes % % 29.1 Monocytes % % 12.8 Eosinophils % % 2.2 Basophils % % 0.9 Nucleated RBC % (0.0-0.3) % 0.0 Absolute Neutrophils (1.2-6.7) 10^3/uL 3.53 Absolute Lymphocytes (1.2-3.4) 10^3/uL 1.87 Absolute Monocytes (0.1-0.8) 10^3/uL 0.82 H Absolute Eosinophils (0.0-0.7) 10^3/uL 0.14 Absolute Basophils (0.0-0.2) 10^3/uL 0.06 Sodium (136-145) mmol/L 138 Potassium (3.5-5.1) mmol/L 3.8 Chloride (98-107) mmol/L 100 Carbon Dioxide (20.0-31.0) mmol/L 30.3 Anion Gap (3-11) mmol/L 7.7 BUN (9-23) mg/dL 13 Creatinine (0.55-1.02) mg/dL 0.58 Est GFR (CKD-EPI 2020) (mL/min/1.73m2) 101.35 Glucose (74-106) mg/dL 95 Calcium (8.3-10.6) mg/dL 9.0 Magnesium (1.6-2.6) mg/dL 2.1 Total Bilirubin (0.2-1.2) mg/dL 0.70 AST (<34) U/L 33 ALT (10-49) U/L 25 Alkaline Phosphatase (46-116) U/L 102 Total Protein (5.7-8.2) g/dL 7.2 Albumin (3.4-5.0) g/dL 4.4 Urine Color (Yellow) Yellow Urine Clarity (Clear) Clear Urine pH (5-8) 7.0 Ur Specific [place] (1.005-1.025) 1.010 Urine Protein (Neg-Trace) mg/dL Negative Urine Ketones (Negative) mg/dL Negative Urine Blood (Negative) Negative Urine Nitrite (Negative) Negative Urine Bilirubin (Negative) Negative Urine Urobilinogen (Up to 0.2) mg/dL 0.2 Ur Leukocyte Esterase (Negative) Negative Urine Glucose (Negative) mg/dL Negative PFSH All Active Problems (Updated 07/17/25 @ 12:37 by Neelam Petersen NP) Nausea (Acute) Arthritis of knee, left (Acute) Pain of right calf (Acute) Arthritis of left hand (Acute) 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 (Acute) Injury of digital nerve of left thumb, initial encounter (Acute) Encounter for screening colonoscopy (Acute) Hallux rigidus of left foot (Acute) Anxiety disorder (Acute) IBS (irritable bowel syndrome) (Chronic) Left lower lobe pulmonary nodule (Acute) ROLANDO (obstructive sleep apnea) (Chronic) Hyperlipidemia, unspecified (Acute) Hypothyroidism (Chronic) HTN (hypertension) (Chronic) Pain of left patella (Acute) Likely patella maltracking Right foot pain (Chronic) Ganglion cyst of volar aspect of right wrist (Chronic) Internal derangement of left knee (Acute) DEPO 06/18/22; 11/30/22; 12/11/24 Pes anserinus bursitis of left knee (Acute) Depo-Medrol injection: 10/28/2020 Trochanteric bursitis, left hip (Acute) Medical History Former smoker quit age 20 1 pk yr Insomnia, unspecified Female stress incontinence Arthritis of finger Nocturnal leg cramps History of basal cell cancer Frequency of urination Dysphagia COVID-19 covid positive 08/13 PONV (postoperative nausea and vomiting) Surgical History Tubal Ligation, Laparoscopic Colonoscopy - MAC (07/19/17) Family History Father , age 51 Lung cancer Mother , age 69 Hypertension Heart disease CHF (congestive heart failure) Sister , age 50 Liver cancer Colon cancer Paternal Grandmother No problems noted. Aunt Colon cancer Paternal Grandmother Stomach cancer Paternal Uncle Bone cancer Paternal Aunt Cancer uterine/ovarian Social History Smoking/Tobacco Use Status: Former Tobacco Use Quit Date: 08/23/97 Smoking risk assessment performed?: Yes Alcohol Intake: current Alcohol Intake frequency: a few times a week Alcohol type: wine Drug use: Never Substance use type: does not use Housing: house Current gender identity: female Do you feel safe at home: Yes Do you feel safe in your relationship?: Yes
[2025-07-17 10:29] LABS: Abs Immature Grans 0.01 10^3/uL (0.0-0.06); HCT 38.2 % (36.0-46.0); HGB 12.9 g/dL (11.2-15.7); Immature Grans % 0.2 %; MCH 29.4 pg (27.0-33.0); MCHC 33.8 % (32.0-36.0); MCV 87 fL (80-95); MPV 9.0 fL (8.0-11.0); Platelet Count 305 10^3/uL (130-400); RBC 4.39 10^6/uL (3.93-5.22); RDW 13.1 % (11.7-14.6); RDW-SD 41.9 fL; WBC 6.43 10^3/uL (4.4-10.8)
[2025-07-17 10:50] LABS: Magnesium 2.1 mg/dL (1.6-2.6)
[2025-07-17 10:51] LABS: ALT 25 U/L (10-49); AST 33 U/L (<34); Albumin 4.4 g/dL (3.4-5.0); Alkaline Phosphatase 102 U/L (46-116); Anion Gap 7.7 mmol/L (3-11); BUN 13 mg/dL (9-23); Bilirubin, Total 0.70 mg/dL (0.2-1.2); CO2 30.3 mmol/L (20.0-31.0); Calcium 9.0 mg/dL (8.3-10.6); Chloride 100 mmol/L (98-107); Glucose 95 mg/dL (74-106); Potassium 3.8 mmol/L (3.5-5.1); Sodium 138 mmol/L (136-145); Total Protein 7.2 g/dL (5.7-8.2)
[2025-07-17 11:20] LABS: Glucose Negative (Negative)
[2025-07-17 12:59] VITALS: BP 131/73; PULSE 81; RESP 16; TEMP 36.9; O2SAT 97
== END 2025-07-17 13:00 | disposition home or self-care (01) ==
PROVIDERS: Emergency Provider Registered Nurse Emergency; PCP Family Medicine
DX: M54.50 Low back pain, unspecified (principal); R11.0 Nausea; R53.83 Other fatigue; R53.1 Weakness
CPT/HCPCS: 99283 ×2; 80053; 81003; 83735; 85025